=== PATIENT | male | born 1970 | race Caucasian/White ===

== ENCOUNTER → 2018-06-01 15:56 | Outpatient (CLI) | payer OTHER, SELFPAY ==
[2018-06-01 18:03] LABS: AST(SGOT) 42 U/L (15-37); Alanine Aminotransfer ALT/SGPT 68 U/L (16-61); Anion Gap 11 (5-15); BUN 20 mg/dL (7-18); BUN/Creat Ratio 22.6 RATIO (10-20); Calcium,Total 9.1 mg/dL (8.5-10.1); Chloride 107 mmol/L (98-107); Cholesterol 167 mg/dL (200); Creatinine, Serum 0.88 mg/dL (0.70-1.30); EST Glomerular Filtration Rate 99 mL/min (>60); Est Glom Filt Rate - Afr Amer 119 mL/min (>60); Glucose 85 mg/dL (74-106); High Density Lipoprotein 54 mg/dL; Potassium 3.9 mmol/L (3.5-5.1); Sodium Level 141 mmol/L (136-145); Triglycerides 173 mg/dL; Very Low Density Lipoprotein 35 mg/dL (5-40)
== END ==
PROVIDERS: Family Provider Family Medicine; PCP Family Medicine; Visit Provider Family Medicine
DX: I10 Essential (primary) hypertension (principal); E78.5 Hyperlipidemia, unspecified
CPT/HCPCS: 36415; 80048; 80061; 84450; 84460

== ENCOUNTER → 2019-06-15 | Outpatient (CLI) | payer OTHER, SELFPAY ==
[2017-08-02 13:56] VITALS: BMI 28.7
[2019-06-15 18:09] LABS: Anion Gap 8 (5-15); BUN 22 mg/dL (7-18); BUN/Creat Ratio 22.3 RATIO (10-20); Calcium,Total 9.2 mg/dL (8.5-10.1); Chloride 108 mmol/L (98-107); Cholesterol 282 mg/dL (200); Creatinine, Serum 0.99 mg/dL (0.70-1.30); EST Glomerular Filtration Rate 86 mL/min (>60); Est Glom Filt Rate - Afr Amer 105 mL/min (>60); Glucose 95 mg/dL (74-106); High Density Lipoprotein 55 mg/dL; Potassium 4.4 mmol/L (3.5-5.1); Sodium Level 138 mmol/L (136-145); Triglycerides 398 mg/dL; Very Low Density Lipoprotein 80 mg/dL (5-40)
== END | disposition home or self-care (01) ==
LOC: MFPLAB 16:31
PROVIDERS: Family Provider Family Medicine; PCP Family Medicine; Referring Provider Family Medicine; Visit Provider Family Medicine
DX: I10 Essential (primary) hypertension (principal)
CPT/HCPCS: 36415; 80048; 80061

== ENCOUNTER → 2020-06-07 16:56 | Outpatient (CLI) | payer OTHER, SELFPAY ==
[2017-08-02 13:56] VITALS: BMI 28.7
[2020-06-07 18:19] LABS: AST(SGOT) 86 U/L (15-37); Alanine Aminotransfer ALT/SGPT 115 U/L (16-61); Anion Gap 6 (5-15); BUN 19 mg/dL (7-18); BUN/Creat Ratio 21.6 RATIO (10-20); Calcium,Total 9.1 mg/dL (8.5-10.1); Chloride 108 mmol/L (98-107); Cholesterol 189 mg/dL (200); Creatinine, Serum 0.88 mg/dL (0.70-1.30); EST Glomerular Filtration Rate 98 mL/min (>60); Est Glom Filt Rate - Afr Amer 119 mL/min (>60); Glucose 84 mg/dL (74-106); High Density Lipoprotein 61 mg/dL; Potassium 3.9 mmol/L (3.5-5.1); Sodium Level 138 mmol/L (136-145); Triglycerides 295 mg/dL; Very Low Density Lipoprotein 59 mg/dL (5-40)
== END ==
PROVIDERS: PCP Family Medicine; Referring Provider Family Medicine; Visit Provider Family Medicine
DX: I10 Essential (primary) hypertension (principal); E78.00 Pure hypercholesterolemia, unspecified
CPT/HCPCS: 36415; 80048; 80061; 84450; 84460

== ENCOUNTER → 2021-06-20 13:35 | Outpatient (CLI) | payer OTHER, SELFPAY ==
[2021-06-20 16:15] LABS: AST(SGOT) 111 U/L (15-37); Alanine Aminotransfer ALT/SGPT 125 U/L (16-61); Anion Gap 9 (5-15); BUN 13 mg/dL (7-18); BUN/Creat Ratio 14.4 RATIO (10-20); Calcium,Total 8.9 mg/dL (8.5-10.1); Chloride 104 mmol/L (98-107); Cholesterol 176 mg/dL (200); EST Glomerular Filtration Rate 95 mL/min (>60); Est Glom Filt Rate - Afr Amer 115 mL/min (>60); Glucose 225 mg/dL (74-106); High Density Lipoprotein 49 mg/dL; Potassium 3.5 mmol/L (3.5-5.1); Sodium Level 136 mmol/L (136-145); Triglycerides 349 mg/dL; Very Low Density Lipoprotein 70 mg/dL (5-40)
== END ==
PROVIDERS: PCP Family Medicine; Referring Provider Family Medicine; Visit Provider Family Medicine
DX: I10 Essential (primary) hypertension (principal); E78.00 Pure hypercholesterolemia, unspecified
CPT/HCPCS: 36415; 80048; 80061; 84450; 84460

== ENCOUNTER 2021-12-10 | Emergency (ER) | payer OTHER, SELFPAY ==
[2021-12-10 00:04] VITALS: BP 164/108; PULSE 76; RESP 16; TEMP 36.4; O2SAT 98; BMI 29.5
--- NOTE | 2021-12-10 00:35 | EX.ED.VIS.EY ---
HPI History of Present Illness Chief Complaint: Eye Problem Narrative Narrative: 51-year-old male presenting with right eye tearing and blurring of vision. Patient states he was out hunting today and a piece of grass poked him in the eye. His eye watering since then. He is a noncontact wearer. He does have history of foreign body in his eye previously and states he had to get a metal foreign body and a rust ring removed. This was distantly. PFSH PFSH Home Medications carvedilol 25 mg PO BID 08/02/17 [History Last Taken Unknown] lisinopril [Zestril] 40 mg PO DAILY 08/02/17 [History Last Taken Unknown] erythromycin 0.5 inch EACH EYE Q6H 5 Days #3.5 g 12/10/21 [Rx Last Taken Unknown] ketorolac 1 drp EACH EYE Q8H PRN #5 ml 12/10/21 [Rx Last Taken Unknown] simvastatin 40 mg PO DAILY 12/10/21 [History Last Taken Unknown] Allergy/AdvReac Type Severity Reaction Status Date / Time No Known Allergies Allergy Verified 12/10/21 00:01 Social History Smoking Status: Former smoker ROS ROS ED Constitutional Constitutional ED: Denies chills or fever(s) Eyes Eyes: Reports blurry vision right ENT ENT ED: Denies ear pain or rhinorrhea Cardiovascular Cardiovascular: Denies chest pain or palpitations Respiratory/Chest Respiratory/Chest: Denies cough or dyspnea Gastrointestinal Gastrointestinal: Denies abdominal pain or nausea Genitourinary Genitourinary ED: Denies dysuria or hematuria Musculoskeletal Musculoskeletal: Denies arthralgias or myalgias Integumentary Denies Abrasions or rash Neurologic Neurologic: Denies headache(s) or paresthesias EXAM Physical Exam Const Vital Signs: 12/10/21 00:04 Temperature 97.5 F L Temperature Source Temporal Pulse Rate 76 Respiratory Rate 16 Blood Pressure 164/108 H Blood Pressure Mean 126 Pulse Ox 98 Oxygen Delivery Method Room Air Positive well nourished General Appearance ED: NAD HEENT atraumatic Eyes General Eye ED: Yes normal light reflex Eyelid: eyelids normal Conjunctiva: conjunctiva abnormal bilateral injection diffuse Sclera: sclera abnormal Positive for bilateral Details: scleral injection Cornea: cornea abnormal Positive for right Cornea - Right Eye: Positive for abrasion Positive for at clock position (5) and fluorescein used Pupil: PERRL and accommodation reflex normal Cardio regular rate and regular rhythm Neuro oriented x3 Sensorium / Orientation: alert Skin Rashes: no rashes MDM MDM MDM Narrative Medical decision making narrative: Patient has corneal abrasion at the 5 o'clock position of the right eye. This is affecting his vision however after tetracaine was instilled he states his vision had improved. Some of this is due to watering. Patient is a noncontact wearer who was started on erythromycin ophthalmic. He is also given ketorolac eyedrops. He will follow-up with ophthalmology to ensure resolution. No foreign bodies were noted in the patient's eye. Impression: 1. corneal abrasion Discharge Plan Triage Chief Complaint: Eye Problem ED Provider: Grant Rodgers Dx/Rx/DC Orders Instructions: ED Corneal Abrasion Prescriptions: New erythromycin 5 mg/gram (0.5 %) ointment 0.5 inch EACH EYE Q6H 5 Days Qty: 3.5 RF: 1 ketorolac 0.5 % drops 1 drp EACH EYE Q8H PRN (Reason: pain) Qty: 5 RF: 0 No Action carvedilol 25 MG tablet 25 mg PO BID RF: 0 lisinopril [Zestril] 40 MG tablet 40 mg PO DAILY RF: 0 simvastatin 40 mg tablet 40 mg PO DAILY RF: 0 Primary Care Provider: Nicki Luis Referrals: Nicki Luis MD [Primary Care Provider] - Daljit Romero MD [STAFF PHYSICIAN] - 3-5 Days if not improving Disposition Disposition: Home, Self Care
[2021-12-10] MEDS: Erythromycin Base 1 OPTH.TUBE 1 APPLIC RIGHT EYE (01:01)
[2021-12-10] MEDS: Tetracaine 0.5% Ophthalmic Bottle 1 DRP RIGHT EYE (01:08)
[2021-12-10] MEDS: Fluorescein 1 MG STRIP 1 STRIP RIGHT EYE (01:10)
== END 2021-12-10 01:11 | disposition home or self-care (01) ==
LOC: ED 00:36
PROVIDERS: Emergency Provider Student in an Organized Health Care Education/Training Program; PCP Family Medicine; Visit Provider Student in an Organized Health Care Education/Training Program
DX: S05.00XA Injury of conjunctiva and corneal abrasion without foreign body, unspecified eye, initial encounter (principal); W25.XXXA Contact with sharp glass, initial encounter; Y93.9 Activity, unspecified; Y92.9 Unspecified place or not applicable; Z87.891 Personal history of nicotine dependence
CPT/HCPCS: 99282

== ENCOUNTER → 2022-07-03 | Outpatient (CLI) | payer OTHER, SELFPAY ==
[2022-07-03 18:28] LABS: Anion Gap 11 (5-15); BUN 19 mg/dL (7-18); BUN/Creat Ratio 21.6 RATIO (10-20); Calcium,Total 9.4 mg/dL (8.5-10.1); Chloride 107 mmol/L (98-107); Cholesterol 164 mg/dL (200); Creatinine, Serum 0.88 mg/dL (0.70-1.30); EST Glomerular Filtration Rate 98 mL/min (>60); Est Glom Filt Rate - Afr Amer 118 mL/min (>60); Glucose 86 mg/dL (74-106); High Density Lipoprotein 52 mg/dL; Potassium 4.6 mmol/L (3.5-5.1); Sodium Level 139 mmol/L (136-145); Triglycerides 181 mg/dL; Very Low Density Lipoprotein 36 mg/dL (5-40)
== END | disposition home or self-care (01) ==
LOC: MFPLAB 17:01
PROVIDERS: PCP Family Medicine; Referring Provider Family Medicine; Visit Provider Family Medicine
DX: Z00.00 Encounter for general adult medical examination without abnormal findings (principal); I10 Essential (primary) hypertension; R73.03 Prediabetes
CPT/HCPCS: 36415; 80048; 80061; 84153; G0103

== ENCOUNTER 2022-12-15 11:02 | Emergency (ER) | payer OTHER, SELFPAY ==
[2022-12-15 11:03] VITALS: BP 131/102; PULSE 85; RESP 14; TEMP 36.1; O2SAT 98; BMI 29.0
--- NOTE | 2022-12-15 11:21 | EDS_ITS ---
HPI History of Present Illness Chief Complaint: Back Onset/Context/Timing Onset: Days (5) Context: Gradual Onset Timing: Continuous Quality: Sharp, Aching and Burning Location: Lumbar and Right Leg Maximum Severity: Severe Worsened by: improves with - (Certain movements and positions) Relieved by: - (Stretching exercises) Associated Symptoms Associated Symptoms: Numbness, Tingling and Radiation to Right Leg; Negative for Radiation to Left Leg, Fever, Abdominal Pain, Dysuria, Unable to Ambulate, Unable to Transfer, Urinary Retention, Urinary Incontinence, Constipation or Fecal Incontinence Narrative Narrative: Patient presents with back pain that has been getting worse over the last 5 days. Patient states it is in the right side of his low back. Patient states it radiates into his right inguinal area and down the anterior medial aspect of his right thigh. Patient states it has been constant. Patient describes it as sharp, aching, and burning. Patient states that it feels better after doing some stretching exercises. Patient states it is worse with certain movements. Patient does admit to some numbness and tingling in the anterior medial aspect of his right thigh. Patient denies any fevers or chills. Patient denies any abdominal pain. Patient denies any dysuria or hematuria. Patient denies any incontinence of urine or stool. Patient denies any saddle anesthesia. Patient denies any pain on the left side. [facility] Medical History (Updated 12/15/22 @ 14:[address] Ollie Ko, ) Hyperlipidemia Hypertension Psoriasis Home Medications carvedilol 25 mg tablet 25 mg PO BID BLOOD PRESSURE 08/02/17 [History Last Taken Unknown] lisinopril 40 mg tablet (Zestril) 40 mg PO DAILY BLOOD PRESSURE 08/02/17 [History Last Taken Unknown] erythromycin 5 mg/gram (0.5 %) eye ointment 0.5 inch EACH EYE Q6H 5 days #3.5 grams 12/10/21 [Rx Last Taken Unknown] ketorolac 0.5 % eye drops 1 drp EACH EYE Q8H PRN pain #5 mL 12/10/21 [Rx Last Taken Unknown] simvastatin 40 mg tablet 40 mg PO DAILY 12/10/21 [History Last Taken Unknown] hydrocodone-acetaminophen 5-325mg 5mg-325mg 1 tab PO Q6H PRN PRN Pain 3 days #10 TABLETS 12/15/22 [Rx Last Taken Unknown] prednisone 20 mg tablet 60 mg PO DAILY #15 TABLETS 12/15/22 [Rx Last Taken Unknown] Allergy/AdvReac Type Severity Reaction Status Date / Time No Known Allergies Allergy Verified 12/15/22 11:03 Surgical History no surgical history no surgical history Social History Smoking Status: Former smoker ROS ROS ED Constitutional Constitutional ED: Denies chills or fever(s) Eyes Eyes: Denies blurry vision or change in vision ENT ENT ED: Denies rhinorrhea or sore throat Cardiovascular Cardiovascular: Denies chest pain or palpitations Respiratory/Chest Respiratory/Chest: Denies cough or dyspnea Gastrointestinal Gastrointestinal: Denies nausea or vomiting Genitourinary Genitourinary ED: Denies dysuria or hematuria Musculoskeletal Musculoskeletal: Reports back pain; Denies neck pain Integumentary Denies abscess or rash Neurologic Neurologic: Denies headache(s) or weakness Allergic/Immunologic Allergic/Immunologic ED: Denies mouth swelling or urticaria EXAM Physical Exam Const Vital Signs: 12/15/22 11:03 12/15/22 14:39 Temperature 97 F L Temperature Source Temporal Pulse Rate 85 71 Respiratory Rate 14 18 Blood Pressure 131/102 H 137/91 H Blood Pressure Mean 111 106 Pulse Ox 98 97 Oxygen Delivery Method Room Air Room Air Positive well nourished and well developed General Appearance ED: well developed and NAD HEENT Reports moist mucous membranes Neck supple and no JVD Resp normal respiratory effort and clear to auscultation bilaterally Cardio regular rate and regular rhythm GI normal to inspection, nondistended, normoactive bowel sounds, soft to palpation, non-tender, non-distended and no masses GI Narrative: There is no inguinal hernia noted. Back/Spine Back/Spine Narrative: There is mild tenderness over the right lumbar paraspinal muscles. There is no edema or ecchymosis. There is no bony crepitance or step-off. Range of motion was limited in all motions of the lumbar spine secondary to pain. Straight leg raises were negative bilaterally. Strength is 5/5 bilaterally in the lower extremities. There are no sensory deficits noted. Deep tendon reflexes are 2/4 bilaterally in the lower extremities. Patient was able ambulate without difficulty. Lumbar Spine / Lower Back: ROM limited and straight leg raise negative bilaterally Extremity normal to inspection General Extremety ED: Negative for edema or tenderness General Extremity: Negative for edema Neuro oriented x3 and no sensory deficits noted Sensorium / Orientation: alert Motor Exam: strength 5/5 throughout Deep Tendon Reflexes: Rt Patellar (L4): 2+, Lt Patellar (L4): 2+, Rt Ankle (S1): 2+ and Lt Ankle (S1): 2+ Deep Tendon Reflexes Back: Rt Patellar (L4): 2+, Lt Patellar (L4): 2+, Rt Ankle (S1): 2+ and Lt Ankle (S1): 2+ Psych mental status grossly normal MDM MDM MDM Narrative Medical decision making narrative: Patient was given injection of morphine here. Differential diagnosis includes muscle strain, lumbar radiculopathy, inguinal hernia, renal calculus, femoral hernia, and pyelonephritis, urinary tract infection. CBC will be obtained to assess for leukocytosis and anemia. Basic metabolic profile will be obtained to assess for renal function and electrolyte abnormality. Urinalysis will be obtained to assess for urinary tract infection and hematuria. CT scan of the abdomen pelvis will be obtained to assess for renal/ureteral calculus, and inguinal/femoral hernia, along with musculoskeletal abnormality. Lab Data Lab results narrative: CBC was reviewed and was within normal limits. Basic metabolic profile was reviewed and was within normal limits. Urinalysis was reviewed and was normal. Labs: Laboratory Results - last 24 hr 12/15/22 12/15/22 12/15/22 11:52 11:52 14:07 WBC 7.7 RBC 4.70 Hgb 15.7 Hct 46.8 MCV 99.6 H MCH 33.4 H MCHC 33.5 RDW Std Deviation 45.7 H RDW Coeff of Mitzy 12.6 Plt Count 212 MPV 10.9 Immature Gran % (Auto) 0.400 Neut % (Auto) 69.0 Lymph % (Auto) 17.9 L Mcculloch % (Auto) 9.3 Eos % (Auto) 3.1 Baso % (Auto) 0.3 Absolute Neuts (auto) 5.3 Absolute Lymphs (auto) 1.38 Nucleated RBC % 0 Sodium 142 Potassium 3.9 Chloride 109 H Carbon Dioxide 23.0 Anion Gap 10 BUN 12 Creatinine 0.91 Estim Creat Clear Calc 106.59 Est GFR (MDRD) Af Amer 113 Est GFR (MDRD) Non-Af 93 BUN/Creatinine Ratio 13.1 Glucose 132 H Calcium 9.4 Urine Color Yellow Urine Clarity Clear Urine pH 6.0 Ur Specific Homer 1.020 Urine Protein 100 H Urine Glucose (UA) Normal Urine Ketones 5 H Urine Occult Blood Negative Urine Nitrite Negative Urine Bilirubin Negative Urine Urobilinogen Normal Ur Leukocyte Esterase Negative Urine RBC 0 SEEN Urine WBC 0 SEEN Ur Squamous Epith Cells 0 SEEN Urine Bacteria 0 SEEN Urine Mucus 1+ Radiography Diagnostic Testing: Clinical Impression(s) from Imaging Studies Abdomen/Pelvis CT 12/15/22 11:29 IMPRESSION: 1. No acute abnormality or mass in the abdomen and pelvis. 2. Pronounced central canal stenosis at L3-L4 disc space level with an AP canal diameter of 4.6 mm secondary to posterior bulging annulus and developmentally short pedicles. 3. Moderate central canal stenosis at L4-L5 disc space level with an AP canal diameter 7.5 mm secondary to posterior bulging annulus and developmentally short pedicles. 4. Moderately pronounced stenosis of the bilateral L5-S1 intervertebral neural foramina and pronounced L5-S1 degenerative disc space height narrowing. Electronically Signed: Kemar Queasda MD at 12:38 EST , CT scan of the abdomen pelvis was obtained. On my independent review, there is no acute intra-abdominal abnormality. There is no ureteral calculus. Radiologist also interpreted the CT scan and noted some central canal stenosis at L3-L4, and L4-L5. There is also stenosis of the L5-S1 neuroforamina. Treatment and Re-Evaluation Narrative: Patient was still having some pain on reevaluation. Patient was advised of his findings. Patient was given a repeat dose of morphine. Patient was given a prescription for [place]. Patient was given a prescription for prednisone. Patient was instructed to use ice to his low back. Patient was given restrictions for work. Patient was instructed to follow-up with his primary care physician in 5 to 7 days. Patient understood and was agreeable with the plan. All questions were answered. Discharge Plan Triage Chief Complaint: Back ED Provider: Ollie Ko Dx/Rx/DC Orders Clinical Impression: Acute low back pain, Lumbar disc disease Instructions: ED Back Pain (Acute or Chronic), ED Degenerative Disk Disease Prescriptions: New hydrocodone-acetaminophen [hydrocodone-acetaminophen] 5-325 mg tablet 1 tab PO Q6H PRN PRN (Reason: Pain) 3 Days Qty: 10 0RF prednisone 20 mg tablet 60 mg PO DAILY Qty: 15 0RF No Action carvedilol 25 MG tablet 25 mg PO BID Label Comments: heart lisinopril [Zestril] 40 MG tablet 40 mg PO DAILY Label Comments: blood pressure/heart simvastatin 40 mg tablet 40 mg PO DAILY erythromycin 5 mg/gram (0.5 %) ointment 0.5 inch EACH EYE Q6H 5 Days Qty: 3.5 1RF ketorolac 0.5 % drops 1 drp EACH EYE Q8H PRN (Reason: pain) Qty: 5 0RF Rx Instructions: begin 24 hours prior to surgery Stand Alone Forms: Work Status Form Primary Care Provider: Nicki Luis Referrals: Nicki Luis MD [Primary Care Provider] - 3-5 Days Disposition Disposition: Home, Self Care
--- NOTE | 2022-12-15 11:29 | CT_ITS ---
EXAM: CT ABDOMEN AND PELVIS WITHOUT INTRAVENOUS CONTRAST CLINICAL INDICATION: Back and inguinal pain TECHNIQUE: Helically acquired images were obtained of the abdomen and pelvis without intravenous contrast. This CT exam was performed using one or more of the following dose reduction techniques: automated exposure control, adjustment of the mA and/or kV according to patient size, and/or use of iterative reconstruction technique. This report was created using [employer] report generation technology. RADIATION DOSE: CTDIvol = 16.71 mGy, DLP = 1010.45 mGy-cm COMPARISON: None. FINDINGS: LOWER THORAX: Unremarkable. Lung bases are clear. No cardiomegaly. No significant pericardial effusion. ABDOMEN: LIVER: Unremarkable. Homogeneous. GALLBLADDER AND BILE DUCTS: Unremarkable. No calcified gallstones. No gallbladder distention or wall edema. No intra- or extrahepatic biliary ductal dilation. PANCREAS: Unremarkable. No focal cystic mass. SPLEEN: Unremarkable. Normal size without focal cystic or solid mass. ADRENALS: Unremarkable. No nodules. KIDNEYS AND URETERS: Unremarkable. Normal renal size and position. No hydronephrosis. STOMACH AND BOWEL: Unremarkable. No stomach or bowel distention. No focal inflammatory change. PELVIS: APPENDIX: Normal. BLADDER: Unremarkable. REPRODUCTIVE: Unremarkable as visualized. No mass. ABDOMEN and PELVIS: INTRAPERITONEAL SPACE: Unremarkable. No ascites or other fluid collection. No free air. BONES/JOINTS: Pronounced central canal stenosis at L3-L4 disc space level with an AP canal diameter of 4.6 mm secondary to posterior bulging annulus and developmentally short pedicles. Moderate central canal stenosis at L4-L5 disc space level with an AP canal diameter of 7.5 mm secondary to posterior bulging annulus and developmentally short pedicles. Pronounced L5-S1 disc space height narrowing. Moderately pronounced stenosis of the bilateral L5-S1 intervertebral neural foramina. No suspicious lytic or blastic abnormality. SOFT TISSUES: Unremarkable. No discrete abdominal or pelvic wall hernia. VASCULATURE: Unremarkable. Abdominal aorta is non-dilated. LYMPH NODES: Unremarkable. No enlarged lymph nodes. CT/Abdomen/Pelvis without Cont IMPRESSION: 1. No acute abnormality or mass in the abdomen and pelvis. 2. Pronounced central canal stenosis at L3-L4 disc space level with an AP canal diameter of 4.6 mm secondary to posterior bulging annulus and developmentally short pedicles. 3. Moderate central canal stenosis at L4-L5 disc space level with an AP canal diameter 7.5 mm secondary to posterior bulging annulus and developmentally short pedicles. 4. Moderately pronounced stenosis of the bilateral L5-S1 intervertebral neural foramina and pronounced L5-S1 degenerative disc space height narrowing. Electronically Signed: Kemar Quesada MD at 12:38 EST ,
[2022-12-15] MEDS: Morphine 4 MG/ML Syringe IV ×2 (11:50→14:46)
[2022-12-15] MEDS: 0.9% Normal Saline 1,000 ML 1000 ML IV (11:50)
[2022-12-15 12:14] LABS: Absolute Lymphocyte Count 1.38 X10^3/uL (0.83-4.51); Absolute Neutrophil Count 5.3 X10^3/uL (2.0-7.7); Basophil# 0.02 X10^3/uL; Basophil% 0.3 % (0-1); Eosinophil# 0.24 X10^3/uL; Eosinophils% 3.1 % (0-5); Hematocrit 46.8 % (40-54); Hemoglobin 15.7 g/dL (13.0-16.5); Lymphocyte # 1.38 X10^3/ul (0.83-4.51); Lymphocyte % 17.9 % (19-41); Mean Corp Hgb Conc 33.5 g/dL (32-36); Mean Corpuscular Hgb 33.4 pg (27.0-32.0); Mean Corpuscular Volume 99.6 fL (80-94); Mean Platelet Vol. 10.9 fl (6.2-12.0); Monocyte# 0.72 X10^3/uL; Monocyte% 9.3 % (0-10); NRBC Flagged by Analyzer 0 % (0-5); Neutrophil # 5.33 X10^3/uL (2.7-7.7); Platelet Count 212 K/mm3 (150-450); RBC Distribution Width CV 12.6 % (11.6-14.6); RBC Distribution Width SD 45.7 fl (35.1-43.9); White Blood Count 7.7 K/mm3 (4.4-11.0)
[2022-12-15 12:39] LABS: Anion Gap 10 (5-15); BUN 12 mg/dL (7-18); BUN/Creat Ratio 13.1 RATIO (10-20); Calcium,Total 9.4 mg/dL (8.5-10.1); Chloride 109 mmol/L (98-107); Creatinine, Serum 0.91 mg/dL (0.70-1.30); EST Glomerular Filtration Rate 93 mL/min (>60); Est Glom Filt Rate - Afr Amer 113 mL/min (>60); Estimated Creatinine Clearance 106.59 ml/min; Glucose 132 mg/dL (74-106); Potassium 3.9 mmol/L (3.5-5.1); Sodium Level 142 mmol/L (136-145)
[2022-12-15 14:14] LABS: Bacteria 0 SEEN /hpf (None Seen); Red Blood Cells-Urine 0 SEEN /hpf (0-5); Squamous Epithelial Cells - UA 0 SEEN /hpf (0-5); White Blood Cells 0 SEEN /hpf (0-5)
[2022-12-15 14:17] LABS: Color, Urine Yellow (Yellow); Glucose, Dipstick Normal (Normal); Ketone-Dipstick 5 mg/dl (Negative); Leukocyte Esterase-Dipstick Negative /ul (Negative); Nitrite-Dipstick Negative (Negative); Occult Blood-Urine Negative /ul (Negative); Protein-Dipstick 100 mg/dl (Negative); Urine Bilirubin Dipstick Negative (Negative); Urine Clarity Clear (Clear); Urine Urobilinogen Normal (Normal)
[2022-12-15 14:29] LABS: Mucous, Urine 1+ /hpf (<or=2+)
[2022-12-15 14:39] VITALS: BP 137/91; PULSE 71; RESP 18; O2SAT 97
== END 2022-12-15 15:29 | disposition home or self-care (01) ==
PROVIDERS: Emergency Provider Emergency Medicine; PCP Family Medicine; Visit Provider Emergency Medicine
DX: M51.16 Intervertebral disc disorders with radiculopathy, lumbar region (principal); E78.5 Hyperlipidemia, unspecified; I10 Essential (primary) hypertension; M51.26 Other intervertebral disc displacement, lumbar region; M48.061 Spinal stenosis, lumbar region without neurogenic claudication; Z79.899 Other long term (current) drug therapy; Z87.891 Personal history of nicotine dependence
CPT/HCPCS: 74176; 80048; 81001; 85025; 96361; 96374; 96376; 99283; J7030; A4216

== ENCOUNTER → 2022-12-19 | Outpatient (CLI) | payer OTHER, SELFPAY ==
--- NOTE | 2022-12-19 13:57 | MRI_ITS ---
HISTORY: Low back and right leg pain. TECHNIQUE: Multiplanar and multisequence MR images of the lumbar spine were obtained without intravenous contrast. 128 images. COMPARISON: XR same day, CT 12/15/2022. FINDINGS: VERTEBRAE: Vertebral body heights maintained. Degenerative bone marrow endplate changes of L1-2, L4-5, and L5-S1. Anterior osteophytes of L1-2 and L5-S1. ALIGNMENT: No anterior or posterior subluxation. CONUS: Normal morphology and position of the conus medullaris at L1-2. INTERVERTEBRAL DISCS: T12-L1: Minimal disc bulge without significant central canal stenosis or foraminal narrowing based on the sagittal images. L1-2: Minimal disc bulge with facet arthropathy superimposed on a developmentally narrow spinal canal resulting in minimal narrowing of the thecal sac and mild bilateral foraminal narrowing. L2-3: Minimal disc bulge with facet arthropathy superimposed on a developmentally narrow spinal canal resulting in mild central canal stenosis and bilateral foraminal narrowing. L3-4: Mild disc bulge with facet arthropathy superimposed on a developmentally narrow spinal canal resulting in severe central canal stenosis and moderate bilateral foraminal narrowing. Superimposed right paracentral disc extrusion with inferior migration extending into the right lateral recess with right L4 nerve root impingement. L4-5: Mild disc bulge with facet arthropathy superimposed on a developmentally narrow spinal canal resulting in moderate central canal stenosis with bilateral foraminal narrowing. L5-S1: Posterior disc bulge osteophyte complex with facet arthropathy superimposed on a developmentally narrow spinal canal resulting in mild spinal canal stenosis and moderate bilateral foraminal narrowing. SOFT TISSUES: Mild posterior subcutaneous cutaneous edema. MRI/Spine Lumbar (Routine) IMPRESSION: Right paracentral disc extrusion of L3-4 with inferior migration extending into the right lateral recess with L4 nerve root impingement. Severe spinal canal stenosis and moderate bilateral foraminal narrowing at this level. Multilevel degenerative disc disease superimposed on a developmentally narrow spinal canal as above. Electronically Signed: Jolene Chaves MD at 15:15 EST ,
--- NOTE | 2022-12-19 14:15 | RAD_ITS ---
STUDY: X-RAY - ORBITS REASON FOR EXAM: Male, 52 years old. HX METAL TO EYE,,PRE MRI TECHNIQUE: 2 view(s) of the orbits were obtained. COMPARISON: None. FINDINGS: Normal bilateral orbits without a metallic orbital foreign body. Normal visualized facial bones. Normal paranasal sinuses. The soft tissue structures are unremarkable. RAD/Orbits for Foreign Body IMPRESSION: No demonstrated metallic orbital foreign body. The patient is cleared for an MRI examination. Electronically Signed: Tima Jessica MD at 14:28 EST ,
== END | disposition home or self-care (01) ==
LOC: MRI 13:57
PROVIDERS: PCP Family Medicine; Referring Provider Orthopaedic Surgery; Visit Provider Orthopaedic Surgery
DX: M54.50 Low back pain, unspecified (principal); M51.9 Unspecified thoracic, thoracolumbar and lumbosacral intervertebral disc disorder
CPT/HCPCS: 70030; 72148

== ENCOUNTER → 2023-01-09 | Outpatient (CLI) | payer OTHER, SELFPAY ==
--- NOTE | 2023-01-09 07:30 | ECHOCS_ITS ---
Reason For Study: Abnormal EKG Procedure This was a 2D Doppler, Color Flow transthoracic echocardiogram. The study was technically difficult. Contrast injection was performed. Exam performed in department. Left Ventricle Normal left ventricle. The left ventricular ejection fraction is 60 %. Right Ventricle Normal right ventricle. Atria The left atrium is mildly enlarged. Normal right atrium. Mitral Valve The mitral valve is structurally normal. No prolapse or stenosis seen. Tricuspid Valve Normal tricuspid valve. Aortic Valve Normal aortic valve. Pulmonic Valve The pulmonic valve is not well visualized. Trivial eccentric pulmonic valve insufficiency. Great Vessels Normal sized aortic root. Pericardium/Pleural No pericardial effusion. Medication 20 gauge I.V. with prn adaptor inserted into left arm. Diluted definity 2ml given slow IV push to enhance endocardial definition. MMode/2D Measurements & Calculations LVIDd: 4.2 cm IVSd: 1.3 cm LA dimension: 4.2 cm RVDd: 3.6 cm LVPWd: 1.3 cm LAV(MOD-bp): 43.0 ml LA A4 area: 13.7 cm2 RA A4 area: 12.7 cm2 LAV(MOD-sp2): 54.5 ml LAV(MOD-sp4): 30.0 ml Time Measurements MV dec time: 0.25 sec Doppler Measurements & Calculations MV E max javon: 74.4 cm/sec Lat Peak E' Javon: 10.3 cm/sec Med Peak E' Javon: 7.0 cm/sec MV A max javon: 90.1 cm/sec E/E' lat: 7.2 E/E' med: 10.6 MV E/A: 0.83 MV V2 max: 90.3 cm/sec MV P1/2t max javon: 75.0 cm/sec Ao V2 max: 133.3 cm/sec MV max P.3 mmHg MV P1/2t: 94.9 msec Ao max P.1 mmHg MV V2 mean: 50.8 cm/sec Ao V2 mean: 86.8 cm/sec MV mean P.2 mmHg MV dec slope: 231.4 cm/sec2 Ao mean P.6 mmHg MV V2 VTI: 22.8 cm MVA(P1/2t): 2.3 cm2 Ao V2 VTI: 24.3 cm AV (velocity ratio): 0.76 LV V1 max: 104.1 cm/sec PA V2 max: 206.4 cm/sec LV V1 max P.3 mmHg LV V1 mean P.5 mmHg LV V1 mean: 73.4 cm/sec LV V1 VTI: 18.5 cm ECHO/Echo Complete W/ Contrast Interpretation Summary The left ventricular ejection fraction is 60 %. The left atrium is mildly enlarged. Ordering Physician: Unique Aldridge Performed By: Bobby Cotton RCS
--- NOTE | 2023-01-09 10:42 | STRESSREP ---
Stress Test Report Date: 01/09/2023 Procedure: Pharmacologic stress nuclear imaging study Indications: Abnormal EKG Consent: Per the patient Procedure: The patient underwent pharmacologic (Regadenoson 0.4mg ) evaluation with a peak heart rate of 100 beats per minute (58%predicted maximal heart rate) and a peak blood pressure of 122/78 mmHg. The baseline ECG demonstrated normal sinus rhythm with left bundle branch block. The peak pharmacologic ECG demonstrated no diagnostic changes secondary to underlying baseline abnormalities. There were no cardiac dysrhythmias pretest, during pharmacologic infusion, or recovery. There was no complaint of chest discomfort during pharmacologic infusion or recovery. The patient was injected with 15.0 millicuries of technetium 99m Cardiolite and subsequently rest SPECT Cardiolite nuclear imaging was obtained in the horizontal long, vertical long, and short axis views. The patient underwent pharmacologic (Regadenoson) evaluation. The patient was injected with 45.0 millicuries of technetium 99m Cardiolite and subsequently stress SPECT Cardiolite nuclear imaging was obtained in the horizontal long, vertical long, and short axis views. A gated Cardiolite study at peak stress was obtained. The examination was stopped secondary to completion of protocol. Rest and stress SPECT Cardiolite nuclear imaging status post realignment, normalization, and attenuation correction demonstrate uniform tracer uptake. There is end systolic thickening and brightening. The gated Cardiolite study demonstrates myocardial thickening and inward wall motion. The reported LVEF is 70%. Impression: 1. Pharmacologic (Regadenoson) evaluation 2. Peak pharmacologic ECG with no diagnostic changes secondary to baseline abnormalities. 3. There were no cardiac dysrhythmias pretest, during pharmacologic infusion, or recovery. 5. No fixed or reversible perfusion defects noted. 6. The gated Cardiolite study reports an LVEF of 70%. This note was generated with [employer] software. It may contain incorrect words, spelling, and punctuation that were not noted in checking the note before signing.
== END | disposition home or self-care (01) ==
PROVIDERS: Visit Provider Internal Medicine Cardiovascular Disease
DX: Z01.810 Encounter for preprocedural cardiovascular examination (principal); R94.31 Abnormal electrocardiogram [ECG] [EKG]
CPT/HCPCS: 78452; 93017; 93306; A9500; Q9957; A4216; C8929; J2785

== ENCOUNTER 2023-01-13 10:51 | Observation (INO) | payer OTHER, SELFPAY ==
--- NOTE | 2023-01-06 09:19 | EKG12_ITS ---
Test Reason : PRE OP Blood Pressure : / mmHG Vent. Rate : 068 BPM Atrial Rate : 068 BPM P-R Int : 202 ms QRS Dur : 150 ms QT Int : 410 ms P-R-T Axes : 034 -20 048 degrees QTc Int : 435 ms Normal sinus rhythm Left bundle branch block Abnormal ECG Confirmed by ALIZA HANNAH, SELENE ([id number]), editor managing newspaper TIBMO KELLER ([id number]) on 01/07/2023 11:02:34 AM Referred By: Alvaro Callahan Confirmed By:SELENE ABRAMS MD
[2023-01-06 10:36] LABS: Prothrombin Time (Protime)PT. 12.4 SECONDS (11.7-14.9)
[2023-01-06 10:37] LABS: Partial Thromboplast Time 27.2 Seconds (24.1-36.2)
[2023-01-06 11:05] LABS: AST(SGOT) 21 U/L (15-37); Alanine Aminotransfer ALT/SGPT 30 U/L (16-61); Albumin, Serum 4.3 g/dL (3.2-5.0); Alkaline Phosphatase 63 U/L (45-117); Bilirubin, Direct 0.07 mg/dL (0.00-0.30); Globulin 3.4 g/dL (2.2-4.2); Protein, Total 7.7 g/dL (6.4-8.2)
[2023-01-06 11:26] LABS: HIV - WCH Non-Reactive (Nonreactive); Hepatitis B Surface Antibody Non-Reactive; Hepatitis C Antibody Non-Reactive (Nonreactive)
[2023-01-07 20:54] LABS: Hepatitis A AB, Total Positive (Negative)
--- NOTE | 2023-01-10 11:56 | HP.PCM_ITS ---
History and Physical Addendum [facility] [address] [place] [address] OFFICE VISIT Date of Service:? 12/19/22 MR#: [id number] Acct: [id number] Name:NATE GARCIA Rep #: [id number] : 1970 ? ? Provider: Dr. Alvaro Callahan, DO Age/Sex:? 52/M ? ? Location[place] [facility] [email or web address] Status: Signed Intake Vital Signs ? 12/15/2310:03 12/19/2307:41 Height 6 ft 6 ft Weight: 214 lb 221 lb BMI 29.0 29.9 BP 131/102 H ? Respiration 14 ? Pulse 85 ? Temp 97 F L ? Temp Source Temporal ? Pulse Oximetry (%) 98 ? Intake Visit Reasons:?Lumbar Chief Complaint: low back pain, leg pain Accompanied by: Is patient in pain?: Yes Pain scale (1-10): 10 Allergies No Known Allergies Allergy (Verified 12/15/22 11:03) Medications carvedilol 25 mg tablet 25 mg PO BID BLOOD PRESSURE 08/02/17 [History Confirmed 12/19/22] lisinopril 40 mg tablet (Zestril) 40 mg PO DAILY BLOOD PRESSURE 08/02/17 [History Confirmed 12/19/22] simvastatin 40 mg tablet 40 mg PO DAILY 12/10/21 [History Confirmed 12/19/22] hydrocodone-acetaminophen 5-325mg 5mg-325mg 1 tab PO Q6H PRN PRN Pain 3 days #10 TABLETS 12/15/22 [Rx Confirmed 12/19/22] gabapentin 100 mg capsule 100 mg PO TID 12/19/22 [History Confirmed 12/19/22] PFSH Medical History? Hyperlipidemia Hypertension Psoriasis Social History? Smoking Status:? Former smoker HPI Lumbar Details: Parts of this documentation were recorded by a scribe, this documentation accurately reflects the service provided and the decisions made by me, Dr. Alvaro Callahan, DO 12/19/22826. NATE NIEVES is a 52 year old M here today for? low back pain that he has been having since 12/10/22. Denies any injury. He states that that he was driving to [place] and then on the way back he started feeling an achiness of the right anterior thigh and when he got home he had increased pain. He then states that on 12/11 he had difficulty standing straight and had a shooting pain down the right leg into the foot. He tried taking Ibuprofen and Tylenol for the pain which was somewhat helpful. He then worked 12/12 and he hasn't been able to return to work since. He then went to the ED Friday and he had a CT scan and was given morphine which didn't even help with the pain. He saw his PCP Friday and was given a Medrol dose pack and has been taking hydrocodone. He has also been started on Gabapentin. He is only able to sit for about 5 minutes at a time. He states that he is now having numbness of the right leg. He states that he gets relief with lumbar extension while he is on his stomach and in Corona pose. Denies any previous surgery or injections on the back. Denies any issues with bowel or bladder. This pain is interfering with his sleep and work. Nate is a most pleasant gentleman 52 years old that presents in the company of his .? The story is well explained in the paragraph above done by my scribe.? He is unable to work at this time.? 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 He has to crawl under above so forth and so on he simply is not able to do it because of this pain in the right side of his back his buttocks and down the anterior thigh on the right side.? He denies any bowel or bladder dysfunction. On examination he has very positive tension signs on the right side he has less pain with extension.? He has complete absence of the right patellar reflex and a 2+ on the left.? He does not have any wasting of the right quad yet but it is coming.? He has good motor strength in all the other major muscle groups of both lower extremities.? He has 2+ Achilles reflexes bilaterally.? He has no long tract signs.? Clonus is absent Babinski's are downgoing. He had a abdominal pelvic CT scan done in the emergency department not long ago but it was not a lumbar study.? Nonetheless they are claiming spinal stenosis down to 4-1/2 mm at L3-4.? Obviously he needs an MRI scan of the lumbar spine.? We were able to get 1 done today at 2:00.? Hopefully I will be able to see him tomorrow here in the clinic and make further recommendations.? I took him off work for now as he simply is not able to work.
[2023-01-13] VITALS (18 sets, daily range): BP systolic 101–136; BP diastolic 58–84; PULSE 59–97; RESP 12–18; TEMP 36–36.9; O2SAT 96–100
--- NOTE | 2023-01-13 | DISC_PTH ---
PATIENT: LILLIAN NIEVES LOC: MS3 U#:[id number] AGE/SX: 52/M ROOM: TX316 RE01/13/[address]: Dr. Alvaro Callahan DO : 1970 BED: 1 DIS: 01/14/2023 SPEC #: [id number] RECD: 01/13/23 16:53 STATUS: BERENICE REQ #: [id number] GINGER: 01/13/23 00:[address]: Alvaro Callahan DEPT: SURGICAL PATHOLOGY RECD BY: Chet Carpenter ENTERED: 01/14/23 10:03 SP TYPE: DISC OTHR DR: MD Dr. Cristel Zuniga MD Tissues: Intervertebral disc, NOS Procedures: Surgery Specimen Level III HEADER OPERATION: ERAS, lumbar laminectomy L3-4 PRE-OP DIAGNOSIS: [facility], L3-4 right TISSUE SUBMITTED: Disc material L3-4 right MICROSCOPIC DIAGNOSIS Disc L3-4 right, laminectomy: Fragments of fibrocartilaginous tissue and fibroconnective tissue with reactive and degenerative changes. MARIA C:chan 01/15/2023 MICROSCOPIC DESCRIPTION Slides are reviewed. GROSS DESCRIPTION Received in fixative is one container labeled with the patient's name and designated disc material L3-4 right. The specimen consists of multiple irregular fragments of portillo, indurated tissue that in aggregate measure 2.0 x 0.5 x 0.1 cm. The specimen is totally submitted in one cassette. / Héctor 01/14/2023 TC:5 CPT: 79301
[2023-01-13] MEDS: Acetaminophen 500 MG Tablet 1000 MG PO ×3 (06:20→20:24)
[2023-01-13] MEDS: Lactated Ringers 1,000 ML 15 ML IV (06:21)
[2023-01-13 07:16] LABS: Bedside Glucose 185 mg/dL (74-106)
[2023-01-13] MEDS: Insulin Lispro 100 UNIT/ML INSULN.PEN SC ×2 (07:30→16:33)
[2023-01-13] MEDS: Cefazolin 2 GM in 0.9% Normal Saline 100 ML IV (08:07)
[2023-01-13] MEDS: THROMBIN (RECOMBINANT) 20,000 UNIT VIAL 20000 UNIT TOPICAL (08:35)
--- NOTE | 2023-01-13 08:40 | RAD_ITS ---
STUDY: X-RAY - LUMBAR SPINE REASON FOR EXAM: Male, 52 years old. ERAS, LUMBAR LAMINECTOMY L3-4 TECHNIQUE: 1 view(s) of the lumbar spine were obtained. COMPARISON: None FINDINGS: The localization instrument is seen overlying the posterior aspect of the L4-L5 level. RAD/Spine 1 View Any Level IMPRESSION: The localization estimate this seen overlying the posterior aspect of the L4-L5 level. Electronically Signed: Tima Jessica MD at 8:55 EST ,
--- NOTE | 2023-01-13 10:55 | OP.PCM_ITS ---
Report of Operation Description of Surgical Findings:: Preoperative diagnosis: Herniated disc L3-4 with severe right L4 radiculopathy Postoperative diagnosis: The same Procedure: Lumbar laminectomy discectomy L3-4 on the right CPT code 32426 Surgeon: Dr. Callahan [employer] Operator: Yoselyn BRUNO Anesthesia: General endotracheal by [facility] Estimated blood loss: 30 cc Drains: None Complications: None Procedure: Patient was taken to the OR where he was placed under general endotracheal anesthesia a Wolfe catheter was inserted. Neuro monitoring placed her leads on the patient. He was then placed in prone position on the Smith frame. After appropriate positioning with care to protect his bony prominences his genitalia the brachial plexus bilaterally and the ulnar nerves ulnar nerves at both elbows the back was prepped and draped standard fashion. Then made a longitudinal incision over the area thought to be L3-4. Subcutaneous tissues were incised length of the skin incision. I then elevated the paravertebral muscles on the right side off of the lamina but a marker in place and took an intraoperative x-ray. We found that we were at L4-5 we extended the incision cephalad and moved up 1 level and marked it and continued elevated paravertebral muscles off the lamina of L3. Also exposed the top of the L4 lamina. We then elevated the ligamentum flavum off the underside of the lamina of L3. Using 45 degree Kerrison rongeurs the the laminectomy was started. Note that had to do a medial facetectomy of the inferior facet of L3 as it was quite medial. Then released the ligamentum flavum laterally and also off the medial facet of L4. The 45 degree Kerrison rongeurs were used then to perform the medial facetectomy of the inferior L4 facet. Then remove the ligamentum flavum starting in the midline and going lateralward all the way to the lateral recess. This gave us good access note we did have some brisk bleeding but not voluminous. Controlled with bipolar polar cautery and thrombin-soaked Gelfoam repeatedly. Was able to find the tear in the posterior annulus it was enlarged and some a nuclear dura was removed from the disc space itself. I knew that the free fragment had moved below the disc level and turns out it was right at the introitus to the foramen where the L for nerve exited. Thus why it was so painful. I was able to release it off the sides and removed it in several pieces. This completely freed up the L4 nerve root I also checked the foramen was found to be quite open. Note that thorough irrigation was carried out over 10 to 50 minutes in the course of the case. Once done we packed it repeatedly with thrombin-soaked Gelfoam until excellent hemostasis was obtained. We then put an amniotic membrane directly over the dura to prevent adhesions to form in the future. Gelfoam was placed over the top of that. Note that we were quite dry at this point and we felt that we did not need a drain. We closed the lumbar fascia using [id number] suture with #1 Vicryl. This was followed by closure of the subcutaneous tissues in layers with 0 Vicryl and 2-0 Vicryl. The skin was approximated using skin clips. Sterile dressing was then applied. The patient was then recovered in the OR moved to his hospital bed and taken to recovery in satisfactory condition. The end of operative summary on Nate Bowden. This is Dr. Callahan dictating.
[2023-01-13] MEDS: Lactated Ringers 1,000 ML 100 ML IV (11:18)
[2023-01-13 11:31] LABS: Bedside Glucose 153 mg/dL (74-106)
--- NOTE | 2023-01-13 15:59 | PN.HOSP_ITS ---
Reason for Visit Reason for Visit: Diagnoses Encounter for other preprocedural examination (01/13/23) Subjective Subjective Consult requested by Dr. Callahan for medical management Patient underwent a laminectomy and discectomy today for radicular pain in the right lower extremity. Currently the patient feels well. Prior to his surgery, patient was found to have left bundle branch block and underwent echocardiogram and stress test that were negative. Objective Data Objective Data Vital Signs: Vital Signs Temp Pulse Resp BP Pulse Ox O2 Del Method O2 Flow Rate 36.3 C L 90 18 123/75 H 96 Nasal Cannula 1 01/13/23 14:39 01/13/23 14:39 01/13/23 14:39 01/13/23 14:39 01/13/23 15:42 01/13/23 15:42 01/13/23 15:42 Oxygen Flow Rate (L/min) 1 Oxygen Delivery Method Nasal Cannula Weight: 100.55 kg Body Mass Index (BMI) 30.0 Intake & Output: Intake and Output for Last 24 Hours 01/11/23 01/12/23 01/13/23 23:59 23:59 23:59 Intake Total 1212 / 1212 Output Total 1500 / 1500 Balance -288 / -288 Lab / Micro Data Labs: Laboratory Results - last 24 hr 01/13/23 06:01: POC Glucose 185 H 01/13/23 11:11: POC Glucose 153 H Micro: Microbiology 01/06/23 09:39 Swab (Method) Nasal Screen MRSA/MSSA - Final Radiography Diagnostic Testing: Radiology Impression Spine X-Ray 01/13/23 08:40 IMPRESSION: The localization estimate this seen overlying the posterior aspect of the L4-L5 level. Electronically Signed: Tima Jessica MD at 8:55 EST , Physical Exam Const alert and no apparent distress HEENT head/scalp atraumatic and moist oral mucous membranes Resp normal respiratory effort, no retractions, no use of accessory muscles and clear to auscultation bilaterally Cardio regular rate, regular rhythm, S1 normal heart sound and S2 normal heart sound GI normal to inspection, nondistended, normoactive bowel sounds, soft to palpation, non-tender and non-distended Extremity normal to inspection Assessment & Plan Assessment/Plan (1) Diabetes: PLAN: Type II Diet controlled Patient informs me that his last A1c was 5.7. Expect his blood sugar to be more elevated in light of his recent surgery. Do not dissipate he will require any additional needs upon discharge, however. We will add sliding scale insulin. (2) Abnormal electrocardiogram: PLAN: Patient had a left bundle branch block. Underwent an echo and stress test were both unremarkable. No additional work-up at this time. PLAN: Plan Status post laminectomy and discectomy: Per spine surgery Chronic conditions * Hypertension: Continue with lisinopril and carvedilol * Hyperlipidemia: Continue with simvastatin VTE prophylaxis: Per primary service Thank you for the consult. The hospital service will continue to follow along during this patient's hospitalization Charges/Coding Visit Charges Office Visits / Consults: 99207 OP Consult L3
[2023-01-13] MEDS: Gabapentin 600 MG Tablet PO ×2 (16:03→20:24)
[2023-01-13] MEDS: oxyCODONE 5 MG Tablet PO (16:03)
[2023-01-13] MEDS: Cefazolin 1 GM/50 ML BAG IV ×2 (16:04→20:24)
[2023-01-13 16:56] LABS: Bedside Glucose 226 mg/dL (74-106)
[2023-01-13] MEDS: Atorvastatin Calcium 20 MG Tablet PO (20:24)
[2023-01-14] MEDS: Gabapentin 600 MG Tablet PO ×2 (06:02→14:17)
[2023-01-14] MEDS: Acetaminophen 500 MG Tablet 1000 MG PO ×2 (06:02→14:17)
[2023-01-14 08:15] LABS: Bedside Glucose 113 mg/dL (74-106)
--- NOTE | 2023-01-14 09:27 | CASEMGMT ---
MICHEL FANG Assessment: Face to Face with pt for initial transition planning/care coordination assessment. RN LEONCIO introduced self and role at [facility], pt voices understanding and consents to assessment. Pt is A/O x4 and answers all questions appropriately at this time. Pt lying in bed in no distress with at bedside. Care providers, pharmacy, and demographics verified/updated. Admitting Dx: lumbar laminectomy L3-4 rt PCP:Toby Specialists:[place], [place] Pharmacy: [facility] Retail Insurance: [facility] Prescription Benefit: yes LNOK: Rizwan Bowden, Living Arrangements: Pt lives with and 17 year old son in a two story home with 3 steps to enter. Pt has main living on first floor. Pt reports he is I in ADL's and denies concerns at home. Transportation: Pt drives self and denies concerns with transportation, to transport until pt able. DME/HHC/SNF: Pt has a shower chair, FWW, raised toilet seat and built in seat in shower. Pt denies hx of HHC or SNF stays. Pt states no concerns with going home at time of dc. will be working from home during pt recovery. Pt states no further concerns/needs. CM to follow. Advised pt to ask CM if any further question/concerns/needs arise, voices understanding. Pt Goal: Home Plan: Home
[2023-01-14 09:54] VITALS: BP 102/53; PULSE 86; RESP 18; TEMP 36.2; O2SAT 98
[2023-01-14] MEDS: diazePAM 5 MG Tablet PO (09:57)
[2023-01-14] MEDS: oxyCODONE 5 MG Tablet PO (11:00)
--- NOTE | 2023-01-14 12:28 | PN.HOSP_ITS ---
Reason for Visit Reason for Visit: Diagnoses Type 2 diabetes mellitus without complications (01/13/23) Abnormal electrocardiogram [ECG] [EKG] (01/13/23) Encounter for other preprocedural examination (01/13/23) Subjective Subjective Slight back tightness but overall feeling well Objective Data Objective Data Vital Signs: Vital Signs Temp Pulse Resp BP Pulse Ox O2 Del Method O2 Flow Rate 97.2 F L 86 18 102/53 L 98 Room Air 1 01/14/23 09:54 01/14/23 09:54 01/14/23 09:54 01/14/23 09:54 01/14/23 09:54 01/14/23 09:54 01/13/23 16:01 Oxygen Flow Rate (L/min) 1 Oxygen Delivery Method Room Air Weight: 100.55 kg Body Mass Index (BMI) 30.0 Intake & Output: Intake and Output for Last 24 Hours 01/12/23 01/13/23 01/14/23 23:59 23:59 23:59 Intake Total 1738.67 / 1738.67 1573.33 / 1573.33 Output Total 4250 / 4650 1400 / 1400 Balance -2511.33 / -2911.33 173.33 / 173.33 Lab / Micro Data Labs: Laboratory Results - last 24 hr 01/13/23 16:32: POC Glucose 226 H 01/14/23 07:45: POC Glucose 113 H Micro: Microbiology 01/06/23 09:39 Swab (Method) Nasal Screen MRSA/MSSA - Final Physical Exam Narrative General: Alert, oriented, no apparent distress HEENT: Atraumatic, normocephalic Eyes: Anicteric, normal conjunctiva, extraocular movements grossly intact Neck: Supple Respiratory: Clear to auscultation bilaterally, normal respiratory effort Cardiovascular: Regular rate and rhythm GI: Soft, nontender, nondistended Extremities: No edema Musculoskeletal: Moving all extremities Neuro: No overt focal neurological deficits Skin: No rashes appreciated Psych: Cooperative Assessment & Plan Assessment/Plan (1) Diabetes: PLAN: Type II Diet controlled Patient informs me that his last A1c was 5.7. Expect his blood sugar to be more elevated in light of his recent surgery. Do not dissipate he will require any additional needs upon discharge, however. We will add sliding scale insulin. 01/14: No changes recommended (2) Abnormal electrocardiogram: PLAN: Patient had a left bundle branch block. Underwent an echo and stress test were both unremarkable. No additional work-up at this time. PLAN: Plan Status post laminectomy and discectomy: Per spine surgery Chronic conditions * Hypertension: Continue with lisinopril and carvedilol * Hyperlipidemia: Continue with simvastatin VTE prophylaxis: Per primary service Charges/Coding Visit Charges Inpatient E&M: 34308 Subs Hosp L1
[2023-01-14 14:17] VITALS: BP 114/67; PULSE 94; RESP 18; TEMP 37; O2SAT 98
--- NOTE | 2023-01-14 14:42 | DCINST_ITS ---
Discharge Instructions Activity Return to work on:: 04/17/23 May shower in (days): 5 May resume sexual activity in: 4-6 weeks Weight Bearing Status: Full weight bearing Lifting Restrictions: 15# Dressing / Incision Remove Dressing in: 4 days Follow Up Care Test Results: Test results from this visit will be discussed in further detail at your follow- up appointment, if applicable. Discharge Plan Admission Admit Date/Time: 01/13/23 10:51 Primary Reason for Your Visit: back surgery Attending Provider: Alvaro Callahan Primary Care Provider: Nicki Luis Consulting Providers: Cristel Garrido Discharge Orders/Prescriptions Prescriptions: No Action acetaminophen [Tylenol 8 Hour] 650 mg tablet extended release 650 mg PO Q8H PRN (Reason: pain) carvedilol 25 MG tablet 25 mg PO BID Label Comments: heart lisinopril [Zestril] 40 MG tablet 40 mg PO DAILY Label Comments: blood pressure/heart simvastatin 40 mg tablet 40 mg PO DAILY oxycodone-acetaminophen 5-325 mg tablet 1 tab PO Q6H PRN (Reason: pain) 15 Days Qty: 60 0RF gabapentin 600 mg tablet 600 mg PO TID 20 Days Qty: 60 0RF Referrals / Follow Up: Nicki Luis MD [Primary Care Provider] - Disposition Disposition (needs filled in before D/C Order can be placed): Home, Self Care
--- NOTE | 2023-01-14 14:44 | PCM.DC.SUM ---
Providers Date of Admission: 01/13/23 Primary Care Physician: Dr. Nicki Luis MD Attending Physician: This is discharge summary on Nate Bowden. This patient was admitted yesterday 13 January. He underwent lumbar laminectomy at the L3-4 level on the right side. Today he reports that his thigh pain is completely resolved. He has been walking the halls in the hospital doing extremely well. His dressing is dry. Neurologically is intact in both lower extremities. Him and his are given directions regarding his activities over the next several weeks. He can return to work in 3 months. He was told to remove the dressing in 4 days. He may shower in 5. He may start driving his car for only local trips in 3 weeks. He already has an appointment to see me in the office 2 weeks from today. This is the end of discharge summary on Nate Bowden. This is Dr. Callahan dictating. Consultations 01/13/23 11:09 Consult: Hospitalist Routine Consulting Provider: Ollie Dodd Reason for Consult: Medical Management EMERGENT Consult: No MD Notified: Yes Date Notified: 01/13/23 Time Notified: 10:52 Method of Notification: Text Reason For Visit: LUMBAR LAMINECTOMY L3-4 RT Diagnosis Discharge Diagnosis (1) Diabetes: Status: Acute Code(s): E11.9 - Type 2 diabetes mellitus without complications (2) Abnormal electrocardiogram: Status: Chronic Code(s): R94.31 - Abnormal electrocardiogram [ECG] [EKG] Medications at Discharge Home Medications carvedilol 25 mg tablet 25 mg PO BID BLOOD PRESSURE 08/02/17 lisinopril 40 mg tablet (Zestril) 40 mg PO DAILY BLOOD PRESSURE 08/02/17 simvastatin 40 mg tablet 40 mg PO DAILY 12/10/21 gabapentin 600 mg tablet 600 mg PO TID 20 days #60 tabs 12/30/22 oxycodone-acetaminophen 5 mg-325 mg tablet 1 tab PO Q6H PRN pain 15 days #60 tabs 12/30/22 acetaminophen 650 mg tablet,extended release (Tylenol 8 Hour) 650 mg PO Q8H PRN pain 01/08/23 Weight / BMI Weight Weight: 221 lb 10.797 oz Body Mass Index (BMI) 30.0 ABG / Lab / Microbiology Data Laboratory: Laboratory Results - last 24 hr 01/13/23 16:32: POC Glucose 226 H 01/14/23 07:45: POC Glucose 113 H Microbiology: Microbiology 01/06/23 09:39 Swab (Method) Nasal Screen MRSA/MSSA - Final D/C Instructions Return to work on: 04/17/23 May shower in (days): 5 May resume sexual activity in: 4-6 weeks Weight Bearing Status: Full weight bearing Meaningful Use Info Meaningful Use Diagnoses (Choose all that apply): None applicable Discharge Plan Admission Admit Date/Time: 01/13/23 10:51 Primary Reason for Your Visit: back surgery Attending Provider: Alvaro Callahan Primary Care Provider: Nicki Luis Consulting Providers: Cristle Garrido Discharge Orders/Prescriptions Prescriptions: No Action acetaminophen [Tylenol 8 Hour] 650 mg tablet extended release 650 mg PO Q8H PRN (Reason: pain) carvedilol 25 MG tablet 25 mg PO BID Label Comments: heart lisinopril [Zestril] 40 MG tablet 40 mg PO DAILY Label Comments: blood pressure/heart simvastatin 40 mg tablet 40 mg PO DAILY oxycodone-acetaminophen 5-325 mg tablet 1 tab PO Q6H PRN (Reason: pain) 15 Days Qty: 60 0RF gabapentin 600 mg tablet 600 mg PO TID 20 Days Qty: 60 0RF Referrals / Follow Up: Nicki Lusi MD [Primary Care Provider] - Disposition Disposition (needs filled in before D/C Order can be placed): Home, Self Care
== END 2023-01-14 18:24 | disposition home or self-care (01) ==
LOC: MS3 01-14 07:27 → SDC 01-14 11:30
PROVIDERS: Anesthesiology; Admitting Provider Orthopaedic Surgery; PCP Family Medicine; Referring Provider Orthopaedic Surgery; Visit Provider Orthopaedic Surgery
PROC: (CPT 63030; principal; 2023-01-13 07:00)
DX: M51.16 Intervertebral disc disorders with radiculopathy, lumbar region (principal); L40.50 Arthropathic psoriasis, unspecified; E11.9 Type 2 diabetes mellitus without complications; Z87.891 Personal history of nicotine dependence; R94.31 Abnormal electrocardiogram [ECG] [EKG]; I10 Essential (primary) hypertension; E78.00 Pure hypercholesterolemia, unspecified; Z79.899 Other long term (current) drug therapy; I44.7 Left bundle-branch block, unspecified; M54.16 Radiculopathy, lumbar region
CPT/HCPCS: 63030; 00630; 36415; 72020; 80076; 82962; 83735; 85610; 85730; 86703; 86706; 86708; 86803; 87077; 87081; 88304; 93005; 94668; 96361; 96365; 96366; 97116; 97162; 97530; 99221; 99252; 99406; J7120; G0378; G0463; J0330; J2405; J3475

== ENCOUNTER → 2023-10-17 | Outpatient (CLI) | payer BC, SELFPAY ==
[2023-10-17 11:00] LABS: AST(SGOT) 44 U/L (15-37); Alanine Aminotransfer ALT/SGPT 65 U/L (16-61); Anion Gap 7 (5-15); BUN 14 mg/dL (7-18); Calcium,Total 8.6 mg/dL (8.5-10.1); Chloride 108 mmol/L (98-107); Cholesterol 173 mg/dL (200); Creatinine, Serum 0.78 mg/dL (0.70-1.30); EST Glomerular Filtration Rate 112 mL/min (>60); Est Glom Filt Rate - Afr Amer 135 mL/min (>60); Glucose 153 mg/dL (74-106); High Density Lipoprotein 49 mg/dL; PSA,Total - Annual Screen 0.68 ng/mL (0.00-4.00); Sodium Level 137 mmol/L (136-145); Triglycerides 128 mg/dL; Very Low Density Lipoprotein 26 mg/dL (5-40)
[2023-10-17 11:08] LABS: Microalbumin,Random Urine 89.8 mg/L (NO RANGE EST.); Microalbumin:Creatinine Ratio 42.2 mg/g CRE (<30 mg/g CRE)
== END | disposition home or self-care (01) ==
LOC: MTLAB 07:01
PROVIDERS: PCP Family Medicine; Referring Provider Family Medicine; Visit Provider Family Medicine
DX: I10 Essential (primary) hypertension (principal); E78.00 Pure hypercholesterolemia, unspecified; Z12.5 Encounter for screening for malignant neoplasm of prostate
CPT/HCPCS: 36415; 80048; 80061; 82043; 82570; 84153; 84450; 84460; G0103

== ENCOUNTER → 2024-10-11 | Outpatient (CLI) | payer OTHER, SELFPAY ==
[2024-10-11 13:51] LABS: AST(SGOT) 30 U/L (15-37); Alanine Aminotransfer ALT/SGPT 42 U/L (16-61); Anion Gap 10 (5-15); BUN 25 mg/dL (7-18); Calcium,Total 9.2 mg/dL (8.5-10.1); Chloride 107 mmol/L (98-107); Cholesterol 168 mg/dL (200); Creatinine, Serum 0.96 mg/dL (0.70-1.30); EST Glomerular Filtration Rate 87 mL/min (>60); Est Glom Filt Rate - Afr Amer 106 mL/min (>60); Glucose 240 mg/dL (74-106); High Density Lipoprotein 47 mg/dL; PSA,Total - Annual Screen 0.89 ng/mL (0.00-4.00); Potassium 4.6 mmol/L (3.5-5.1); Sodium Level 135 mmol/L (136-145); Triglycerides 251 mg/dL; Very Low Density Lipoprotein 50 mg/dL (5-40)
== END | disposition home or self-care (01) ==
PROVIDERS: PCP Family Medicine; Visit Provider Family Medicine
DX: I10 Essential (primary) hypertension (principal); E78.00 Pure hypercholesterolemia, unspecified; Z12.5 Encounter for screening for malignant neoplasm of prostate
CPT/HCPCS: 36415; 80048; 80061; 84153; 84450; 84460; G0103

== ENCOUNTER → 2025-03-21 | Outpatient (CLI) | payer OTHER, SELFPAY | END | disposition home or self-care (01) | LOC: LABSPEC 13:45 | PROVIDERS: PCP Family Medicine; Referring Provider Family Medicine; Visit Provider Family Medicine | DX: R19.7 Diarrhea, unspecified (principal) | CPT/HCPCS: 87177; 87209; 87493; 87506 ==

== ENCOUNTER → 2025-04-06 | Outpatient (CLI) | payer OTHER, SELFPAY ==
[2025-04-07 22:07] LABS: Pancreatic Elastase, Fecal 4 (>200)
[2025-04-08 18:08] LABS: Fats, Neutral Normal (.); Fats, Total Normal (.)
== END | disposition home or self-care (01) ==
LOC: MTLAB 07:24
PROVIDERS: PCP Family Medicine; Referring Provider Internal Medicine Gastroenterology; Visit Provider Internal Medicine Gastroenterology
DX: R19.7 Diarrhea, unspecified (principal)
CPT/HCPCS: 82653; 82705

== ENCOUNTER → 2025-04-25 | Outpatient (CLI) | payer OTHER, SELFPAY ==
--- OUTSIDE RECORDS SUMMARY | 2025-04-25 07:11 | XMS RPT_ITS | CCD ---
Author Organization [facility] Care Team Providers Care Tip Finisher Name Role Phone York, Karina L Unavailable Unavailable York, Karina L Unavailable Unavailable York, Karina L Unavailable Unavailable York, Karina L Unavailable Unavailable York, Karina L Unavailable Unavailable York, Karina L Unavailable Unavailable Dr. Nicki Luis Primary Care Provider Dr. Nicki Luis Referring Provider [phone] Alvaro Callahan Attending Provider Dr. Maynor Limon Attending Provider Dr. Alvaro Callahan Referring Provider Dr. Unique Aldridge Attending Provider [phone] [facility] Care Physician, No Primary Primary Care Provider Unavailable Dr. Alvaro Callahan Other Provider Dr. Alvaro Callahan Admit Provider Dr. Ollie Dodd Attending Provider Dr. Ollie Dodd Other Provider Dr. Cristel Garrido Attending Provider Dr. Cristel Garrido Other Provider Dr. Shashank Sheehan MD Primary Care Provider [phone] Dr. Shashank Sheehan MD Attending Provider [phone] Shashank Sheehan MD Referring Provider Dr. Raman Stout MD Attending Provider Dr. Raman Stout MD Referring Provider Nicki Luis Primary Care Unavailable Nicki Luis Attending Unavailable Raman Stout Attending Unavailable Raman Stout Referring Unavailable Shashank Sheehan Primary Care Unavailable Raman Stout Attending Unavailable Raman Stout Referring Unavailable Shashank Sheehan Primary Care Unavailable Nicki Luis Primary Care Unavailable Nicki Luis Referring Unavailable Kofi Zhao Attending Unavailable Shashank Sheehan Referring Unavailable Shashank Sheehan Primary Care Unavailable Shashank Sheehan Attending Unavailable Medications Current Medications Medication Drug Class(es) Dates Sig (Normalized) Sig (Original) 8 hr acetaminophen 650 mg extended release oral tablet (5 sources) Start: 01-08-2023 take 1 tablet by mouth every eight hours as needed for pain Acetaminophen (Tylenol 8 Hour) 650 mg tablet extended release Active 650 mg PO Q8H as needed for pain January 08, 2023 1:00am carvedilol 25 mg oral tablet (13 sources) alpha-Adrenergic Bill, beta-Adrenergic Bill Start: 08-02-2017 take 1 tablet by mouth twice daily Carvedilol 25 MG tablet Active 25 mg PO TWICE A DAY August 02, 2017 12:00am lisinopril 40 mg oral tablet (13 sources) Angiotensin Converting Enzyme Inhibitor Start: 08-02-2017 take 1 tablet by mouth once daily Lisinopril (Zestril) 40 MG tablet Active 40 mg PO DAILY August 02, 2017 12:00am 24 hr metFORMIN hydrochloride 500 mg extended release oral tablet (2 sources) Biguanide Start: 10-29-2024 take 1 tablet by mouth once daily Metformin 500 mg tablet extended release 24 hr Active 500 mg PO daily October 29, 2024 1:00am simvastatin 40 mg oral tablet (8 sources) HMG-CoA Reductase Inhibitor Start: 12-10-2021 take 1 tablet by mouth once daily Simvastatin 40 mg tablet Active 40 mg PO DAILY December 10, 2021 1:00am Completed/Discontinued Medications Medication Drug Class(es) Dates Sig (Normalized) Sig (Original) acetaminophen 325 mg / HYDROcodone bitartrate 5 mg oral tablet (20 sources) Opioid Agonist Start: 01-28-2023 End: 02-07-2023 Hydrocodone-Acetami nophen 5-325 mg tablet Discontinued 1 {tbl} PO THREE TIMES A DAY as needed for pain 30 January 28, 2023 February 06, 2023 12:00am February 07, 2023 12:05am Start: 01-28-2023 End: 02-07-2023 take 1 tablet by mouth three times daily Hydrocodone-Acetaminophen Discontinued 1 TABLET PO THREE TIMES A DAY 30 January 28, 2023 February 06, 2023 11:05pm Start: 01-14-2023 End: 01-24-2023 Hydrocodone-Acetaminophen 7. 5-325 mg tablet Discontinued 1 {tbl} PO EVERY 6 HOURS as needed for pain 40 January 14, 2023 January 23, 2023 1:00am January 24, 2023 1:05am Start: 01-14-2023 End: 01-24-2023 take 1 tablet by mouth every six hours Hydrocodone-Acetaminophen Discontinued 1 TABLET PO EVERY 6 HOURS 40 January 14, 2023 January 24, 2023 12:05am Start: 12-15-2022 End: 12-23-2022 Hydrocodone-Acetaminophen 5- 325 mg tablet Discontinued 1 {tbl} PO EVERY 6 HOURS NEEDED as needed for Pain 40 December 23, 2022 January 01, 2023 1:00am December 23, 2022 5:28pm Start: 12-15-2022 End: 12-23-2022 take 1 tablet by mouth every six hours as needed Hydrocodone-Acetaminophen Discontinued 1 TABLET PO EVERY 6 HOURS NEEDED 40 December 23, 2022 December 23, 2022 4:28pm acetaminophen 325 mg / oxyCODONE hydrochloride 5 mg oral tablet (10 sources) Opioid Agonist Start: 12-30-2022 End: 01-24-2023 Oxycodone-Acetaminophen 5-32 5 mg tablet Discontinued 1 {tbl} PO EVERY 6 HOURS as needed for pain 40 January 14, 2023 January 23, 2023 1:00am January 24, 2023 1:05am Start: 12-30-2022 End: 01-24-2023 take 1 tablet by mouth every six hours Oxycodone-Acetaminophen Discontinued 1 TABLET PO EVERY 6 HOURS 40 January 14, 2023 January 24, 2023 12:05am amoxicillin 875 mg / clavulanate 125 mg oral tablet (8 sources) Penicillin-class Antibacterial Start: 08-02-2017 End: 08-06-2017 Amoxicillin/Potassium Clav (Amox-Clav 875-125 Mg Tablet) 1 EACH tablet Discontinued 1 NMA PO TWICE A DAY August 02, 2017 12:00am August 06, 2017 10:23am atorvastatin 20 mg oral tablet (5 sources) HMG-CoA Reductase Inhibitor Start: 08-02-2017 ATORVASTATIN CALCIUM 20 MG TABS One tab every night ATORVASTATIN CALCIUM [id number] Karina Weinstein erythromycin 0.005 mg/mg ophthalmic ointment (8 sources) Macrolide, Macrolide Antimicrobial Start: 12-10-2021 End: 12-19-2022 Erythromycin 5 mg/gram (0.5 %) ointment Discontinued 0.5 [in_us] EACH EYE EVERY 6 HOURS 3.5 December 10, 2021 1:00am December 19, 2022 9:41am Start: 12-10-2021 End: 12-19-2022 Erythromycin Discontinued 0. 5 INCH EACH EYE EVERY 6 HOURS 3.5 December 10, 2021 12:00am December 19, 2022 8:41am gabapentin 600 mg oral tablet (12 sources) Anti-epileptic Agent Start: 12-30-2022 End: 01-19-2023 take 1 tablet by mouth three times daily Gabapentin 600 mg tablet Discontinued 600 mg PO THREE TIMES A DAY 60 December 30, 2022 1:00am January 18, 2023 1:00am January 19, 2023 1:04am Start: 12-19-2022 End: 12-23-2022 take 1 capsule by mouth three times daily Gabapentin 100 mg capsule Discontinued 100 mg PO THREE TIMES A DAY December 19, 2022 1:00am December 23, 2022 3:00pm ketorolac tromethamine 5 mg/ml ophthalmic solution (8 sources) Nonsteroidal Anti-inflammatory Drug, Cyclooxygenase Inhibitor Start: 12-10-2021 End: 12-19-2022 Ketorolac 0.5 % drops Discontinued 1 NMA EACH EYE Q8H as needed for pain December 10, 2021 1:34am December 19, 2022 9:41am begin 24 hours prior to surgery levoFLOXacin 750 mg oral tablet (9 sources) Quinolone Antimicrobial Start: 08-06-2017 End: 08-25-2017 LEVAQUIN 750 MG TABS One tab daily at 0600 LEVOFLOXACIN [id number] Karina Weinstein Drug Treatment Unknown - unknown (1 source) No information available. predniSONE 20 mg oral tablet (16 sources) Corticosteroid Start: 12-15-2022 End: 12-19-2022 take 3 tablets by mouth once daily Prednisone 20 mg tablet Discontinued 60 mg PO DAILY December 15, 2022 1:00am December 19, 2022 9:41am Start: 12-15-2022 End: 12-19-2022 take 60 mg by mouth once daily Prednisone Discontinued 60 MG PO DAILY December 15, 2022 12:00am December 19, 2022 8:41am Start: 08-06-2017 End: 08-25-2017 PREDNISONE 20 MG TABS Two ta bs daily PREDNISONE [id number] Karina Weinstein sulfamethoxazole 800 mg / trimethoprim 160 mg oral tablet (2 sources) Dihydrofolate Reductase Inhibitor Antibacterial, Sulfonamide Antimicrobial Start: 10-29-2024 End: 11-05-2024 Sulfamethoxazole-Trimethopri m (Bactrim Ds) 800-160 mg tablet Discontinued 1 {tbl} PO Q12H 14 7 October 29, 2024 1:00am November 04, 2024 1:00am November 05, 2024 1:12am Problems Active Problems Problem Classification Problem Date Documented Da te Episodic/Chronic Bacterial infection; unspecified site (2 sources) Staphylococcal infectious disease; Translations: [Unspecified staphylococcus as the cause of diseases classified elsewhere] 10-29-2024 Episodic Diabetes mellitus without complication (5 sources) Diabetes mellitus; Translations: [Type 2 diabetes mellitus without complications] 01-13-2023 Chronic Comment on above: PRE DIABETIC/DIET PARKS S CONTROLLED/NO MEDS Diabetes mellitus without complication (8 sources) Hyperglycemia; Translations: [Hyperglycemia, unspecified] 08-02-2017 Episodic Disorders of lipid metabolism (10 sources) Hyperlipidemia; Translations: [Hyperlipidemia, unspecified] 12-15-2022 Chronic Essential hypertension (11 sources) Hypertensive disorder; Translations: [Essential (primary) hypertension] Onset: 11-09-2024 12-15-2022 Chronic Fluid and electrolyte disorders (16 sources) Dehydration; Translations: [Dehydration] 08-02-2017 Episodic Other gastrointestinal disorders (1 source) Diarrhea, unspecified; Translations: [Diarrhea, unspecified] Onset: 04-11-2025 Episodic Other inflammatory condition of skin (8 sources) Psoriasis; Translations: [Psoriasis, unspecified] 12-15-2022 Chronic Other inflammatory condition of skin (2 sources) Psoriasis, unspecified; Translations: [Other psoriasis] 01-08-2023 Chronic Other lower respiratory disease (8 sources) Hypoxemia; Translations: [Hypoxemia] 08-02-2017 Episodic Other screening for suspected conditions (not mental disorders or infectious disease) (20 sources) Liver function tests abnormal; Translations: [Other specified abnormal findings of blood chemistry] 08-02-2017 Episodic Pancreatic disorders (not diabetes) (1 source) Other specified diseases of pancreas; Translations: [Other specified diseases of pancreas] Onset: 04-21-2025 Episodic Pneumonia (except that caused by tuberculosis or sexually transmitted disease) (20 sources) Legionella pneumonia; Translations: [Legionnaires' disease] Onset: 08-25-2017 08-25-2017 Episodic Residual codes; unclassified (4 sources) H/O Spinal surgery; Translations: [Other specified postprocedural states] 01-14-2023 Episodic Respiratory failure; insufficiency; arrest (adult) (12 sources) Acute respiratory failure; Translations: [Acute respiratory failure with hypoxia] Onset: 08-25-2017 08-25-2017 Episodic Septicemia (except in labor) (8 sources) Sepsis; Translations: [Sepsis, unspecified organism] 08-02-2017 Episodic Spondylosis; intervertebral disc disorders; other back problems (18 sources) Disorder of lumbar disc; Translations: [Unspecified thoracic, thoracolumbar and lumbosacral intervertebral disc disorder] 12-15-2022 Chronic Spondylosis; intervertebral disc disorders; other back problems (16 sources) Acute low back pain; Translations: [Acute low back pain] 12-15-2022 Episodic Substance-related disorders (12 sources) Tobacco dependence syndrome; Translations: [Nicotine dependence, unspecified, uncomplicated] Onset: 08-25-2017 08-25-2017 Chronic Unclassified (2 sources) No current problems or disability 08-07-2017 Past or Other Problems Problem Classification Problem Date Documented Da te Episodic/Chronic Other lower respiratory disease (4 sources) Dyspnea on exertion; Translations: [Other forms of dyspnea] Onset: 08-25-2017 08-25-2017 Episodic Results Test Name Value Interpretation Reference Range Facility Fecal Fat, Qualitativeon FATS, NEUTRAL Normal Normal . [facility] Comment on above: Order Comment: Test( s) [id number]-[id number], Neutral; [id number], Total was developed and its performance characteristics determined by [facility]. It has not been cleared or approved by the Food and Drug Administration. Result Comment: Norm al (<60 Droplets/HPF) Performed By: #### L 7000.0300, L7000.0750 #### [facility] [address] [place], [place], [id number] FATS, TOTAL Normal Normal . [facility] Comment on above: Order Comment: Test( s) [id number], Neutral; [id number], Total was developed and its performance characteristics determined by [facility]. It has not been cleared or approved by the Food and Drug Administration. Result Comment: Norm al (<100 Droplets/HPF) Performed at: [address] [id number] [employer] Teammate: Raman Zamora PhD, Phone: [phone] Performed By: #### L 7000.0300, L7000.0750 #### [facility] [address] [place], [place], [id number] L7000.0750on 04-07-2025 P ELASTASE,FECA 4 Low >200 [facility] Comment on above: Result Comment: Resu lt Units: ug Elast./g Severe Pancreatic Insufficiency: <100 Moderate Pancreatic Insufficiency: 100 - 200 Normal: >200 Performed at: [address] [id number] [employer] Teammate: Derek Gunn MD, Phone: [phone] Performed By: #### L 7000.0300, L7000.0750 #### [facility] [address] [place], [place], [id number] Fecal fat detectionOrdered B y: Raman Stout on 04-06-2025 Fat Ql (Stl) Normal . [facility] Comment on above: Normal (<100 Droplet s/HPF)Performed at: [address] [id number] Director: Raman Zamora PhD, Phone: [phone] No Panel InformationOrdered By: Raman Stout on 04-06-2025 Stool Neutral Fats Normal . [facility] Comment on above: Normal (<60 Droplets /HPF) Stool pancreatic elastase me asurement (mass/mass)Ordered By: Raman Stout on 04-06-2025 Elastase.pancreatic (Stl) [Mass/Mass] 4 Low >200 [facility] Comment on above: Result Units: ug Jillian st./g Severe Pancreatic Insufficiency: <100 Moderate Pancreatic Insufficiency: 100 - 200 Normal: >200Performed at: [address] [id number] Director: Derek Gunn MD, Phone: [phone] Ova and Parasites 8623on OP OVA AND PARASITES EXAM, ROUTINE These results were obtained using wet preparation(s) and trichrome stained smear. This test does not include testing for Crytosporidium parvum, Cyclospora, or Microsporidia. One negative specimen does not rule out the possibility of a parasitic infection. TESTING PERFORMED AT [facility]. ORIGINAL REPORT ON FILE IN LAB CONTAINS ADDITIONAL TEST SITE INFORMATION. Ova/Parasite Exam NO OVA, CYSTS, OR PARASITES FOUND. Normal [facility] Comment on above: Performed By: #### L 7000.0300, L7000.0750 #### [facility] [address] [place], [place], [id number] CDIFF (PCR)on 03-21-2025 CDIFF Pending [phone] [id number] Presumptive Negative *for epidemiolologic???us e C. Diff PCR Negative- No toxigenic C. Diff Detected Normal [facility] Comment on above: Performed By: #### M 100.637, M100.4596, M600.5000 #### [facility] [address] [place], [address] Clostridium difficile detect ion by polymerase chain reactionOrdered By: Shashank Sheehan on 03-21-2025 C. difficile DNA JAZMYN+probe Ql (Unsp spec) [facility] ENTERIC PATHOGEN PANEL STOOL on 03-21-2025 EP PANEL Normal Reference Range = Not Detected Nucleic acid amplification test method Not detected for Campylobacter group, Salmonella species, Shigella species, Vibrio Group, Yersinia enterocolitica, EHEC (Shiga Toxin 1, Shiga Toxin 2), Norovirus Gl/Gll, and Rotavirus A. Other common stool pathogens are not detected on this panel include: Aeromonas/Plesiomona s or parasites. Order testing for these organisms separately if suspected. This is an amplified DNA test which makes it both specific and sensitive. CAMPYLOBACTER Not Detected Norovirus Not Detected Rotavirus Not Detected Salmonella Not Detected Shiga Toxin Not Detected Shigella sp. Not Detected VIBRIO Not Detected Yersinia Not Detected Normal [facility] Comment on above: Performed By: #### M 100.637, M100.6796, M600.5000 #### [facility] [address] [place], [place], [address] Urgent Care Visit Reporton 1 12-30-2023 Urgent Care Visit Report [facility] [address], [address] [place] [address] OFFICE VISIT Date of Service: 10/29/24 MR#: [id number] Acct: [id number] Name: LILLIAN BOWDEN Rep #: [id number] : 1970 Provider: DAMION Campo Age/Sex: 54/M Location: [facility] Status: Signed Intake Vital Signs 01/13/23 14:24 10/29/24 09:34 Height 6 ft 5 ft 11 in Weight: 220 lb BMI 30.7 BP 152/94 H Blood Pressure Location Lt brachial Position Sitting Respiration 14 Pulse 72 Pulse Source Monitor Temp 98.6 F Temp Source Oral Pulse Oximetry (%) 97 Oxygen Delivery Method room air Intake Visit Reasons: concern for infection Chief Complaint: nose pustule Otr [employer] Required: No Accompanied by: Self Is patient in pain?: No Allergies No Known Allergies Allergy (Verified 10/29/24 09:25) Medications ???Medication ???Instructions ???Recorded ???Confirmed ???Type carvedilol 25 mg tablet 25 mg PO BID BLOOD PRESSURE 08/02/17 10/29/24 History lisinopril 40 mg tablet (Zestril) 40 mg PO DAILY BLOOD PRESSURE 08/02/17 10/29/24 History simvastatin 40 mg tablet 40 mg PO DAILY 12/10/21 10/29/24 History acetaminophen 650 mg 650 mg PO Q8H PRN pain 01/08/23 10/29/24 History tablet,extended release (Tylenol 8 Hour) metformin 500 mg tablet,extended 500 mg PO QDAY 10/29/24 10/29/24 History release 24 hr sulfamethoxazole 800 1 tab PO Q12H 7 days #14 tabs 10/29/24 10/29/24 Rx mg-trimethoprim 160 mg tablet (Bactrim DS) PFSH Medical History (Updated 10/29/24 @ 14:03 by Kofi BRUNO, PA) H/O Legionnaire's disease Alcohol use History of steroid therapy Diabetes Psoriasis Psoriatic arthritis High cholesterol Back pain Chewing tobacco nicotine dependence Former smoker Leg cramps History of pain when walking Hypertension HNP (herniated nucleus pulposus), lumbar Spinal stenosis of lumbar region with radiculopathy Abnormal electrocardiogram Legionella pneumonia Acute respiratory failure with hypoxia Hyperglycemia Hyperlipidemia Hypertension Abnormal LFTs Severe sepsis Dehydration Hypokalemia Tobacco dependence Hypoxemia Elevated serum creatinine Psoriasis Community acquired pneumonia Surgical History (Updated 10/29/24 @ 09:28 by Karina Alejandre) History of back surgery Hx of LASIK Hx of tonsillectomy Hx of wisdom tooth extraction Social History (Updated 10/29/24 @ 09:27 by Karina Alejandre) Smoking Status: Former smoker Smokeless tobacco user: snuff how long ago did patient quit smokin alcohol intake: current alcohol intake frequency: a few times a week substance use type: does not use caffeine: Yes (coffee 2/wk) Type: carbonated beverages Number of servings: 1 HPI HPI Chief Complaint: nose pustule Details: LILLIAN BOWDEN, is a 54 M who presents to the office today for complaint of a spot on the tip of his nose that he got a hernandez on and now has more swelling and redness around. Patient states he did pop with a hernandez several days ago and then the redness worsened. Patient denies fever, chills, sweats. No nausea, vomiting or diarrhea. No other associated symptoms or alleviating/aggravat ing factors. ROS Const Constitutional: No other (6 system ROS completed with pertinent findings in the HPI otherwise normal.) Exam Const General: cooperative and healthy appearing [facility] Head: normocephalic and atraumatic Ears: hearing grossly normal bilaterally Nose: nares normal and other (Erythema and swelling tip of the nose.) Face and sinus: normal facial exam and face symmetric Mouth: oral mucosae normal Throat: posterior oropharynx normal Skin General: no rashes or lesions noted Neuro General: patient alert Psych Appearance: grossly normal Mental Status: mental status grossly normal Coding Level of Care Code Off vis,new,level 3 Diagnoses Staph infection B95.8 Assessment and Plan Assessment and Plan (1) Staph infection: Status: Acute Plan: Bactrim as prescribed today. Encouraged to get plenty of rest, drink lots of clear liquids, and use Tylenol or Ibuprofen (unless contraindicated) for fever and comfort. Patient also educated on other symptomatic management techniques. To be seen in 7-10 days if no improvement; sooner if worsening of symptoms. Patient advised of potential red flags and when appropriate to report to the ED. Patient verbalized understanding and agreement with all the above. Medications: New sulfamethoxazole-tri methoprim 800-160 mg (Bactrim DS) 1 TAB PO Q12H 14 tabs 0RF 7 days 10/29/24 1403 Date Kofi Wang Signature: Date (if applicable) CC: Normal [facility] AST(SGOT)on 10-11-2024 AST [Catalytic activity/Vol] 30 U/L Normal 15- [facility] Comment on above: Performed By: #### L 501.9910, L500.2500, L501.4405, L501.4100, L500.4100 #### [facility] [address] [place], [address] Alanine Aminotransferas (SGP T)on 10-11-2024 ALT [Catalytic activity/Vol] 42 U/L Normal 16-61 [facility] Comment on above: Performed By: #### L 501.9910, L500.2500, L501.4405, L501.4100, L500.4100 #### [facility] [address] [place], [address] Basic Metabolic Profile (BMP )on 10-11-2024 BUN/CRE 26.0 RATIO High 10-20 [facility] Comment on above: Performed By: #### L 501.9910, L500.2500, L501.4405, L501.4100, L500.4100 #### [facility] [address] [place], [address] CA,Total 9.2 mg/dL Normal 8.5-10.1 [facility] Comment on above: Performed By: #### L 501.9910, L500.2500, L501.4405, L501.4100, L500.4100 #### [facility] [address] [place], [address] Chloride [Moles/Vol] 107 mmol/L Normal 98-107 [facility] Comment on above: Performed By: #### L 501.9910, L500.2500, L501.4405, L501.4100, L500.4100 #### [facility] [address] [place], [address] CO2 [Moles/Vol] 18.0 mmol/L Low 21.0-32.0 [facility] Comment on above: Performed By: #### L 501.9910, L500.2500, L501.4405, L501.4100, L500.4100 #### [facility] [address] [place], [address] Creatinine [Mass/Vol] 0.96 mg/dL Normal 0.70-1.30 [facility] Comment on above: Result Comment: The validity of the calculated GFR GFRAA in patients over 70 years has not been determined. Clinical correlation is essential. Performed By: #### L 501.9910, L500.2500, L501.4405, L501.4100, L500.4100 #### [facility] [address] [place], [address] EST GFR - AA 106 mL/min Normal >60 [facility] Comment on above: Result Comment: Afri can Swazi GFR Calc Performed By: #### L 501.9910, L500.2500, L501.4405, L501.4100, L500.4100 #### [facility] [address] [place], [address] GAP 10 Normal 5-15 [facility] Comment on above: Performed By: #### L 501.9910, L500.2500, L501.4405, L501.4100, L500.4100 #### [facility] [address] [place], [address] GFR/1.73 sq M.predicted among non-blacks MDRD (S/P/Bld) [Vol rate/Area] 87 mL/min/{1.73_m2} Normal >60 [facility] Comment on above: Result Comment: Non- GFR Calc Performed By: #### L 501.9910, L500.2500, L501.4405, L501.4100, L500.4100 #### [facility] [address] [place], [address] Glucose [Mass/Vol] 240 mg/dL High 74-106 [facility] Comment on above: Result Comment: Gluc ose result greater than or equal to 200 mg/dL suggests DIABETES MELLITUS per A.D.A. criteria. Performed By: #### L 501.9910, L500.2500, L501.4405, L501.4100, L500.4100 #### [facility] [address] [place], [address] Potassium [Moles/Vol] 4.6 mmol/L Normal 3.5-5.1 [facility] Comment on above: Performed By: #### L 501.9910, L500.2500, L501.4405, L501.4100, L500.4100 #### [facility] [address] [place], [address] Sodium [Moles/Vol] 135 mmol/L Low 136-145 [facility] Comment on above: Performed By: #### L 501.9910, L500.2500, L501.4405, L501.4100, L500.4100 #### [facility] [address] [place], [address] Urea nitrogen [Mass/Vol] 25 mg/dL High 7-18 [facility] Comment on above: Performed By: #### L 501.9910, L500.2500, L501.4405, L501.4100, L500.4100 #### [facility] [address] [place], [address] Lipid Profileon 10-11-2024 Cholesterol [Mass/Vol] 168 mg/dL Normal 200 [facility] Comment on above: Result Comment: <200 mg/dL Desirable 200-240 mg/dL Borderline >240 mg/dL High Risk Performed By: #### L 501.9910, L500.2500, L501.4405, L501.4100, L500.4100 #### [facility] [address] [place], [address] Cholesterol in HDL [Mass/Vol] 47 mg/dL Normal [facility] Comment on above: Result Comment: The drugs N-Acetylcysteine and Metamizole may falsely depress this assay. Reference Range HDL <40 mg/dL Low HDL Cholesterol HDL >or= 60 mg/dL High HDL Cholesterol Performed By: #### L 501.9910, L500.2500, L501.4405, L501.4100, L500.4100 #### [facility] [address] [place], [address] Cholesterol in LDL [Mass/Vol] 71 mg/dL Normal 0-130 [facility] Comment on above: Performed By: #### L 501.9910, L500.2500, L501.4405, L501.4100, L500.4100 #### [facility] [address] [place], [address] Cholesterol in VLDL [Mass/Vol] 50 mg/dL High 5-40 [facility] Comment on above: Performed By: #### L 501.9910, L500.2500, L501.4405, L501.4100, L500.4100 #### [facility] [address] [place], [address] Triglyceride [Mass/Vol] 251 mg/dL High [facility] Comment on above: Result Comment: The drugs N-Acetylcysteine and Metamizole may falsely depress this assay. Serum Triglycerides Reference Interval Normal <150 mg/dL Borderline high 150 - 199 mg/dL High 200 - 499 mg/dL Very High > or = 500 mg/dL Performed By: #### L 501.9910, L500.2500, L501.4405, L501.4100, L500.4100 #### [facility] [address] [place], [address] PSA,Total - Annual Screenon 10-11-2024 PSA,TOT SCREEN 0.89 ng/mL Normal 0.00-4.00 [facility] Comment on above: Result Comment: This test was performed using the TPSA assay method for the [employer] system. Values obtained with different assay methods cannot be used interchangably. When changing PSA assays in the course of monitoring a patient, additional sequential testing should be carried out to confirm baseline values. Performed By: #### L 501.9910, L500.2500, L501.4405, L501.4100, L500.4100 #### [facility] [address] [place], [address] Basophil percentageOrdered B y: Nicki Luis on 10-17-2023 Chloride [Moles/Vol] 108 mmol/L 98-107 [facility] Cholesterol [Mass/Vol] 173 mg/dL <200 [facility] Comment on above: <200 mg/dL Desirable 200-240 mg/dL Borderline >240 mg/dL High Risk Glucose [Mass/Vol] 153 mg/dL 74-106 [facility] Comment on above: Fasting Glucose resu lt greater than or equal to 126 mg/dL suggests DIABETES MELLITUS per A.D.A. criteria. Potassium [Moles/Vol] 4.0 mmol/L 3.5-5.1 [facility] Sodium [Moles/Vol] 137 mmol/L 136-145 [facility] Triglyceride [Mass/Vol] 128 mg/dL <[address] [facility] Comment on above: The drugs N-Acetylcy steine and Metamizole may falsely depress this assay.Serum Triglycerides Reference Interval Normal <150 mg/dL Borderline high 150 - 199 mg/dL High 200 - 499 mg/dL Very High > or = 500 mg/dL Laboratory - Chemistry and C hemistry - challengeOrdered By: Nicki Luis on 10-17-2023 ALT [Catalytic activity/Vol] 65 U/L 16-61 [facility] CO2 [Moles/Vol] 22.0 mmol/L 21.0-32.0 [facility] Urea nitrogen/Creatinine [Mass ratio] 18.0 mg/mg 10-20 [facility] No Panel InformationOrdered By: Nicki Luis on 10-17-2023 Estimated GFR (MDRD) Amer 135 mL/min >60 [facility] Comment on above: GFR Calc Estimated GFR (MDRD) Non-Af Amer 112 mL/min >60 [facility] Comment on above: Non- GFR Calc Prostate Specific Antigen Screen 0.68 ng/mL 0.00-4.00 [facility] Comment on above: This test was perfor med using the TPSA assay method for the[employer] chemistry system. Values obtained with differentassay methods cannot be used interchangably.When changing PSA assays in the course of monitoring apatient, additional sequential testing should be carriedout to confirm baseline values. Urine Microalbumin/Creatinine Ratio 42.2 mg/g CRE <30 [facility] Serum or plasma calcium edwardo urement (mass/volume)Ordered By: Nicki Luis on 10-17-2023 Calcium [Mass/Vol] 8.6 mg/dL 8.5-10.1 [facility] Serum or plasma cholesterol in HDL measurement (mass/volume)Ordered By: Nicki Luis on 10-17-2023 Cholesterol in HDL [Mass/Vol] 49 mg/dL >40 [facility] Comment on above: The drugs N-Acetylcy steine and Metamizole may falsely depress this assay. Reference Range HDL <40 mg/dL Low HDL Cholesterol HDL >or= 60 mg/dL High HDL Cholesterol Serum or plasma cholesterol in VLDL measurement (mass/volume)Ordered By: Nicki Luis on 10-17-2023 Cholesterol in VLDL [Mass/Vol] 26 mg/dL 5-40 [facility] Serum or plasma creatinine m easurement (mass/volume)Ordered By: Nicki Luis on 10-17-2023 Creatinine [Mass/Vol] 0.78 mg/dL 0.70-1.30 [facility] Comment on above: The validity of the calculated GFR & GFRAA in patients over 70 years has not been determined. Clinical correlation is essential. Serum or plasma low density lipoprotein (LDL) cholesterol measurement (mass/volume)Ordered By: Nicki Luis on 10-17-2023 Cholesterol in LDL [Mass/Vol] 98 mg/dL 0-130 [facility] Serum or plasma urea nitroge n measurement (mass/volume)Ordered By: Nikci Luis on 10-17-2023 Urea nitrogen [Mass/Vol] 14 mg/dL 7-18 [facility] Thin prep Papanicolaou smear with manual screeningOrdered By: Nicki Luis on 10-17-2023 Thin prep Papanicolaou smear with manual screening 44 U/L 15-37 [facility] Thin prep Papanicolaou smear with manual screening 7 5-15 [facility] Thin prep Papanicolaou smear with manual screening 89.8 mg/L NO RANGE EST. [facility] Urine creatinine measurement (mass/volume)Ordered By: Nicki Luis on 10-17-2023 Creatinine (U) [Mass/Vol] 213.00 mg/dL NO RANGE EST. [facility] Glucose Glucometer (BldC) [M ass/Vol]Ordered By: Dr. Callahan on 01-14-2023 Glucose [Mass/Vol] 113 mg/dL 74-106 [facility] Comment on above: MANAGEMENT OF PATIEN T CARE PER NURSING PROTOCOL Glucose Glucometer (BldC) [M ass/Vol]Ordered By: Dr. Callahan on 01-13-2023 Glucose [Mass/Vol] 153 mg/dL 74-106 [facility] Comment on above: MANAGEMENT OF PATIEN T CARE PER NURSING PROTOCOL No Panel InformationOrdered By: Dr. Callahan on 01-07-2023 Nasal Screen MRSA/MSSA [facility] Basophil percentageOrdered B y: Dr. Renae on 01-06-2023 Bilirubin [Mass/Vol] 0.30 mg/dL 0.20-1.00 [facility] Comment on above: For patients on eltr ombopag therapy, use of Dimension [place] TBIL is not recommended. Protein [Mass/Vol] 7.7 g/dL 6.4-8.2 [facility] Direct bilirubinOrdered By: Dr. Renae on 01-06-2023 Bilirubin.direct [Mass/Vol] 0.07 mg/dL 0.00-0.30 [facility] HIV 1 and HIV-2 antibody ass ay with HIV-1 p24 antigen detectionOrdered By: Dr. Callahan on 01-06-2023 HIV 1+2 Ab+HIV1 p24 Ag IA Ql Non-Reactive Nonreactive [facility] INR in Blood by Coagulation assayOrdered By: Dr. Renae on 01-06-2023 INR Coag (Bld) [Relative time] 1.0 {INR} [facility] - Chemistry and C hemistry - challengeOrdered By: Dr. Renae on 01-06-2023 ALP [Catalytic activity/Vol] 63 U/L 45-117 [facility] ALT [Catalytic activity/Vol] 30 U/L 16-61 [facility] Globulin (S) [Mass/Vol] 3.4 g/dL 2.2-4.[address] [facility] Magnesium [Mass/Vol] 2.0 mg/dL 1.6-2.6 [facility] Laboratory - CoagulationOrde red By: Dr. Renae on 01-06-2023 aPTT Coag (Bld) [Time] 27.2 s 24.1-36.2 [facility] PT Coag (PPP) [Time] 12.4 s 11.7-14.9 [facility] No Panel InformationOrdered By: Dr. Callahan on 01-06-2023 Hepatitis A Antibody Total Positive Negative [facility] Comment on above: Performed at: [employer] [facility] [address] [id number] Director: Raman Zamora PhD, Phone: [phone] Hepatitis C Antibody Non-Reactive Nonreactive [facility] Comment on above: Non Reactive: < 0.8 Equivocal: >/= 0.8 to < 1.0 Reactive: >/= 1.0The CDC recommends that a reactive/equivocal HCV antibody result be followed up by the HCV Nucleic Acid Amplificationtest (239312) Serum hepatitis B virus surf jorge luis antibody IgG detectionOrdered By: Dr. Callahan on 01-06-2023 HBV surface IgG Ql (S) Non-Reactive [facility] Comment on above: Non Reactive: Incons istent with immunity less than <10 mIU/mL Reactive: Consistent with immunity greater than or equal to 10 mIU/mL Serum or plasma albumin edwardo urement (mass/volume)Ordered By: Dr. Renae on 01-06-2023 Albumin [Mass/Vol] 4.3 g/dL 3.2-5.0 [facility] Thin prep Papanicolaou smear with manual screeningOrdered By: Dr. eRnae on 01-06-2023 Thin prep Papanicolaou smear with manual screening 21 U/L 15-37 [facility] Absolute lymphocyte countOrd ered By: Dr. Ko on 12-15-2022 Lymphocytes Auto (Unsp spec) [#/Vol] 1.38 10*3/uL 0.83-4.51 [facility] Basophil percentageOrdered B y: Dr. Ko on 12-15-2022 Basophil percentage 0 SEEN /hpf 0-5 [facility] Basophils/100 WBC (Bld) 0.3 % 0-[address] [facility] Chloride [Moles/Vol] 109 mmol/L 98-107 [facility] Eosinophils/100 WBC (Bld) 3.1 % 0-5 [facility] Glucose [Mass/Vol] 132 mg/dL 74-106 [facility] Comment on above: Fasting Glucose resu lt greater than or equal to 126 mg/dL suggests DIABETES MELLITUS per A.D.A. criteria. Neutrophils (Bld) [#/Vol] 5.3 10*3/uL 2.0-7.7 [facility] Neutrophils/100 WBC (Bld) 69.0 % 47-70 [facility] Potassium [Moles/Vol] 3.9 mmol/L 3.5-5.1 [facility] Sodium [Moles/Vol] 142 mmol/L 136-145 [facility] WBC (Bld) [#/Vol] 7.7 10*3/uL 4.4-11.0 [facility] Bilirubin Test strip Ql (U)O rdered By: Dr. Ko on 12-15-2022 Bilirubin Ql (U) Negative Negative [facility] Blood erythrocytes count (nu mber/volume)Ordered By: Dr. Ko on 12-15-2022 RBC (Bld) [#/Vol] 4.70 10*6/uL 4.6-6.2 [facility] Blood hemoglobin measurement (mass/volume)Ordered By: Dr. Ko on 12-15-2022 Hemoglobin (Bld) [Mass/Vol] 15.7 g/dL 13.0-16.5 [facility] Blood lymphocytes/100 leukoc ytesOrdered By: Dr. Ko on 12-15-2022 Lymphocytes/100 WBC (Bld) 17.9 % 19-41 [facility] Blood monocytes/100 leukocyt esOrdered By: Dr. Ko on 12-15-2022 Monocytes/100 WBC (Bld) 9.3 % 0-[address] [facility] Blood platelet mean volumeOr dered By: Dr. Ko on 12-15-2022 Platelet mean volume (Bld) [Entitic vol] 10.9 fL 6.2-12.0 [facility] Determination of erythrocyte mean corpuscular volume (MCV)Ordered By: Dr. Ko on 12-15-2022 MCV (RBC) [Entitic vol] 99.6 fL 80-[address] [facility] Hematocrit Auto (Bld) [Volum e fraction]Ordered By: Dr. Ko on 12-15-2022 Hematocrit (Bld) [Volume fraction] 46.8 % 40-54 [facility] Ketones Test strip Ql (U)Ord ered By: Dr. Ko on 12-15-2022 Ketones Ql (U) 5 mg/dl Negative [facility] - Chemistry and C hemistry - challengeOrdered By: Dr. Ko on 12-15-2022 CO2 [Moles/Vol] 23.0 mmol/L 21.0-32.0 [facility] Urea nitrogen/Creatinine [Mass ratio] 13.1 mg/mg 10-20 [facility] - Hematology and Cell countsOrdered By: Dr. Ko on 12-15-2022 Erythrocyte distribution width (RBC) [Entitic vol] 45.7 fL 35.1-43.9 [facility] Erythrocyte distribution width (RBC) [Ratio] 12.6 % 11.6-14.6 [facility] Immature granulocytes/100 WBC (Bld) 0.400 % 0.0-0.9 [facility] Comment on above: IG% - Immature Granu locytes (promyelocytes, myelocytes and metamyelocytes) > 1% indicates that a LEFT SHIFT is Present. MCH (RBC) [Entitic mass] 33.4 pg 27.0-32.0 [facility] Nucleated RBC/100 WBC (Bld) [Ratio] 0 % 0-5 [facility] MCHC Auto (RBC) [Mass/Vol]Or dered By: Dr. Ko on 12-15-2022 MCHC (RBC) [Mass/Vol] 33.5 g/dL 32-36 [facility] Mucus LM Ql (Urine sed)Order ed By: Dr. Ko on 12-15-2022 Mucus Ql (Urine sed) 1+ /hpf [facility] Nitrite Test strip Ql (U)Ord ered By: Dr. Ko on 12-15-2022 Nitrite Ql (U) Negative Negative [facility] No Panel InformationOrdered By: Dr. Ko on 12-15-2022 Estimated Creatinine Clearance Calc 106.59 ml/min [facility] Estimated GFR (MDRD) Amer 113 mL/min >60 [facility] Comment on above: GFR Calc Estimated GFR (MDRD) Non-Af Amer 93 mL/min >60 [facility] Comment on above: Non- GFR Calc Platelets bldOrdered By: Dr. Ko on 12-15-2022 Platelets (Bld) [#/Vol] 212 10*3/uL 150-450 [facility] Protein Test strip Ql (U)Ord ered By: Dr. Ko on 12-15-2022 Protein Ql (U) 100 mg/dl Negative [facility] Serum or plasma calcium edwardo urement (mass/volume)Ordered By: Dr. Ko on 12-15-2022 Calcium [Mass/Vol] 9.4 mg/dL 8.5-10.1 [facility] Serum or plasma creatinine m easurement (mass/volume)Ordered By: Dr. Ko on 12-15-2022 Creatinine [Mass/Vol] 0.91 mg/dL 0.70-1.30 [facility] Comment on above: The validity of the calculated GFR & GFRAA in patients over 70 years has not been determined. Clinical correlation is essential. Serum or plasma urea nitroge n measurement (mass/volume)Ordered By: Dr. Ko on 12-15-2022 Urea nitrogen [Mass/Vol] 12 mg/dL 7-18 [facility] Squamous epithelial cells de tection in urine sediment by light microscopyOrdered By: Dr. Ko on 12-15-2022 Epithelial cells.squamous LM Ql (Urine sed) 0 SEEN /hpf 0-5 [facility] Thin prep Papanicolaou smear with manual screeningOrdered By: Dr. Ko on 12-15-2022 Thin prep Papanicolaou smear with manual screening 10 5-15 [facility] Urine blood detectionOrdered By: Dr. Ko on 12-15-2022 RBC Ql (U) Negative Negative [facility] RBC Ql (U) 0 SEEN /hpf 0-5 [facility] Urine clarityOrdered By: Dr. Ko on 12-15-2022 Clarity (U) Clear Clear [facility] Urine color determinationOrd ered By: Dr. Ko on 12-15-2022 Color (U) Yellow Yellow [facility] Urine glucose detectionOrder ed By: Dr. Ko on 12-15-2022 Glucose Ql (U) Normal mg/dl Normal [facility] Urine leukocyte esterase det ection by dipstickOrdered By: Dr. Ko on 12-15-2022 Leukocyte esterase Test strip Ql (U) Negative Negative [facility] Urine pHOrdered By: Dr. Jeffry chadwick on 12-15-2022 pH (U) 6.0 [pH] 5.0 - 8.0 [facility] Urine sediment bacteria coun t by microscopy (number/high power field)Ordered By: Dr. Ko on 12-15-2022 Bacteria LM.HPF (Urine sed) [#/Area] 0 /[HPF] None Seen [facility] Urine specific gravity measu rementOrdered By: Dr. Ko on 12-15-2022 Specific gravity (U) [Rel density] 1.020 1.002-1.030 [facility] Urobilinogen Auto test strip Ql (U)Ordered By: Dr. Ko on 12-15-2022 Urobilinogen Ql (U) Normal mg/dl Normal [facility] Basophil percentageon 2021 Chloride [Moles/Vol] 107 mmol/L 98-107 [facility] Work Phone: Cholesterol [Mass/Vol] 164 mg/dL <200 [facility] Work Phone: Comment on above: <200 mg/dL Desirable 200-240 mg/dL Borderline >240 mg/dL High Risk Glucose [Mass/Vol] 86 mg/dL 74-106 [facility] Work Phone: Potassium [Moles/Vol] 4.6 mmol/L 3.5-5.1 [facility] Work Phone: Sodium [Moles/Vol] 139 mmol/L 136-145 [facility] Work Phone: Triglyceride [Mass/Vol] 181 mg/dL <[address] [facility] Work Phone: Comment on above: The drugs N-Acetylcy steine and Metamizole may falsely depress this assay.Serum Triglycerides Reference Interval Normal <150 mg/dL Borderline high 150 - 199 mg/dL High 200 - 499 mg/dL Very High > or = 500 mg/dL Laboratory - Chemistry and C hemistry - challengeon 07-03-2022 CO2 [Moles/Vol] 21.0 mmol/L 21.0-32.0 [facility] Work Phone: Urea nitrogen/Creatinine [Mass ratio] 21.6 mg/mg 10-20 [facility] Work Phone: No Panel Informationon 07-03 Estimated GFR (MDRD) Amer 118 mL/min >60 [facility] Work Phone: Comment on above: GFR Calc Estimated GFR (MDRD) Non-Af Amer 98 mL/min >60 [facility] Work Phone: Comment on above: Non- GFR Calc Prostate Specific Antigen Screen 0.70 ng/mL 0.00-4.00 [facility] Work Phone: Comment on above: This test was perfor med using the TPSA assay method for the[employer] chemistry system. Values obtained with differentassay methods cannot be used interchangably.When changing PSA assays in the course of monitoring apatient, additional sequential testing should be carriedout to confirm baseline values. Serum or plasma calcium edwardo urement (mass/volume)on 07-03-2022 Calcium [Mass/Vol] 9.4 mg/dL 8.5-10.1 [facility] Work Phone: Serum or plasma cholesterol in HDL measurement (mass/volume)on 07-03-2022 Cholesterol in HDL [Mass/Vol] 52 mg/dL >40 [facility] Work Phone: Comment on above: The drugs N-Acetylcy steine and Metamizole may falsely depress this assay. Reference Range HDL <40 mg/dL Low HDL Cholesterol HDL >or= 60 mg/dL High HDL Cholesterol Serum or plasma cholesterol in VLDL measurement (mass/volume)on 07-03-2022 Cholesterol in VLDL [Mass/Vol] 36 mg/dL 5-40 [facility] Work Phone: Serum or plasma creatinine m easurement (mass/volume)on 07-03-2022 Creatinine [Mass/Vol] 0.88 mg/dL 0.70-1.30 [facility] Work Phone: Comment on above: The validity of the calculated GFR & GFRAA in patients over 70 years has not been determined. Clinical correlation is essential. Serum or plasma low density lipoprotein (LDL) cholesterol measurement (mass/volume)on 07-03-2022 Cholesterol in LDL [Mass/Vol] 76 mg/dL 0-130 [facility] Work Phone: Serum or plasma urea nitroge n measurement (mass/volume)on 07-03-2022 Urea nitrogen [Mass/Vol] 19 mg/dL 7-18 [facility] Work Phone: Thin prep Papanicolaou smear with manual screeningon 07-03-2022 Thin prep Papanicolaou smear with manual screening 11 5-15 [facility] Work Phone: Office Visit: RYAN, acute res p failure & legionella pneon 09-24-2017 Documentation of current medications (procedure) Done Invalid Interpretation Code [facility] Phone: Tobacco smoking status NHIS Former Invalid Interpretation Code [facility] Work Phone: Tobacco use [facility] Former smoker Invalid Interpretation Code [facility] Work Phone: Office Visit: [facility] for CAP & respiratory failureon 08-25-2017 Documentation of current medications (procedure) Done Invalid Interpretation Code [facility] Work Phone: Protein mass conc Done Invalid Interpretation Code [facility] Work Phone: Tobacco smoking status NHIS Former Invalid Interpretation Code [facility] Work Phone: Tobacco smoking status FLIS Former smoker Invalid Interpretation Code [facility] Work Phone: Tobacco use [facility] Former smoker Invalid Interpretation Code [facility] Work Phone: Vital Signs Date Time Vital Sign Value Performing Clinician Tomasz perla 01-14-2023 14:17-0500 Body temperature 98.6 [degF] Dr. Nicki Luis Work Phone: [facility] 01-14-2023 14:17-0500 Diastolic blood pressure 67 mm[Hg] Dr. Nicki Luis Work Phone: [facility] 01-14-2023 14:17-0500 Heart rate 94 /min Dr. Nicki Luis Work Phone: [facility] 01-14-2023 14:17-0500 Respiratory rate 18 /min Dr. Nicki Luis Work Phone: [facility] 01-14-2023 14:17-0500 SaO2% (BldA) [Mass fraction] 98 % Dr. Nicki Luis Work Phone: [facility] 01-14-2023 14:17-0500 Systolic blood pressure 114 mm[Hg] Dr. Nicki Luis Work Phone: [facility] 01-13-2023 16:01-0500 Inhaled oxygen flow rate 1 L/min Dr. Nicki Luis Work Phone: [facility] 01-13-2023 14:24-0500 Body height 182.[address] Nicki Luis Work Phone: [facility] 01-13-2023 14:24-0500 Body mass index (BMI) [Ratio] 30 kg/m2 Dr. Nicki Luis Work Phone: [facility] 01-13-2023 14:24-0500 Body weight 100.[address] Nicki Luis Work Phone: [facility] 01-13-2023 12:00-0500 Diastolic blood pressure 73 mm[Hg] Dr. Nicki Luis Work Phone: [facility] 01-13-2023 12:00-0500 Heart rate 73 /min Dr. Nicki Luis Work Phone: 8(051)853-129650 [place] [address] 01-13-2023 12:00-0500 Inhaled oxygen flow rate 4 L/min Dr. Nicki Luis Work Phone: 8(393)803-304650 [place] [address] 01-13-2023 12:00-0500 Respiratory rate 14 /min Dr. Nicki Luis Work Phone: 2(675)349-902950 [place] [address] 01-13-2023 12:00-0500 SaO2% (BldA) [Mass fraction] 100 % Dr. Nicki Luis Work Phone: 2(782)535-294650 [place] [address] 01-13-2023 12:00-0500 Systolic blood pressure 110 mm[Hg] Dr. Nicki Luis Work Phone: 0(386)666-626950 [place] [address] 01-13-2023 10:41-0500 Body temperature 96.8 [degF] Dr. Nicki Luis Work Phone: 4(510)768-261473 [place] [address] 01-13-2023 06:46-0500 Body height 182.[address] Nicki Luis Work Phone: 6(947)402-864350 [place] [address] 01-13-2023 06:46-0500 Body mass index (BMI) [Ratio] 30 kg/m2 Dr. Nicki Luis Work Phone: 1(901)445-488473 [place] [address] 01-13-2023 06:46-0500 Body weight 100.[address] Nicki Luis Work Phone: 2(692)634-507073 [place] [address] 01-08-2023 13:59-0500 Body mass index (BMI) [Ratio] 29.8 kg/m2 Dr. Nicki Luis Work Phone: 9(563)462-721450 [place] [address] 01-08-2023 13:59-0500 Body weight 99.[address] Nicki Luis Work Phone: 6(209)736-496673 [place] [address] 01-08-2023 13:59-0500 Diastolic blood pressure 74 mm[Hg] Dr. Nicki Luis Work Phone: 9(012)656-099973 [place] [address] 01-08-2023 13:59-0500 Heart rate 88 /min Dr. Nicki Luis Work Phone: [facility] 01-08-2023 13:59-0500 Respiratory rate 18 /min Dr. Nicki Luis Work Phone: [facility] 01-08-2023 13:59-0500 Systolic blood pressure 113 mm[Hg] Dr. Nicki Luis Work Phone: [facility] 12-19-2022 08:41-0500 Body height 182.[address] Nicki Luis Work Phone: [facility] 12-19-2022 08:41-0500 Body mass index (BMI) [Ratio] 29.9 kg/m2 Dr. Nicki Luis Work Phone: [facility] 12-19-2022 08:41-0500 Body weight 100.[address] Nicki Luis Work Phone: [facility] 12-15-2022 14:39-0500 Diastolic blood pressure 91 mm[Hg] [facility] 12-15-2022 14:39-0500 Heart rate 71 /min [facility] 12-15-2022 14:39-0500 Respiratory rate 18 /min [facility] 12-15-2022 14:39-0500 SaO2% (BldA) [Mass fraction] 97 % [facility] 12-15-2022 14:39-0500 Systolic blood pressure 137 mm[Hg] [facility] 12-15-2022 11:03-0500 Body height 182.88 cm [facility] 12-15-2022 11:03-0500 Body mass index (BMI) [Ratio] 29 kg/m2 [facility] 12-15-2022 11:03-0500 Body temperature 97 [degF] [facility] 12-15-2022 11:03-0500 Body weight 97.06 kg [facility] 09-24-2017 15:51-0500 BMI (Body Mass Index) 28.21 kg/m2 [facility] Work Phone: 09-24-2017 15:51-0500 Body Temperature 99 [degF] Karina York [facility] Work Phone: 09-24-2017 15:51-0500 BP Diastolic 88 mm[Hg] Karina York [facility] Work Phone: 09-24-2017 15:51-0500 BP Systolic 172 mm[Hg] Karina York [facility] Work Phone: 09-24-2017 15:51-0500 Height 182.88 cm Karina York [facility] Work Phone: 09-24-2017 15:51-0500 Pulse (Heart Rate) 90 /min [facility] Work Phone: 09-24-2017 15:51-0500 Respiratory Rate 18 /min [facility] Work Phone: 09-24-2017 15:51-0500 Weight 94.35 kg [facility] Work Phone: 08-25-2017 07:08-0400 BMI (Body Mass Index) 28.34 kg/m2 [facility] Work Phone: 08-25-2017 07:08-0400 Body Temperature 98.5 [degF] [facility] Work Phone: 08-25-2017 07:08-0400 BP Diastolic 74 mm[Hg] [facility] Work Phone: 08-25-2017 07:08-0400 BP Systolic 120 mm[Hg] [facility] Work Phone: 08-25-2017 07:08-0400 Height 182.88 cm [facility] Work Phone: 08-25-2017 07:08-0400 Pulse (Heart Rate) 80 /min [facility] [place] [facility] Work Phone: 08-25-2017 07:08-0400 Respiratory Rate 18 /min [facility] Work Phone: 08-25-2017 07:08-0400 Weight 94.8 kg Karina [facility] [place] Work Phone: Encounters Encounter Date Encounter Type Care Provider Facility Start: 05-12-2025 ambulatory [facility] Facility :[facility] Start: 04-06-2025 End: 04-06-[address] Shashank Sheehan MD Work Phone: [facility] Work Phone: Start: 04-06-2025 End: 04-06-[address] Raman Stout MD -[facility] [place] Work Phone: Start: 04-06-2025 End: 04-06-2025 ambulatory [facility] Facility:[facility] Start: 03-21-2025 End: 03-21-[address] Shashank Sheehan MD Work Phone: [facility] Work Phone: Start: 03-21-2025 End: 03-21-[address] Shashank Sheehan MD -Laboratory, [facility] Work Phone: Start: 03-21-2025 End: 03-21-2025 ambulatory Shashank Sheehan Facility:[facility] Start: 10-29-2024 End: 10-29-2024 ambulatory Nicki S Toby Facility:[facility] Start: 10-11-2024 End: 10-11-2024 ambulatory Nicki S Jolliff Facility:[facility] Start: 10-17-2023 End: 10-17-2023 ambulatory [facility] Work Phone: Start: 10-17-2023 End: 10-17-2023 Patient encounter procedure [facility] [place] Work Phone: Start: 01-14-2023 Non-patient / Non-visit Dr. Liboroi Luis Work Phone: [facility] Start: 01-14-2023 Non-patient / Non-visit Dr. Liborio Luis Work Phone: [facility] Start: 01-13-2023 Non-patient / Non-visit Dr. Liborio Luis Work Phone: [facility] Start: 01-13-2023 Non-patient / Non-visit Dr. Liborio Luis Work Phone: [facility] Start: 01-13-2023 End: 01-14-2023 Evaluation and management of inpatient Dr. Nicki Luis Work Phone: [facility]-Medical Surgical 3 Start: 01-13-2023 End: 01-14-[address] Nicki Luis Work Phone: [facility] Work Phone: Start: 01-10-2023 Non-patient / Non-visit Dr. Liborio Luis Work Phone: [facility] Start: 01-09-2023 Non-patient / Non-visit Dr. Liborio Luis Work Phone: [facility] Start: 01-09-2023 End: 01-09-[address] Nicki Luis Work Phone: [facility] Work Phone: Start: 01-09-2023 End: 01-09-[address] Nicki Luis Work Phone: [facility]-Cardiovascular Services Start: 01-08-[address] Nayan Luis Work Phone: [facility] Start: 01-08-2023 End: 01-08-2023 Admission to same day surgery center Dr. Nicki Luis Work Phone: [facility] Start: 01-08-2023 End: 01-08-[address] Nicki Luis Work Phone: [facility] Start: 01-06-2023 End: 01-06-2023 Non-patient / Non-visit Dr. Nicki Luis Work Phone: [facility] Start: 01-06-2023 End: 01-06-[address] Nicki Luis Work Phone: [facility] Start: 12-20-2022 End: 12-20-[address] Nicki Luis Work Phone: [facility] Start: 12-19-2022 End: 12-19-[address] Nicki Luis Work Phone: [facility] Work Phone: Start: 12-19-2022 End: 12-19-[address] Nicki Luis Work Phone: [facility] Start: 12-19-2022 End: 12-19-[address] Nicki Luis Work Phone: [facility] Start: 12-15-2022 End: 12-15-2022 Emergency department patient visit [facility]-Emergency Department Start: 07-03-2022 End: 07-03-2022 ambulatory [facility] Work Phone: Start: 07-03-2022 End: 07-03-2022 Patient encounter procedure [facility], [place] [facility] Procedures Date Procedure Procedure Detail Performing Clinician Start: 03-21-2025 Iadna-dna/rna gi pth gn multiplex probe tq 6-11 Dr. Shashank Sheehan MD Work Phone: Start: 03-21-2025 [address] diff[address] e detection Dr. Shashank Sheehan MD Work Phone: Start: 03-21-[address] Shashank Sheehan MD Work Phone: Start: 03-21-2025 [place] parasites identification Dr. Shashank Sheehan MD Work Phone: Start: 01-13-[address] Ebenezer Luis Work Phone: Start: 01-13-2023 Laminectomy,Lumbar M icro Decompression (Right) Dr. Nicki Luis Work Phone: Start: 01-09-2023 Cardiovascular stres s test using pharmacologic stress agent Dr. Nicki Luis Work Phone: Start: 12-19-2022 X-ray of eye for for eign body Dr. Nicki Luis Work Phone: Start: 12-19-2022 MRI of lumbar spine Dr. Nicki Luis Work Phone: Start: 12-19-2022 X-ray of lumbar spin e, two or three views Dr. Nicki Luis Work Phone: Start: 12-15-2022 CT of abdomen and pe lvis without contrast Start: 08-25-2017 End: 08-29-2017 BWA Clotilde Hutton HYDROMETER TESTER Work Phone: Start: 08-25-2017 End: 08-29-2017 Follow Up Appt 1 month Clotilde paulino ARTIFICIAL INSEMINATION TECHNICIAN Work Phone: Start: 08-25-2017 End: 08-29-2017 Pulmonary Function Test - complete Clotilde Mullins ARTIFICIAL INSEMINATION TECHNICIAN Work Phone: Start: 08-25-2017 End: 08-29-2017 Pulmonary stress test/simple Clotilde Mullins ARTIFICIAL INSEMINATION TECHNICIAN Work Phone: Nasal Screen MRSA/MSSA Dr. Nayan Luis Work Phone: Plan of Treatment Date Care Activity Detail Author Start: 03-21-2025 Ova and Parasites Ova and Parasites [facility] Start: 01-14-2023 Patient discharge [facility] Start: 01-13-2023 Removal of urinary catheter [facility] Start: 01-13-2023 Care regimes management [facility] Start: 01-13-2023 Notification of physician [facility] Start: 01-13-2023 [facility] Start: 01-13-2023 Following clinical pathway protocol [facility] Start: 01-13-2023 Application of intermittent pneumatic compression device [facility] Start: 01-13-2023 Catheterization of vein [facility] Start: 01-13-2023 Consultation [facility] Start: 01-13-2023 Following clinical pathway protocol [facility] Start: 01-13-2023 Incentive spirometry [facility] Start: 01-13-2023 Measuring intake and output [facility] Start: 01-13-2023 Neurovascular assessment [facility] Start: 01-13-2023 Oxygen therapy [facility] Start: 01-13-2023 Patient education [facility] Start: 01-13-2023 Procedure discontinued [facility] Start: 01-13-2023 Provision of activity privileges [facility] Start: 01-13-2023 Recommendation to continue with treatment [facility] Start: 01-13-2023 Referral to service [facility] Start: 01-13-2023 Taking patient vital signs [facility] Start: 01-13-2023 [facility] Start: 01-13-2023 Admission procedure [facility] Start: 09-24-2017 End: 09-24-2017 Appointment Appointment [facility] Phone: Start: 08-25-2017 End: 08-29-2017 BWNayan MIRELES [facility] Phone: Start: 08-25-2017 End: 08-29-2017 Follow Up Appt 1 month Follow Up Appt 1 month [facility] Phone: Start: 08-25-2017 End: 08-29-2017 Pulmonary Function Test - complete Pulmonary Function Test - complete [facility] Phone: Start: 08-25-2017 End: 08-29-2017 Pulmonary stress test/simple Pulmonary stress testing; simple (eg, 6-minute walk) [facility] Work Phone: Start: 08-25-2017 End: 08-25-2017 Appointment Appointment [facility] Phone: Ova OR parasites identification [facility] Patient Education [facility] Work Phone: Patient referral [facility] Work Phone: Payers Date Payer Category Payer Private Health Insurance [id number] 2024 Self-pay [id number] 2012 Unknown [id number] Private Health Insurance [id number] Private Health Insurance [facility] [id number] Unknown ANTHEM [id number] Unknown [id number] Unknown [id number] Unknown [id number] Unknown [id number] Unknown [id number] Social History Date Type Detail Facility Start: 12-09-2021 End: 02-26-2023 Tobacco smoking status NHIS Unknown if ever smoked [facility] Start: 08-03-2017 Occasional [facility] Start: 08-03-2017 None [facility] Start: 08-03-2017 Spouse/ Signif icant Other [facility] Start: 08-03-2017 Cigarettes [facility] Start: 1970 Sex Assigned At Male [facility] Start: 10-29-2024 Tobacco smoking status NHIS Ex-smoker (finding) [facility] Medical Equipment Procedure Code Equipment Code Equipment Origin al Text Equipment Identifier Dates PATCH,AMNION 2X3CM FDA Start: 01-13-2023 PATCH,AMNION 2X3CM FDA Start: 01-13-2023 PATCH,AMNION 2X3CM FDA Start: 01-13-2023 PATCH,AMNION 2X3CM FDA Start: 01-13-2023 Goals Date Patient Goal Desired Activity /State Functional Status Date Assessment Result Facility 01-14-2023 Functional status Patient Activity Bedres t [facility] Work Phone: 01-14-2023 Functional status Independent [facility] Work Phone: Mental Status Date Assessment Result Facility 01-14-2023 Cognitive function Level Of Cons ciousness Awake;Alert;Appropriate;Follow s Commands [facility] Work Phone: 01-13-2023 Cognitive function Touch/Shaking [facility] Work Phone: Discharge summary 01-14-2023 Note Date & Type Note Facility 01-14-2023 Discharge summary Note Date/Time January 14, 2023 2:48pm [facility] Medical Records Department [address] [place] [address] Discharge Summary 01/14/23 1444 MR#: [id number] Acct: [id number] Name: LILLIAN BOWDEN Rep #:[id number] : 1970 52 From: Alvaro Romero PCP: Dr. Nicki Luis MD Status:ADM MASSIMO [id number] Providers Date of Admission: 01/13/23 Primary Care Physician: Dr. Nicki Luis MD Attending Physician: This is discharge summary on Lillian Bowden. This patient was admitted yesterday 13 January. He underwent lumbar laminectomy at the L3-4 level on theright side. Today he reports that his thigh pain is completely resolved. He has been walking the halls in the hospital doing extremely well. His dressing is dry. Neurologically is intact in both lower extremities. Him and his are given directions regarding his activities over the next several weeks. He can return to work in 3 months. He was told to remove the dressing in 4 days. He may shower in 5. He may start driving his car for only local trips in 3 weeks. He already has an appointment to see me in the office 2 weeks from today. This is the end of discharge summary on Lillian Bowden. This is Dr. Callahan dictating. Consultations 01/13/23 11:09 Consult: Hospitalist Routine Consulting Provider: Ollie Dodd Reason for Consult: Medical Management EMERGENT Consult: No MD Notified: Yes Date Notified: 01/13/23 Time Notified: 10:52 Method of Notification: Text Reason For Visit: LUMBAR LAMINECTOMY L3-4 RT Diagnosis Discharge Diagnosis (1) Diabetes: Status: Acute Code(s): E11.9 - Type 2 diabetes mellitus without complications (2) Abnormal electrocardiogram: Status: Chronic Code(s): R94.31 - Abnormal electrocardiogram [ECG] [EKG] Medications at Discharge Home Medications carvedilol 25 mg tablet 25 mg PO BID BLOOD PRESSURE 08/02/17 lisinopril 40 mg tablet (Zestril) 40 mg PO DAILY BLOOD PRESSURE 08/02/17 simvastatin 40 mg tablet 40 mg PO DAILY 12/10/21 gabapentin 600 mg tablet 600 mg PO TID 20 days #60 tabs 12/30/22 oxycodone-acetaminophen 5 mg-325 mg tablet 1 tab PO Q6H PRN pain 15 days #60 tabs 12/30/22 acetaminophen 650 mg tablet,extended release (Tylenol 8 Hour) 650 mg PO Q8H PRN pain 01/08/23 Weight / BMI Weight Weight: 221 lb 10.797 oz Body Mass Index (BMI) 30.0 ABG / Lab / Microbiology Data Laboratory: Laboratory Results - last 24 hr 01/13/23 16:32: POC Glucose 226 H 01/14/23 07:45: POC Glucose 113 H Microbiology: Microbiology 01/06/23 09:39 Swab (Method) Nasal Screen MRSA/MSSA - Final D/C Instructions Return to work on: 04/17/23 May shower in (days): 5 May resume sexual activity in: 4-6 weeks Weight Bearing Status: Full weight bearing Meaningful Use Info Meaningful Use Diagnoses (Choose all that apply): None applicable Discharge Plan Admission Admit Date/Time: 01/13/23 10:51 Primary Reason for Your Visit: back surgery Attending Provider: Alvaro Callahan Primary Care Provider: Nicki Luis Consulting Providers: Cristel Garrido Discharge Orders/Prescriptions Prescriptions: No Action acetaminophen [Tylenol 8 Hour] 650 mg tablet extended release 650 mg PO Q8H PRN (Reason: pain) carvedilol 25 MG tablet 25 mg PO BID Label Comments: heart lisinopril [Zestril] 40 MG tablet 40 mg PO DAILY Label Comments: blood pressure/heart simvastatin 40 mg tablet 40 mg PO DAILY oxycodone-acetaminophen 5-325 mg tablet 1 tab PO Q6H PRN (Reason: pain) 15 Days Qty: 60 0RF gabapentin 600 mg tablet 600 mg PO TID 20 Days Qty: 60 0RF Referrals / Follow Up: Nicki Luis MD [Primary Care Provider] - Disposition Disposition (needs filled in before D/C Order can be placed): Home, Self Care 01/14/23 1448 <Electronically signed by Alvaro Callahan DO> Cosigner Signature (if applicable): CC: Dr. Nicki Luis MD; Dr. Alvaro Callahan DO~ Signed [facility] Work Phone: Progress note 01-14-2023 Note Date & Type Note Facility 01-14-2023 Progress note Note Date/Time January 14, 2023 12:28pm [facility] Medical Records Department [address] [place] [address] Progress Note - Hospitalist 01/14/23 1228 MR#: [id number] Acct: [id number] Name: LILLIAN BOWDEN Rep #:[id number] : 1970 52 From: Cristel Garrido MD PCP: Dr. Nicki Luis MD Status:ADM MASISMO Location: [place] [address] Reason for Visit Reason for Visit: Diagnoses Type 2 diabetes mellitus without complications (01/13/23) Abnormal electrocardiogram [ECG] [EKG] (01/13/23) Encounter for other preprocedural examination (01/13/23) Subjective Subjective Slight back tightness but overall feeling well Objective Data Objective Data Vital Signs: Vital Signs Temp Pulse Resp BP Pulse Ox O2 Del Method O2 Flow Rate 97.2 F L 86 18 102/53 L 98 Room Air 1 01/14/23 09:54 01/14/23 09:54 01/14/23 09:54 01/14/23 09:54 01/14/23 09:54 01/14/23 09:54 01/13/23 16:01 Oxygen Flow Rate (L/min) 1 Oxygen Delivery Method Room Air Weight: 100.55 kg Body Mass Index (BMI) 30.0 Intake & Output: Intake and Output for Last 24 Hours 01/12/23 01/13/23 01/14/23 23:59 23:59 23:59 Intake Total 1738.67 / 1738.67 1573.33 / 1573.33 Output Total 4250 / 4650 1400 / 1400 Balance -2511.33 / -2911.33 173.33 / 173.33 Lab / Micro Data Labs: Laboratory Results - last 24 hr 01/13/23 16:32: POC Glucose 226 H 01/14/23 07:45: POC Glucose 113 H Micro: Microbiology 01/06/23 09:39 Swab (Method) Nasal Screen MRSA/MSSA - Final Physical Exam Narrative General: Alert, oriented, no apparent distress HEENT: Atraumatic, normocephalic Eyes: Anicteric, normal conjunctiva, extraocular movements grossly intact Neck: Supple Respiratory: Clear to auscultation bilaterally, normal respiratory effort Cardiovascular: Regular rate and rhythm GI: Soft, nontender, nondistended Extremities: No edema Musculoskeletal: Moving all extremities Neuro: No overt focal neurological deficits Skin: No rashes appreciated Psych: Cooperative Assessment & Plan Assessment/Plan (1) Diabetes: PLAN: Type II Diet controlled Patient informs me that his last A1c was 5.7. Expect his blood sugar to be more elevated in light of his recent surgery. Do not dissipate he will require any additional needs upon discharge, however. We will add sliding scale insulin. 01/14: No changes recommended (2) Abnormal electrocardiogram: PLAN: Patient had a left bundle branch block. Underwent an echo and stress test were both unremarkable. No additional work-up at this time. PLAN: Plan Status post laminectomy and discectomy: Per spine surgery Chronic conditions * Hypertension: Continue with lisinopril and carvedilol * Hyperlipidemia: Continue with simvastatin VTE prophylaxis: Per primary service Charges/Coding Visit Charges Inpatient E&M: 09072 Subs Hosp L1 01/14/23 1724 <Electronically signed by Cristel Garrido MD> Cosigner Signature (if applicable): CC: ~ Signed [facility] Work Phone: Progress note 01-13-2023 Note Date & Type Note Facility 01-13-2023 Progress note Note Date/Time January 13, 2023 4:03pm [facility] Medical Records Department [address] [place] [address] Progress Note - Hospitalist 01/13/23 1559 MR#: [id number] Acct: [id number] Name: LILLIAN BOWDEN Rep #:[id number] : 1970 52 From: Ollie Dodd DO PCP: Dr. Nicki Luis MD Status:ADM MASSIMO Location: [place] [address] Reason for Visit Reason for Visit: Diagnoses Encounter for other preprocedural examination (01/13/23) Subjective Subjective Consult requested by Dr. Callahan for medical management Patient underwent a laminectomy and discectomy today for radicular pain in the right lower extremity. Currently the patient feels well. Prior to his surgery,patient was found to have left bundle branch block and underwent echocardiogram and stress test that were negative. Objective Data Objective Data Vital Signs: Vital Signs Temp Pulse Resp BP Pulse Ox O2 Del Method O2 Flow Rate 36.3 C L 90 18 123/75 H 96 Nasal Cannula 1 01/13/23 14:39 01/13/23 14:39 01/13/23 14:39 01/13/23 14:39 01/13/23 15:42 01/13/23 15:42 01/13/23 15:42 Oxygen Flow Rate (L/min) 1 Oxygen Delivery Method Nasal Cannula Weight: 100.55 kg Body Mass Index (BMI) 30.0 Intake & Output: Intake and Output for Last 24 Hours 01/11/23 01/12/23 01/13/23 23:59 23:59 23:59 Intake Total 1212 / 1212 Output Total 1500 / 1500 Balance -288 / -288 Lab / Micro Data Labs: Laboratory Results - last 24 hr 01/13/23 06:01: POC Glucose 185 H 01/13/23 11:11: POC Glucose 153 H Micro: Microbiology 01/06/23 09:39 Swab (Method) Nasal Screen MRSA/MSSA - Final Radiography Diagnostic Testing: Radiology Impression Spine X-Ray 01/13/23 08:40 IMPRESSION: The localization estimate this seen overlying the posterior aspect of the L4-L5 level. Electronically Signed: Tima Jessica MD at 8:55 EST , Physical Exam Const alert and no apparent distress HEENT head/scalp atraumatic and moist oral mucous membranes Resp normal respiratory effort, no retractions, no use of accessory muscles and clearto auscultation bilaterally Cardio regular rate, regular rhythm, S1 normal heart sound and S2 normal heart sound GI normal to inspection, nondistended, normoactive bowel sounds, soft to palpation,non-tender and non-distended Extremity normal to inspection Assessment & Plan Assessment/Plan (1) Diabetes: PLAN: Type II Diet controlled Patient informs me that his last A1c was 5.7. Expect his blood sugar to be more elevated in light of his recent surgery. Do not dissipate he will require any additional needs upon discharge, however. We will add sliding scale insulin. (2) Abnormal electrocardiogram: PLAN: Patient had a left bundle branch block. Underwent an echo and stress testwere both unremarkable. No additional work-up at this time. PLAN: Plan Status post laminectomy and discectomy: Per spine surgery Chronic conditions * Hypertension: Continue with lisinopril and carvedilol * Hyperlipidemia: Continue with simvastatin VTE prophylaxis: Per primary service Thank you for the consult. The hospital service will continue to follow along during this patient's hospitalization Charges/Coding Visit Charges Office Visits / Consults: 28736 OP Consult L3 01/13/23 1603 <Electronically signed by Ollie Dodd DO> Cosigner Signature (if applicable): CC: ~ Signed [facility] Work Phone: Procedure note 01-13-2023 Note Date & Type Note Facility 01-13-2023 Procedure note [facility] History and physical note 01-10-2023 Note Date & Type Note Facility 01-10-2023 History and physical note Note Date/Time January 10, 2023 11:57am [facility] Medical Records Department [address] [place] [address] History & Physical Exam 01/10/23 1156 MR#: [id number] Acct: [id number] Name: LILLIAN BOWDEN Rep #:[id number] : 1970 52 From: Alvaro Romero PCP: Dr. Nicki Luis MD Status:PRE [facility] Location: [facility] History and Physical Addendum [facility] [address] [place] [address] [address] [place] [address] OFFICE VISIT Date of Service:? 12/19/22 MR#: [id number] Acct: [id number] Name:? LILLIAN BOWDEN Rep #: [id number] : 1970 ? ? Provider: Dr. Alvaro Callahan DO Age/Sex:? 52/M ? ? Location: [facility] Status: Signed Intake Vital Signs ? 12/15/2310:03 12/19/2307:41 Height 6 ft 6 ft Weight: 214 lb 221 lb BMI 29.0 29.9 BP 131/102 H ? Respiration 14 ? Pulse 85 ? Temp 97 F L ? Temp Source Temporal ? Pulse Oximetry (%) 98 ? Intake Visit Reasons:?Lumbar Chief Complaint: low back pain, leg pain Accompanied by: Is patient in pain?: Yes Pain scale (1-10): 10 Allergies No Known Allergies Allergy (Verified 12/15/22 11:03) Medications carvedilol 25 mg tablet 25 mg PO BID BLOOD PRESSURE 08/02/17 [History Confirmed 12/19/22] lisinopril 40 mg tablet (Zestril) 40 mg PO DAILY BLOOD PRESSURE 08/02/17 [History Confirmed 12/19/22] simvastatin 40 mg tablet 40 mg PO DAILY 12/10/21 [History Confirmed 12/19/22] hydrocodone-acetaminophen 5-325mg 5mg-325mg 1 tab PO Q6H PRN PRN Pain 3 days #10TABLETS 12/15/22 [Rx Confirmed 12/19/22] gabapentin 100 mg capsule 100 mg PO TID 12/19/22 [History Confirmed 12/19/22] PFSH Medical History? Hyperlipidemia Hypertension Psoriasis Social History? Smoking Status:? Former smoker HPI Lumbar Details: Parts of this documentation were recorded by a scribe, this documentation accurately reflects the service provided and the decisions made by me, Dr. Alvaro Callahan, DO 12/19/22826. LILLIAN BOWDEN is a 52 year old M here today for? low back pain that he has been having since 12/10/22. Denies any injury. He states that that he was driving to [place] and then on the way back he started feeling an achiness of the right anterior thigh and when he got home he had increased pain.He then states that on 12/11 he had difficulty standing straight and had a shooting pain down the right leg into the foot. He tried taking Ibuprofen and Tylenol for the pain which was somewhat helpful. He then worked 12/12 and he hasn't been able to return to work since. He then went to the ED Friday and he had a CT scan and was given morphine which didn't even help with the pain. He saw his PCP Friday and was given a Medrol dose pack and has been taking hydrocodone. He has also been started on Gabapentin. He is only able to sit for about 5 minutes at a time. He states that he is now having numbness of the rightleg. He states that he gets relief with lumbar extension while he is on his stomach and in [place] pose. Denies any previous surgery or injections on the back. Denies any issues with bowel or bladder. This pain is interfering with hissleep and work. Lillian is a most pleasant gentleman 52 years old that presents in the company of his .? The story is well explained in the paragraph above done by my scribe.? He is unable to work at this time.? 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 He has to crawl underabove so forth and so on he simply is not able to do it because of this pain in the right side of his back his buttocks and down the anterior thigh on the rightside.? He denies any bowel or bladder dysfunction. On examination he has very positive tension signs on the right side he has less pain with extension.? He has complete absence of the right patellar reflex and a2+ on the left.? He does not have any wasting of the right quad yet but it is coming.? He has good motor strength in all the other major muscle groups of bothlower extremities.? He has 2+ Achilles reflexes bilaterally.? He has no long tract signs.? Clonus is absent Babinski's are downgoing. He had a abdominal pelvic CT scan done in the emergency department not long ago but it was not a lumbar study.? Nonetheless they are claiming spinal stenosis down to 4-1/2 mm at L3-4.? Obviously he needs an MRI scan of the lumbar spine.? We were able to get 1 done today at 2:00.? Hopefully I will be able to see him tomorrow here in the clinic and make further recommendations.? I took him off work for now as he simply is not able to work. 01/10/23 115 <Electronically signed by Alvaro Callahan DO> Cosigner Signature (if applicable): CC: Dr. Nicki Luis MD; Dr. Alvaro Callahan DO~ Signed [facility] Work Phone: Evaluation note Note Date & Type Note Facility Evaluation note No assessment information availa [facility] Work Phone: Evaluation note Note Date & Type Note Facility Evaluation note Diagnosis Onset Date Spinal stenosis of lumbar re gion with radiculopathy acute HNP (herniated nucleus pulposus), lumbar acute [facility] Work Phone: Evaluation note Note Date & Type Note Facility Evaluation note Diagnosis Onset Date Spinal stenosis of lumbar re gion with radiculopathy acute Pre-operative cardiovascular examination acute Abnormal electrocardiogram c hronic Hyperlipidemia chronic Hypertension chronic Psoriasis chronic [facility] Work Phone: Evaluation note Note Date & Type Note Facility Evaluation note Diagnosis Onset Date Spinal stenosis of lumbar re gion with radiculopathy acute Pre-operative cardiovascular examination acute Abnormal electrocardiogram c hronic Hyperlipidemia chronic Hypertension chronic Psoriasis chronic Diabetes acute Abnormal electrocardiogram c [facility] Work Phone: Reason for referral (narrative) Note Date & Type Note Facility Reason for referral (narrative) No reason for referral information available [facility] Work Phone: Family History No Family History Records Found Relationship Condition Age at Onset Recorded Date/T yoshi Unknown Family History?Cancer Unknown 2016 10:16pm Family History?Cancer Unknown 2016 10:16pm Relationship Condition Age at Onset Recorded Date/T yoshi Unknown Family History?Cancer Unknown 2016 9:16pm Family History?Cancer Unknown 2016 9:16pm Advance Directives No Advanced Directives Records Found Advance Directive Response Recorded Date/ Time Living Will No December 10 1:07am Power of Bilingual Sales Assistant No December 10, 2021 1:07am Advance Directive Response Recorded Date/ Time Living Will No December 15 12:01pm Power of Bilingual Sales Assistant No December 15, 2022 12:01pm Advance Directive Response Recorded Date/ Time Living Will Yes December 31, 023 9:17am Power of Bilingual Sales Assistant Yes December 31, 2022 9:17am Advance Directive Response Recorded Date/ Time Name of Medical Power of Bilingual Sales Assistant December 31, 2022 9:17am Living Will Yes December 31 023 9:17am Power of Bilingual Sales Assistant Yes December 31, 2022 9:17am Advance Directive Response Recorded Date/ Time Name of Medical Power of Bilingual Sales Assistant . January 13, 2023 2:24pm Living Will Yes January 13, 023 2:24pm Power of Bilingual Sales Assistant Yes January 13, 2023 2:24pm Advance Directive Response Recorded Date/ Time Living Will Yes January 13, 023 2:24pm Power of Bilingual Sales Assistant Yes January 13, 2023 2:24pm Chief Complaint and Reason for Visit Chief Complaint BACK Chief Complaint BACK Lumbar Room 4 Pain LUMBAR SPINE Reason for Visit Spinal stenosis of l umbar region with radiculopathy HNP (herniated nucleus pulposus), lumbar Chief Complaint BACK Lumbar Room 4 Pain LUMBAR SPINE lumbar spine PREOP ABN EKG, CLEAR. LUMBAR LAMENECTOMY PREOP, ABN EKG LUMBAR LAMINECTOMY L3-4 RT LUMBAR LAMINECTOMY L3-4 RT LUMBAR LAMINECTOMY L3-4 RT Reason for Visit Spinal stenosis of l umbar region with radiculopathy Pre-operative cardiovascular examination Abnormal electrocardiogram Hyperlipidemia Hypertension Psoriasis Chief Complaint BACK Lumbar Room 4 Pain LUMBAR SPINE lumbar spine PREOP ABN EKG, CLEAR. LUMBAR LAMENECTOMY PREOP, ABN EKG LUMBAR LAMINECTOMY L3-4 RT LUMBAR LAMINECTOMY L3-4 RT LUMBAR LAMINECTOMY L3-4 RT LUMBAR LAMINECTOMY L3-4 RT LUMBAR LAMINECTOMY L3-4 RT LUMBAR LAMINECTOMY L3-4 RT Reason for Visit Spinal stenosis of l umbar region with radiculopathy Pre-operative cardiovascular examination Abnormal electrocardiogram Hyperlipidemia Hypertension Psoriasis Diabetes Abnormal electrocardiogram Chief Complaint Admit Date SEE ORDER April 06, 2025 7:23a m Summary Purpose Additional Source Comments Goals (unrecognized section and content) Goals may be documented in a n alternate sectionGoals may be documented in an alternate sectionGoals may be documented in an alternate sectionGoals may be documented in an alternate sectionGoals may be documented in an alternate sectionGoals may be documented in an alternate section Care Teams (unrecognized sec tion and content) Team Status: Active Member Role Status Dates Dr. Nicki Luis MD Family Provider Active Dr. Nicki Luis MD Primary Care Provider Active Team Status: Inactive Member Role Status Dates Dr. Nicki Luis MD Primary Care Provider Active Dr. Ollie Ko DO Emergency Provider Active Team Status: Inactive Member Role Status Dates Dr. Nicki Luis MD Primary Care Provider, Referrin g Provider Active Dr. Alvaro Callahan DO Attending Provider Active Team Status: Inactive Member Role Status Dates Dr. Nicki Luis MD Primary Care Provider Active Dr. Maynor Limon MD Attending Provider Active Team Status: Inactive Member Role Status Dates Dr. Nicki Luis MD Primary Care Provider Active Dr. Ollie Ko DO Attending Provider, Emergency P rovider Active Team Status: Inactive Member Role Status Dates Dr. Nicki Luis MD Primary Care Provider Active Dr. Alvaro Callahan DO Attending Provider, Referring P rovider Active Team Status: Inactive Member Role Status Dates Dr. Nicki Luis MD Primary Care Provider, Referrin g Provider Active Dr. Unique Aldridge MD Attending Provider Active Team Status: Active Member Role Status Dates No Primary Care Physician Primary Care Provider Active Dr. Unique Aldridge MD Attending Provider Active Team Status: Active Member Role Status Dates Dr. Nicki Luis MD Primary Care Provider Active Dr. Maynor Limon MD Attending Provider Active Dr. Alvaro Callahan DO Referring Provider Active Team Status: Active Member Role Status Dates Dr. Nicki Luis MD Primary Care Provider Active Dr. Alvaro Callahan DO Attending Provide r, Referring Provider, Other Provider Active Team Status: Active Member Role Status Dates Dr. Nicki Luis MD Primary Care Provider Active Dr. Alvaro Callahan DO Admit Provider, A ttending Provider, Referring Provider Active Team Status: Inactive Member Role Status Dates Dr. Unique Aldridge MD Attending Provider Active No Primary Care Physician Primary Care Provider Active Team Status: Active Member Role Status Dates Dr. iNcki Luis MD Primary Care Provider Active Dr. Alvaro Callahan DO Admit Provider, R eferring Provider, Other Provider Active Dr. Ollie Dodd DO Attending Provider, Other Provid er Active Team Status: Active Member Role Status Dates Dr. Nicki Luis MD Primary Care Provider Active Dr. Alvaro Callahan DO Admit Provider, A ttending Provider, Referring Provider, Other Provider Active Dr. Cristel Garrido MD Other Provider Active Team Status: Active Member Role Status Dates Dr. Nicki Luis MD Primary Care Provider Active Dr. Alvaro Callahan DO Admit Provider, R eferring Provider, Other Provider Active Dr. Cristel Garrido MD Attending Provider, Other Provid er Active Team Status: Inactive Member Role Status Dates Dr. Nicki Luis MD Primary Care Provider Active Dr. Alvaro Callahan DO Admit Provider, A ttending Provider, Referring Provider Active Dr. Cristel Garrido MD Other Provider Active Team Status: Inactive Member Role Status Dates Dr. Nicki Luis MD Primary Care Prov ider, Attending Provider, Referring Provider Active Team Status: Active Member Role Status Dates Dr. Shashank Sheehan MD Primary Care Provider Active Team Status: Inactive Member Role Status Dates Dr. Shashank Sheehan MD Primary Care Provider Active Start: March 21, 2025 End: March 21, 2025 Dr. Shashank Sheehan MD Attending Provider Active Start: March 21, 2025 End: March 21, 2025 Dr. Shashank Sheehan MD Referring Provider Active Start: March 21, 2025 End: March 21, 2025 Team Status: Inactive Member Role Status Dates Dr. Shashank Sheehan MD Primary Care Provider Active Start: April 06, 2025 End: April 06, 2025 Dr. Raman Stout MD Attending Provider Active Start: April 06, 2025 End: April 06, 2025 Dr. Raman Stout MD Referring Provider Active Start: April 06, 2025 End: April 06, 2025 (unrecognized sect ion and content) No Status Records Found INFORMATION SOURCE (unrecogn ized section and content) DATE CREATED AUTHOR 04/22/2025 [facility] FOR RECORDS PERTAINING TO PATIENTS WHO ARE OR HAVE BEEN ENROLLED IN A CHEMICAL DEPENDENCY/SUBSTANCEABUSE PROGRAM, SOME INFORMATION MAY BE OMITTED. This clinical summary was aggregated from multiple sources. Caution should be exercised in using it in the provision of clinical care. This summary normalizes information from multiple sources, and as a consequence, information in this document may materially change the coding, format and clinical context of patient data. In addition, data may be omitted in some cases. CLINICAL DECISIONS SHOULD BE BASED ON THE PRIMARY CLINICAL RECORDS. [employer] provides no warranty or guarantee of the accuracy or completeness of information in this document.
[2025-04-25 10:36] LABS: Microalbumin:Creatinine Ratio 353.1 mg/g CRE
[2025-04-25 11:38] LABS: Hemoglobin A1c 8.6 % (<=5.6)
[2025-04-25 12:17] LABS: ALB/GLOB Ratio 1.6 RATIO (0.9-2.4); AST(SGOT) 761 U/L (<=37); Alanine Aminotransfer ALT/SGPT 682 U/L (<=46); Albumin, Serum 4.7 g/dL (3.5-5.0); Alkaline Phosphatase 1759 U/L (40-129); Anion Gap 15 (5-15); BUN 17 mg/dL (4-19); BUN/Creat Ratio 21.2 RATIO (10-20); Calcium,Total 9.7 mg/dL (7.6-11.0); Carbon Dioxide 17.4 mmol/L (21.0-32.0); Chloride 104 mmol/L (98-108); Creatinine, Serum 0.79 mg/dL (0.70-1.20); EST Glomerular Filtration Rate 107 (>60); Glucose 171 mg/dL (70-99); Protein, Total 7.6 g/dL (5.9-8.4); Sodium Level 137 mmol/L (133-145); Total Bilirubin 1.27 mg/dL (0.00-1.30)
[2025-04-25 13:23] LABS: Cholesterol 174 mg/dL (<=200); High Density Lipoprotein 78 mg/dL; Low Density Lipoprotein Calc. 65 mg/dL; Triglycerides 152 mg/dL; Very Low Density Lipoprotein 30 mg/dL (5-40); cholesterol:hdl ratio screen 2.23
[2025-04-27 05:07] LABS: HEPATITIS B SURFACE AG Negative (Negative); Hep C Antibodies Non Reactive (Non Reactive); Hepatitis A IgM Antibody Negative (Negative); Hepatitis B Core AB IgM Negative (Negative)
== END | disposition home or self-care (01) ==
LOC: MTLAB 07:06
PROVIDERS: PCP Family Medicine; Referring Provider Family Medicine; Visit Provider Family Medicine
DX: E11.8 Type 2 diabetes mellitus with unspecified complications (principal); I10 Essential (primary) hypertension
CPT/HCPCS: 36415; 80053; 80061; 80074; 82043; 82570; 83036

== ENCOUNTER → 2025-04-28 | Outpatient (CLI) | payer OTHER, SELFPAY ==
--- NOTE | 2025-04-28 12:48 | CT_ITS ---
PROCEDURE: ABDOMEN WITH IV CONTRAST 04/28/2025 REASON FOR EXAM: STAT FOR ELEVATED LIVER ENZYMES TECHNIQUE: Abdomen CT with intravenous contrast. Multiplanar and multisequence images were obtained. One or more dose reduction techniques were used (e.g., Automated exposure control, adjustment of the mA and/or kV according to patient size, use of iterative reconstruction technique. PATIENT PREPARATION: Per protocol ORAL CONTRAST TYPE: None. CONTRAST: Isovue-300 VOLUME: 100 mL RADIATION DOSE SUMMARY: CTDlvol: 14 mGy DLP: 494 mGycm COMPARISON: Prior study dated December 15, 2022. FINDINGS: Lung bases: Lungs are clear. Liver: Diffuse fatty infiltration. Minimal degree of central intrahepatic biliary ductal dilatation. Gallbladder: Mild distention of the gallbladder. The common bile duct measures 9.6 mm. This is dilated. Spleen: Normal size. Pancreas: Dilatation of the pancreatic duct. Questionable 2 cm hypodense nodule in the head of the pancreas. Correlation with MRCP or ERCP recommended. Adrenals: Unremarkable Kidneys: Normal renal sizes. No hydronephrosis. Bowel: Unremarkable Lymph nodes: Unremarkable. Vasculature: Mild atherosclerotic plaque formation of the abdominal aorta. CT/Abdomen WITH IV Contrast IMPRESSION: Fatty infiltration of the liver. Mild dilatation of the intrahepatic biliary ducts as well as the common bile du ct. Mild distention of the gallbladder. Dilated pancreatic duct with suggestion of possible 2 cm hypodense nodule in th e head of the pancreas. Correlation with the MRCP or conventional ERCP recommended. OVERALL FINAL ASSESSMENT: . LI-RADS is not meant to be used in patients <18 years or patients with cirrhosi s due to congenital hepatic fibrosis or due to vascular disorders, because these patients have a lower chance of developing HC C. Reading Location: [place] [id number]
== END | disposition home or self-care (01) ==
PROVIDERS: PCP Family Medicine; Referring Provider Family Medicine; Visit Provider Family Medicine
DX: R74.8 Abnormal levels of other serum enzymes (principal); K86.89 Other specified diseases of pancreas
CPT/HCPCS: 74160; Q9967

== ENCOUNTER → 2025-04-29 | Outpatient (CLI) | payer OTHER, SELFPAY ==
--- NOTE | 2025-04-29 07:06 | US_ITS ---
PROCEDURE: GALLBLADDER 04/29/2025 REASON FOR EXAM: ELEVATED LI ENZ COMPARISON: CT examination of 04/28/2025 FINDINGS: Liver: Mildly enlarged at 18.2 cm in length. Diffusely echogenic hepatic parenchyma is noted, without focal abnormality seen. No intrahepatic biliary ductal dilation is seen. Hepatopetal flow of the portal vein is noted. Gallbladder: Distended gallbladder again seen, currently measured at 11.4 cm in length. No gallstones, wall thickening, or pericholecystic fluid collection is noted. Sludge is seen within the gallbladder lumen. No sonographic Portillo's sign was elicited. Common bile duct: Distended, measured at 10 mm in diameter. Pancreas: Mostly obscured by overlying bowel gas. A 4.3 x 2.8 x 2.6 cm hypoechoic area in the anterior head of the pancreas is noted; cannot exclude the presence of a neoplastic process. The pancreatic duct is not as well visualized is as on the CT of 04/28/2025. Other: The right kidney is unremarkable in appearance, measured at 11.9 x 4.8 x 4.7 cm. Cortical thickness is normal at 15 mm. No evidence of hydronephrosis. No calculus is sonographically evident. US/Gallbladder IMPRESSION: 1. Hypoechoic structure in the anterior head of the pancreas is seen, and canno t exclude the presence of a neoplastic process. 2. Dilated common duct again noted. 3. Gallbladder sludge and gallbladder enlargement again noted, but no acute fin dings are otherwise noted. 4. No free fluid is seen. 5. Diffuse fatty infiltration of the liver again noted. Reading Location: [address]
--- OUTSIDE RECORDS SUMMARY | 2025-04-29 07:22 | XMS RPT_ITS | CCD ---
Author Organization [facility] Care Team Providers Care Bsa/Aml Compliance Officer Name Role Phone York, Karina L Unavailable [...] Provider Dr. Unique Aldridge Attending Provider [phone] [facility] Care Physician, No Primary Primary Care Provider Unavailable Dr. Alvaro Callahan Other Provider Dr. Alvaro Callahan Admit Provider Dr. Ollie Dodd Attending Provider [phone] Ollie Dodd Other Provider Dr. Cristel Garrido Attending Provider Dr. Cristel Garrido Other Provider Dr. Shashank Sheehan MD Primary Care Provider [phone] Dr. Shashank Sheehan MD Attending Provider [phone] Shashank Sheehan MD Referring Provider Dr. Raman Stout MD Attending Provider Dr. Raman Stout MD Referring Provider Nicki Luis Primary Care Unavailable Nicki Luis Referring Unavailable Kofi Zhao Attending Unavailable Nicki Luis Primary Care Unavailable Nicki Luis Attending Unavailable Shashank Sheehan Primary Care Unavailable Shashank Sheehan Attending Unavailable Shashank Sheehan Referring Unavailable Raman Stout Attending Unavailable Raman Stout Referring Unavailable Shashank Sheehan Primary Care Unavailable Argelia, Raman Attending Unavailable Raman Stout Referring Unavailable Shashank Sheehan Primary Care Unavailable Shashank Sheehan Primary Care Unavailable Shashank Sheehan Attending Unavailable Shashank Sheehan Referring Unavailable Medications Current Medications Medication Drug Class(es) [...] TABS One tab every night ATORVASTATIN CALCIUM [id number] Karina Weinstein erythromycin 0.005 mg/mg ophthalmic ointment [...] TABS One tab daily at 0600 LEVOFLOXACIN [id number] Karina Weinstein Drug Treatment Unknown - unknown [...] MG TABS Two ta bs daily PREDNISONE [id number] Karinadavid Weinstein sulfamethoxazole 800 mg / trimethoprim 160 [...] diseases classified elsewhere] 10-29-2024 Episodic Diabetes mellitus with complications (1 source) Type 2 diabetes mellitus with unspecified complications; Translations: [Type 2 diabetes mellitus with unspecified complications] Onset: 04-26-2025 Chronic Diabetes mellitus without complication (5 sources) Diabetes mellitus; Translations: [Type 2 diabetes mellitus without complications] 01-13-2023 Chronic Comment on above: PRE DIABETIC/DIET PARKS S CONTROLLED/NO MEDS Diabetes mellitus without complication (8 sources) Hyperglycemia; Translations: [Hyperglycemia, unspecified] 08-02-2017 Episodic Disorders of lipid metabolism (10 sources) Hyperlipidemia; Translations: [Hyperlipidemia, unspecified] 12-15-2022 Chronic Essential hypertension (12 sources) Hypertensive disorder; Translations: [Essential (primary) hypertension] [...] Translations: [Other specified diseases of pancreas] Onset: 04-26-2025 Episodic Pneumonia (except that caused by tuberculosis [...] Test Name Value Interpretation Reference Range Facility Hepatitis Panel Acuteon - COMMENT Comment Normal . [facility] Comment on above: Result Comment: Not infected with HCV unless early or acute infection is suspected (which may be delayed in an immunocompromised individual), or other evidence exists to indicate HCV infection. Performed at: [facility] [id number] Hand Collator: Raman Zamora PhD, Phone: [phone] Performed By: #### L 500.4100, L500.4050, L502.0250, L501.9985 #### [facility] [address] [place], [address] HEP B CORE,IgM Negative Normal Negative [facility] Comment on above: Performed By: #### L 500.4100, L500.4050, L502.0250, L501.9985 #### [facility] [address] [place], [address] HEP B SURF AG Negative Normal Negative [facility] Comment on above: Performed By: #### L 500.4100, L500.4050, L502.0250, L501.9985 #### [facility] [address] [place], [address] HEP C VIRUS AB Non-Reactive Normal Non Reactive [facility] Comment on above: Performed By: #### L 500.4100, L500.4050, L502.0250, L501.9985 #### [facility] [address] [place], [address] HEPATITIS A-IgM Negative Normal Negative [facility] Comment on above: Result Comment: A ne gative anti-HAV IgM result suggests no recent or current HAV infection. Performed By: #### L 500.4100, L500.4050, L502.0250, L501.9985 #### [facility] [address] [place], [address] Comprehensive Metabolic Prof [facility] 04-25-2025 Albumin [Mass/Vol] 4.7 g/dL Normal 3.5-5.0 [facility] Comment on above: Performed By: #### L 500.4100, L500.4050, L502.0250, L501.9985 #### [facility] [address] [place], [address] Albumin/Globulin [Mass ratio] 1.6 {ratio} Normal 0.9-2.4 [facility] Comment on above: Performed By: #### L 500.4100, L500.4050, L502.0250, L501.9985 #### [facility] [address] [place], [address] ALK PHOS 1759 U/L High 40-129 [facility] Comment on above: Performed By: #### L 500.4100, L500.4050, L502.0250, L501.9985 #### [facility] [address] [place], [address] ALT [Catalytic activity/Vol] 682 U/L High <=46 [facility] Comment on above: Performed By: #### L 500.4100, L500.4050, L502.0250, L501.9985 #### [facility] [address] [place], [address] AST [Catalytic activity/Vol] 761 U/L High <=37 [facility] Comment on above: Performed By: #### L 500.4100, L500.4050, L502.0250, L501.9985 #### [facility] [address] [place], [address] Bilirubin [Mass/Vol] 1.27 mg/dL Normal 0.00-1.[address] [facility] Comment on above: Performed By: #### L 500.4100, L500.4050, L502.0250, L501.9985 #### [facility] [address] [place], [address] BUN/CRE 21.2 RATIO High 10-20 [facility] Comment on above: Performed By: #### L 500.4100, L500.4050, L502.0250, L501.9985 #### [facility] [address] [place], [address] Calcium [Mass/Vol] 9.7 mg/dL Normal 7.6-11.0 [facility] Comment on above: Performed By: #### L 500.4100, L500.4050, L502.0250, L501.9985 #### [facility] [address] [place], [address] Chloride [Moles/Vol] 104 mmol/L Normal 98-[address] [facility] Comment on above: Performed By: #### L 500.4100, L500.4050, L502.0250, L501.9985 #### [facility] [address] [place], [address] CO2 [Moles/Vol] 17.4 mmol/L Low 21.0-32.0 [facility] Comment on above: Performed By: #### L 500.4100, L500.4050, L502.0250, L501.9985 #### [facility] [address] [place], [address] Creatinine [Mass/Vol] 0.79 mg/dL Normal 0.70-1.20 [facility] Comment on above: Performed By: #### L 500.4100, L500.4050, L502.0250, L501.9985 #### [facility] [address] [place], [address] GAP 15 Normal 5-15 [facility] Comment on above: Performed By: #### L 500.4100, L500.4050, L502.0250, L501.9985 #### [facility] [address] [place], [address] GFR/1.73 sq M.predicted among non-blacks MDRD (S/P/Bld) [Vol rate/Area] 107 mL/min/{1.73_m2} Normal >60 [facility] Comment on above: Result Comment: mL/m in/1.73m2 CKD-EPI Creatinine Equation (2020) Performed By: #### L 500.4100, L500.4050, L502.0250, L501.9985 #### [facility] [address] [place], [address] Globulin (S) [Mass/Vol] 3.0 g/dL Normal 2.2-4.2 [facility] Comment on above: Performed By: #### L 500.4100, L500.4050, L502.0250, L501.9985 #### [facility] [address] [place], [address] Glucose [Mass/Vol] 171 mg/dL High 70-99 [facility] Comment on above: Performed By: #### L 500.4100, L500.4050, L502.0250, L501.9985 #### [facility] [address] [place], [address] Potassium [Moles/Vol] 4.0 mmol/L Normal 3.3-5.1 [facility] Comment on above: Performed By: #### L 500.4100, L500.4050, L502.0250, L501.9985 #### [facility] [address] [place], [address] Sodium [Moles/Vol] 137 mmol/L Normal 133-145 [facility] Comment on above: Performed By: #### L 500.4100, L500.4050, L502.0250, L501.9985 #### [facility] [address] [place], [address] T PROT 7.6 g/dL Normal 5.9-8.4 [facility] Comment on above: Performed By: #### L 500.4100, L500.4050, L502.0250, L501.9985 #### [facility] [address] [place], [address] Urea nitrogen [Mass/Vol] 17 mg/dL Normal 4-19 [facility] Comment on above: Performed By: #### L 500.4100, L500.4050, L502.0250, L501.9985 #### [facility] [address] [place], [address] Hemoglobin A1con 04-25-2025 HbA1c (Bld) [Mass fraction] 8.6 % High <=5.6 [facility] Comment on above: Result Comment: Norm al < 5.7 % Prediabetic 5.7 - 6.4 % Diabetic >or= 6.5 % Please note range changes. Performed By: #### L 500.4100, L500.4050, L502.0250, L501.9985 #### [facility] [address] [place], [address] Lipid Profileon 04-25-2025 CHOL:HDL 2.23 Normal [facility] Comment on above: Performed By: #### L 500.4100, L500.4050, L502.0250, L501.9985 #### [facility] [address] [place], [address] Cholesterol [Mass/Vol] 174 mg/dL Normal <=200 [facility] Comment on above: Result Comment: Chol esterol level, Desirable <200 mg/dL Borderline high cholesterol 200-239 mg/dL High cholesterol >=240 mg/dL Recommendations of the NCEP Adult Treatment Panel for the following risk-cutoff thresholds for the [place] population. Performed By: #### L 500.4100, L500.4050, L502.0250, L501.9985 #### [facility] [address] [place], [address] Cholesterol in HDL [Mass/Vol] 78 mg/dL Normal [facility] Comment on above: Result Comment: Ranjana onal Cholesterol Education Program (NCEP) guidelines: <40 mg/dL: Low HDL-cholesterol (major risk factor for CHD) >= 60 mg/dL: High HDL-cholesterol (negative risk factor for CHD) HDL-cholesterol is affected by a number of factors, e.g. smoking, exercise, hormones, sex and age. Performed By: #### L 500.4100, L500.4050, L502.0250, L501.9985 #### [facility] [address] [place], [address] Cholesterol in LDL [Mass/Vol] 65 mg/dL Normal [facility] Comment on above: Result Comment: Bord pijwoi=033-106 mg/dL Higher Lcnn=835 mg/dL or greater Performed By: #### L 500.4100, L500.4050, L502.0250, L501.9985 #### [facility] [address] [place], [address] Cholesterol in VLDL [Mass/Vol] 30 mg/dL Normal 5-40 [facility] Comment on above: Performed By: #### L 500.4100, L500.4050, L502.0250, L501.9985 #### [facility] [address] [place], [address] Triglyceride [Mass/Vol] 152 mg/dL Normal [facility] Comment on above: Result Comment: The drugs N-Acetylcysteine and Metamizole may falsely depress this assay. Normal range: <150 mg/dL Borderline High: 150-199 mg/dL High: 200-499 mg/dL Very High: >500 mg/dL Performed By: #### L 500.4100, L500.4050, L502.0250, L501.9985 #### [facility] [address] [place], [address] Microalb:Creat Ratio,Random URon 04-25-2025 Creatinine [Mass/Vol] 87.80 mg/dL Normal 39.00-259.00 [facility] Comment on above: Performed By: #### L 500.4100, L500.4050, L502.0250, L501.9985 #### [facility] [address] [place], [address] MALB:CREAT 353.1 mg/g CRE Normal [facility] Comment on above: Performed By: #### L 500.4100, L500.4050, L502.0250, L501.9985 #### [facility] [address] [place], [address] MICROALBUMIN,UR 31.0 mg/L Normal NO RANGE EST. [facility] Comment on above: Performed By: #### L 500.4100, L500.4050, L502.0250, L501.9985 #### [facility] [address] [place], [address] Fecal Fat, Qualitativeon FATS, NEUTRAL Normal Normal . [facility] Comment on above: Order Comment: Test( s) 126260-Yakt, Neutral; 516504-Iuzy, Totalwas developed and its performance characteristicsdetermined by [facility]. It has not been cleared or approvedby the Food and Drug Administration. Result Comment: Norm al (<60 Droplets/HPF) Performed By: #### L 500.4100, L500.4050, L502.0250, L501.9985 #### [facility] [address] [place], [address] FATS, TOTAL Normal Normal . [facility] Comment on above: Order Comment: Test( s) 947175-Fycd, Neutral; 538876-Rzcs, Totalwas developed and its performance characteristicsdetermined by [facility]. It has not been cleared or approvedby the Food and Drug Administration. Result Comment: Norm al (<100 Droplets/HPF) Performed at: [facility] [address] [place], [place] [id number] Hand Collator: Raman Zamora PhD, Phone: [phone] Performed By: #### L 500.4100, L500.4050, L502.0250, L501.9985 #### [facility] [address] [place], [place], [address] L7000.0750on 04-07-2025 P ELASTASE,FECA 4 Low >200 [facility] Comment on above: Result Comment: Resu lt Units: ug Elast./g Severe Pancreatic Insufficiency: <100 Moderate Pancreatic Insufficiency: 100 - 200 Normal: >200 Performed at: [address] [id number] Hand Collator: Derek Gunn MD, Phone: [phone] Performed By: #### L 500.4100, L500.4050, L502.0250, L501.9985 #### [facility] [address] [place], [address] Fecal fat detectionOrdered B y: Raman Stout on 04-06-2025 Fat Ql (Stl) Normal . [facility] Comment on above: Normal (<100 Droplet s/HPF)Performed at: [facility] [place], [place] [id number] Director: Raman Zamora PhD, Phone: [phone] No Panel InformationOrdered By: Raman Stout on 04-06-2025 Stool Neutral Fats Normal . [facility] Comment on above: Normal (<60 Droplets /HPF) Stool pancreatic elastase me asurement (mass/mass)Ordered By: Raman Stout on 04-06-2025 Elastase.pancreatic (Stl) [Mass/Mass] 4 Low >200 [facility] Comment on above: Result Units: ug Jillian st./g Severe Pancreatic Insufficiency: <100 Moderate Pancreatic Insufficiency: 100 - 200 Normal: >200Performed at: [facility] [place], [place] [id number] Director: Derek Gunn MD, Phone: [phone] Ova and Parasites 8623on OP OVA AND PARASITES EX AM, ROUTINE These results were obtained using wet preparation(s) and trichrome stained smear. This test does not include testing for Crytosporidium parvum, Cyclospora, or Microsporidia. One negative specimen does not rule out the possibility of a parasitic infection. TESTING PERFORMED AT [facility]. ORIGINAL REPORT ON FILE IN LAB CONTAINS ADDITIONAL TEST SITE INFORMATION. Ova/Parasite Exam NO OVA, CYSTS, OR PARASITES FOUND. Normal [facility] Comment on above: Performed By: #### L 500.4100, L500.4050, L502.0250, L501.9985 #### [facility] [address] [facility] [place], [place], [id number] CDIFF (PCR)on 03-21-2025 CDIFF Pending 027 027 NAP1-B1 Presumptive Negative *for epidemiolologic???use C. Diff PCR Negative- No toxigenic C. Diff Detected Normal [facility] Comment on above: Performed By: #### L 500.4100, L500.4050, L502.0250, L501.9985 #### [facility] [address] [facility] [place], [place], [address] Clostridium difficile detect ion by polymerase chain reactionOrdered By: Shashank Sheehan on 03-21-2025 C. difficile DNA JAZMYN+probe Ql (Unsp spec) [facility] ENTERIC PATHOGEN PANEL STOOL on 03-21-2025 EP PANEL Normal Reference Ran ge = Not Detected Nucleic acid amplification test method Not detected for Campylobacter group, Salmonella species, Shigella species, Vibrio Group, Yersinia enterocolitica, EHEC (Shiga Toxin 1, Shiga Toxin 2), Norovirus Gl/Gll, and Rotavirus A. Other common stool pathogens are not detected on this panel include: Aeromonas/Plesiomonas or parasites. Order testing for these organisms separately if suspected. This is an amplified DNA test which makes it both specific and sensitive. CAMPYLOBACTER Not Detected Norovirus Not Detected Rotavirus Not Detected Salmonella Not Detected Shiga Toxin Not Detected Shigella sp. Not Detected VIBRIO Not Detected Yersinia Not Detected Normal [facility] Comment on above: Performed By: #### L 500.4100, L500.4050, L502.0250, L501.9985 #### [facility] [address] [place], [place], [address] Urgent Care Visit Reporton 1 12-30-2023 Urgent Care Visit Report [facility] [address] [facility], [address] [place], [place] [address] OFFICE VISIT Date of Service: 10/29/24 MR#: [id number] Acct: [id number] Name: LILLIAN BOWDEN Rep #: [id number] : 1970 Provider: DAMION Campo Age/Sex: 54/M Location: [facility] Status: Signed Intake Vital Signs 01/13/23 14:24 10/29/24 09:34 Height 6 ft 5 ft 11 in Weight: 220 lb BMI 30.7 BP 152/94 H Blood Pressure Location Lt brachial Position Sitting Respiration 14 Pulse 72 Pulse Source Monitor Temp 98.6 F Temp Source Oral Pulse Oximetry (%) 97 Oxygen Delivery Method room air Intake Visit Reasons: concern for infection Chief Complaint: nose pustule [employer] Required: No Accompanied by: Self Is patient [...] Rx mg-trimethoprim 160 mg tablet (Bactrim DS) [facility] Medical History (Updated 10/29/24 @ 14:03 by [...] Type: carbonated beverages Number of servings: 1 [facility] HPI Chief Complaint: nose pustule Details: LILLIAN [...] or diarrhea. No other associated symptoms or alleviating/aggravating factors. ROS Const Constitutional: No other (6 system ROS completed with pertinent findings in the HPI otherwise normal.) Exam Const General: cooperative and healthy appearing HENMT Head: normocephalic and atraumatic Ears: hearing grossly [...] agreement with all the above. Medications: New sulfamethoxazole-trimethop rim 800-160 mg (Bactrim DS) 1 TAB PO Q12H 14 tabs 0RF 7 days 10/29/24 1403 Date Kofi Wang Signature: Date (if applicable) CC: Normal [facility] AST(SGOT)on 10-11-2024 AST [Catalytic activity/Vol] 30 U/L Normal 15-37 [facility] Comment on above: Performed By: #### L 500.0386, L501.4409, L501.4100, L500.4100, L501.9910 #### [facility] [address] [place], [address] Alanine Aminotransferas (SGP T)on 10-11-2024 ALT [Catalytic activity/Vol] 42 U/L Normal 16-61 [facility] Comment on above: Performed By: #### L 500.2500, L501.4405, L501.4100, L500.4100, L501.9910 #### [facility] [address] [place], [address] Basic Metabolic Profile (BMP )on 10-11-2024 BUN/CRE 26.0 RATIO High 10- [facility] Comment on above: Performed By: #### L 500.2500, L501.4405, L501.4100, L500.4100, L501.9910 #### [facility] [address] [place], [address] CA,Total 9.2 mg/dL Normal 8.5-10.1 [facility] Comment on above: Performed By: #### L 500.2500, L501.4405, L501.4100, L500.4100, L501.9910 #### [facility] [address] [place], [address] Chloride [Moles/Vol] 107 mmol/L Normal 98-[address] [facility] Comment on above: Performed By: #### L 500.2500, L501.4405, L501.4100, L500.4100, L501.9910 #### [facility] [address] [place], [address] CO2 [Moles/Vol] 18.0 mmol/L Low 21.0-32.0 [facility] Comment on above: Performed By: #### L 500.2500, L501.4405, L501.4100, L500.4100, L501.9910 #### [facility] [address] [place], [address] Creatinine [Mass/Vol] 0.96 mg/dL Normal 0.70-1.30 [facility] Comment on above: Result Comment: The validity of the calculated GFR GFRAA in patients over 70 years has not been determined. Clinical correlation is essential. Performed By: #### L 500.2500, L501.4405, L501.4100, L500.4100, L501.9910 #### [facility] [address] [place], [address] EST GFR - AA 106 mL/min Normal >60 [facility] Comment on above: Result Comment: Afri can Egyptian GFR Calc Performed By: #### L 500.2500, L501.4405, L501.4100, L500.4100, L501.9910 #### [facility] [address] [place], [address] GAP 10 Normal 5-15 [facility] Comment on above: Performed By: #### L 500.2500, L501.4405, L501.4100, L500.4100, L501.9910 #### [facility] [address] [place], [address] GFR/1.73 sq M.predicted among non-blacks MDRD (S/P/Bld) [Vol rate/Area] 87 mL/min/{1.73_m2} Normal >60 [facility] Comment on above: Result Comment: Non- GFR Calc Performed By: #### L 500.2500, L501.4405, L501.4100, L500.4100, L501.9910 #### [facility] [address] [place], [address] Glucose [Mass/Vol] 240 mg/dL High 74-106 [facility] Comment on above: Result Comment: Gluc ose result greater than or equal to 200 mg/dL suggests DIABETES MELLITUS per A.D.A. criteria. Performed By: #### L 500.2500, L501.4405, L501.4100, L500.4100, L501.9910 #### [facility] [address] [place], [address] Potassium [Moles/Vol] 4.6 mmol/L Normal 3.5-5.1 [facility] Comment on above: Performed By: #### L 500.2500, L501.4405, L501.4100, L500.4100, L501.9910 #### [facility] [address] [place], [address] Sodium [Moles/Vol] 135 mmol/L Low 136-145 [facility] Comment on above: Performed By: #### L 500.2500, L501.4405, L501.4100, L500.4100, L501.9910 #### [facility] [address] [place], [address] Urea nitrogen [Mass/Vol] 25 mg/dL High 7-18 [facility] Comment on above: Performed By: #### L 500.2500, L501.4405, L501.4100, L500.4100, L501.9910 #### [facility] [address] [place], [address] Lipid Profileon 10-11-2024 Cholesterol [Mass/Vol] 168 mg/dL Normal 200 [facility] Comment on above: Result Comment: <200 mg/dL Desirable 200-240 mg/dL Borderline >240 mg/dL High Risk Performed By: #### L 500.2500, L501.4405, L501.4100, L500.4100, L501.9910 #### [facility] [address] [place], [address] Cholesterol in HDL [Mass/Vol] 47 mg/dL Normal [facility] Comment on above: Result Comment: The drugs N-Acetylcysteine and Metamizole may falsely depress this assay. Reference Range HDL <40 mg/dL Low HDL Cholesterol HDL >or= 60 mg/dL High HDL Cholesterol Performed By: #### L 500.2500, L501.4405, L501.4100, L500.4100, L501.9910 #### [facility] [address] [place], [address] Cholesterol in LDL [Mass/Vol] 71 mg/dL Normal 0-130 [facility] Comment on above: Performed By: #### L 500.2500, L501.4405, L501.4100, L500.4100, L501.9910 #### [facility] [address] [place], [address] Cholesterol in VLDL [Mass/Vol] 50 mg/dL High 5-40 [facility] Comment on above: Performed By: #### L 500.2500, L501.4405, L501.4100, L500.4100, L501.9910 #### [facility] [address] [place], [address] Triglyceride [Mass/Vol] 251 mg/dL High [facility] Comment on above: Result Comment: The drugs N-Acetylcysteine and Metamizole may falsely depress this assay. Serum Triglycerides Reference Interval Normal <150 mg/dL Borderline high 150 - 199 mg/dL High 200 - 499 mg/dL Very High > or = 500 mg/dL Performed By: #### L 500.2500, L501.4405, L501.4100, L500.4100, L501.9910 #### [facility] [address] [place], [address] PSA,Total - Annual Screenon 10-11-2024 PSA,TOT SCREEN 0.89 ng/mL Normal 0.00-4.00 [facility] Comment on above: Result Comment: This test was performed using the TPSA assay method for the [employer] chemistry system. Values obtained with different assay methods cannot be used interchangably. When changing PSA assays in the course of monitoring a patient, additional sequential testing should be carried out to confirm baseline values. Performed By: #### L 500.2500, L501.4405, L501.4100, L500.4100, L501.9910 #### [facility] [address] [place], [address] Basophil percentageOrdered B y: Nicki Luis on 10-17-2023 Chloride [Moles/Vol] 108 mmol/L 98-[address] [facility] Cholesterol [Mass/Vol] 173 mg/dL <200 [facility] Comment on above: <200 mg/dL Desirable 200-240 mg/dL Borderline >240 mg/dL High Risk Glucose [Mass/Vol] 153 mg/dL 74-106 [facility] Comment on above: Fasting Glucose resu lt greater than or equal to 126 mg/dL suggests DIABETES MELLITUS per A.D.A. criteria. Potassium [Moles/Vol] 4.0 mmol/L 3.5-5.1 [facility] Sodium [Moles/Vol] 137 mmol/L 136-145 [facility] Triglyceride [Mass/Vol] 128 mg/dL <199 [facility] Comment on above: The drugs N-Acetylcy steine and Metamizole may falsely depress this assay.Serum Triglycerides Reference Interval Normal <150 mg/dL Borderline high 150 - 199 mg/dL High 200 - 499 mg/dL Very High > or = 500 mg/dL Laboratory - Chemistry and C hemistry - challengeOrdered By: Nicki Luis on 10-17-2023 ALT [Catalytic activity/Vol] 65 U/L 16-61 [facility] CO2 [Moles/Vol] 22.0 mmol/L 21.0-32.0 [facility] Urea nitrogen/Creatinine [Mass ratio] 18.0 mg/mg 10-20 [facility] No Panel InformationOrdered By: Nicki Luis on 10-17-2023 Estimated GFR (MDRD) Amer 135 mL/min >60 [facility] Comment on above: GFR Calc Estimated GFR (MDRD) Non-Af Amer 112 mL/min >60 [facility] Comment on above: Non- GFR Calc Prostate Specific Antigen Screen 0.68 ng/mL 0.00-4.00 [facility] Comment on above: This test was perfor med using the TPSA assay method [facility]. Values obtained with differentassay methods cannot be used interchangably.When changing PSA assays in the course of monitoring apatient, additional sequential testing should be carriedout to confirm baseline values. Urine Microalbumin/Creatinin e Ratio 42.2 mg/g CRE <30 [facility] Serum or plasma calcium edwardo urement (mass/volume)Ordered By: Nicki Luis on 10-17-2023 Calcium [Mass/Vol] 8.6 mg/dL 8.5-10.1 [facility] Serum or plasma cholesterol in HDL measurement (mass/volume)Ordered By: Nicki Luis on 10-17-2023 Cholesterol in HDL [Mass/Vol] 49 mg/dL >40 [facility] Comment on above: The drugs N-Acetylcy steine and Metamizole may falsely depress this assay. Reference Range HDL <40 mg/dL Low HDL Cholesterol HDL >or= 60 mg/dL High HDL Cholesterol Serum or plasma cholesterol in VLDL measurement (mass/volume)Ordered By: Nicki Luis on 10-17-2023 Cholesterol in VLDL [Mass/Vol] 26 mg/dL 5-40 [facility] Serum or plasma creatinine m easurement (mass/volume)Ordered By: Nicki Luis on 10-17-2023 Creatinine [Mass/Vol] 0.78 mg/dL 0.70-1.30 [facility] Comment on above: The validity of the calculated GFR & GFRAA in patients over 70 years has not been determined. Clinical correlation is essential. Serum or plasma low density lipoprotein (LDL) cholesterol measurement (mass/volume)Ordered By: Nicki Luis on 10-17-2023 Cholesterol in LDL [Mass/Vol] 98 mg/dL 0-130 [facility] Serum or plasma urea nitroge n measurement (mass/volume)Ordered By: Nicki Luis on 10-17-2023 Urea nitrogen [Mass/Vol] 14 mg/dL 7-18 [facility] Thin prep Papanicolaou smear with manual screeningOrdered By: Nicki Luis on 10-17-2023 Thin prep Papanicolaou smear with manual screening 44 U/L 15-37 [facility] Thin prep Papanicolaou smear with manual screening 7 5-15 [facility] Thin prep Papanicolaou smear with manual screening 89.8 mg/L NO RANGE EST. [facility] Urine creatinine measurement (mass/volume)Ordered By: Nicki Luis on 10-17-2023 Creatinine (U) [Mass/Vol] 213.00 mg/dL NO RANGE EST. [facility] Glucose Glucometer (BldC) [M ass/Vol]Ordered By: Dr. Callahan on 01-14-2023 Glucose [Mass/Vol] 113 mg/dL 74-106 [facility] Comment on above: MANAGEMENT OF PATIEN T CARE PER NURSING PROTOCOL Glucose Glucometer (BldC) [M ass/Vol]Ordered By: Dr. Callahan on 01-13-2023 Glucose [Mass/Vol] 153 mg/dL 74-106 [facility] Comment on above: MANAGEMENT OF PATIEN T CARE PER NURSING PROTOCOL No Panel InformationOrdered By: Dr. Callahan on 01-07-2023 Nasal Screen MRSA/MSSA [facility] Basophil percentageOrdered B y: Dr. Renae on 01-06-2023 Bilirubin [Mass/Vol] 0.30 mg/dL 0.20-1.[address] [facility] Comment on above: For patients on eltr ombopag therapy, use of Dimension [place] TBIL is not recommended. Protein [Mass/Vol] 7.7 g/dL 6.4-8.2 [facility] Direct bilirubinOrdered By: Dr. Renae on 01-06-2023 Bilirubin.direct [Mass/Vol] 0.07 mg/dL 0.00-0.30 [facility] HIV 1 and HIV-2 antibody ass ay with HIV-1 p24 antigen detectionOrdered By: Dr. Callahan on 01-06-2023 HIV 1+2 Ab+HIV1 p24 Ag IA Ql Non-Reactive Nonreactive [facility] INR in Blood by Coagulation assayOrdered By: Dr. Renae on 01-06-2023 INR Coag (Bld) [Relative time] 1.0 {INR} [facility] - Chemistry and C hemistry - challengeOrdered By: Dr. Renae on 01-06-2023 ALP [Catalytic activity/Vol] 63 U/L 45-117 [facility] ALT [Catalytic activity/Vol] 30 U/L 16-61 [facility] Globulin (S) [Mass/Vol] 3.4 g/dL 2.2-4.2 [facility] Magnesium [Mass/Vol] 2.0 mg/dL 1.6-2.[address] [facility] Laboratory - CoagulationOrde red By: Dr. Renae on 01-06-2023 aPTT Coag (Bld) [Time] 27.2 s 24.1-36.2 [facility] PT Coag (PPP) [Time] 12.4 s 11.7-14.[address] [facility] No Panel InformationOrdered By: Dr. Callahan on 01-06-2023 Hepatitis A Antibody Total Positive Negative [facility] Comment on above: Performed at: [facility] [address] [id number] Director: Raman Zamora PhD, Phone: [phone] Hepatitis C Antibody Non-Reactive Nonreactive [facility] Comment on above: Non Reactive: < 0.8 Equivocal: >/= 0.8 to < 1.0 Reactive: >/= 1.0The CDC recommends that a reactive/equivocal HCV antibody result be followed up by the HCV Nucleic Acid Amplificationtest ([id number]) Serum hepatitis B virus surf jorge luis antibody IgG detectionOrdered By: Dr. Callahan on 01-06-2023 HBV surface IgG Ql (S) Non-Reactive [facility] Comment on above: Non Reactive: Incons istent with immunity less than <10 mIU/mL Reactive: Consistent with immunity greater than or equal to 10 mIU/mL Serum or plasma albumin edwardo urement (mass/volume)Ordered By: Dr. Renae on 01-06-2023 Albumin [Mass/Vol] 4.3 g/dL 3.2-5.0 [facility] Thin prep Papanicolaou smear with manual screeningOrdered By: Dr. Renae on 01-06-2023 Thin prep Papanicolaou smear with manual screening 21 U/L 15-37 [facility] Absolute lymphocyte countOrd ered By: Dr. Ko on 12-15-2022 Lymphocytes Auto (Unsp spec) [#/Vol] 1.38 10*3/uL 0.83-4.51 [facility] Basophil percentageOrdered B y: Dr. Ko on 12-15-2022 Basophil percentage 0 SEEN /hpf 0-[address] [facility] Basophils/100 WBC (Bld) 0.3 % 0-1 [facility] Chloride [Moles/Vol] 109 mmol/L 98-[address] [facility] Eosinophils/100 WBC (Bld) 3.1 % 0-5 [facility] Glucose [Mass/Vol] 132 mg/dL 74-106 [facility] Comment on above: Fasting Glucose resu lt greater than or equal to 126 mg/dL suggests DIABETES MELLITUS per A.D.A. criteria. Neutrophils (Bld) [#/Vol] 5.3 10*3/uL 2.0-7.7 [facility] Neutrophils/100 WBC (Bld) 69.0 % 47-70 [facility] Potassium [Moles/Vol] 3.9 mmol/L 3.5-5.1 [facility] Sodium [Moles/Vol] 142 mmol/L 136-145 [facility] WBC (Bld) [#/Vol] 7.7 10*3/uL 4.4-11.0 [facility] Bilirubin Test strip Ql (U)O rdered By: Dr. Ko on 12-15-2022 Bilirubin Ql (U) Negative Negative [facility] Blood erythrocytes count (nu mber/volume)Ordered By: Dr. Ko on 12-15-2022 RBC (Bld) [#/Vol] 4.70 10*6/uL 4.6-6.2 [facility] Blood hemoglobin measurement (mass/volume)Ordered By: Dr. Ko on 12-15-2022 Hemoglobin (Bld) [Mass/Vol] 15.7 g/dL 13.0-16.5 [facility] Blood lymphocytes/100 leukoc ytesOrdered By: Dr. Ko on 12-15-2022 Lymphocytes/100 WBC (Bld) 17.9 % 19-41 [facility] Blood monocytes/100 leukocyt esOrdered By: Dr. Ko on 12-15-2022 Monocytes/100 WBC (Bld) 9.3 % 0-10 [facility] Blood platelet mean volumeOr dered By: Dr. Ko on 12-15-2022 Platelet mean volume (Bld) [Entitic vol] 10.9 fL 6.2-12.0 [facility] Determination of erythrocyte mean corpuscular volume (MCV)Ordered By: Dr. Ko on 12-15-2022 MCV (RBC) [Entitic vol] 99.6 fL 80-94 [facility] Hematocrit Auto (Bld) [Volum e fraction]Ordered By: Dr. Ko on 12-15-2022 Hematocrit (Bld) [Volume fraction] 46.8 % 40-54 [facility] Ketones Test strip Ql (U)Ord ered By: Dr. Ko on 12-15-2022 Ketones Ql (U) 5 mg/dl Negative [facility] Laboratory - Chemistry and C hemistry - challengeOrdered By: Dr. Ko on 12-15-2022 CO2 [Moles/Vol] 23.0 mmol/L 21.0-32.0 [facility] Urea nitrogen/Creatinine [Mass ratio] 13.1 mg/mg 10-20 [facility] - Hematology and Cell countsOrdered By: Dr. Ko on 12-15-2022 Erythrocyte distribution width (RBC) [Entitic vol] 45.7 fL 35.1-43.9 [facility] Erythrocyte distribution width (RBC) [Ratio] 12.6 % 11.6-14.6 [facility] Immature granulocytes/100 WBC (Bld) 0.400 % 0.0-0.9 [facility] Comment on above: IG% - Immature Granu locytes (promyelocytes, myelocytes and metamyelocytes) > 1% indicates that a LEFT SHIFT is Present. MCH (RBC) [Entitic mass] 33.4 pg 27.0-32.0 [facility] Nucleated RBC/100 WBC (Bld) [Ratio] 0 % 0-5 [facility] MCHC Auto (RBC) [Mass/Vol]Or dered By: Dr. Ko on 12-15-2022 MCHC (RBC) [Mass/Vol] 33.5 g/dL 32-36 [facility] Mucus LM Ql (Urine sed)Order ed By: Dr. Ko on 12-15-2022 Mucus Ql (Urine sed) 1+ /hpf [facility] Nitrite Test strip Ql (U)Ord ered By: Dr. Ko on 12-15-2022 Nitrite Ql (U) Negative Negative [facility] No Panel InformationOrdered By: Dr. Ko on 12-15-2022 Estimated Creatinine Clearance Calc 106.59 ml/min [facility] Estimated GFR (MDRD) Amer 113 mL/min >60 [facility] Comment on above: GFR Calc Estimated GFR (MDRD) Non-Af Amer 93 mL/min >60 [facility] Comment on above: Non- GFR Calc Platelets bldOrdered By: Dr. Ko on 12-15-2022 Platelets (Bld) [#/Vol] 212 10*3/uL 150-450 [facility] Protein Test strip Ql (U)Ord ered By: Dr. Ko on 12-15-2022 Protein Ql (U) 100 mg/dl Negative [facility] Serum or plasma calcium edwardo urement (mass/volume)Ordered By: Dr. Ko on 12-15-2022 Calcium [Mass/Vol] 9.4 mg/dL 8.5-10.1 [facility] Serum or plasma creatinine m easurement (mass/volume)Ordered By: Dr. Ko on 12-15-2022 Creatinine [Mass/Vol] 0.91 mg/dL 0.70-1.30 [facility] Comment on above: The validity of the calculated GFR & GFRAA in patients over 70 years has not been determined. Clinical correlation is essential. Serum or plasma urea nitroge n measurement (mass/volume)Ordered By: Dr. Ko on 12-15-2022 Urea nitrogen [Mass/Vol] 12 mg/dL 7-18 [facility] Squamous epithelial cells de tection in urine sediment by light microscopyOrdered By: Dr. Ko on 12-15-2022 Epithelial cells.squamous LM Ql (Urine sed) 0 SEEN /hpf 0-5 [facility] Thin prep Papanicolaou smear with manual screeningOrdered By: Dr. Ko on 12-15-2022 Thin prep Papanicolaou smear with manual screening 10 5-15 [facility] Urine blood detectionOrdered By: Dr. Ko on 12-15-2022 RBC Ql (U) Negative Negative [facility] RBC Ql (U) 0 SEEN /hpf 0-5 [facility] Urine clarityOrdered By: Dr. Ko on 12-15-2022 Clarity (U) Clear Clear [facility] Urine color determinationOrd ered By: Dr. Ko on 12-15-2022 Color (U) Yellow Yellow [facility] Urine glucose detectionOrder ed By: Dr. Ko on 12-15-2022 Glucose Ql (U) Normal mg/dl Normal [facility] Urine leukocyte esterase det ection by dipstickOrdered By: Dr. Ko on 12-15-2022 Leukocyte esterase Test strip Ql (U) Negative Negative [facility] Urine pHOrdered By: Dr. Jeffry chadwick on 12-15-2022 pH (U) 6.0 [pH] 5.0 - 8.0 [facility] Urine sediment bacteria coun t by microscopy (number/high power field)Ordered By: Dr. oK on 12-15-2022 Bacteria LM.HPF (Urine sed) [#/Area] 0 /[HPF] None Seen [facility] Urine specific gravity measu rementOrdered By: Dr. Ko on 12-15-2022 Specific gravity (U) [Rel density] 1.020 1.002-1.030 [facility] Urobilinogen Auto test strip Ql (U)Ordered By: Dr. Ko on 12-15-2022 Urobilinogen Ql (U) Normal mg/dl Normal [facility] Basophil percentageon 2021 Chloride [Moles/Vol] 107 mmol/L 98-[address] [facility] Work Phone: Cholesterol [Mass/Vol] 164 mg/dL <200 [facility] Work Phone: Comment on above: <200 mg/dL Desirable 200-240 mg/dL Borderline >240 mg/dL High Risk Glucose [Mass/Vol] 86 mg/dL 74-106 [facility] Work Phone: Potassium [Moles/Vol] 4.6 mmol/L 3.5-5.1 [facility] Work Phone: Sodium [Moles/Vol] 139 mmol/L 136-145 [facility] Work Phone: Triglyceride [Mass/Vol] 181 mg/dL <199 [facility] Work Phone: Comment on above: The drugs N-Acetylcy steine and Metamizole may falsely depress this assay.Serum Triglycerides Reference Interval Normal <150 mg/dL Borderline high 150 - 199 mg/dL High 200 - 499 mg/dL Very High > or = 500 mg/dL Laboratory - Chemistry and C hemistry - challengeon 07-03-2022 CO2 [Moles/Vol] 21.0 mmol/L 21.0-32.0 [facility] Work Phone: Urea nitrogen/Creatinine [Mass ratio] 21.6 mg/mg 10-20 [facility] Work Phone: No Panel Informationon 07-03 Estimated GFR (MDRD) Amer 118 mL/min >60 [facility] Work Phone: Comment on above: GFR Calc Estimated GFR (MDRD) Non-Af Amer 98 mL/min >60 [facility] Work Phone: Comment on above: Non- GFR Calc Prostate Specific Antigen Screen 0.70 ng/mL 0.00-4.00 [facility] Work Phone: Comment on above: This test was perfor med using the TPSA assay method for [employer] chemistry system. Values obtained with differentassay methods cannot be used interchangably.When changing PSA assays in the course of monitoring apatient, additional sequential testing should be carriedout to confirm baseline values. Serum or plasma calcium edwardo urement (mass/volume)on 07-03-2022 Calcium [Mass/Vol] 9.4 mg/dL 8.5-10.1 [facility] Work Phone: Serum or plasma cholesterol in HDL measurement (mass/volume)on 07-03-2022 Cholesterol in HDL [Mass/Vol] 52 mg/dL >40 [facility] Work Phone: Comment on above: The drugs N-Acetylcy steine and Metamizole may falsely depress this assay. Reference Range HDL <40 mg/dL Low HDL Cholesterol HDL >or= 60 mg/dL High HDL Cholesterol Serum or plasma cholesterol in VLDL measurement (mass/volume)on 07-03-2022 Cholesterol in VLDL [Mass/Vol] 36 mg/dL 5-40 [facility] Work Phone: Serum or plasma creatinine m easurement (mass/volume)on 07-03-2022 Creatinine [Mass/Vol] 0.88 mg/dL 0.70-1.30 [facility] Work Phone: Comment on above: The validity of the calculated GFR & GFRAA in patients over 70 years has not been determined. Clinical correlation is essential. Serum or plasma low density lipoprotein (LDL) cholesterol measurement (mass/volume)on 07-03-2022 Cholesterol in LDL [Mass/Vol] 76 mg/dL 0-130 [facility] Work Phone: Serum or plasma urea nitroge n measurement (mass/volume)on 07-03-2022 Urea nitrogen [Mass/Vol] 19 mg/dL 7-18 [facility] Work Phone: Thin prep Papanicolaou smear with manual screeningon 07-03-2022 Thin prep Papanicolaou smear with manual screening 11 -15 [facility] Work Phone: Office Visit: DAVIS, acute res p failure & legionella pneon 09-24-2017 Documentation of current medications (procedure) Done Invalid Interpretation Code [facility] Work Phone: Tobacco smoking status [facility] Former Invalid Interpretation Code [facility] Work Phone: Tobacco use [facility] Former smoker Invalid Interpretation Code [facility] Work Phone: Office [facility] 08-25-2017 Documentation of current medications (procedure) Done Invalid Interpretation Code [facility] Work Phone: Protein mass conc Done Invalid Interpretation Code [facility] Work Phone: Tobacco smoking status [facility] Former Invalid Interpretation Code [facility] Work Phone: Tobacco smoking status [facility] Former smoker Invalid Interpretation Code [facility] Work Phone: Tobacco use [facility] Former smoker Invalid Interpretation Code [facility] Work Phone: Vital Signs Date Time Vital Sign Value Performing Clinician Faci pan 01-14-2023 14:17-0500 Body temperature 98.6 [degF] Dr. Nicki Luis Work Phone: [facility] 01-14-2023 14:17-0500 Diastolic blood pressure 67 mm[Hg] Dr. Nicki Luis Work Phone: [facility] 01-14-2023 14:17-0500 Heart rate 94 /min Dr. Nicki Luis Work Phone: [facility] 01-14-2023 14:17-0500 Respiratory rate 18 /min Dr. Nicki Luis Work Phone: [facility] 01-14-2023 14:17-0500 SaO2% (BldA) [Mass fraction] 98 % Dr. Nicki Luis Work Phone: [facility] 01-14-2023 14:17-0500 Systolic blood pressure 114 mm[Hg] Dr. Nicki Luis Work Phone: [facility] 01-13-2023 16:01-0500 Inhaled oxygen flow rate 1 L/min Dr. Nicki Luis Work Phone: [facility] 01-13-2023 14:24-0500 Body height 182.[address] Nicki Luis Work Phone: [facility] 01-13-2023 14:24-0500 Body mass index (BMI) [Ratio] 30 kg/m2 Dr. Nicki Luis Work Phone: [facility] 01-13-2023 14:24-0500 Body weight 100.[address] Nicki Luis Work Phone: [facility] 01-13-2023 12:00-0500 Diastolic blood pressure 73 mm[Hg] Dr. Nicki Luis Work Phone: [facility] 01-13-2023 12:00-0500 Heart rate 73 /min Dr. Nicki Luis Work Phone: [facility] 01-13-2023 12:00-0500 Inhaled oxygen flow rate 4 L/min Dr. Nicki Luis Work Phone: [facility] 01-13-2023 12:00-0500 Respiratory rate 14 /min Dr. Nicki Luis Work Phone: [facility] 01-13-2023 12:00-0500 SaO2% (BldA) [Mass fraction] 100 % Dr. Nicki Luis Work Phone: [facility] 01-13-2023 12:00-0500 Systolic blood pressure 110 mm[Hg] Dr. Nicki Luis Work Phone: [facility] 01-13-2023 10:41-0500 Body temperature 96.8 [degF] Dr. Nicki Luis Work Phone: [facility] 01-13-2023 06:46-0500 Body height 182.[address] Nicki Luis Work Phone: [facility] 01-13-2023 06:46-0500 Body mass index (BMI) [Ratio] 30 kg/m2 Dr. Nicki Luis Work Phone: [facility] 01-13-2023 06:46-0500 Body weight 100.[address] Nicki Luis Work Phone: [facility] 01-08-2023 13:59-0500 Body mass index (BMI) [Ratio] 29.8 kg/m2 Dr. Nicki Luis Work Phone: [facility] 01-08-2023 13:59-0500 Body weight 99.[address] Nicki Luis Work Phone: [facility] 01-08-2023 13:59-0500 Diastolic blood pressure 74 mm[Hg] Dr. Nicki Luis Work Phone: [facility] 01-08-2023 13:59-0500 Heart rate 88 /min Dr. Nicki Luis Work Phone: [facility] 01-08-2023 13:59-0500 Respiratory rate 18 /min Dr. Nicki Luis Work Phone: [facility] 01-08-2023 13:59-0500 Systolic blood pressure 113 mm[Hg] Dr. Nicki Luis Work Phone: [facility] 12-19-2022 08:41-0500 Body height 182.[address] Nicki Luis Work Phone: [facility] 12-19-2022 08:41-0500 Body mass index (BMI) [Ratio] 29.9 kg/m2 Dr. Nicki Luis Work Phone: [facility] 12-19-2022 08:41-0500 Body weight 100.[address] Nicki Luis Work Phone: [facility] 12-15-2022 14:39-0500 Diastolic blood pressure 91 mm[Hg] [facility] 12-15-2022 14:39-0500 Heart rate 71 /min [facility] 12-15-2022 14:39-0500 Respiratory rate 18 /min [facility] 12-15-2022 14:39-0500 SaO2% (BldA) [Mass fraction] 97 % [facility] 12-15-2022 14:39-0500 Systolic blood pressure 137 mm[Hg] [facility] 12-15-2022 11:03-0500 Body height 182.88 cm [facility] 12-15-2022 11:03-0500 Body mass index (BMI) [Ratio] 29 kg/m2 [facility] 12-15-2022 11:03-0500 Body temperature 97 [degF] [facility] 12-15-2022 11:03-0500 Body weight 97.06 kg [facility] 09-24-2017 15:51-0500 BMI (Body Mass Index) 28.21 kg/m2 Karina Weinstein [facility] Work Phone: 09-24-2017 15:51-0500 Body Temperature 99 [degF] Karina Weinstein [facility] Work Phone: 09-24-2017 15:51-0500 BP Diastolic 88 mm[Hg] Karina Weinstein [facility] Work Phone: 09-24-2017 15:51-0500 BP Systolic 172 mm[Hg] [facility] [place] Work Phone: 09-24-2017 15:51-0500 Height 182.88 cm [facility] [place] Work Phone: 09-24-2017 15:51-0500 Pulse (Heart Rate) 90 /min [facility] [place] Work Phone: 09-24-2017 15:51-0500 Respiratory Rate 18 /min [facility] [place] Work Phone: 09-24-2017 15:51-0500 Weight 94.35 kg [facility] [place] Work Phone: 08-25-2017 07:08-0400 BMI (Body Mass Index) 28.34 kg/m2 [facility] [place] Work Phone: 08-25-2017 07:08-0400 Body Temperature 98.5 [degF] [facility] [place] Work Phone: 08-25-2017 07:08-0400 BP Diastolic 74 mm[Hg] [facility] [place] Work Phone: 08-25-2017 07:08-0400 BP Systolic 120 mm[Hg] Karian [facility] [place] Work Phone: 08-25-2017 07:08-0400 Height 182.88 cm [facility] [place] Work Phone: 08-25-2017 07:08-0400 Pulse (Heart Rate) 80 /min [facility] [place] Work Phone: 08-25-2017 07:08-0400 Respiratory Rate 18 /min [facility] [place] Work Phone: 08-25-2017 07:08-0400 Weight 94.8 kg [facility] Work Phone: Encounters Encounter Date Encounter Type Care Provider Facility Start: 05-12-2025 ambulatory [facility] Facility :[facility] Start: 04-25-2025 ambulatory [facility] Facility:[facility] Start: 04-06-2025 End: 04-06-[address] Shashank Sheehan MD Work Phone: [facility] Work Phone: Start: 04-06-2025 End: 04-06-[address] Raman Stout MD -Laboratory [place] Work Phone: Start: 04-06-2025 End: 04-06-2025 ambulatory [facility] Facility:[facility] Start: 03-21-2025 End: 03-21-[address] Shashank Sheehan MD Work Phone: [facility] Work Phone: Start: 03-21-2025 End: 03-21-[address] Shashank Sheehan MD -Laboratory, [facility] Work Phone: Start: 03-21-2025 End: 03-21-2025 ambulatory Shashank Sheehan Facility:[facility] Start: 10-29-2024 End: 10-29-2024 ambulatory Nicki Luis [facility] Start: 10-11-2024 End: 10-11-2024 ambulatory Nicki S Toby Facility:[facility] Start: 10-17-2023 End: 10-17-2023 ambulatory [facility] Work Phone: Start: 10-17-2023 End: 10-17-2023 Patient encounter procedure [facility], [place] Work Phone: Start: 01-14-2023 Non-patient / Non-visit Dr. Liborio Luis Work Phone: [facility] Start: 01-14-2023 Non-patient / Non-visit Dr. Liborio Luis Work Phone: [facility] Start: 01-13-2023 Non-patient / Non-visit Dr. Liborio Luis Work Phone: [facility] Start: 01-13-2023 Non-patient / Non-visit Dr. Liborio Luis Work Phone: [facility] Start: 01-13-2023 End: 01-14-2023 Evaluation and management of inpatient [facility] Start: 01-13-2023 End: 01-14-[address] Nicki Luis Work Phone: [facility] Work Phone: Start: 01-10-2023 Non-patient / Non-visit Dr. Liborio Luis Work Phone: [facility] Start: 01-09-2023 Non-patient / Non-visit Dr. Liborio Luis Work Phone: [facility] Start: 01-09-2023 End: 01-09-[address] Nicki Luis Work Phone: [facility] Work Phone: Start: 01-09-2023 End: 01-09-[address] Nicki Luis Work Phone: [facility]-Cardi[facility] Services Start: 01-08-[address] Nayan Luis Work Phone: [facility] Start: 01-08-2023 End: 01-08-2023 Admission to same day surgery center Dr. Nicki Luis Work Phone: [facility] Start: 01-08-2023 End: 01-08-[address] Nicki Luis Work Phone: [facility] Start: 01-06-2023 End: 01-06-2023 Non-patient / Non-visit Dr. Nicki Luis Work Phone: [facility] Start: 01-06-2023 End: 01-06-[address] Nicki Luis Work Phone: [facility] Start: 12-20-2022 End: 12-20-[address] Nicki Luis Work Phone: [facility] Start: 12-19-2022 End: 12-19-[address] Nicki Luis Work Phone: [facility] Work Phone: Start: 12-19-2022 End: 12-19-[address] Nicki Luis Work Phone: [facility] Start: 12-19-2022 End: 12-19-[address] Nicki Luis Work Phone: [facility] Start: 12-15-2022 End: 12-15-2022 Emergency department patient visit [facility]-Emergency Department Start: 07-03-2022 End: 07-03-2022 ambulatory [facility] Work Phone: Start: 07-03-2022 End: 07-03-2022 Patient encounter procedure [facility]-Laboratory, [facility] Procedures Date Procedure Procedure Detail Performing Clinician [...] without contrast Start: 08-25-2017 End: 08-29-2017 BWA Cloitlde Hutton DECONTAMINATOR Work Phone: Start: 08-25-2017 End: 08-29-2017 Follow Up Appt 1 month Clotilde paulino STUDENT MINISTRIES DIRECTOR Work Phone: Start: 08-25-2017 End: 08-29-2017 Pulmonary Function Test - complete Clotilde Mullins CNP Work Phone: Start: 08-25-2017 End: 08-29-2017 Pulmonary stress test/simple Clotilde Mullins CNP Work Phone: Nasal Screen MRSA/MSSA Dr. Nayan Luis Work Phone: Plan of Treatment Date Care Activity Detail Author Start: 03-21-2025 Ova and Parasites Ova and Parasites [facility] Start: 01-14-2023 Patient discharge [facility] Start: 01-13-2023 Removal of urinary catheter [facility] Start: 01-13-2023 Care regimes management [facility] Start: 01-13-2023 Notification of physician [facility] Start: 01-13-2023 [facility] Start: 01-13-2023 Following clinical pathway protocol [facility] Start: 01-13-2023 Application of intermittent pneumatic compression device [facility] Start: 01-13-2023 Catheterization of vein [facility] Start: 01-13-2023 Consultation [facility] Start: 01-13-2023 Following clinical pathway protocol [facility] Start: 01-13-2023 Incentive spirometry [facility] Start: 01-13-2023 Measuring intake and output [facility] Start: 01-13-2023 Neurovascular assessment [facility] Start: 01-13-2023 Oxygen therapy [facility] Start: 01-13-2023 Patient education [facility] Start: 01-13-2023 Procedure discontinued [facility] Start: 01-13-2023 Provision of activity privileges [facility] Start: 01-13-2023 Recommendation to continue with treatment [facility] Start: 01-13-2023 Referral to service [facility] Start: 01-13-2023 Taking patient vital [facility] Start: 01-13-2023 [facility] Start: 01-13-2023 Admission procedure [facility] Start: 09-24-2017 End: 09-24-2017 Appointment Appointment [facility] Phone: Start: 08-25-2017 End: 08-29-2017 BWNayan MIRELES [facility] Phone: Start: 08-25-2017 End: 08-29-2017 Follow Up Appt 1 month Follow Up Appt 1 month [facility] [place] Phone: Start: 08-25-2017 End: 08-29-2017 Pulmonary Function Test - complete Pulmonary Function Test - complete [facility] [place] Phone: Start: 08-25-2017 End: 08-29-2017 Pulmonary stress test/simple Pulmonary stress testing; simple (eg, 6-minute walk) [facility] [place] Phone: Start: 08-25-2017 End: 08-25-2017 Appointment Appointment [facility] Phone: Ova OR parasites identification [facility] Patient Education [facility] Work Phone: Patient referral [facility] Work Phone: Payers Date Payer Category Payer Private Health Insurance [id number] 2024 Self-pay [id number] 2012 Unknown [id number] Private Health Insurance [id number] Private Health Insurance [facility] COMP [id number] Unknown GREGORY [id number] Unknown [id number] Unknown [id number] Unknown [id number] Unknown [id number] Unknown [id number] 62 Unknown [id number] Social History Date Type Detail Facility Start: 12-09-2021 End: 02-26-2023 Tobacco smoking status NHIS Unknown if ever smoked [facility] Start: 08-03-2017 Occasional [facility] Start: 08-03-2017 None [facility] Start: 08-03-2017 Spouse/ Signif icant Other [facility] Start: 08-03-2017 Cigarettes [facility] Start: 1970 Sex Assigned At Male [facility] Start: 10-29-2024 Tobacco smoking status NHIS Ex-smoker (finding) [facility] Medical Equipment Procedure Code Equipment Code Equipment Origin al Text Equipment Identifier Dates PATCH,AMNION 2X3CM FDA Start: 01-13-2023 PATCH,AMNION 2X3CM FDA Start: 01-13-2023 PATCH,AMNION 2X3CM FDA Start: 01-13-2023 PATCH,AMNION 2X3CM FDA Start: 01-13-2023 Goals Date Patient Goal Desired Activity /State Functional Status Date Assessment Result Facility 01-14-2023 Functional status Patient Activity Bedres t [facility] Work Phone: 01-14-2023 Functional status Independent [facility] Work Phone: Mental Status Date Assessment Result Facility 01-14-2023 Cognitive function Level Of Cons ciousness Awake;Alert;Appropriate;Follow s Commands [facility] Work Phone: 01-13-2023 Cognitive function Touch/Shaking [facility] Work Phone: Discharge summary 01-14-2023 Note Date & Type Note Facility 01-14-2023 Discharge summary Note Date/Time January 14, 2023 2:48pm [facility] Medical Records Department [address] [place] [id number] Discharge Summary 01/14/23 1444 MR#: [id number] Acct: [id number] Name: LILLIAN BOWDEN Rep #:[id number] : 1970 52 From: Alvaro Romero PCP: Dr. Nicki Luis MD Status:ADM MASSIMO Location: [facility] [id number] Providers Date of Admission: 01/13/23 Primary Care [...] Luis MD; Dr. Alvaro Callahan DO~ Signed [facility] Work Phone: Progress note 01-14-2023 Note Date & Type Note Facility 01-14-2023 Progress note Note Date/Time January 14, 2023 12:28pm [facility] Medical Records Department [address] [place] [address] Progress Note - Hospitalist 01/14/23 1228 MR#: [id number] Acct: [id number] Name: LILLIAN BOWDEN Rep #:[id number] : 1970 52 From: Cristel Garrido MD PCP: Dr. Nicki Luis MD Status:ADM MASSIMO Location: [place] [address] Reason for Visit Reason for Visit: Diagnoses [...] primary service Charges/Coding Visit Charges Inpatient E&M: 72675 Subs Hosp L1 01/14/23 5114 <Electronically signed by Cristel Garrido MD> Cosigner Signature (if applicable): CC: ~ Signed [facility] Work Phone: Progress note 01-13-2023 Note Date & Type Note Facility 01-13-2023 Progress note Note Date/Time January 13, 2023 4:03pm [facility] Medical Records Department [address] [place] [address] Progress Note - Hospitalist 01/13/23 1559 MR#: [id number] Acct: [id number] Name: LILLIAN BOWDEN Rep #:[id number] : 1970 52 From: Ollie Dodd DO PCP: Dr. Nicki Luis MD Status:ADM MASSIMO Location: [place] [address] Reason for Visit Reason for Visit: Diagnoses [...] Charges/Coding Visit Charges Office Visits / Consults: 49727 OP Consult L3 01/13/23 1603 <Electronically signed by Ollie Dodd DO> Cosigner Signature (if applicable): CC: ~ Signed [facility] Work Phone: Procedure note 01-13-2023 Note Date & Type Note Facility 01-13-2023 Procedure note [facility] History and physical note 01-10-2023 Note Date & Type Note Facility 01-10-2023 History and physical note Note Date/Time January 10, 2023 11:57am [facility] Medical Records Department [address] [place] [address] History & Physical Exam 01/10/23 1156 MR#: [id number] Acct: [id number] Name: LILLIAN BOWDEN Rep #:[id number] : 1970 52 From: Alvaro Romero PCP: Dr. Nicki Luis MD Status:PRE [facility] Location[place] [facility] History and Physical Addendum [facility] [address] [place] [address] [address] [place] [address] OFFICE VISIT Date of Service:? 12/19/22 MR#: [id number] Acct: [id number] Name:? LILLIAN BOWDEN Rep #: [id number] : 1970 ? ? Provider: Dr. Alvaro Callahan, DO Age/Sex:? 52/M ? ? Location: [facility] Status: Signed Intake Vital Signs ? 12/15/2310:03 [...] made by me, Dr. Alvaro Callahan, DO 12/19/22 0851. LILLIAN BOWDEN is a 52 year old M here today for? low back pain that he has been having since 12/10/22. Denies any injury. 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 01/10/23 6018 <Electronically signed by Alvaro Callahan DO> Cosigner Signature (if applicable): CC: Dr. Nicki Luis MD; Dr. Alvaro Callahan DO~ Signed [facility] Work Phone: Evaluation note Note Date & Type Note Facility Evaluation note No assessment information availa ble [facility] Work Phone: Evaluation note Note Date & Type Note Facility Evaluation note Diagnosis Onset Date Spinal stenosis of lumbar re gion with radiculopathy acute HNP (herniated nucleus pulposus), lumbar acute [facility] Work Phone: Evaluation note Note Date & Type Note Facility Evaluation note Diagnosis Onset Date Spinal stenosis of lumbar re gion with radiculopathy acute Pre-operative cardiovascular examination acute Abnormal electrocardiogram c hronic Hyperlipidemia chronic Hypertension chronic Psoriasis chronic [facility] Work Phone: Evaluation note Note Date & Type Note Facility Evaluation note Diagnosis Onset Date Spinal stenosis of lumbar re gion with radiculopathy acute Pre-operative cardiovascular examination acute Abnormal electrocardiogram c hronic Hyperlipidemia chronic Hypertension chronic Psoriasis chronic Diabetes acute Abnormal electrocardiogram c [facility] Work Phone: Reason for referral (narrative) Note Date & Type Note Facility Reason for referral (narrative) No reason for referral information available [facility] Work Phone: Family History No Family History [...] Will No December 10 1:07am Power of Crab Backer No December 10, 2021 1:07am Advance Directive Response Recorded Date/ Time Living Will No December 15 12:01pm Power of Crab Backer No December 15, 2022 12:01pm Advance Directive Response Recorded Date/ Time Living Will Yes December 31, 023 9:17am Power of Crab Backer Yes December 31, 2022 9:17am Advance Directive Response Recorded Date/ Time Name of Medical Power of Crab Backer December 31, 2022 9:17am Living Will Yes December 31, 023 9:17am Power of Crab Backer Yes December 31, 2022 9:17am Advance Directive Response Recorded Date/ Time Name of Medical Power of Crab Backer . January 13, 2023 2:24pm Living Will Yes January 13, 023 2:24pm Power of Crab Backer Yes January 13, 2023 2:24pm Advance Directive Response Recorded Date/ Time Living Will Yes January 13, 023 2:24pm Power of Crab Backer Yes January 13, 2023 2:24pm Chief Complaint [...] ized section and content) DATE CREATED AUTHOR 04/28/2025 [facility] FOR RECORDS PERTAINING TO PATIENTS WHO ARE [...] BE BASED ON THE PRIMARY CLINICAL RECORDS. [employer] provides no warranty or guarantee of the accuracy or completeness of information in this document.
== END | disposition home or self-care (01) ==
LOC: US 07:03
PROVIDERS: PCP Family Medicine; Referring Provider Family Medicine; Visit Provider Family Medicine
DX: R74.8 Abnormal levels of other serum enzymes (principal)
CPT/HCPCS: 76705

== ENCOUNTER 2025-08-06 16:03 | Emergency (ER) | payer OTHER, SELFPAY ==
[2025-08-06 16:05] VITALS: BP 134/105; PULSE 99; RESP 16; TEMP 36.8; O2SAT 100; BMI 23.3
--- OUTSIDE RECORDS SUMMARY | 2025-08-06 17:07 | XMS RPT_ITS | CCD ---
Author Organization [facility] Care Team Providers Care Special Tax Auditor Name Role Phone York, Karina L Unavailable Unavailable York, Karina L Unavailable Unavailable York, Karina L Unavailable Unavailable York, Karina L Unavailable Unavailable York, Karina L Unavailable Unavailable York, Karina L Unavailable Unavailable Dr. Nicki Luis S Primary Care Provider Dr. Nicki Luis Referring Provider Dr. Alvaro Callahan Attending Provider Dr. Maynor Limon Attending Provider Dr. Alvaro Callahan Referring Provider Dr. Unique Aldridge Attending Provider [phone] [facility] Care Physician, No Primary Primary Care Provider Unavailable Dr. Alvaro Callahan Other Provider Dr. Alvaro Callahan Admit Provider Dr. Ollie Dodd Attending Provider Dr. Ollie Dodd Other Provider Dr. Cristel Garrido Attending Provider Dr. Cristel Garrido Other Provider Dr. Shashank Sheehan MD Primary Care Provider [phone] Dr. Shashank Sheehan MD Attending Provider Dr. Shashank Sheehan MD Referring Provider Dr. Raman Stout MD Attending Provider Dr. Raman Stout MD Referring Provider Dr. Raman Stout MD Other Provider Raman Stout MD Unavailable Shashank Sheehan MD Primary Care Provider Shashank Sheehan Attending Unavailable Sheehan, Shashank Referring Unavailable Sheehan, Shashank Primary Care Unavailable Sheehan, Shashank Attending Unavailable Sheehan, Shashank Referring Unavailable Sheehan, Shashank Primary Care Unavailable Jolliff, Nicki S Primary Care Unavailable Jolliff, Nicki S Attending Unavailable Sheehan, Shashank Attending Unavailable Sheehan, Shashank Referring Unavailable Sheehan, Shashank Primary Care Unavailable Kofi Zhao Attending Unavailable Jolliff, Nicki S Primary Care Unavailable Jolliff, Nicki S Referring Unavailable Jabour, Raman Attending Unavailable Jabour, Raman Referring Unavailable Sheehan, Shashank Primary Care Unavailable Jawander, Raman Consulting Unavailable Sissy, Shashank Attending Unavailable Sheehan, Shashank Referring Unavailable Sheehan, Shashank Primary Care Unavailable Ammy HANNAH, Kalin Dee Unavailable Danita RN, Macarena Unavailable Unavailable Ammy HANNAH, Kalin Dee Unavailable Juan Sagastume MD Unavailable Loida Carver Unavailable Unavailabl e SISSY, SHASHANK R Primary Care Unavailable VALERY HARRELL Referring Unavailable VALERY HARRELL Attending Unavailable VALERY HARRELL Admitting Unavailable KALIN DUNHAM Referring Unavailabl e SISSY, SHASHANK Perea Primary Care Unavailable Chapin Dawn MD Unavailable Diane Douglas RN Unavailable CHAPIN DAWN Referring Unavailable SISSY, SHASHANK Perea Primary Care Unavailable CHAPIN DAWN Referring Unavailable SISSY, SHASHANK R Primary Care Unavailable SISSY, SHASHANK R Primary Care Unavailable SISSY, SHASHANK R Primary Care Unavailable CHAPIN DAWN Referring Unavailable JUAN SAGASTUME Attending Unavailable LEATHA Referring Unavailable SHEEHAN, SHASHANK R Primary Care Unavailable SHEEHAN, SHASHANK R Primary Care Unavailable SHEEHAN, SHASHANK R Primary Care Unavailable CHAPIN DAWN Attending Unavailable SISSY, SHASHANK R Primary Care Unavailable CHAPIN DAWN Referring Unavailable SHEEHAN, SHASHANK R Primary Care Unavailable SHEEHAN, SHASHANK R Primary Care Unavailable MANPREET ALMEIDA Attending Unavailable SISSY, SHASHANK R Primary Care Unavailable CHAPIN DAWN Attending Unavailable KALIN DUNHAM Referring Unavailabl e LÓPEZ, CHAPIN Attending Unavailable SHEEHAN, SAHSHANK R Primary Care Unavailable SHEEHAN, SHASHANK R Primary Care Unavailable SHEEHAN, SHASHANK R Primary Care Unavailable ABRAMDICK, CHAPIN Referring Unavailable SHEEHAN, SHASHANK R Primary Care Unavailable MANPREET ALMEIDA Referring Unavailable STEPHANIE TANG Attending Unavailable SHEEHAN, SHASHANK R Primary Care Unavailable ABRAMOVICH, CHAPIN Referring Unavailable PASTOR JADE Attending Unavailable SHEEHAN, SHASHANK R Primary Care Unavailable KALIN DUNHAM Referring Unavailabl e ABRAMDICK, CHAPIN Referring Unavailable SHEEHAN, SHASHANK R Primary Care Unavailable SHEEHAN, SHASHANK R Primary Care Unavailable ABRAMOVICH, CHAPIN Referring Unavailable MANPREET ALMEIDA Referring Unavailable SHEEHAN, SHASHANK R Primary Care Unavailable ABRAMDICK, CHAPIN Attending Unavailable SHEEHAN, SHASHANK R Primary Care Unavailable ABRAMDICK, CHAPIN Referring Unavailable SHEEHAN, SHASHANK R Primary Care Unavailable SHEEHAN, SHASHANK R Primary Care Unavailable ABRAMOVICBryan, CHAPIN Referring Unavailable SHEEHAN, SHASHANK R Primary Care Unavailable KALIN DUNHAM Attending Unavailabl e SELF Referring Unavailable SHEEHAN, SHASHANK Perea Primary Care Unavailable KALIN DUNHAM Referring Unavailabl e Medications Current Medications Medication Drug Class(es) Dates Sig (Normalized) Sig (Original) 8 hr acetaminophen 650 mg extended release oral tablet (8 sources) Start: 01-08-2023 take 1 tablet by mouth every eight hours as needed for pain Acetaminophen (Tylenol 8 Hour) 650 mg tablet extended release Active 650 mg PO Q8H as needed for pain January 08, 2023 1:00am amylase [id number] unt / lipase 42315 unt / protease [id number] unt delayed release oral capsule (20 sources) Start: 04-21-2025 CREON 36,000-114,000- 180,000 unit delayed release capsule Take 2 capsules by mouth three times a day with meals. 2 capsules with meals 1 capsule with snack 04/21/2025 Active carvedilol 25 mg oral tablet (16 sources) alpha-Adrenergic Alan, beta-Adrenergic Alan Start: 08-02-2017 take 1 tablet by mouth twice daily Carvedilol 25 MG tablet Active 25 mg PO TWICE A DAY August 02, 2017 12:00am Docusate (10 sources) docusate sodium (COLACE PO) Take 1-2 tablets by mouth as needed. Active empagliflozin 25 mg oral tablet (20 sources) Sodium-Glucose Cotransporter 2 Inhibitor Start: 02-15-2025 take 1 tablet by mouth once daily at breakfast JARDIANCE 25 mg tablet Take 25 mg by mouth daily with breakfast. 02/15/2025 Active glimepiride 1 mg oral tablet (20 sources) Sulfonylurea Start: 03-17-2025 take 1 tablet by mouth once daily at breakfast glimepiride (AMARYL) 1 mg tablet Take 1 mg by mouth daily with breakfast. 03/17/2025 Active iv contrast (will be provided with radiology test) (4 sources) Start: 06-28-2025 End: 06-29-2025 iv contrast (will be provided with radiology test) Indications: Malignant neoplasm of head of pancreas (HCC) CT PANCREAS W Inject, intravenously, once for 1 dose.No IV access, insert saline lock prior to the beginning of sedation, infusion, injection of imaging exam. Discontinue saline lock post exam. If Pt. has a central line or IVAD, may access for administration according to line specific nursing protocol. Once exam is complete flush line and de-access according to line specific nursing protocol in the CT contrast administration guidelines link. 1 each 06/28/2025 06/29/2025 Active Start: 05-19-2025 End: 05-20-2025 iv contrast (will be provide d with radiology test) Indications: Malignant neoplasm of head of pancreas (HCC) CT Chest W -Inject, intravenously, once for 1 dose.No IV access, insert saline lock prior to the beginning of sedation, infusion, injection of imaging exam. Discontinue saline lock post exam. If Pt. has a central line or IVAD, may access for administration according to line specific nursing protocol. Once exam is complete flush line and de-access according to line specific nursing protocol in theCT contrast administration guidelines link. 1 each 05/19/2025 05/20/2025 Active Start: 05-19-2025 End: 05-20-2025 iv contrast (will be provide d with radiology test) CT PANCREAS/PEL Inject, intravenously, once for 1 dose.No IV access, insert saline lock prior to the beginning of sedation, infusion, injection of imaging exam. Discontinue saline lock post exam. If Pt. has a central line or IVAD, may access for administration according to line specific nursing protocol. Once exam is complete flush line and de-access according to line specific nursing protocol in the CT contrast administration guidelines link. 1 each 05/19/2025 05/20/2025 Active lidocaine 25 mg/ml / prilocaine 25 mg/ml topical cream (20 sources) Antiarrhythmic, Amide Local Anesthetic Start: 06-06-2025 lidocaine-prilocaine (EMLA) 2.5-2.5 % cream Apply to affected area as needed. 30 g 2 06/06/2025 Active lisinopril 40 mg oral tablet (16 sources) Angiotensin Converting Enzyme Inhibitor Start: 08-02-2017 take 1 tablet by mouth once daily Lisinopril (Zestril) 40 MG tablet Active 40 mg PO DAILY August 02, 2017 12:00am 24 hr metFORMIN hydrochloride 500 mg extended release oral tablet (20 sources) Biguanide Start: 10-29-2024 take 1 tablet by mouth once daily Metformin 500 mg tablet extended release 24 hr Active 500 mg PO daily October 29, 2024 1:00am Start: 11-17-2023 take 1 tablet by rm th once daily at breakfast metFORMIN (GLUCOPHAGE) 500 mg tablet Take 500 mg by mouth daily with breakfast. 11/17/2023 Active simvastatin 40 mg oral tablet (11 sources) HMG-CoA Reductase Inhibitor Start: 12-10-2021 take [...] TIMES A DAY as needed for pain 15 09January 28, 2023 February 06, 2023 12:00am February 07, 2023 12:05am Start: 01-28-2023 End: 02-07-2023 take 1 tablet by mouth three times daily Hydrocodone-Acetaminophen Discontinued 1 TABLET PO THREE TIMES A DAY 15 09January 28, 2023 February 06, 2023 11:05pm Start: [...] / oxyCODONE hydrochloride 5 mg oral tablet (16 sources) Opioid Agonist Start: 12-30-2022 End: 01-24-2023 [...] mg / clavulanate 125 mg oral tablet (11 sources) Penicillin-class Antibacterial Start: 08-02-2017 End: 08-06-2017 Amoxicillin/Potassium Clav (Amox-Clav 875-125 Mg Tablet) 1 EACH tablet Discontinued 1 NMA PO TWICE A DAY August 02, 2017 12:00am August 06, 2017 10:23am atorvastatin 20 mg oral tablet (5 sources) HMG-CoA Reductase Inhibitor Start: 08-02-2017 ATORVASTATIN CALCIUM 20 MG TABS One tab every night ATORVASTATIN CALCIUM [id number] Karina Weinstein 1 ml dexamethasone phosphate 10 mg/ml injection (4 sources) Corticosteroid Start: 07-27-2025 End: 07-27-2025 10 mg, INTRAVENOUS, ONCE, 1 dose, On Fri07/27/25 at 0830, Administer IV doses up to 10 mg over 5 minutes. Administer doses > 10 mg over 15 to 30 minutes. Start: 07-13-2025 End: 07-13-2025 10 mg, INTRAVENOUS, ONCE, 1 dose, On Fri07/13/25 at 0830, Administer IV doses up to 10 mg over 5 minutes. Administer doses > 10 mg over 15 to 30 minutes. Start: 06-29-2025 End: 06-29-2025 10 mg, INTRAVENOUS, ONCE, 1 dose, On Fri06/29/25 at 0800, Administer IV doses up to 10 mg over 5 minutes. Administer doses > 10 mg over 15 to 30 minutes. Start: 06-15-2025 End: 06-15-2025 10 mg, INTRAVENOUS, ONCE, 1 dose, On Fri06/15/25 at 0900, Administer IV doses up to 10 mg over 5 minutes. Administer doses > 10 mg over 15 to 30 minutes. erythromycin 0.005 mg/mg ophthalmic ointment (11 sources) Macrolide, Macrolide Antimicrobial Start: 12-10-2021 End: 12-19-2022 Erythromycin 5 mg/gram (0.5 %) ointment Discontinued 0.5 [in_us] EACH EYE EVERY 6 HOURS 3.5 December 10, 2021 1:00am December 19, 2022 9:41am Start: 12-10-2021 End: 12-19-2022 Erythromycin Discontinued 0. 5 INCH EACH EYE EVERY 6 HOURS 3.5 December 10, 2021 12:00am December 19, 2022 8:41am fluorouracil 50 mg/ml injectable solution (4 sources) Nucleoside Metabolic Inhibitor Start: 07-27-2025 End: 07-27-2025 772 mg (400 mg/m2 1.93 m2 Treatment Plan BSA from Recorded weight), INTRAVENOUS, ONCE, 1 dose, On Fri07/27/25 at 1230, Push over 2-4 minutes. exp 1400 08/05/25 (refrigerated) Hazardous Chemotherapy Drug: Use appropriate PPE. Start: 07-13-2025 End: 07-13-2025 772 mg (400 mg/m2 1.93 m2 Tr eatment Plan BSA from Recorded weight), INTRAVENOUS, ONCE, 1 dose, On Fri07/13/25 at 1230, Push over 2-4 minutes. Expires: 07/17/25 @ 0830 Hazardous Chemotherapy Drug: Use appropriate PPE. Start: 06-29-2025 End: 06-29-2025 772 mg (400 mg/m2 1.93 m2 Tr eatment Plan BSA from Recorded weight), INTRAVENOUS, ONCE, 1 dose, On Fri06/29/25 at 1200, Push over 2-4 minutes. exp 1430 07/08/25 (refrigerated) Hazardous Chemotherapy Drug: Use appropriate PPE. Start: 06-15-2025 End: 06-15-2025 772 mg (400 mg/m2 1.93 m2 Tr eatment Plan BSA from Recorded weight), INTRAVENOUS, ONCE, 1 dose, On Fri06/15/25 at 1300, Push over 2-4 minutes. exp 0900 06/17/25 (room temp) Hazardous Chemotherapy Drug: Use appropriate PPE. fluorouracil (ADRUCIL) 4,500 mg in NaCl 0.9% 102 mL in empty bag (4 sources) Start: 07-27-2025 End: 07-27-2025 4,500 mg (rounded from 4,632 mg = 2,400 mg/m2 1.93 m2 Treatment Plan BSA from Recorded weight), INTRAVENOUS, at 2.2 mL/hr, Administer over 46 Hours, ONCE, 1 dose, On Fri07/27/25 at 1230, exp 1400 08/05/25 (refrigerated) Hazardous Chemotherapy Drug: Use appropriate PPE. Protect from Light. Start: 07-13-2025 End: 07-15-2025 4,500 mg (rounded from 4,632 mg = 2,400 mg/m2 1.93 m2 Treatment Plan BSA from Recorded weight), INTRAVENOUS, at 2.2 mL/hr, Administer over 46 Hours, ONCE, 1 dose, On Fri07/13/25 at 1230, Expires: 07/17/25 @ 0845 Hazardous Chemotherapy Drug: Use appropriate PPE. Protect from Light. Start: 06-29-2025 End: 06-29-2025 4,500 mg (rounded from 4,632 mg = 2,400 mg/m2 1.93 m2 Treatment Plan BSA from Recorded weight), INTRAVENOUS, at 2.2 mL/hr, Administer over 46 Hours, ONCE, 1 dose, On Fri06/29/25 at 1200, exp 1430 8/22/25 (refrigerated) Hazardous Chemotherapy Drug: Use appropriate PPE. Protect from Light. Start: 06-15-2025 End: 06-15-2025 4,500 mg (rounded from 4,632 mg = 2,400 mg/m2 1.93 m2 Treatment Plan BSA from Recorded weight), INTRAVENOUS, at 2.2 mL/hr, Administer over 46 Hours, ONCE, 1 dose, On Fri06/15/25 at 1300, exp 0930 06/25/25 (refrigerated). Hazardous Chemotherapy Drug: Use appropriate PPE. Protect from Light. fosaprepitant 150 mg in NaCl 0.9% 250 mL (EMEND) (4 sources) Start: 07-27-2025 End: 07-27-2025 150 mg, INTRAVENOUS, Adminis ter over 30 Minutes, ONCE, 1 dose, On Fri07/27/25 at 0830, Refrigerate Start: 07-13-2025 End: 07-13-2025 150 mg, INTRAVENOUS, Adminis ter over 30 Minutes, ONCE, 1 dose, On Fri07/13/25 at 0830, Refrigerate Start: 06-29-2025 End: 06-29-2025 150 mg, INTRAVENOUS, Adminis ter over 30 Minutes, ONCE, 1 dose, On Fri06/29/25 at 0800, Refrigerate Start: 06-15-2025 End: 06-15-2025 150 mg, INTRAVENOUS, Adminis ter over 30 Minutes, ONCE, 1 dose, On Fri06/15/25 at 0900, Approximate Total Volume = 280 mL Refrigerate gabapentin 600 mg oral tablet (18 sources) Anti-epileptic Agent Start: 12-30-2022 End: 01-19-2023 take 1 tablet by mouth three times daily Gabapentin 600 mg tablet Discontinued 600 mg PO THREE TIMES A DAY December 30, 2022 1:00am January 18, 2023 1:00am January 19, 2023 1:04am Start: 12-19-2022 End: 12-23-2022 take 1 capsule by mouth three times daily Gabapentin 100 mg capsule Discontinued 100 mg PO THREE TIMES A DAY December 19, 2022 1:00am December 23, 2022 3:00pm hyoscyamine sulfate 0.125 mg sublingual tablet (4 sources) Start: 07-27-2025 End: 07-27-2025 take 0.25 mg under the tongue once 0.25 mg, SUBLINGUAL, ONCE, 1 dose, On Fri07/27/25 at 0830 Start: 07-13-2025 End: 07-13-2025 take 0.25 mg under the tongue once 0.25 mg, SUBLINGUAL, ONCE, 1 dose, On Fri07/13/25 at 0830 Start: 06-29-2025 End: 06-29-2025 take 0.25 mg under the tongue once 0.25 mg, SUBLINGUAL, ONCE, 1 dose, On Fri06/29/25 at 0800 Start: 06-15-2025 End: 06-15-2025 take 0.25 mg under the tongue once 0.25 mg, SUBLINGUAL, ONCE, 1 dose, On Fri06/15/25 at 0900 indomethacin 50 mg rectal suppository (1 source) Nonsteroidal Anti-inflammatory Drug Start: 06-02-2025 End: 06-02-2025 RECTAL, X (OR/PROCEDURE) PRN, Starting on Fri06/02/25 at 0945, Until Fri06/02/25 at 0945, Intraprocedure irinotecan (4 sources) Topoisomerase Inhibitor Start: 07-27-2025 End: 07-27-2025 340 mg (rounded from 347.4 mg = 180 mg/m2 1.93 m2 Treatment Plan BSA from Recorded weight), INTRAVENOUS, Administer over 90 Minutes, ONCE, 1 dose, On Fri07/27/25 at 0900, exp 1400 07/28/25 (refrigerated) Hazardous Chemotherapy Drug: Use appropriate PPE. Antineoplastic Irritant. Start: 07-13-2025 End: 07-13-2025 340 mg (rounded from 347.4 m g = 180 mg/m2 1.93 m2 Treatment Plan BSA from Recorded weight), INTRAVENOUS, Administer over 90 Minutes, ONCE, 1 dose, On Fri07/13/25 at 0900, Approx Total Volume - Expires: 07/14/25 @ 0845 Hazardous Chemotherapy Drug: Use appropriate PPE. Antineoplastic Irritant. Start: 06-29-2025 End: 06-29-2025 340 mg (rounded from 347.4 m g = 180 mg/m2 1.93 m2 Treatment Plan BSA from Recorded weight), INTRAVENOUS, Administer over 90 Minutes, ONCE, 1 dose, On Fri06/29/25 at 0830, exp 1430 06/30/25 (refrigerated) Hazardous Chemotherapy Drug: Use appropriate PPE. Antineoplastic Irritant. Start: 06-15-2025 End: 06-15-2025 340 mg (rounded from 347.4 m g = 180 mg/m2 1.93 m2 Treatment Plan BSA from Recorded weight), INTRAVENOUS, Administer over 90 Minutes, ONCE, 1 dose, On Fri06/15/25 at 0930, exp 0900 06/17/25 (refrigerated) Hazardous Chemotherapy Drug: Use appropriate PPE. Antineoplastic Irritant. ketorolac tromethamine 5 mg/ml ophthalmic solution (11 sources) Nonsteroidal Anti-inflammatory Drug, Cyclooxygenase Inhibitor Start: 12-10-2021 End: 12-19-2022 Ketorolac 0.5 % drops Discontinued 1 NMA EACH EYE Q8H as needed for pain December 10, 2021 1:34am December 19, 2022 9:41am begin 24 hours prior to surgery Leucovorin (4 sources) Folate Analog Start: 07-27-2025 End: 07-27-2025 772 mg (400 mg/m2 1.93 m2 Treatment Plan BSA from Recorded weight), INTRAVENOUS, Administer over 2 Hours, ONCE, 1 dose, On Fri07/27/25 at 1030, PROTECT FROM LIGHT exp 1400 (refrigerated) ADMINISTER CONCURRENTLY WITH OXALIPLATIN. REFRIGERATE Start: 07-13-2025 End: 07-13-2025 772 mg (400 mg/m2 1.93 m2 Tr eatment Plan BSA from Recorded weight), INTRAVENOUS, Administer over 2 Hours, ONCE, 1 dose, On Fri07/13/25 at 1030, Approx Total Volume - Expires: 07/14/25 @ 1430 PROTECT FROM LIGHT ADMINISTER CONCURRENTLY WITH OXALIPLATIN. REFRIGERATE Start: 06-29-2025 End: 06-29-2025 772 mg (400 mg/m2 1.93 m2 Tr eatment Plan BSA from Recorded weight), INTRAVENOUS, Administer over 2 Hours, ONCE, 1 dose, On Fri06/29/25 at 1000, PROTECT FROM LIGHT exp 1430 07/02/25 (refrigerated) ADMINISTER CONCURRENTLY WITH OXALIPLATIN. REFRIGERATE Start: 06-15-2025 End: 06-15-2025 772 mg (400 mg/m2 1.93 m2 Tr eatment Plan BSA from Recorded weight), INTRAVENOUS, Administer over 2 Hours, ONCE, 1 dose, On Fri06/15/25 at 1100, PROTECT FROM LIGHT ADMINISTER CONCURRENTLY WITH OXALIPLATIN. REFRIGERATE levoFLOXacin 750 mg oral tablet (9 sources) Quinolone Antimicrobial Start: 08-06-2017 End: 08-25-2017 LEVAQUIN 750 MG TABS One tab daily at 0600 LEVOFLOXACIN [id number] Karina Weinstein Drug Treatment Unknown - unknown (1 source) No information available. 2 ml ondansetron 2 mg/ml injection (20 sources) Serotonin-3 Receptor Antagonist Start: 07-27-2025 End: 07-27-2025 8 mg, INTRAVENOUS, ONCE, 1 dose, On Fri07/27/25 at 0830, Medication Substitution: [facility] preferred product has been replaced with the insurance mandated product Start: 07-13-2025 End: 07-13-2025 8 mg, INTRAVENOUS, ONCE, 1 d ose, On Fri07/13/25 at 0830, Medication Substitution: [facility] preferred product has been replaced with the insurance mandated product Start: 06-29-2025 End: 06-29-2025 8 mg, INTRAVENOUS, ONCE, 1 d ose, On Fri06/29/25 at 0800, Medication Substitution: [facility] preferred product has been replaced with the insurance mandated product Start: 06-15-2025 End: 06-15-2025 8 mg, INTRAVENOUS, ONCE, 1 d ose, On Fri06/15/25 at 0900, Medication Substitution: [facility] preferred product has been replaced with the insurance mandated product Start: 06-06-2025 take 1 tablet by rm th every eight hours as needed ondansetron (ZOFRAN) 8 mg tablet Take 1 tablet by mouth every 8 hours as needed. 30 tablet 2 06/06/2025 Active oxaliplatin (4 sources) [place] Start: 07-27-2025 End: 07-27-2025 164.05 mg (85 mg/m2 1.93 m2 Treatment Plan BSA from Recorded weight), INTRAVENOUS, Administer over 2 Hours, ONCE, 1 dose, On Fri07/27/25 at 1030, Administer concurrently with leucovorin. exp 1400 08/05/25 (refrigerated) Hazardous Chemotherapy Drug: Use appropriate PPE. Antineoplastic Irritant with Vesicant Potential. Flush line with D5W before and after administration. Start: 07-13-2025 End: 07-13-2025 164.05 mg (85 mg/m2 1.93 m2 Treatment Plan BSA from Recorded weight), INTRAVENOUS, Administer over 2 Hours, ONCE, 1 dose, On Fri07/13/25 at 1030, Approx Total Volume - Expires: 07/14/25 @ 1430 Administer concurrently with leucovorin. Hazardous Chemotherapy Drug: Use appropriate PPE. Antineoplastic Irritant with Vesicant Potential. Flush line with D5W before and after administration. Start: 06-29-2025 End: 06-29-2025 164.05 mg (85 mg/m2 1.93 m2 Treatment Plan BSA from Recorded weight), INTRAVENOUS, Administer over 2 Hours, ONCE, 1 dose, On Fri06/29/25 at 1000, Administer concurrently [place]. [place] 14307/08/25 (refrigerated) Hazardous Chemotherapy Drug: Use appropriate PPE. Antineoplastic Irritant with Vesicant Potential. Flush line with D5W before and after administration. Start: 06-15-2025 End: 06-15-2025 164.05 mg (85 mg/m2 1.93 m2 Treatment Plan BSA from Recorded weight), INTRAVENOUS, Administer over 2 Hours, ONCE, 1 dose, On Fri06/15/25 at 1100, Administer concurrently [place] leucovorin [place] 92906/25/25 (refrigerated) Hazardous Chemotherapy Drug: Use appropriate PPE. Antineoplastic Irritant with Vesicant Potential. Flush line with D5W before and after administration. 0.6 ml pegfilgrastim-cbqv 10 mg/ml prefilled syringe (4 sources) Leukocyte Growth Factor Start: 07-29-2025 End: 07-29-2025 6 mg, SUBCUTANEOUS, ONCE, 1 dose, On Fri07/29/25 at 1200, Refrigerate - Protect From Light - Do Not Shake - Allow prefilled syringe to reach room temperature for at least 30 minutes prior to injection., Medication Substitution: [facility] preferred product has been replaced with the insurance mandated product Start: 07-15-2025 End: 07-15-2025 6 mg, SUBCUTANEOUS, ONCE, 1 dose, On Fri07/15/25 at 1200, Refrigerate - Protect From Light - Do Not Shake - Allow prefilled syringe to reach room temperature for at least 30 minutes prior to injection., Medication Substitution: [facility] preferred product has been replaced with the insurance mandated product Start: 2025 End: 2025 6 mg, SUBCUTANEOUS, ONCE, 1 dose, On Fri07/01/25 at 1200, Refrigerate - Protect From Light - Do Not Shake - Allow prefilled syringe to reach room temperature for at least 30 minutes prior to injection., Medication Substitution: [facility] preferred product has been replaced with the insurance mandated product Start: 06-17-2025 End: 06-17-2025 6 mg, SUBCUTANEOUS, ONCE, 1 dose, On Fri06/17/25 at 1230, Refrigerate - Protect From Light - Do Not Shake - Allow prefilled syringe to reach room temperature for at least 30 minutes prior to injection., Medication Substitution: [facility] preferred product has been replaced with the insurance mandated product predniSONE 20 mg oral tablet (19 sources) Corticosteroid Start: 12-15-2022 End: 12-19-2022 take [...] MG TABS Two ta bs daily PREDNISONE [id number] Karina Weinstein sulfamethoxazole 800 mg / trimethoprim 160 mg oral tablet (5 sources) Dihydrofolate Reductase Inhibitor Antibacterial, Sulfonamide Antimicrobial Start: 10-29-2024 End: 11-05-2024 Sulfamethoxazole-Trimethopri m (Bactrim Ds) 800-160 mg tablet Discontinued 1 {tbl} PO Q12H 14 7 October 29, 2024 1:00am November 04, 2024 1:00am November 05, 2024 1:12am Problems Active Problems Problem Classification Problem Date Documented Da te Episodic/Chronic Administrative/social admission (1 source) Patient encounter status; Translations: [Counseling, unspecified] 06-07-2025 Episodic Bacterial infection; unspecified site (5 sources) Staphylococcal infectious disease; Translations: [Unspecified staphylococcus as the cause of diseases classified elsewhere] 10-29-2024 Episodic Biliary tract disease (5 sources) Cholangiectasis; Translations: [Other specified diseases of biliary tract] Onset: 05-06-2025 05-06-2025 Chronic Cancer of pancreas (20 sources) Malignant tumor of head of pancreas; Translations: [Malignant neoplasm of head of pancreas] Onset: 05-19-2025 05-19-2025 Chronic Diabetes mellitus with complications (1 source) Type 2 diabetes mellitus with unspecified complications; Translations: [Type 2 diabetes mellitus with unspecified complications] Onset: 04-29-2025 Chronic Diabetes mellitus without complication (8 sources) Diabetes mellitus; Translations: [Type 2 diabetes mellitus without complications] 01-13-2023 Chronic Comment on above: PRE DIABETIC/DIET PARKS S CONTROLLED/NO MEDS Diabetes mellitus without complication (11 sources) Hyperglycemia; Translations: [Hyperglycemia, unspecified] 08-02-2017 Episodic Disorders of lipid metabolism (13 sources) Hyperlipidemia; Translations: [Hyperlipidemia, unspecified] 12-15-2022 Chronic Essential hypertension (14 sources) Hypertensive disorder; Translations: [Essential (primary) hypertension] Onset: 11-09-2024 12-15-2022 Chronic Fluid and electrolyte disorders (20 sources) Dehydration; Translations: [Dehydration] 08-02-2017 Episodic Other gastrointestinal disorders (1 source) Diarrhea, unspecified; Translations: [Diarrhea, unspecified] Onset: 04-11-2025 Episodic Other inflammatory condition of skin (11 sources) Psoriasis; Translations: [Psoriasis, unspecified] 12-15-2022 Chronic Other inflammatory condition of skin (2 sources) Psoriasis, unspecified; Translations: [Other psoriasis] 01-08-2023 Chronic Other liver diseases (1 source) Abnormal levels of other serum enzymes; Translations: [Abnormal levels of other serum enzymes] Onset: 05-05-2025 Episodic Other lower respiratory disease (11 sources) Hypoxemia; Translations: [Hypoxemia] 08-02-2017 Episodic Other nutritional; endocrine; and metabolic disorders (4 sources) Weight decreased; Translations: [Abnormal weight loss] 05-06-2025 Episodic Other nutritional; endocrine; and metabolic disorders (1 source) Abnormal weight loss; Translations: [Weight loss] Onset: 05-06-2025 Episodic Other screening for suspected conditions (not mental disorders or infectious disease) (20 sources) Liver function tests abnormal; Translations: [Other specified abnormal findings of blood chemistry] 08-02-2017 Episodic Pancreatic disorders (not diabetes) (2 sources) Pancreatic steatorrhea; Translations: [Pancreatic steatorrhea] Onset: 05-06-2025 05-06-2025 Chronic Pancreatic disorders (not diabetes) (14 sources) Disorder of pancreas; Translations: [Pancreatic duct disorder] Onset: 05-06-2025 05-06-2025 Episodic Pneumonia (except that caused by tuberculosis or sexually transmitted disease) (20 sources) Legionella pneumonia; Translations: [Legionnaires' disease] Onset: 08-25-2017 08-25-2017 Episodic Residual codes; unclassified (7 sources) H/O Spinal surgery; Translations: [Other specified postprocedural states] 01-14-2023 Episodic Respiratory failure; insufficiency; arrest (adult) (15 sources) Acute respiratory failure; Translations: [Acute respiratory failure with hypoxia] Onset: 08-25-2017 08-25-2017 Episodic Septicemia (except in labor) (11 sources) Sepsis; Translations: [Sepsis, unspecified organism] 08-02-2017 Episodic Spondylosis; intervertebral disc disorders; other back problems (20 sources) Disorder of lumbar disc; Translations: [Unspecified thoracic, thoracolumbar and lumbosacral intervertebral disc disorder] 12-15-2022 Chronic Spondylosis; intervertebral disc disorders; other back problems (20 sources) Acute low back pain; Translations: [Acute low back pain] 12-15-2022 Episodic Substance-related disorders (15 sources) Tobacco dependence syndrome; Translations: [Nicotine dependence, unspecified, uncomplicated] Onset: 08-25-2017 08-25-2017 Chronic Unclassified (2 sources) No current problems or disability 08-07-2017 Past or Other Problems Problem Classification Problem Date Documented Da te Episodic/Chronic Other lower respiratory disease (4 sources) Dyspnea on exertion; Translations: [Other forms of dyspnea] Onset: 08-25-2017 08-25-2017 Episodic Results Test Name Value Interpretation Reference Range Facility [facility] 08-04-2025 [facility] Telephone ([facility]) -- LILLIAN BOWDEN ([id number]) 1970 M Date Time Provider Department 08/04/25 LOIDA HENLEY During your visit today, we recorded the following information about you: Loida Henley LISW 08/04/2025 10:14 AM Signed SOCIAL WORK FOLLOW UP NOTE: [facility] Date of service: August 04, 2025 Lillian Bowden is being seen for a follow up social work visit. Today's visit includes: patient TOPICS ADDRESSED: SW called and discussed Advanced Directives this date with pt. Advance Care Planning Goals of Care Date of Discussion: 08/04/2025 In this encounter: Pt reports he has Advanced Directives completed and will bring a copy to be entered into the chart at an upcoming appointment. He reports the forms list his , Rizwan Bowden PH: [phone], as primary agent. PLAN: Continue follow up as needed F/U APPOINTMENT: PRN Assigned SW listed in Care Team tab: Yes DAVID De Leon-S Allergies As of Date: 08/04/2025 (No Known Allergies) Date Reviewed: 08/03/2025 Reviewed by: Elle Troy, RT(R) - Fully Assessed Reason for Visit: Social Work Services [507] Prescriptions as of 08/04/2025 - docusate sodium (COLACE PO) Take 1-2 tablets by mouth as needed. - ondansetron (ZOFRAN) 8 mg tablet Take 1 tablet by mouth every 8 hours as needed. - lidocaine-prilocaine (EMLA) 2.5-2.5 % cream Apply to affected area as needed. - glimepiride (AMARYL) 1 mg tablet Take 1 mg by mouth daily with breakfast. - JARDIANCE 25 mg tablet Take 25 mg by mouth daily with breakfast. - CREON 36,000-114,000- 180,000 unit delayed release capsule Take 2 capsules by mouth three times a day with meals. 2 capsules with meals 1 capsule with snack - metFORMIN (GLUCOPHAGE) 500 mg tablet Take 500 mg by mouth daily with breakfast. Problem List As Of Date 08/04/2025 Noted Resolved Malignant neoplasm of head of pancreas (HCC) [C*05/19/2025 Encounter Status:Closed by LOIDA HENLEY on 08/04/25 Normal [place] CBC W Auto Differential pane l (Bld)on 07-26-2025 Basophils (Bld) [#/Vol] 0.00 10*3/uL Normal <0.11 [place] Comment on above: Order Comment: Speci men Type: BLOOD SPECIMENOrdering Facility: [facility] Address: [address] [place] [address] Performed By: #### 5 7021-8 ####[facility] LABORATORYCLIA [id number] [place] [id number] [place] [address] [place] Basophils/100 WBC (Bld) 0.0 % Normal [place] Comment on above: Order Comment: Speci men Type: BLOOD SPECIMENOrdering Facility: [facility] Address: [address] [place] [address] Performed By: #### 5 7021-8 ####[facility] LABORATORYCLIA [id number] [place] [id number] [place] [address] [place] Differential cell count method Nom (Bld) Manual Normal [place] Comment on above: Order Comment: Speci men Type: BLOOD SPECIMENOrdering Facility: [facility] Address: [address] [place] [address] Performed By: #### 5 7021-8 ####[facility] LABORATORYCLIA [id number] [address] [id number] [place] [address] [place] Eosinophils (Bld) [#/Vol] 0.00 10*3/uL Normal <0.46 [place] Comment on above: Order Comment: Speci men Type: BLOOD SPECIMENOrdering Facility: [facility] Address: [address] [place] [address] Performed By: #### 5 7021-8 ####[facility] LABORATORYCLIA [id number] [address] [id number] [place] [address] [place] Eosinophils/100 WBC (Bld) 0.0 % Normal [place] Comment on above: Order Comment: Speci men Type: BLOOD SPECIMENOrdering Facility: [facility] Address: [address] [place] [address] Performed By: #### 5 7021-8 ####[facility] LABORATORYCLIA [id number] [address] [id number] [place] [address] [place] Erythrocyte distribution width (RBC) [Ratio] 14.7 % Normal 11.5-15.0 [place] Comment on above: Order Comment: Speci men Type: BLOOD SPECIMENOrdering Facility: [facility] Address: [address] [place] [address] Performed By: #### 5 7021-8 ####[facility] LABORATORYCLIA [id number] [address] [id number] [place] [address] [place] Hematocrit (Bld) [Volume fraction] 38.0 % Low 39.0-51.0 [place] Comment on above: Order Comment: Speci men Type: BLOOD SPECIMENOrdering Facility: [facility] Address: [address] [place] [address] Performed By: #### 5 7021-8 ####[facility] LABORATORYCLIA [id number] [address] [id number] [place] [address] [place] Hemoglobin (Bld) [Mass/Vol] 13.1 g/dL Normal 13.0-17.0 [place] Comment on above: Order Comment: Speci men Type: BLOOD SPECIMENOrdering Facility: [facility] Address: [address] [place] [address] Performed By: #### 5 7021-8 ####[facility] LABORATORYCLIA [id number] [address] [id number] [place] [address] [place] Lymphocytes (Bld) [#/Vol] 3.57 10*3/uL Normal 1.00-4.00 [place] Comment on above: Order Comment: Speci men Type: BLOOD SPECIMENOrdering Facility: [facility] Address: [address] [place] [address] Performed By: #### 5 7021-8 ####[facility] LABORATORYCLIA [id number] [address] [id number] [place] [address] [place] Lymphocytes/100 WBC (Bld) 16.0 % Normal [place] Comment on above: Order Comment: Speci men Type: BLOOD SPECIMENOrdering Facility: [facility] Address: [address] [place] [address] Performed By: #### 5 7021-8 ####[facility] LABORATORYCLIA [id number] [address] [id number] [place] [address] [place] [facility] MCH (RBC) [Entitic mass] 33.7 pg Normal 26.0-34.0 [place] Comment on above: Order Comment: Speci men Type: BLOOD SPECIMENOrdering Facility: [facility] Address: [address] [place] [address] Performed By: #### 5 7021-8 ####[facility] LABORATORYCLIA [id number] [address] [id number] [place] [address] [place] MCHC (RBC) [Mass/Vol] 34.5 g/dL Normal 30.5-36.0 [facility] Comment on above: Order Comment: Speci men Type: BLOOD SPECIMENOrdering Facility: [facility] Address: [address] [place] [address] Performed By: #### 5 7021-8 ####[facility] LABORATORYCLIA [id number] [address] [id number] [place] [address] [place] MCV (RBC) [Entitic vol] 97.7 fL Normal 80.0-100.0 [place] Comment on above: Order Comment: Speci men Type: BLOOD SPECIMENOrdering Facility: [facility] Address: [address] [place] [address] Performed By: #### 5 7021-8 ####[facility] LABORATORYCLIA [id number] [address] [id number] [place] [address] Metamyelocytes/100 WBC (Bld) 5.0 % Normal [place] Comment on above: Order Comment: Speci men Type: BLOOD SPECIMENOrdering Facility: [facility] Address: [address] [place] [address] Performed By: #### 5 7021-8 ####[facility] LABORATORYCLIA [id number] [address] [id number] [place] [address] [place] Monocytes (Bld) [#/Vol] 1.34 10*3/uL High <0.87 [place] Comment on above: Order Comment: Speci men Type: BLOOD SPECIMENOrdering Facility: [facility] Address: [address] [place] [address] Performed By: #### 5 7021-8 ####[facility] LABORATORYCLIA [id number] [address] [id number] [place] [address] [place] Monocytes/100 WBC (Bld) 6.0 % Normal [place] Comment on above: Order Comment: Speci men Type: BLOOD SPECIMENOrdering Facility: [facility] Address: [address] [place] [address] Performed By: #### 5 7021-8 ####[facility] LABORATORYCLIA [id number] [address] [id number] [place] [address] [place] MYELO% 6.0 % Normal [place] Comment on above: Order Comment: Speci men Type: BLOOD SPECIMENOrdering Facility: [facility] Address: [address] [place] [address] Performed By: #### 5 7021-8 ####[facility] LABORATORYCLIA [id number] [address] [id number] [place] [address] [place] Neutrophils (Bld) [#/Vol] 14.97 10*3/uL High 1.45-7.50 [place] Comment on above: Order Comment: Speci men Type: BLOOD SPECIMENOrdering Facility: [facility] Address: [address] [place] [address] Performed By: #### 5 7021-8 ####[facility] LABORATORYCLIA [id number] [address] [id number] [place] [address] [place] Neutrophils/100 WBC (Bld) 67.0 % Normal [place] Comment on above: Order Comment: Speci men Type: BLOOD SPECIMENOrdering Facility: [facility] Address: [address] [place] [address] Performed By: #### 5 7021-8 ####[facility] LABORATORYCLIA [id number] [address] [id number] [place] [address] [place] Nucleated RBC (Bld) [#/Vol] 10*3/uL Normal <0.01 [place] Comment on above: Order Comment: Speci men Type: BLOOD SPECIMENOrdering Facility: [facility] Address: [address] [place] [address] Performed By: #### 5 7021-8 ####[facility] LABORATORYCLIA [id number] [address] [id number] [place] [address] [place] Nucleated RBC/100 WBC (Bld) [Ratio] 0.0 /100 WBC Normal [place] Comment on above: Order Comment: Speci men Type: BLOOD SPECIMENOrdering Facility: [facility] Address: [address] [place] [address] Performed By: #### 5 7021-8 ####[facility] LABORATORYCLIA [id number] [id number] [place] [address] [place] Platelet mean volume (Bld) [Entitic vol] 11.1 fL Normal 9.0-12.7 [place] Comment on above: Order Comment: Speci men Type: BLOOD SPECIMENOrdering Facility: [facility] Address: [address] [place] [address] Performed By: #### 5 7021-8 ####[facility] LABORATORYCLIA [id number] [place] [id number] [place] [address] [place] Platelets (Bld) [#/Vol] 124 10*3/uL Low 150-400 [place] Comment on above: Order Comment: Speci men Type: BLOOD SPECIMENOrdering Facility: [facility] Address: [address] [place] [address] Result Comment: No c lot detected. Performed By: #### 5 7021-8 ####[facility] LABORATORYCLIA [id number] [address] [id number] [place] [address] [place] Platelets Estimate (Bld) [#/Vol] Decreased Normal [place] Comment on above: Order Comment: Speci men Type: BLOOD SPECIMENOrdering Facility: [facility] Address: [address] [place] [address] Performed By: #### 5 7021-8 ####[facility] LABORATORYCLIA [id number] [address]TOWNCLIA [id number] [place] [address] [place] Polychromasia LM Ql (Bld) Slight Normal [place] Comment on above: Order Comment: Speci men Type: BLOOD SPECIMENOrdering Facility: [facility] Address: [address] [place] [address] Performed By: #### 5 7021-8 ####[facility] LABORATORYCLIA [id number] [address] [id number] [place] [address] [place] RBC (Bld) [#/Vol] 3.89 10*6/uL Low 4.20-6.00 [facility] Comment on above: Order Comment: Speci men Type: BLOOD SPECIMENOrdering Facility: [facility] Address: [address] [place] [address] Performed By: #### 5 7021-8 ####[facility] LABORATORYCLIA [id number] [address] [id number] [place] [address] [place] RED CELL MORPH Reviewed: see result s of individual morphologies Normal [place] Comment on above: Order Comment: Speci men Type: BLOOD SPECIMENOrdering Facility: [facility] Address: [address] [place] [address] Performed By: #### 5 7021-8 ####[facility] LABORATORYCLIA [id number] [address] [id number] [place] [address] [place] WBC (Bld) [#/Vol] 22.34 10*3/uL High 3.70-11.00 [facility] Comment on above: Order Comment: Speci men Type: BLOOD SPECIMENOrdering Facility: [facility] Address: [address] [place] [address] Performed By: #### 5 7021-8 ####[facility] LABORATORYCLIA [id number] [address] [id number] [address] WBC Left Shift Ql (Bld) Present Normal [place] Comment on above: Order Comment: Speci men Type: BLOOD SPECIMENOrdering Facility: [facility] Address: [address] [place] [address] Performed By: #### 5 7021-8 ####[facility] LABORATORYCLIA [id number] [address] [id number] [place] [address] CNOVSPon 07-26-2025 CNOVSP Visit (SP) Office (H EMAWS) -- LILLIAN BOWDEN ([id number]) 1970 M Date Time Provider Department 07/26/25 8:50 AM CHAPIN DAWN During your visit today, we recorded the following information about you: Temperature Pulse Blood pressure Weight 97.9 degrees 94/minute 105/69 73 kg Chapin Dawn MD 07/26/2025 11:10 AM Signed (Elements copied from my note dated July 11, 2025, have been reviewed and updated where appropriate, and all reflect current assessment and medical decision making from today's encounter, July 26, 2025) HISTORY OF PRESENT ILLNESS: Lillian Bowden is a 55 year old male history of diarrhea, change in stool character, weight loss. Saw his PCP, did stool studies, saw GI colonoscopy done, one benign polyp. Dr Stout got CT scan at [facility]. This noted mass at head of pancreas. Biopsy 05-12-25 showed adenocarcinoma. Imaging shows tumor abuts SMV. Had bout of constipation, took a bottle of mag citrate Hyperglycemia, BS better at home. CLINICAL IMPRESSION: Pancreatic adenocarcinoma, borderline resectable RECOMMENDATION/PLAN: 1. Neoadjuvant chemotherapy with FolFIrinOx cycle 4 2. Imaging after cycle 4, we will follow up after that Written and verbal health teaching given to patient, patient verbalizes understanding and agrees with treatment plan. PAST MEDICAL HISTORY Diagnosis Date Arthritis Diabetes (HCC) Hypertension Legionnaire's disease (HCC) PAST SURGICAL HISTORY Procedure Laterality Date ERCP 06/02/2025 LAMINECTOMY,LUMBAR PAST SURGICAL HISTORY OF 05/19/2025 EUS PORTOCATH PLACEMENT 05/31/2025 FAMILY HISTORY Problem Relation Age of Onset Breast Cancer Mother Lung Cancer Father Breast Cancer Sister Heart Sister Breast Cancer Maternal Grandmother Heart Paternal Grandmother Social History Tobacco Use Smoking status: Former Types: Cigarettes Smokeless tobacco: Former Types: Chew Quit date: 01/2025 Vaping Use Vaping status: Never Used Substance Use Topics Alcohol use: Not Currently Drug use: Never ALLERGIES: ALLERGIES No Known Allergies CURRENT OUTPATIENT MEDICATIONS: docusate sodium (COLACE PO) Take 1-2 tablets by mouth as needed. ondansetron (ZOFRAN) 8 mg tablet Take 1 tablet by mouth every 8 hours as needed. lidocaine-prilocaine (EMLA) 2.5-2.5 % cream Apply to affected area as needed. glimepiride (AMARYL) 1 mg tablet Take 1 mg by mouth daily with breakfast. JARDIANCE 25 mg tablet Take 25 mg by mouth daily with breakfast. CREON 36,000-114,000- 180,000 unit delayed release capsule Take 2 capsules by mouth three times a day with meals. 2 capsules with meals 1 capsule with snack metFORMIN (GLUCOPHAGE) 500 mg tablet Take 500 mg by mouth daily with breakfast. REVIEW OF SYSTEMS: GENERAL: No fever, night sweats, weight loss or malaise. All other reviewed and negative other than HPI. PHYSICAL EXAMINATION: VITAL SIGNS: BP 105/69 Pulse 94 Temp (Src) 97.9 (Temporal) Wt 161 lb (73.0kg) SpO2 99% GENERAL APPEARANCE: Well appearing, in no acute distress, alert and oriented x3, well-hydrated, well nourished. I spent a total of 30 minutes on the date of the service which included preparing to see the patient, [id number] patient care, completing clinical documentation, obtaining and/or reviewing separately obtained history, counseling and educating the patient/family/caregiver, ordering medications, tests, or procedures, communicating with other HCPs (not separately reported), independently interpreting results (not separately reported), communicating results to the patient/family/caregiver, and care coordination (not separately reported). Electronically Signed: Chapin Dawn MD July 26, 2025 Allergies As of Date: 07/26/2025 (No Known Allergies) Date Reviewed: 07/26/2025 Reviewed by: Bharti Ohara MA - Fully Assessed Reason for Visit: Established Patient [175] Primary Visit Diagnosis:Malignant neoplasm of head of pancreas (HCC) [C25.0] Order(s):BEACON PROVIDER APPOINTMENT REQUEST [[id number]] Order #: [id number]: 1 FUTURE BEACON INFUSION APPOINTMENT REQUEST [[id number]] Order #: [id number]: 1 FUTURE [facility] INFUSION APPOINTMENT REQUEST [[id number]] Order #: [id number]: 1 FUTURE Prescriptions as of 07/26/2025 - docusate sodium (COLACE PO) Take 1-2 tablets by mouth as needed. - ondansetron (ZOFRAN) 8 mg tablet Take 1 tablet by mouth every 8 hours as needed. - lidocaine-prilocaine (EMLA) 2.5-2.5 % cream Apply to affected area as needed. - glimepiride (AMARYL) 1 mg tablet Take 1 mg by mouth daily with breakfast. - JARDIANCE 25 mg tablet Take 25 mg by mouth daily with breakfast. - CREON 36,000-114,000- 180,000 unit delayed release capsule Take 2 capsules by mouth three times a day with meals. 2 capsules with meals 1 capsule with snack - metFORMIN (GLUCOPHAGE) 500 mg table (more content not included)... Normal [facility] metabolic 2000 panelOrdered By: Maria Luz Aiken on 07-26-2025 Albumin [Mass/Vol] 4.3 g/dL 3.9 - 4.9 g/dL [facility] ALP [Catalytic activity/Vol] 211 U/L High 38 - 113 U/L [facility] ALT [Catalytic activity/Vol] 12 U/L 10 - 54 U/L [facility] Anion gap [Moles/Vol] 13 mmol/L 8 - 15 mmol/L [facility] AST [Catalytic activity/Vol] 24 U/L 14 - 40 U/L [facility] Bilirubin [Mass/Vol] 0.2 mg/dL 0.2 - 1 .3 mg/dL [facility] Calcium [Mass/Vol] 9.4 mg/dL 8.5 - 10. 2 mg/dL [facility] Chloride [Moles/Vol] 103 mmol/L 98 - 10 7 mmol/L [facility] CO2 [Moles/Vol] 22 mmol/L 22 - 30 mmol/L [facility] Creatinine [Mass/Vol] 0.61 mg/dL Low 0.73 - 1.22 mg/dL [facility] GFR/1.73 sq M.predicted among non-blacks MDRD (S/P/Bld) [Vol rate/Area] 115 mL/min/{1.73_m2} - PINF [facility] Comment on above: Estimated Glomerular Filtration Rate (eGFR) is calculated using the 2020 CKD-EPI creatinine equation. This equation utilizes serum creatinine, sex, and age as parameters. The creatinine assay has traceable calibration to isotope dilution-mass spectrometry. Refer to KDIGO guidelines for clinical interpretation. In patients with unstable renal function, e.g. those with acute kidney injury, the eGFR may not accurately reflect actual GFR. Glucose [Mass/Vol] 308 mg/dL High 74 - 99 mg/dL [facility] Comment on above: The [place] [employer] (ADA) provides guidance for cutoff values for fasting glucose and random glucose. The ADA defines fasting as no caloric intake for at least 8 hours. Fasting plasma glucose results between 100 to 125 mg/dL indicate increased risk for diabetes (prediabetes). Fasting plasma glucose results greater than or equal to 126 mg/dL meet the criteria for diagnosis of diabetes. In the absence of unequivocal hyperglycemia, results should be confirmed by repeat testing. In a patient with classic symptoms of hyperglycemia or hyperglycemic crisis, random plasma glucose results greater than or equal to 200 mg/dL meet the criteria for diagnosis of diabetes. Reference: Standards of Medical Care in Diabetes 2016, [place] [employer] Association. Diabetes Care. 2016.39(Suppl 1). Interpretation and review of laboratory results Abnormal [facility] Potassium [Moles/Vol] 3.2 mmol/L Low 3.7 - 5.1 mmol/L [facility] Protein [Mass/Vol] 6.3 g/dL 6.3 - 8.0 g/dL [facility] Sodium [Moles/Vol] 138 mmol/L 136 - 144 mmol/L [facility] Urea nitrogen [Mass/Vol] 8 mg/dL Low 9 - 24 mg/dL [facility] Comprehensive metabolic 2000 panelon 07-26-2025 Albumin [Mass/Vol] 4.3 g/dL Normal 3.9-4.9 [facility] Comment on above: Order Comment: Speci men Type: BLOOD SPECIMENOrdering Facility: [facility] Address: [address] [place] [address] Performed By: #### 2 4323-8 ####[facility] [id number] [place] [address] [place] ALP [Catalytic activity/Vol] 211 U/L High 38-113 [place] Comment on above: Order Comment: Speci men Type: BLOOD SPECIMENOrdering Facility: [facility] Address: [address] [place] [address] Performed By: #### 2 4323-8 ####[facility] [id number] [place] [address] [place] ALT [Catalytic activity/Vol] 12 U/L Normal 10-54 [place] Comment on above: Order Comment: Speci men Type: BLOOD SPECIMENOrdering Facility: [facility] Address: [address] [place] [address] Performed By: #### 2 4323-8 ####[facility] [id number] [place] [address] [place] Anion gap [Moles/Vol] 13 mmol/L Normal 8-15 [facility] Comment on above: Order Comment: Speci men Type: BLOOD SPECIMENOrdering Facility: [facility] Address: [address] [place] [address] Performed By: #### 2 4323-8 ####[facility] ARSHLYUDMILAA [id number] [place] [address] [place] AST [Catalytic activity/Vol] 24 U/L Normal 14-40 [place] Comment on above: Order Comment: Speci men Type: BLOOD SPECIMENOrdering Facility: [facility] Address: [address] [place] [address] Performed By: #### 2 4323-8 ####[facility] [id number] [place] [address] [place] Bilirubin [Mass/Vol] 0.2 mg/dL Normal 0.2-1.3 [facility] Comment on above: Order Comment: Speci men Type: BLOOD SPECIMENOrdering Facility: [facility] Address: [address] [place] [address] Performed By: #### 2 4323-8 ####[facility] [id number] [place] [address] [place] Calcium [Mass/Vol] 9.4 mg/dL Normal 8.5-10.2 [facility] Comment on above: Order Comment: Speci men Type: BLOOD SPECIMENOrdering Facility: [facility] Address: [address] [place] [address] Performed By: #### 2 4323-8 ####[facility] [id number] [place] [address] [place] Chloride [Moles/Vol] 103 mmol/L Normal 98-107 [facility] Comment on above: Order Comment: Speci men Type: BLOOD SPECIMENOrdering Facility: [facility] Address: [address] [place] [address] Performed By: #### 2 4323-8 ####[facility] WESTWNCLIA [id number] [place] [address] [place] CO2 [Moles/Vol] 22 mmol/L Normal 22-30 [place] Comment on above: Order Comment: Speci men Type: BLOOD SPECIMENOrdering Facility: [facility] Address: [address] [place] [address] Performed By: #### 2 4323-8 ####[facility] [id number] [place] [address] [place] Creatinine [Mass/Vol] 0.61 mg/dL Low 0.73-1.22 [facility] Comment on above: Order Comment: Speci men Type: BLOOD SPECIMENOrdering Facility: [facility] Address: [address] [place] [address] Performed By: #### 2 4323-8 ####[facility] [id number] [place] [address] [place] eGFRcr SerPlBld CKD-EPI 2020 115 mL/min/1.73m??? Normal >=60 [place] Comment on above: Order Comment: Speci men Type: BLOOD SPECIMENOrdering Facility: [facility] Address: [address] [place] [address] Result Comment: Basilia mated Glomerular Filtration Rate (eGFR) is calculated using the 2020 CKD-EPI creatinine equation. This equation utilizes serum creatinine, sex, and age as parameters. The creatinine assay has traceable calibration to isotope dilution-mass spectrometry. Refer to KDIGO guidelines for clinical interpretation. In patients with unstable renal function, e.g. those with acute kidney injury, the eGFR may not accurately reflect actual GFR. Performed By: #### 2 4323-8 ####[facility] WESTWNCLIA [id number] [place] [address] [place] Glucose [Mass/Vol] 308 mg/dL High 74-99 [facility] Comment on above: Order Comment: Speci men Type: BLOOD SPECIMENOrdering Facility: [facility] Address: [address] [place], [place] [address] Result Comment: The [place] Diabetes Association (ADA) provides guidance for cutoff values for fasting glucose and random glucose. The ADA defines fasting as no caloric intake for at least 8 hours. Fasting plasma glucose results between 100 to 125 mg/dL indicate increased risk for diabetes (prediabetes). Fasting plasma glucose results greater than or equal to 126 mg/dL meet the criteria for diagnosis of diabetes. In the absence of unequivocal hyperglycemia, results should be confirmed by repeat testing. In a patient with classic symptoms of hyperglycemia or hyperglycemic crisis, random plasma glucose results greater than or equal to 200 mg/dL meet the criteria for diagnosis of diabetes. Reference: Standards of Medical Care in Diabetes 2016, [place] [employer]. Diabetes Care. 2016.39(Suppl 1). Performed By: #### 2 4323-8 ####[facility] [id number] [place] [address] [place] Potassium [Moles/Vol] 3.2 mmol/L Low 3.7-5.1 [facility] Comment on above: Order Comment: Speci men Type: BLOOD SPECIMENOrdering Facility: [facility] Address: [address] [place], [place] [address] Performed By: #### 2 4323-8 ####[facility] [id number] [place] [address] [place] Protein [Mass/Vol] 6.3 g/dL Normal 6.3-8.0 [facility] Comment on above: Order Comment: Speci men Type: BLOOD SPECIMENOrdering Facility: [facility] Address: [address] [place], [place] [address] Performed By: #### 2 4323-8 ####[facility] [id number] [place] [address] [place] Sodium [Moles/Vol] 138 mmol/L Normal 136-144 [facility] Comment on above: Order Comment: Speci men Type: BLOOD SPECIMENOrdering Facility: [facility] Address: [address] [place], [place] [address] Performed By: #### 2 4323-8 ####[facility] TAY [id number] [address] [place] Urea nitrogen [Mass/Vol] 8 mg/dL Low 9-24 [place] Comment on above: Order Comment: Speci men Type: BLOOD SPECIMENOrdering Facility: [facility] Address: [address] [place], [place] [address] Performed By: #### 2 4323-8 ####[facility] CARRWNCLINayan [id number] [address] OF [facility] CNPNon 07-22-2025 CNPN Telephone (VERONICA) -- LILLIAN BOWDEN ([id number]) 1970 M Date Time Provider Department 07/22/25 DIANE DOUGLAS During your visit today, we recorded the following information about you: Diane Douglas RN 07/22/2025 11:16 AM Signed Care Coordination Triage Note Cancer Quinter Situation: Patient reports Bowel symptoms Background: Pancreatic, C3 07/13/25 Assessment: Constipation Symptoms: When was your last bowel movement? this am, small and hard Patient states he had his CADD pump removed last Friday, has been experiencing constipation issues for the past 5 days. Last normal BM 5 days ago. Has had small hard stool daily, used suppository yesterday and this am with some results but still very hard and small amount. What is your normal frequency of bowel movements (every day, every 2 days...) every day but having issues with constipation since cycle 2 of treatment Any blood in the stool or on the toilet tissue? yes If yes, when did you first notice that? yesterday, has internal and external hemorrhoids. He feels like blood from internal hemorrhoid, use a prep H suppository and no blood this am. Are you eating and drinking normally? yes, eating extra fruit and extra fluids, only 1 caffeine drink daily. If no, what have you eaten and how much have you had to drink in the last 24 hours? na Are you taking any new medications or supplements? no If yes, what? na Are you passing any gas? yes Any fever, nausea or vomiting? no What have you taken to try to alleviate your constipation symptoms? Colace 3 tabs daily the past few days, Miralax, 1 dose daily for the past few day. Suppository last pm and again this am. Does your stomach look swollen, feel hard to touch, or do you have pain in your stomach? Cramping in lower right abdomin last pm. Cramping after suppository. Recommendations: Per RNCC, patient directed to: Manage at home. Instructions provided. Will update Dr. Dawn and call back with further instructions. Diane Douglas RN July 22, 2025 10:59 AM Diane Douglas RN 07/22/2025 1:[address] Dawn recommends MOM daily. Leatha Douglas RN Call to patient, aware of above. Discussed MOM bottle recommendations with patient. Patient also asking about MagCitrate. Reviewed dosing for that and aware MagCitrate not something to use daily. Questions answered. Advised to continue with stool softener daily also. Advised for him to back off any of these if he starts with loose stool/diarrhea. Patient states understanding and will call back in if any further issues/concerns. Leatha Douglas RN Allergies As of Date: 07/22/2025 (No Known Allergies) Date Reviewed: 07/15/2025 Reviewed by: Bernice Echeverria RN - Fully Assessed Reason for Visit: Care Coordination [2388] Cmt: Constipation Prescriptions as of 07/22/2025 - docusate sodium (COLACE PO) Take 1-2 tablets by mouth as needed. - ondansetron (ZOFRAN) 8 mg tablet Take 1 tablet by mouth every 8 hours as needed. - lidocaine-prilocaine (EMLA) 2.5-2.5 % cream Apply to affected area as needed. - glimepiride (AMARYL) 1 mg tablet Take 1 mg by mouth daily with breakfast. - JARDIANCE 25 mg tablet Take 25 mg by mouth daily with breakfast. - CREON 36,000-114,000- 180,000 unit delayed release capsule Take 2 capsules by mouth three times a day with meals. 2 capsules with meals 1 capsule with snack - metFORMIN (GLUCOPHAGE) 500 mg tablet Take 500 mg by mouth daily with breakfast. Problem List As Of Date 07/22/2025 Noted Resolved Malignant neoplasm of head of pancreas (HCC) [C*05/19/2025 Encounter Status:Closed by DIANE DOUGLAS on 07/22/25 Normal [place] CBC W Auto Differential pane l (Bld)on 07-11-2025 Basophils (Bld) [#/Vol] 0.00 10*3/uL Normal <0.11 [place] Comment on above: Order Comment: Speci men Type: BLOOD SPECIMENOrdering Facility: [facility] Address: [address] [place] [address] Performed By: #### 5 7021-8 ####[facility] [id number] [address] LABIA [id number] [address] [place] Basophils/100 WBC (Bld) 0.0 % Normal [place] Comment on above: Order Comment: Speci men Type: BLOOD SPECIMENOrdering Facility: [facility] Address: [address] [place] [address] Performed By: #### 5 7021-8 ####[facility] [id number] [address] LABCLIA [id number] [place] [address] [place] Dacrocytes LM Ql (Bld) Few Normal Cl [facility] Comment on above: Order Comment: Speci men Type: BLOOD SPECIMENOrdering Facility: [facility] Address: [address] [place] [address] Performed By: #### 5 7021-8 ####[facility] MILLTOWNCLIA [id number] [address] LABCLIA [id number] [place] [address] [place] Differential cell count method Nom (Bld) Manual Normal [place] Comment on above: Order Comment: Speci men Type: BLOOD SPECIMENOrdering Facility: [facility] Address: [address] [place] [address] Performed By: #### 5 7021-8 ####[facility] [id number] [address] LABCLIA [id number] [place] [address] [place] Eosinophils (Bld) [#/Vol] 0.00 10*3/uL Normal <0.46 [place] Comment on above: Order Comment: Speci men Type: BLOOD SPECIMENOrdering Facility: [facility] Address: [address] [place] [address] Performed By: #### 5 7021-8 ####[facility] WESTWNCLIA [id number] [address] LABCLIA [id number] [place] [address] [place] Eosinophils/100 WBC (Bld) 0.0 % Normal [place] Comment on above: Order Comment: Speci men Type: BLOOD SPECIMENOrdering Facility: [facility] Address: [address] [place] [address] Performed By: #### 5 7021-8 ####[facility] WESTWNCLIA [id number] [address] LABCLIA [id number] [facility] [address] [address] [place] Erythrocyte distribution width (RBC) [Ratio] 14.0 % Normal 11.5-15.0 [place] Comment on above: Order Comment: Speci men Type: BLOOD SPECIMENOrdering Facility: [facility] Address: [address] [place] [address] Performed By: #### 5 7021-8 ####[facility] MILLTOWNCLIA [id number] [address] LABCLIA [id number] [facility] [place] [address] [place] Hematocrit (Bld) [Volume fraction] 39.3 % Normal 39.0-51.0 [place] Comment on above: Order Comment: Speci men Type: BLOOD SPECIMENOrdering Facility: [facility] Address: [address] [place] [address] Performed By: #### 5 7021-8 ####[facility] WESTWNCLIA [id number] [address] LABCLIA [id number] [address], [facility]95 [place] Hemoglobin (Bld) [Mass/Vol] 13.5 g/dL Normal 13.0-17.0 [place] Comment on above: Order Comment: Speci men Type: BLOOD SPECIMENOrdering Facility: [facility] Address: [address] [place], [place] [address] Performed By: #### 5 7021-8 ####[facility] MILLWNCLIA [id number] [address] LABCLIA [id number] [facility] [address] [place] [address] [place] Lymphocytes (Bld) [#/Vol] 2.59 10*3/uL Normal 1.00-4.00 [place] Comment on above: Order Comment: Speci men Type: BLOOD SPECIMENOrdering Facility: [facility] Address: [address] [place] [address] Performed By: #### 5 7021-8 ####[facility] WESTWNCLIA [id number] [address] LABCLIA [id number] [place] [address] [place] Lymphocytes/100 WBC (Bld) 12.0 % Normal [place] Comment on above: Order Comment: Speci men Type: BLOOD SPECIMENOrdering Facility: [facility] Address: [address] [place] [address] Performed By: #### 5 7021-8 ####[facility] [id number] [address] LABCLIA [id number] [place] [address] [place] MCH (RBC) [Entitic mass] 33.2 pg Normal 26.0-34.0 [place] Comment on above: Order Comment: Speci men Type: BLOOD SPECIMENOrdering Facility: [facility] Address: [address] [place] [address] Performed By: #### 5 7021-8 ####[facility] [id number] [address] LABCLIA [id number] [place] [address] [place] MCHC (RBC) [Mass/Vol] 34.4 g/dL Normal 30.5-36.0 [facility] Comment on above: Order Comment: Speci men Type: BLOOD SPECIMENOrdering Facility: [facility] Address: [address] [place] [address] Performed By: #### 5 7021-8 ####[facility] MILLTOWNCLIA [id number] [address] LABCLIA [id number] [address] [address] [place] MCV (RBC) [Entitic vol] 96.6 fL Normal 80.0-100.0 [place] Comment on above: Order Comment: Speci men Type: BLOOD SPECIMENOrdering Facility: [facility] Address: [address] [place] [address] Performed By: #### 5 7021-8 ####[facility] [id number] [address] LABCLIA [id number] [place] [address] [place] Metamyelocytes/100 WBC (Bld) 1.7 % Normal [place] Comment on above: Order Comment: Speci men Type: BLOOD SPECIMENOrdering Facility: [facility] Address: [address] [place] [address] Performed By: #### 5 7021-8 ####[facility] WESTWNCLIA [id number] [address] LABCLIA [id number] [place] [address] [place] Monocytes (Bld) [#/Vol] 0.73 10*3/uL Normal <0.87 [place] Comment on above: Order Comment: Speci men Type: BLOOD SPECIMENOrdering Facility: [facility] Address: [address] [place] [address] Performed By: #### 5 7021-8 ####[facility] MILLTOWNCLIA [id number] [address] LABCLIA [id number] [facility] [address] [place] [address] [place] Monocytes/100 WBC (Bld) 3.4 % Normal [place] Comment on above: Order Comment: Speci men Type: BLOOD SPECIMENOrdering Facility: [facility] Address: [address] [place] [address] Performed By: #### 5 7021-8 ####[facility] MILLTOWNCLIA [id number] [place] [address] [place] [facility] LABCLIA [id number] [address] [address] [place] MYELO% 1.7 % Normal [place] Comment on above: Order Comment: Speci men Type: BLOOD SPECIMENOrdering Facility: [facility] Address: [address] [place] [address] Performed By: #### 5 7021-8 ####[facility] [id number] [place] [address] [place] [facility] LABCLIA [id number] [address] [address] [place] Neutrophils (Bld) [#/Vol] 17.31 10*3/uL High 1.45-7.50 [place] Comment on above: Order Comment: Speci men Type: BLOOD SPECIMENOrdering Facility: [facility] Address: [address] [place] [address] Performed By: #### 5 7021-8 ####[facility] MILLWNCLIA [id number] [place] [address] [place] [facility] LABCLIA [id number] [place] [address] [place] Neutrophils/100 WBC (Bld) 80.3 % Normal [place] Comment on above: Order Comment: Speci men Type: BLOOD SPECIMENOrdering Facility: [facility] Address: [address] [place] [address] Performed By: #### 5 7021-8 ####[facility] ARSHWNCLIA [id number] [address] LABCLIA [id number] [place] [address] [place] Nucleated RBC (Bld) [#/Vol] 10*3/uL Normal <0.01 [place] Comment on above: Order Comment: Speci men Type: BLOOD SPECIMENOrdering Facility: [facility] Address: [address] [place] [address] Performed By: #### 5 7021-8 ####[facility] [id number] [address] LABCLIA [id number] [place] [address] [place] Nucleated RBC/100 WBC (Bld) [Ratio] 0.0 /100 WBC Normal [place] Comment on above: Order Comment: Speci men Type: BLOOD SPECIMENOrdering Facility: [facility] Address: [address] [place] [address] Performed By: #### 5 7021-8 ####[facility]AANASTASIALIA [id number] [address] LABCLIA [id number] [place] [address] [place] Platelet mean volume (Bld) [Entitic vol] 11.1 fL Normal 9.0-12.7 [place] Comment on above: Order Comment: Speci men Type: BLOOD SPECIMENOrdering Facility: [facility] Address: [address] [place] [address] Performed By: #### 5 7021-8 ####[facility]ENTER[facility] [id number] [place] [address] [place] [facility] LABCLIA [id number] [facility] [address] [place] [address] [place] Platelets (Bld) [#/Vol] 133 10*3/uL Low 150-400 [place] Comment on above: Order Comment: Speci men Type: BLOOD SPECIMENOrdering Facility: [facility] Address: [address] [place] [address] Result Comment: No c lot detected. Performed By: #### 5 7021-8 ####[facility] MILLTOWNCLIA [id number] [place] [address] [place] [facility] LABCLIA [id number] [facility] [address] [place] [address] [place] Platelets Estimate (Bld) [#/Vol] Decreased Normal [place] Comment on above: Order Comment: Speci men Type: BLOOD SPECIMENOrdering Facility: [facility] Address: [address] [place], [place] [address] Performed By: #### 5 7021-8 ####[facility] WESTWNCLIA [id number] [place] [address] [place] [facility] LABCLIA [id number] [facility] [address] [place] [address] [place] Polychromasia LM Ql (Bld) Slight Normal [place] Comment on above: Order Comment: Speci men Type: BLOOD SPECIMENOrdering Facility: [facility] Address: [address] [place] [address] Performed By: #### 5 7021-8 ####[facility] MILLTOWNCLIA [id number] [place] [address] [place] [facility] LABCLIA [id number] [facility] [address] [place] [address] [place] PROMYL% 0.9 % Normal [place] Comment on above: Order Comment: Speci men Type: BLOOD SPECIMENOrdering Facility: [facility] Address: [address] [place] [address] Performed By: #### 5 7021-8 ####[facility] ARSHWNCLIA [id number] [address] LABCLIA [id number] [address] [address] [place] RBC (Bld) [#/Vol] 4.07 10*6/uL Low 4.20-6.00 [facility] Comment on above: Order Comment: Speci men Type: BLOOD SPECIMENOrdering Facility: [facility] Address: [address] [place] [address] Performed By: #### 5 7021-8 ####[facility] [id number] [address] LABCLIA [id number] [address], [facility]95 [place] RED CELL MORPH Reviewed: see result s of individual morphologies Normal [place] Comment on above: Order Comment: Speci men Type: BLOOD SPECIMENOrdering Facility: [facility] Address: [address] [place] [address] Performed By: #### 5 7021-8 ####[facility] [id number] [address] LABCLIA [id number] [address] [place] [address] [place] WBC (Bld) [#/Vol] 21.56 10*3/uL High 3.70-11.00 [facility] Comment on above: Order Comment: Speci men Type: BLOOD SPECIMENOrdering Facility: [facility] Address: [address] [place] [address] Performed By: #### 5 7021-8 ####[facility] TAY [id number] [place] [address] [place] [facility] CLEO [id number] [place] [address] [place] CNOVSPon 07-11-2025 CNOVSP Visit (SP) Office (H EMAWS) -- LILLIAN BOWDEN ([id number]) 1970 M Date Time Provider Department 07/11/25 3:40 PM CHAPIN DAWN During your visit today, we recorded the following information about you: Temperature Pulse Blood pressure Weight 97.8 degrees 84/minute 107/71 73.3 kg Chapin Dawn MD 07/11/2025 3:54 PM Signed (Elements copied from my note dated June 28, 2025, have been reviewed and updated where appropriate, and all reflect current assessment and medical decision making from today's encounter, July 11, 2025) HISTORY OF PRESENT ILLNESS: Lillian Bowden is a 55 year old male history of diarrhea, change in stool character, weight loss. Saw his PCP, did stool studies, saw GI colonoscopy done, one benign polyp. Dr Stout got CT scan at [facility]. This noted mass at head of pancreas. Biopsy 05-12-25 showed adenocarcinoma. Imaging shows tumor abuts SMV. CLINICAL IMPRESSION: Pancreatic adenocarcinoma, borderline resectable RECOMMENDATION/PLAN: 1. Neoadjuvant chemotherapy with FolFIrinOx 2. Imaging after cycle 4 Written and verbal health teaching given to patient, patient verbalizes understanding and agrees with treatment plan. PAST MEDICAL HISTORY Diagnosis Date Arthritis Diabetes (HCC) Hypertension Legionnaire's disease (HCC) PAST SURGICAL HISTORY Procedure Laterality Date ERCP 06/02/2025 LAMINECTOMY,LUMBAR PAST SURGICAL HISTORY OF 05/19/2025 EUS PORTOCATH PLACEMENT 05/31/2025 FAMILY HISTORY Problem Relation Age of Onset Breast Cancer Mother Lung Cancer Father Breast Cancer Sister Heart Sister Breast Cancer Maternal Grandmother Heart Paternal Grandmother Social History Tobacco Use Smoking status: Former Types: Cigarettes Smokeless tobacco: Former Types: Chew Quit date: 01/2025 Vaping Use Vaping status: Never Used Substance Use Topics Alcohol use: Not Currently Drug use: Never ALLERGIES: ALLERGIES No Known Allergies CURRENT OUTPATIENT MEDICATIONS: docusate sodium (COLACE PO) Take 1-2 tablets by mouth as needed. ondansetron (ZOFRAN) 8 mg tablet Take 1 tablet by mouth every 8 hours as needed. lidocaine-prilocaine (EMLA) 2.5-2.5 % cream Apply to affected area as needed. glimepiride (AMARYL) 1 mg tablet Take 1 mg by mouth daily with breakfast. (Patient taking differently: Take 2 mg by mouth daily with breakfast.) JARDIANCE 25 mg tablet Take 25 mg by mouth daily with breakfast. CREON 36,000-114,000- 180,000 unit delayed release capsule Take 2 capsules by mouth three times a day with meals. 2 capsules with meals 1 capsule with snack metFORMIN (GLUCOPHAGE) 500 mg tablet Take 500 mg by mouth daily with breakfast. (Patient taking differently: Take 1,000 mg by mouth daily with breakfast.) REVIEW OF SYSTEMS: GENERAL: No fever, night sweats, weight loss or malaise. All other reviewed and negative other than HPI. PHYSICAL EXAMINATION: VITAL SIGNS: BP 107/71 Pulse 84 Temp (Src) 97.8 (Temporal) Wt 161 lb 8 oz (73.3kg) SpO2 98% GENERAL APPEARANCE: Well appearing, in no acute distress, alert and oriented x3, well-hydrated, well nourished. I spent a total of 30 minutes on the date of the service which included preparing to see the patient, [id number] patient care, completing clinical documentation, obtaining and/or reviewing separately obtained history, counseling and educating the patient/family/caregiver, ordering medications, tests, or procedures, communicating with other HCPs (not separately reported), independently interpreting results (not separately reported), communicating results to the patient/family/caregiver, and care coordination (not separately reported). Electronically Signed: Chapin Dawn MD July 11, 2025 Allergies As of Date: 07/11/2025 (No Known Allergies) Date Reviewed: 07/11/2025 Reviewed by: Emily Rouse Ma, MA - Fully Assessed Reason for Visit: Established Patient [175] Primary Visit Diagnosis:Malignant neoplasm of head of pancreas (HCC) [C25.0] Follow-up and Disposition History for Encounter Date Provider Department Center 07/11/2025 [id number] DAWN [place] Prescriptions as of 07/11/2025 - docusate sodium (COLACE PO) Take 1-2 tablets by mouth as needed. - ondansetron (ZOFRAN) 8 mg tablet Take 1 tablet by mouth every 8 hours as needed. - lidocaine-prilocaine (EMLA) 2.5-2.5 % cream Apply to affected area as needed. - glimepiride (AMARYL) 1 mg tablet Take 1 mg by mouth daily with breakfast. - JARDIANCE 25 mg tablet Take 25 mg by mouth daily with breakfast. - CREON 36,000-114,000- 180,000 unit delayed release capsule Take 2 capsules by mouth three times a day with meals. 2 capsules with meals 1 capsule with snack - metFORMIN (GLUCOPHAGE) 500 mg tablet Take 500 mg by mouth daily with breakfast. Problem List As Of Date 07/11/2025 Noted Resolved (more content not included)... Normal [place] CNPAmie 07-11-2025 CNPN Telephone (VERONICA) -- LILLIAN BOWDEN ([id number]) 1970 M Date Time Provider Department 07/11/25 CHAPIN DAWN During your visit today, we recorded the following information about you: Rosa Perez 07/11/2025 4:14 PM Signed AVS 07/11 CT pancreas week of Aug 03.-SCHEDULED See me with cycle 5. Rosa Perez 07/11/2025 4:14 PM Signed Patient is to be scheduled with Dr. Dawn for Cycle 5 on 08/10 Patient has ov scheduled already for 07/[address] López Govea isn't here) and with Xuan on 08/09 (Dr. Dawn is on vacation) Please advise Diane Mari RN 07/12/2025 9:24 AM Signed Keep schedule as it is. Leatha Douglas RN Allergies As of Date: 07/11/2025 (No Known Allergies) Date Reviewed: 07/11/2025 Reviewed by: Emily Rouse Ma, MA - Fully Assessed Prescriptions as of 07/19/2025 - docusate sodium (COLACE PO) Take 1-2 tablets by mouth as needed. - ondansetron (ZOFRAN) 8 mg tablet Take 1 tablet by mouth every 8 hours as needed. - lidocaine-prilocaine (EMLA) 2.5-2.5 % cream Apply to affected area as needed. - glimepiride (AMARYL) 1 mg tablet Take 1 mg by mouth daily with breakfast. - JARDIANCE 25 mg tablet Take 25 mg by mouth daily with breakfast. - CREON 36,000-114,000- 180,000 unit delayed release capsule Take 2 capsules by mouth three times a day with meals. 2 capsules with meals 1 capsule with snack - metFORMIN (GLUCOPHAGE) 500 mg tablet Take 500 mg by mouth daily with breakfast. Facility-Administered Medications as of 07/19/2025 - atropine 0.4 mg injection - NaCl 0.9% iv infusion - diphenhydrAMINE 50 mg injection (BENADRYL) - hydrocortisone sodium succinate (PF) 100 mg injection (Solu-CORTEF) - EPINEPHrine HCl (PF) 1 mg/mL (1 mL) 0.3 mg injection Problem List As Of Date 07/11/2025 Noted Resolved Malignant neoplasm of head of pancreas (HCC) [C*05/19/2025 Encounter Status:Closed by ROSA PEREZ on 07/19/25 Normal [place] Cancer Ag19-9 SerPl-aCncon 0 07-11-2025 Cancer Ag 19-9 Qn 900.0 [arb'U]/mL High <36.0 C [facility] Comment on above: Order Comment: Speci men Type: BLOOD SPECIMENOrdering Facility: [facility] Address: [address] [place] [address] Result Comment: [facility] er antigen 19-9 test is used as an aid in monitoring response to treatment or recurrence in patients with established pancreatic, hepatobiliary, or gastrointestinal malignancies. Clinical correlation is required. The CA 19-9 Antigen test was performed using the Kiana Raciel Unicel DXI paramagnetic particle chemiluminescent immunoassay method. Results obtained with different assay methods or kits cannot be used interchangeably. Performed By: #### 2 4108-3 ####[facility] LABCLIA [id number] [place] [address] [place] Comprehensive metabolic 2000 panelOrdered By: Maria Luz Aiken on 07-11-2025 Albumin [Mass/Vol] 4.1 g/dL 3.9 - 4.9 g/dL [facility] ALP [Catalytic activity/Vol] 203 U/L High 38 - 113 U/L [facility] ALT [Catalytic activity/Vol] 10 U/L 10 - 54 U/L [facility] Anion gap [Moles/Vol] 15 mmol/L 8 - 15 mmol/L [facility] AST [Catalytic activity/Vol] 15 U/L 14 - 40 U/L [facility] Bilirubin [Mass/Vol] 0.2 mg/dL 0.2 - 1 .3 mg/dL [facility] Calcium [Mass/Vol] 9.1 mg/dL 8.5 - 10. 2 mg/dL [facility] Chloride [Moles/Vol] 101 mmol/L 98 - 10 7 mmol/L [facility] CO2 [Moles/Vol] 20 mmol/L Low 22 - 30 mmol/L [facility] Creatinine [Mass/Vol] 0.58 mg/dL Low 0.73 - 1.22 mg/dL [facility] GFR/1.73 sq M.predicted among non-blacks MDRD (S/P/Bld) [Vol rate/Area] 117 mL/min/{1.73_m2} - PINF [facility] Comment on above: Estimated Glomerular Filtration Rate (eGFR) is calculated using the 2020 CKD-EPI creatinine equation. This equation utilizes serum creatinine, sex, and age as parameters. The creatinine assay has traceable calibration to isotope dilution-mass spectrometry. Refer to KDIGO guidelines for clinical interpretation. In patients with unstable renal function, e.g. those with acute kidney injury, the eGFR may not accurately reflect actual GFR. Glucose [Mass/Vol] 402 mg/dL High 74 - 99 mg/dL [facility] Comment on above: The [place] Diab[employer] [place] Association (ADA) provides guidance for cutoff values for fasting glucose and random glucose. The ADA defines fasting as no caloric intake for at least 8 hours. Fasting plasma glucose results between 100 to 125 mg/dL indicate increased risk for diabetes (prediabetes). Fasting plasma glucose results greater than or equal to 126 mg/dL meet the criteria for diagnosis of diabetes. In the absence of unequivocal hyperglycemia, results should be confirmed by repeat testing. In a patient with classic symptoms of hyperglycemia or hyperglycemic crisis, random plasma glucose results greater than or equal to 200 mg/dL meet the criteria for diagnosis of diabetes. Reference: Standards of Medical Care in Diabetes 2016, [place] [employer] Association. Diabetes Care. 2016.39(Suppl 1). Interpretation and review of laboratory results Abnormal [facility] Potassium [Moles/Vol] 3.5 mmol/L Low 3.7 - 5.1 mmol/L [facility] Protein [Mass/Vol] 6.3 g/dL 6.3 - 8.0 g/dL [facility] Sodium [Moles/Vol] 136 mmol/L 136 - 144 mmol/L [facility] Urea nitrogen [Mass/Vol] 11 mg/dL 9 - 24 mg/dL [facility] Comprehensive metabolic 2000 panelon 07-11-2025 Albumin [Mass/Vol] 4.1 g/dL Normal 3.9-4.9 [facility] Comment on above: Order Comment: Vielkai jeanette Type: BLOOD SPECIMENOrdering Facility: [facility] Address: [address] [place] [address] Performed By: #### 2 4323-8 ####[facility] [id number] [place] [address] [place] ALP [Catalytic activity/Vol] 203 U/L High 38-113 [place] Comment on above: Order Comment: Vielkai men Type: BLOOD SPECIMENOrdering Facility: [facility] Address: [address] [place] [address] Performed By: #### 2 4323-8 ####[facility]CL[facility] [id number] [place] [address] [place] ALT [Catalytic activity/Vol] 10 U/L Normal 10-54 [place] Comment on above: Order Comment: Speci men Type: BLOOD SPECIMENOrdering Facility: [facility] Address: [address] [place] [address] Performed By: #### 2 4323-8 ####[facility] MILLTOWNCLIA [id number] [place] [address] [place] Anion gap [Moles/Vol] 15 mmol/L Normal 8-15 [facility] Comment on above: Order Comment: Speci men Type: BLOOD SPECIMENOrdering Facility: [facility] Address: [address] [place] [address] Performed By: #### 2 4323-8 ####[facility] MILLWNCLIA [id number] [place] [address] [place] AST [Catalytic activity/Vol] 15 U/L Normal 14-40 [place] Comment on above: Order Comment: Speci men Type: BLOOD SPECIMENOrdering Facility: [facility] Address: [address] [place] [address] Performed By: #### 2 4323-8 ####[facility] MILLTOWNCLIA [id number] [place] [address] [place] Bilirubin [Mass/Vol] 0.2 mg/dL Normal 0.2-1.3 [facility] Comment on above: Order Comment: Speci men Type: BLOOD SPECIMENOrdering Facility: [facility] Address: [address] [place] [address] Performed By: #### 2 4323-8 ####[facility] MILLTOWNCLIA [id number] [place] [address] [place] Calcium [Mass/Vol] 9.1 mg/dL Normal 8.5-10.2 [facility] Comment on above: Order Comment: Speci men Type: BLOOD SPECIMENOrdering Facility: [facility] Address: [address] [place] [address] Performed By: #### 2 4323-8 ####[facility] MILLTOWNCLIA [id number] [place] [address] [place] Chloride [Moles/Vol] 101 mmol/L Normal 98-107 [facility] Comment on above: Order Comment: Speci men Type: BLOOD SPECIMENOrdering Facility: [facility] Address: [address] [place] [address] Performed By: #### 2 4323-8 ####[facility] MILLTOWNCLIA [id number] [place] [address] [place] CO2 [Moles/Vol] 20 mmol/L Low 22-30 [place] Comment on above: Order Comment: Speci men Type: BLOOD SPECIMENOrdering Facility: [facility] Address: [address] [place] [address] Performed By: #### 2 4323-8 ####[facility] MILLWNCLIA [id number] [place] [address] [place] Creatinine [Mass/Vol] 0.58 mg/dL Low 0.73-1.22 [facility] Comment on above: Order Comment: Speci men Type: BLOOD SPECIMENOrdering Facility: [facility] Address: [address] [place] [address] Performed By: #### 2 4323-8 ####[facility] WESTWNCLIA [id number] [place] [address] [place] eGFRcr SerPlBld CKD-EPI 2020 117 mL/min/1.73m??? Normal >=60 [place] Comment on above: Order Comment: Speci men Type: BLOOD SPECIMENOrdering Facility: [facility] Address: [address] [place], [place] [id number] Result Comment: Basilia mated Glomerular Filtration Rate (eGFR) is calculated using the 2020 CKD-EPI creatinine equation. This equation utilizes serum creatinine, sex, and age as parameters. The creatinine assay has traceable calibration to isotope dilution-mass spectrometry. Refer to KDIGO guidelines for clinical interpretation. In patients with unstable renal function, e.g. those with acute kidney injury, the eGFR may not accurately reflect actual GFR. Performed By: #### 2 4323-8 ####[facility] [id number] [place] [address] [place] Glucose [Mass/Vol] 402 mg/dL High 74-99 [facility] Comment on above: Order Comment: Olman reid Type: BLOOD SPECIMENOrdering Facility: [facility] Address: [address] [place] [address] Result Comment: The [place] Diabetes Association (ADA) provides guidance for cutoff values for fasting glucose and random glucose. The ADA defines fasting as no caloric intake for at least 8 hours. Fasting plasma glucose results between 100 to 125 mg/dL indicate increased risk for diabetes (prediabetes). Fasting plasma glucose results greater than or equal to 126 mg/dL meet the criteria for diagnosis of diabetes. In the absence of unequivocal hyperglycemia, results should be confirmed by repeat testing. In a patient with classic symptoms of hyperglycemia or hyperglycemic crisis, random plasma glucose results greater than or equal to 200 mg/dL meet the criteria for diagnosis of diabetes. Reference: Standards of Medical Care in Diabetes 2016, [place] Diabetes Association. Diabetes Care. 2016.39(Suppl 1). Performed By: #### 2 4323-8 ####[facility] [id number] [place] [address] [place] Potassium [Moles/Vol] 3.5 mmol/L Low 3.7-5.1 [facility] Comment on above: Order Comment: Olman reid Type: BLOOD SPECIMENOrdering Facility: [facility] Address: [address] [place] [address] Performed By: #### 2 4323-8 ####[facility] [id number] [place] [address] [place] Protein [Mass/Vol] 6.3 g/dL Normal 6.3-8.0 [facility] Comment on above: Order Comment: Speci men Type: BLOOD SPECIMENOrdering Facility: [facility] Address: [address] [place] [address] Performed By: #### 2 4323-8 ####[facility]ENTERANDI [id number] [place] [address] [place] Sodium [Moles/Vol] 136 mmol/L Normal 136-144 [facility] Comment on above: Order Comment: Speci men Type: BLOOD SPECIMENOrdering Facility: [facility] Address: [address] [place] [address] Performed By: #### 2 4323-8 ####[facility]CN[facility] [id number] [place] [address] [place] Urea nitrogen [Mass/Vol] 11 mg/dL Normal 9-24 [place] Comment on above: Order Comment: Speci men Type: BLOOD SPECIMENOrdering Facility: [facility] Address: [address] [place] [address] Performed By: #### 2 4323-8 ####[facility] [id number] [place] [address] [place] CBC W Auto Differential pane l (Bld)on 06-28-2025 Basophils (Bld) [#/Vol] 0.10 10*3/uL [facility] Basophils/100 WBC (Bld) 0.9 % [facility] Differential cell count method Nom (Bld) Auto [facility] Eosinophils (Bld) [#/Vol] 0.07 10*3/uL [facility] Eosinophils/100 WBC (Bld) 0.6 % [facility] Erythrocyte distribution width (RBC) [Ratio] 13.8 % 11.5 - 15.0 % [facility] Hematocrit (Bld) [Volume fraction] 40.0 % 39.0 - 51.0 % [facility] Hemoglobin (Bld) [Mass/Vol] 14.0 g/dL 13.0 - 17.0 g/dL [facility] Immature granulocytes (Bld) [#/Vol] 0.45 10*3/uL High NINF [facility] Immature granulocytes/100 WBC (Bld) 4.0 % [facility] Interpretation and review of laboratory results Abnormal [facility] Lymphocytes (Bld) [#/Vol] 1.87 10*3/uL [facility] Lymphocytes/100 WBC (Bld) 16.7 % [facility] MCH (RBC) [Entitic mass] 32.9 pg 26.0 - 34.0 pg [facility] MCHC (RBC) [Mass/Vol] 35.0 g/dL 30.5 - 36.0 g/dL [facility] MCV (RBC) [Entitic vol] 94.1 fL 80.0 - 100.0 fL [facility] Monocytes (Bld) [#/Vol] 0.97 10*3/uL High [facility] Monocytes/100 WBC (Bld) 8.6 % [facility] Neutrophils (Bld) [#/Vol] 7.77 10*3/uL High [facility] Neutrophils/100 WBC (Bld) 69.2 % [facility] Nucleated RBC (Bld) [#/Vol] NINF [facility] Nucleated RBC/100 WBC (Bld) [Ratio] 0.0 % /100 WBC [facility] Platelet mean volume (Bld) [Entitic vol] 10.8 fL 9.0 - 12.7 fL [facility] Platelets (Bld) [#/Vol] 130 10*3/uL Low [facility] RBC (Bld) [#/Vol] 4.25 10*6/uL 4.20 - 6.0 0 m/uL [facility] WBC (Bld) [#/Vol] 11.23 10*3/uL High [facility] Basophils (Bld) [#/Vol] 0.10 10*3/uL Normal <0.11 [place] Comment on above: Order Comment: Speci men Type: BLOOD SPECIMENOrdering Facility: [facility] Address: [address] [place] [address] Performed By: #### 5 7055-8 ####[facility] ARSHWNCLIA [id number] [place] [address] [place] Basophils/100 WBC (Bld) 0.9 % Normal [place] Comment on above: Order Comment: Speci men Type: BLOOD SPECIMENOrdering Facility: [facility] Address: [address] [place] [address] Performed By: #### 5 7021-8 ####[facility]AANASTASIALIA [id number] [place] [address] [place] Differential cell count method Nom (Bld) Auto Normal [place] Comment on above: Order Comment: Speci men Type: BLOOD SPECIMENOrdering Facility: [facility] Address: [address] [place] [address] Performed By: #### 5 7021-8 ####[facility] [id number] [place] [address] [place] Eosinophils (Bld) [#/Vol] 0.07 10*3/uL Normal <0.46 [place] Comment on above: Order Comment: Speci men Type: BLOOD SPECIMENOrdering Facility: [facility] Address: [address] [place] [address] Performed By: #### 5 7021-8 ####[facility] [id number] [place] [address] [place] Eosinophils/100 WBC (Bld) 0.6 % Normal [place] Comment on above: Order Comment: Speci men Type: BLOOD SPECIMENOrdering Facility: [facility] Address: [address] [place] [address] Performed By: #### 5 7021-8 ####[facility] [id number] [place] [address] [place] Erythrocyte distribution width (RBC) [Ratio] 13.8 % Normal 11.5-15.0 [place] Comment on above: Order Comment: Speci men Type: BLOOD SPECIMENOrdering Facility: [facility] Address: [address] [place] [address] Performed By: #### 5 7021-8 ####[facility] [id number] [place] [address] [place] Hematocrit (Bld) [Volume fraction] 40.0 % Normal 39.0-51.0 [place] Comment on above: Order Comment: Speci men Type: BLOOD SPECIMENOrdering Facility: [facility] Address: [address] [place] [address] Performed By: #### 5 7021-8 ####[facility] [id number] [place] [address] [place] Hemoglobin (Bld) [Mass/Vol] 14.0 g/dL Normal 13.0-17.0 [place] Comment on above: Order Comment: Speci men Type: BLOOD SPECIMENOrdering Facility: [facility] Address: [address] [place] [address] Performed By: #### 5 7021-8 ####[facility] [id number] [place] [address] [place] Immature granulocytes (Bld) [#/Vol] 0.45 10*3/uL High <0.10 [place] Comment on above: Order Comment: Speci men Type: BLOOD SPECIMENOrdering Facility: [facility] Address: [address] [place] [address] Performed By: #### 5 7021-8 ####[facility] [id number] [place] [address] [place] Immature granulocytes/100 WBC (Bld) 4.0 % Normal [place] Comment on above: Order Comment: Speci men Type: BLOOD SPECIMENOrdering Facility: [facility] Address: [address] [place] [address] Performed By: #### 5 7021-8 ####[facility] ARSHWNCLIA [id number] [place] [address] [place] Lymphocytes (Bld) [#/Vol] 1.87 10*3/uL Normal 1.00-4.00 [place] Comment on above: Order Comment: Speci men Type: BLOOD SPECIMENOrdering Facility: [facility] Address: [address] [place] [address] Performed By: #### 5 7021-8 ####[facility]IAL[facility] [id number] [place] [address] [place] Lymphocytes/100 WBC (Bld) 16.7 % Normal [place] Comment on above: Order Comment: Speci men Type: BLOOD SPECIMENOrdering Facility: [facility] Address: [address] [place] [address] Performed By: #### 5 7021-8 ####[facility]ENTERLIA [id number] [place] [address] [place] MCH (RBC) [Entitic mass] 32.9 pg Normal 26.0-34.0 [place] Comment on above: Order Comment: Speci men Type: BLOOD SPECIMENOrdering Facility: [facility] Address: [address] [place] [address] Performed By: #### 5 7021-8 ####[facility] WESTWNCLIA [id number] [place] [address] [place] MCHC (RBC) [Mass/Vol] 35.0 g/dL Normal 30.5-36.0 [facility] Comment on above: Order Comment: Speci men Type: BLOOD SPECIMENOrdering Facility: [facility] Address: [address] [place] [address] Performed By: #### 5 7021-8 ####[facility] [id number] [place] [address] [place] MCV (RBC) [Entitic vol] 94.1 fL Normal 80.0-100.0 [place] Comment on above: Order Comment: Speci men Type: BLOOD SPECIMENOrdering Facility: [facility] Address: [address] [place] [address] Performed By: #### 5 7021-8 ####[facility] [id number] [place] [address] [place] Monocytes (Bld) [#/Vol] 0.97 10*3/uL High <0.87 [place] Comment on above: Order Comment: Speci men Type: BLOOD SPECIMENOrdering Facility: [facility] Address: [address] [place] [address] Performed By: #### 5 7021-8 ####[facility] [id number] [place] [address] [place] Monocytes/100 WBC (Bld) 8.6 % Normal [place] Comment on above: Order Comment: Speci men Type: BLOOD SPECIMENOrdering Facility: [facility] Address: [address] [place] [address] Performed By: #### 5 7021-8 ####[facility] [id number] [place] [address] [place] Neutrophils (Bld) [#/Vol] 7.77 10*3/uL High 1.45-7.50 [place] Comment on above: Order Comment: Speci men Type: BLOOD SPECIMENOrdering Facility: [facility] Address: [address] [place] [address] Performed By: #### 5 7021-8 ####[facility] [id number] [place] [address] [place] Neutrophils/100 WBC (Bld) 69.2 % Normal [place] Comment on above: Order Comment: Speci men Type: BLOOD SPECIMENOrdering Facility: [facility] Address: [address] [place] [address] Performed By: #### 5 7021-8 ####[facility] [id number] [place] [address] [place] Nucleated RBC (Bld) [#/Vol] 10*3/uL Normal <0.01 [place] Comment on above: Order Comment: Speci men Type: BLOOD SPECIMENOrdering Facility: [facility] Address: [address] [place] [address] Performed By: #### 5 7021-8 ####[facility] [id number] [place] [address] [place] Nucleated RBC/100 WBC (Bld) [Ratio] 0.0 /100 WBC Normal [place] Comment on above: Order Comment: Speci men Type: BLOOD SPECIMENOrdering Facility: [facility] Address: [address] [place] [address] Performed By: #### 5 7021-8 ####[facility] [id number] [place] [address] [place] Platelet mean volume (Bld) [Entitic vol] 10.8 fL Normal 9.0-12.7 [place] Comment on above: Order Comment: Speci men Type: BLOOD SPECIMENOrdering Facility: [facility] Address: [address] [place] [address] Performed By: #### 5 7021-8 ####[facility] [id number] [place] [address] [place] Platelets (Bld) [#/Vol] 130 10*3/uL Low 150-400 [place] Comment on above: Order Comment: Speci men Type: BLOOD SPECIMENOrdering Facility: [facility] Address: [address] [place] [address] Performed By: #### 5 7021-8 ####[facility] MACDONALDNCLIA [id number] [place] [address] [place] RBC (Bld) [#/Vol] 4.25 10*6/uL Normal 4.20-6.00 [facility] Comment on above: Order Comment: Speci men Type: BLOOD SPECIMENOrdering Facility: [facility] Address: [address] [place] [address] Performed By: #### 5 7021-8 ####[facility] [id number] [place] [address] [place] WBC (Bld) [#/Vol] 11.23 10*3/uL High 3.70-11.00 [facility] Comment on above: Order Comment: Speci men Type: BLOOD SPECIMENOrdering Facility: [facility] Address: [address] [place] [address] Performed By: #### 5 7021-8 ####[facility] [id number] [place] [address] [place] CNOVSPon 06-28-2025 CNOVSP Visit (SP) Office (H EMAWS) -- LILLIAN BOWDEN ([id number]) 1970 M Date Time Provider Department 06/28/25 12:00 PM CHAPIN DAWN During your visit today, we recorded the following information about you: Temperature Pulse Blood pressure Weight 97.1 degrees 84/minute 122/81 73.7 kg Chapin Dawn MD 06/28/2025 1:15 PM Signed (Elements copied from my note dated June 06 2025, have been reviewed and updated where appropriate, and all reflect current assessment and medical decision making from today's encounter, June 28, 2025) HISTORY OF PRESENT ILLNESS: Lillian Bowden is a 54 year old male history of diarrhea, change in stool character, weight loss. Saw his PCP, did stool studies, saw GI colonoscopy done, one benign polyp. Dr Stout got CT scan at [facility]. This noted mass at head of pancreas. Biopsy 05-12-25 showed adenocarcinoma. Imaging shows tumor abuts [facility] CLINICAL IMPRESSION: Pancreatic adenocarcinoma, borderline resectable RECOMMENDATION/PLAN: 1. Neoadjuvant chemotherapy with FolFIrinOx 2. Imaging after cycle 4 Written and verbal health teaching given to patient, patient verbalizes understanding and agrees with treatment plan. PAST MEDICAL HISTORY Diagnosis Date Arthritis Diabetes (HCC) Hypertension Legionnaire's disease (HCC) PAST SURGICAL HISTORY Procedure Laterality Date ERCP 06/02/2025 LAMINECTOMY,LUMBAR PAST SURGICAL HISTORY OF 05/19/2025 EUS PORTOCATH PLACEMENT 05/31/2025 FAMILY HISTORY Problem Relation Age of Onset Breast Cancer Mother Lung Cancer Father Breast Cancer Sister Heart Sister Breast Cancer Maternal Grandmother Heart Paternal Grandmother Social History Tobacco Use Smoking status: Former Types: Cigarettes Smokeless tobacco: Former Types: Chew Quit date: 01/2025 Vaping Use Vaping status: Never Used Substance Use Topics Alcohol use: Not Currently Drug use: Never ALLERGIES: ALLERGIES No Known Allergies CURRENT OUTPATIENT MEDICATIONS: ondansetron (ZOFRAN) 8 mg tablet Take 1 tablet by mouth every 8 hours as needed. lidocaine-prilocaine (EMLA) 2.5-2.5 % cream Apply to affected area as needed. glimepiride (AMARYL) 1 mg tablet Take 1 mg by mouth daily with breakfast. (Patient taking differently: Take 2 mg by mouth once daily.) JARDIANCE 25 mg tablet Take 25 mg by mouth daily with breakfast. CREON 36,000-114,000- 180,000 unit delayed release capsule Take 2 capsules by mouth three times a day with meals. 2 capsules with meals 1 capsule with snack metFORMIN (GLUCOPHAGE) 500 mg tablet Take 500 mg by mouth daily with breakfast. (Patient taking differently: Take 1,000 mg by mouth daily with breakfast.) REVIEW OF SYSTEMS: GENERAL: No fever, night sweats, weight loss or malaise. All other reviewed and negative other than HPI. PHYSICAL EXAMINATION: VITAL SIGNS: BP 122/81 Pulse 84 Temp (Src) 97.1 (Temporal) Wt 162 lb 8 oz (73.7kg) SpO2 98% GENERAL APPEARANCE: Well appearing, in no acute distress, alert and oriented x3, well-hydrated, well nourished. I spent a total of 30 minutes on the date of the service which included preparing to see the patient, [id number] patient care, completing clinical documentation, obtaining and/or reviewing separately obtained history, counseling and educating the patient/family/caregiver, ordering medications, tests, or procedures, communicating with other HCPs (not separately reported), independently interpreting results (not separately reported), communicating results to the patient/family/caregiver, and care coordination (not separately reported). Electronically Signed: Chapin Dawn MD June 28, 2025 Allergies As of Date: 06/28/2025 (No Known Allergies) Date Reviewed: 06/28/2025 Reviewed by: Emily Rouse Ma, MA - Fully Assessed Reason for Visit: Established Patient [175] Primary Visit Diagnosis:Malignant neoplasm of head of pancreas (HCC) [C25.0] Order(s):CA 19-9 [CALJ268] Order #: [id number] FUTURE CT PANCREAS W IVCON [[id number]] Order #: [id number] FUTURE iv contrast (will be provided with radiology test)CT PANCREAS W Inject, intravenously, once for 1 dose.No IV access, insert saline lock prior to the beginning of sedation, infusion, injection of imaging exam. Discontinue saline lock post exam. If Pt. has a central line or IVAD, may access for administration according to line specific nursing protocol. Once exam is complete flush line and de-access according to line specific nursing protocol in the CT contrast administration guidelines link.Disp: 1 eachRfl: 0 Prescriptions as of 06/28/2025 - iv contrast (will be provided with radiology test) CT PANCREAS W Inject, intravenously, once for 1 dose.No IV access, insert saline lock prior to the beginning of sedation, infusion, injection of imaging exam. Discontinue saline lock post exam. If Pt. has a antonio (more content not included)... Normal [facility] metabolic 2000 panelOrdered By: Monserrat Fitzpatrick on 06-28-2025 Albumin [Mass/Vol] 4.4 g/dL 3.9 - 4.9 g/dL [facility] ALP [Catalytic activity/Vol] 184 U/L High 38 - 113 U/L [facility] ALT [Catalytic activity/Vol] 9 U/L Low 10 - 54 U/L [facility] Anion gap [Moles/Vol] 13 mmol/L 8 - 15 mmol/L [facility] AST [Catalytic activity/Vol] 15 U/L 14 - 40 U/L [facility] Bilirubin [Mass/Vol] 0.2 mg/dL 0.2 - 1 .3 mg/dL [facility] Calcium [Mass/Vol] 9.5 mg/dL 8.5 - 10. 2 mg/dL [facility] Chloride [Moles/Vol] 99 mmol/L 98 - 10 7 mmol/L [facility] CO2 [Moles/Vol] 22 mmol/L 22 - 30 mmol/L [facility] Creatinine [Mass/Vol] 0.56 mg/dL Low 0.73 - 1.22 mg/dL [facility] GFR/1.73 sq M.predicted among non-blacks MDRD (S/P/Bld) [Vol rate/Area] 119 mL/min/{1.73_m2} - PINF [facility] Comment on above: Estimated Glomerular Filtration Rate (eGFR) is calculated using the 2020 CKD-EPI creatinine equation. This equation utilizes serum creatinine, sex, and age as parameters. The creatinine assay has traceable calibration to isotope dilution-mass spectrometry. Refer to KDIGO guidelines for clinical interpretation. In patients with unstable renal function, e.g. those with acute kidney injury, the eGFR may not accurately reflect actual GFR. Glucose [Mass/Vol] 252 mg/dL High 74 - 99 mg/dL [facility] Comment on above: The [place] Diabete s Association (ADA) provides guidance for cutoff values for fasting glucose and random glucose. The ADA defines fasting as no caloric intake for at least 8 hours. Fasting plasma glucose results between 100 to 125 mg/dL indicate increased risk for diabetes (prediabetes). Fasting plasma glucose results greater than or equal to 126 mg/dL meet the criteria for diagnosis of diabetes. In the absence of unequivocal hyperglycemia, results should be confirmed by repeat testing. In a patient with classic symptoms of hyperglycemia or hyperglycemic crisis, random plasma glucose results greater than or equal to 200 mg/dL meet the criteria for diagnosis of diabetes. Reference: Standards of Medical Care in Diabetes 2016, [place] Diabetes Association. Diabetes Care. 2016.39(Suppl 1). Interpretation and review of laboratory results Abnormal [facility] Potassium [Moles/Vol] 3.8 mmol/L 3.7 - 5.1 mmol/L [facility] Protein [Mass/Vol] 6.9 g/dL 6.3 - 8.0 g/dL [facility] Sodium [Moles/Vol] 134 mmol/L Low 136 - 144 mmol/L [facility] Urea nitrogen [Mass/Vol] 14 mg/dL 9 - 24 mg/dL [facility] metabolic 2000 panelon 06-28-2025 Albumin [Mass/Vol] 4.4 g/dL Normal 3.9-4.9 [facility] Comment on above: Order Comment: Speci men Type: BLOOD SPECIMENOrdering Facility: [facility] Address: [address] [place] [address] Performed By: #### 2 4323-8 ####[facility] [id number] [place] [address] [place] ALP [Catalytic activity/Vol] 184 U/L High 38-113 [place] Comment on above: Order Comment: Vielkai men Type: BLOOD SPECIMENOrdering Facility: [facility] Address: [address] [place] [address] Performed By: #### 2 4323-8 ####[facility] [id number] [place] [address] [place] ALT [Catalytic activity/Vol] 9 U/L Low 10-54 [place] Comment on above: Order Comment: Speci men Type: BLOOD SPECIMENOrdering Facility: [facility] Address: [address] [place] [address] Performed By: #### 2 4323-8 ####[facility] [id number] [place] [address] [place] Anion gap [Moles/Vol] 13 mmol/L Normal 8-15 [facility] Comment on above: Order Comment: Speci men Type: BLOOD SPECIMENOrdering Facility: [facility] Address: [address] [place] [address] Performed By: #### 2 4323-8 ####[facility] [id number] [place] [address] [place] AST [Catalytic activity/Vol] 15 U/L Normal 14-40 [place] Comment on above: Order Comment: Speci men Type: BLOOD SPECIMENOrdering Facility: [facility] Address: [address] [place] [address] Performed By: #### 2 4323-8 ####[facility] [id number] [place] [address] [place] Bilirubin [Mass/Vol] 0.2 mg/dL Normal 0.2-1.3 [facility] Comment on above: Order Comment: Speci men Type: BLOOD SPECIMENOrdering Facility: [facility] Address: [address] [place] [address] Performed By: #### 2 4323-8 ####[facility] [id number] [place] [address] [place] Calcium [Mass/Vol] 9.5 mg/dL Normal 8.5-10.2 [facility] Comment on above: Order Comment: Speci men Type: BLOOD SPECIMENOrdering Facility: [facility] Address: [address] [place] [address] Performed By: #### 2 4323-8 ####[facility] [id number] [place] [address] [place] Chloride [Moles/Vol] 99 mmol/L Normal 98-107 [facility] Comment on above: Order Comment: Speci men Type: BLOOD SPECIMENOrdering Facility: [facility] Address: [address] [place] [address] Performed By: #### 2 4323-8 ####[facility] WESTWNCLIA [id number] [place] [address] [place] CO2 [Moles/Vol] 22 mmol/L Normal 22-30 [place] Comment on above: Order Comment: Speci men Type: BLOOD SPECIMENOrdering Facility: [facility] Address: [address] [place] [address] Performed By: #### 2 4323-8 ####[facility] [id number] [place] [address] [place] Creatinine [Mass/Vol] 0.56 mg/dL Low 0.73-1.22 [facility] Comment on above: Order Comment: Speci men Type: BLOOD SPECIMENOrdering Facility: [facility] Address: [address] [place] [address] Performed By: #### 2 4323-8 ####[facility] [id number] [place] [address] [place] eGFRcr SerPlBld CKD-EPI 2020 119 mL/min/1.73m??? Normal >=60 [place] Comment on above: Order Comment: Speci men Type: BLOOD SPECIMENOrdering Facility: [facility] Address: [address] [place] [address] Result Comment: Basilia mated Glomerular Filtration Rate (eGFR) is calculated using the 2020 CKD-EPI creatinine equation. This equation utilizes serum creatinine, sex, and age as parameters. The creatinine assay has traceable calibration to isotope dilution-mass spectrometry. Refer to KDIGO guidelines for clinical interpretation. In patients with unstable renal function, e.g. those with acute kidney injury, the eGFR may not accurately reflect actual GFR. Performed By: #### 2 4323-8 ####[facility] WESTWNCLIA [id number] [place] [address] [place] Glucose [Mass/Vol] 252 mg/dL High 74-99 [facility] Comment on above: Order Comment: Speci men Type: BLOOD SPECIMENOrdering Facility: [facility] Address: [address] [place], [place] [address] Result Comment: The [place] Diabetes Association (ADA) provides guidance for cutoff values for fasting glucose and random glucose. The ADA defines fasting as no caloric intake for at least 8 hours. Fasting plasma glucose results between 100 to 125 mg/dL indicate increased risk for diabetes (prediabetes). Fasting plasma glucose results greater than or equal to 126 mg/dL meet the criteria for diagnosis of diabetes. In the absence of unequivocal hyperglycemia, results should be confirmed by repeat testing. In a patient with classic symptoms of hyperglycemia or hyperglycemic crisis, random plasma glucose results greater than or equal to 200 mg/dL meet the criteria for diagnosis of diabetes. Reference: Standards of Medical Care in Diabetes 2016, [place] Diabetes Association. Diabetes Care. 2016.39(Suppl 1). Performed By: #### 2 4323-8 ####[facility] [id number] [place] [address] [place] Potassium [Moles/Vol] 3.8 mmol/L Normal 3.7-5.1 [facility] Comment on above: Order Comment: Speci men Type: BLOOD SPECIMENOrdering Facility: [facility] Address: [address] [place] [address] Performed By: #### 2 4323-8 ####[facility] [id number] [place] [address] [place] Protein [Mass/Vol] 6.9 g/dL Normal 6.3-8.0 [facility] Comment on above: Order Comment: Speci men Type: BLOOD SPECIMENOrdering Facility: [facility] Address: [address] [place], [place] [address] Performed By: #### 2 4323-8 ####[facility] [id number] [place] [address] [place] Sodium [Moles/Vol] 134 mmol/L Low 136-144 [facility] Comment on above: Order Comment: Speci men Type: BLOOD SPECIMENOrdering Facility: [facility] Address: [address] [facility] [place] [address] Performed By: #### 2 4323-8 ####[facility] AN[facility]LE CARRNCRED [id number] [address] [place] Urea nitrogen [Mass/Vol] 14 mg/dL Normal 9-24 [place] Comment on above: Order Comment: Speci men Type: BLOOD SPECIMENOrdering Facility: [facility] Address: [address] [place] [address] Performed By: #### 2 4323-8 ####[facility]ITALLI [id number] [address] OF [facility] CNPAmie 06-23-2025 [facility] Telephone (VERON[place]) -- LILLIAN BOWDEN ([id number]) 1970 M Date Time Provider Department 06/23/25 DIANE DOUGLAS During your visit today, we recorded the following information about you: Diane Douglas RN 06/23/2025 3:52 PM Signed TOXICITY CHECK SYMPTOM ASSESSMENT The patient is on Folforinox Patient states doing good Headache: No Visual Changes: No Dizziness: No Do you have any periods of confusion? No Mood changes: No Mouth or throat pain: No Appetite: no changes in appetite, appetite fair Taste changes: No Nausea: Yes mild and had off/on for a few days. Vomiting: No Heartburn: No. Weight gain/loss: No Episodes of palpitations/chest discomfort/pressure/pain No Shortness of breath: No Cough: No Diarrhea: no Constipation: no Bladder/Urinary Changes: None Pain: No=0 (pain 0 on a scale of 0-10). Fever: No Chills: No Cold sensitivity: Yes, getting better Numbness/weakness: No Edema: No Skin changes: No Itching: No Yellowing of skin or eyes: No Musculoskeletal/joint changes/issues No Bleeding issues: No Activity Level (0-100%): decreased, fatigue has been bothersome to him but also trying to stay active and take walks Does the patient need interventions or same day appointment:No Reinforced CURRENT treatment education based on current and anticipated symptoms. Discussed port/line care and patient verbalizes understanding: Not Applicable Patient instructed to contact office or after hours Hematology/Oncology fellow for: temperature >= 100.4; questions or concerns. Patient verbalized understanding of when to seek medical attention and after hours number protocol. Diane Douglas RN Allergies As of Date: 06/23/2025 (No Known Allergies) Date Reviewed: 06/15/2025 Reviewed by: Bharti Garza RN - Fully Assessed Reason for Visit: Care Coordination [8122] Cmt: Toxicity Check Prescriptions as of 06/23/2025 - ondansetron (ZOFRAN) 8 mg tablet Take 1 tablet by mouth every 8 hours as needed. - lidocaine-prilocaine (EMLA) 2.5-2.5 % cream Apply to affected area as needed. - glimepiride (AMARYL) 1 mg tablet Take 1 mg by mouth daily with breakfast. - JARDIANCE 25 mg tablet Take 25 mg by mouth daily with breakfast. - CREON 36,000-114,000- 180,000 unit delayed release capsule Take 2 capsules by mouth three times a day with meals. 2 capsules with meals 1 capsule with snack - metFORMIN (GLUCOPHAGE) 500 mg tablet Take 500 mg by mouth daily with breakfast. Problem List As Of Date 06/23/2025 Noted Resolved Malignant neoplasm of head of pancreas (HCC) [C*05/19/2025 Encounter Status:Closed by DIANE DOUGLAS on 06/23/25 [facility]OW[facility] ([id number]) 1970 M Date Time Provider Department 06/16/25 [employer] KONSTANTIN ZAPATA During your visit today, we recorded the following information about you: Cresencio Davidson 06/16/2025 10:38 AM Signed Patient is active with [facility] [employer]. $0 deductible has $0 remaining, and $8600 OOP has $0 remaining. Ran estimate and patient owes $0 for treatments the rest of 2024. Spoke to patient over the phone and discussed navigator services. Patient expressed no financial burdens at the moment. Patient was out and about so I sent my contact info and Cost Facit Questionnaire sent via [employer]. Estimate ID #: [id number] Allergies As of Date: 06/16/2025 (No Known Allergies) Date Reviewed: 06/15/2025 Reviewed by: Bharti Garza RN - Fully Assessed Reason for Visit: Benefits Investigation [7562] Prescriptions as of 06/16/2025 - ondansetron (ZOFRAN) 8 mg tablet Take 1 tablet by mouth every 8 hours as needed. - lidocaine-prilocaine (EMLA) 2.5-2.5 % cream Apply to affected area as needed. - glimepiride (AMARYL) 1 mg tablet Take 1 mg by mouth daily with breakfast. - JARDIANCE 25 mg tablet Take 25 mg by mouth daily with breakfast. - CREON 36,000-114,000- 180,000 unit delayed release capsule Take 2 capsules by mouth three times a day with meals. 2 capsules with meals 1 capsule with snack - metFORMIN (GLUCOPHAGE) 500 mg tablet Take 500 mg by mouth daily with breakfast. Problem List As Of Date 06/16/2025 Noted Resolved Malignant neoplasm of head of pancreas (HCC) [C*05/19/2025 Encounter Status:Closed by CRESENCIO DAVIDSON on [facility]/16/[facility] LILLIAN BOWDEN ([id number]) 1970 M Date Time Provider Department 06/16/25 DAINE DOUGLAS During your visit today, we recorded the following information about you: Diane Douglas RN 06/16/2025 10:22 AM Signed CYCLE 1/DAY 1 POST TREATMENT CALL Today's date: June 16, 2025 Treatment Regimen: Folfirinox C1D1 Date: 06/15/25 Call to patient, message left to call me back and phone/contact number provided. MICHEL Browne Cathleen, RN 06/16/2025 11:02 AM Addendum CYCLE 1/DAY 1 POST TREATMENT CALL Patient returned call and states he didn't answer the phone b/c he was still sleeping and he slept really well last night. He states he is experiencing some cold sensitivity but manageable. SYMPTOM ASSESSMENT Neuro: None CV/Resp: None GI/: None Integument: None Activity: Activity Level (0-100%): decreased Pain: No=0 (pain 0 on a scale of 0-10). Fever: No Chills: No Any new referrals needed? No Reinforced CURRENT treatment education based on current and anticipated symptoms. Discussed port/line care and patient verbalizes understanding: Yes Patient instructed to contact office or after hours Hematology/Oncology fellow for: temperature >= 100.4; questions or concerns. Patient verbalized understanding of when to seek medical attention and after hours number protocol. Diane Douglas RN Allergies As of Date: 06/16/2025 (No Known Allergies) Date Reviewed: 06/15/2025 Reviewed by: Bharti Garza RN - Fully Assessed Reason for Visit: Care Coordination [8741] Cmt: CYCLE 1/DAY 1 POST TREATMENT CALL Prescriptions as of 06/16/2025 - ondansetron (ZOFRAN) 8 mg tablet Take 1 tablet by mouth every 8 hours as needed. - lidocaine-prilocaine (EMLA) 2.5-2.5 % cream Apply to affected area as needed. - glimepiride (AMARYL) 1 mg tablet Take 1 mg by mouth daily with breakfast. - JARDIANCE 25 mg tablet Take 25 mg by mouth daily with breakfast. - CREON 36,000-114,000- 180,000 unit delayed release capsule Take 2 capsules by mouth three times a day with meals. 2 capsules with meals 1 capsule with snack - metFORMIN (GLUCOPHAGE) 500 mg tablet Take 500 mg by mouth daily with breakfast. Problem List As Of Date 06/16/2025 Noted Resolved Malignant neoplasm of head of pancreas (HCC) [C*05/19/2025 Encounter Status:Closed by DIANE DOUGLAS on 06/16/25 Normal [place] CBC W Auto Differential pane l (Bld)on 06-15-2025 Basophils (Bld) [#/Vol] [facility] Basophils/100 WBC (Bld) 0.4 % [facility] Differential cell count method Nom (Bld) Auto [facility] Eosinophils (Bld) [#/Vol] 0.1 10*3/uL [facility] Eosinophils/100 WBC (Bld) 2.1 % [facility] Erythrocyte distribution width (RBC) [Ratio] 13.7 % 11.5 - 15.0 % [facility] Hematocrit (Bld) [Volume fraction] 41.1 % 39.0 - 51.0 % [facility] Hemoglobin (Bld) [Mass/Vol] 14.4 g/dL 13.0 - 17.0 g/dL [facility] Immature granulocytes (Bld) [#/Vol] [facility] Immature granulocytes/100 WBC (Bld) 0.2 % [facility] Lymphocytes (Bld) [#/Vol] 1.44 10*3/uL [facility] Lymphocytes/100 WBC (Bld) 29.8 % [facility] MCH (RBC) [Entitic mass] 33 pg 26.0 - 34.0 pg [facility] MCHC (RBC) [Mass/Vol] 35 g/dL 30.5 - 36.0 g/dL [facility] MCV (RBC) [Entitic vol] 94.1 fL 80.0 - 100.0 fL [facility] Monocytes (Bld) [#/Vol] 0.48 10*3/uL [facility] Monocytes/100 WBC (Bld) 9.9 % [facility] Neutrophils (Bld) [#/Vol] 2.79 10*3/uL [facility] Neutrophils/100 WBC (Bld) 57.6 % [facility] Nucleated RBC (Bld) [#/Vol] NINF [facility] Nucleated RBC/100 WBC (Bld) [Ratio] 0 % /100 WBC [facility] Platelet mean volume (Bld) [Entitic vol] 11.6 fL 9.0 - 12.7 fL [facility] Platelets (Bld) [#/Vol] 171 10*3/uL [facility] RBC (Bld) [#/Vol] 4.37 10*6/uL 4.20 - 6.0 0 m/uL [facility] WBC (Bld) [#/Vol] 4.84 10*3/uL [facility] Basophils (Bld) [#/Vol] 10*3/uL Normal <0.11 [place] Comment on above: Order Comment: Speci men Type: BLOOD SPECIMENOrdering Facility: [facility] Address: [address] [place] [address] Performed By: #### 5 7021-8 ####[facility] [id number] [place] [address] [place] Basophils/100 WBC (Bld) 0.4 % Normal [place] Comment on above: Order Comment: Speci men Type: BLOOD SPECIMENOrdering Facility: [facility] Address: [address] [place] [address] Performed By: #### 5 7021-8 ####[facility] [id number] [place] [address] [place] Differential cell count method Nom (Bld) Auto Normal [place] Comment on above: Order Comment: Speci men Type: BLOOD SPECIMENOrdering Facility: [facility] Address: [address] [place] [address] Performed By: #### 5 7021-8 ####[facility] [id number] [place] [address] [place] Eosinophils (Bld) [#/Vol] 0.10 10*3/uL Normal <0.46 [place] Comment on above: Order Comment: Speci men Type: BLOOD SPECIMENOrdering Facility: [facility] Address: [address] [place] [address] Performed By: #### 5 7021-8 ####[facility] [id number] [place] [address] [place] Eosinophils/100 WBC (Bld) 2.1 % Normal [place] Comment on above: Order Comment: Speci men Type: BLOOD SPECIMENOrdering Facility: [facility] Address: [address] [place] [address] Performed By: #### 5 7021-8 ####[facility] [id number] [place] [address] [place] Erythrocyte distribution width (RBC) [Ratio] 13.7 % Normal 11.5-15.0 [place] Comment on above: Order Comment: Speci men Type: BLOOD SPECIMENOrdering Facility: [facility] Address: [address] [place] [address] Performed By: #### 5 7021-8 ####[facility] [id number] [place] [address] [place] Hematocrit (Bld) [Volume fraction] 41.1 % Normal 39.0-51.0 [place] Comment on above: Order Comment: Speci men Type: BLOOD SPECIMENOrdering Facility: [facility] Address: [address] [place] [address] Performed By: #### 5 7021-8 ####[facility] [id number] [place] [address] [place] Hemoglobin (Bld) [Mass/Vol] 14.4 g/dL Normal 13.0-17.0 [place] Comment on above: Order Comment: Speci men Type: BLOOD SPECIMENOrdering Facility: [facility] Address: [address] [place] [address] Performed By: #### 5 7021-8 ####[facility] MILLTOWNCLIA [id number] [place] [address] [place] Immature granulocytes (Bld) [#/Vol] 10*3/uL Normal <0.10 [place] Comment on above: Order Comment: Speci men Type: BLOOD SPECIMENOrdering Facility: [facility] Address: [address] [place] [address] Performed By: #### 5 7021-8 ####[facility] ARSHWNCLIA [id number] [place] [address] [place] Immature granulocytes/100 WBC (Bld) 0.2 % Normal [place] Comment on above: Order Comment: Speci men Type: BLOOD SPECIMENOrdering Facility: [facility] Address: [address] [place] [address] Performed By: #### 5 7021-8 ####[facility] LILLYWNCLIA [id number] [place] [address] [place] Lymphocytes (Bld) [#/Vol] 1.44 10*3/uL Normal 1.00-4.00 [place] Comment on above: Order Comment: Speci men Type: BLOOD SPECIMENOrdering Facility: [facility] Address: [address] [place] [address] Performed By: #### 5 7021-8 ####[facility] MILLTOWNCLIA [id number] [place] [address] [place] Lymphocytes/100 WBC (Bld) 29.8 % Normal [place] Comment on above: Order Comment: Speci men Type: BLOOD SPECIMENOrdering Facility: [facility] Address: [address] [place] [address] Performed By: #### 5 7021-8 ####[facility] MILLTOWNCLIA [id number] [place] [address] [place] MCH (RBC) [Entitic mass] 33.0 pg Normal 26.0-34.0 [place] Comment on above: Order Comment: Speci men Type: BLOOD SPECIMENOrdering Facility: [facility] Address: [address] [place] [address] Performed By: #### 5 7021-8 ####[facility] [id number] [place] [address] [place] MCHC (RBC) [Mass/Vol] 35.0 g/dL Normal 30.5-36.0 [facility] Comment on above: Order Comment: Speci men Type: BLOOD SPECIMENOrdering Facility: [facility] Address: [address] [place] [address] Performed By: #### 5 7021-8 ####[facility] [id number] [place] [address] [place] MCV (RBC) [Entitic vol] 94.1 fL Normal 80.0-100.0 [place] Comment on above: Order Comment: Speci men Type: BLOOD SPECIMENOrdering Facility: [facility] Address: [address] [place] [address] Performed By: #### 5 7021-8 ####[facility] [id number] [place] [address] [place] Monocytes (Bld) [#/Vol] 0.48 10*3/uL Normal <0.87 [place] Comment on above: Order Comment: Speci men Type: BLOOD SPECIMENOrdering Facility: [facility] Address: [address] [place] [address] Performed By: #### 5 7021-8 ####[facility] [id number] [place] [address] [place] Monocytes/100 WBC (Bld) 9.9 % Normal [place] Comment on above: Order Comment: Speci men Type: BLOOD SPECIMENOrdering Facility: [facility] Address: [address] [place] [address] Performed By: #### 5 7021-8 ####[facility] [id number] [place] [address] [place] Neutrophils (Bld) [#/Vol] 2.79 10*3/uL Normal 1.45-7.50 [place] Comment on above: Order Comment: Speci men Type: BLOOD SPECIMENOrdering Facility: [facility] Address: [address] [place] [address] Performed By: #### 5 7021-8 ####[facility] [id number] [place] [address] [place] Neutrophils/100 WBC (Bld) 57.6 % Normal [place] Comment on above: Order Comment: Speci men Type: BLOOD SPECIMENOrdering Facility: [facility] Address: [address] [place] [address] Performed By: #### 5 7021-8 ####[facility] [id number] [place] [address] [place] Nucleated RBC (Bld) [#/Vol] 10*3/uL Normal <0.01 [place] Comment on above: Order Comment: Speci men Type: BLOOD SPECIMENOrdering Facility: [facility] Address: [address] [place] [address] Performed By: #### 5 7021-8 ####[facility] [id number] [place] [address] [place] Nucleated RBC/100 WBC (Bld) [Ratio] 0.0 /100 WBC Normal [place] Comment on above: Order Comment: Speci men Type: BLOOD SPECIMENOrdering Facility: [facility] Address: [address] [place] [address] Performed By: #### 5 7021-8 ####[facility] TORRESNCANDIA [id number] [place] [address] [place] Platelet mean volume (Bld) [Entitic vol] 11.6 fL Normal 9.0-12.7 [place] Comment on above: Order Comment: Speci men Type: BLOOD SPECIMENOrdering Facility: [facility] Address: [address] [place] [address] Performed By: #### 5 7021-8 ####[facility] [id number] [place] [address] [place] Platelets (Bld) [#/Vol] 171 10*3/uL Normal 150-400 [place] Comment on above: Order Comment: Speci men Type: BLOOD SPECIMENOrdering Facility: [facility] Address: [address] [place] [address] Performed By: #### 5 7021-8 ####[facility] [id number] [place] [address] [place] RBC (Bld) [#/Vol] 4.37 10*6/uL Normal 4.20-6.00 [facility] Comment on above: Order Comment: Speci men Type: BLOOD SPECIMENOrdering Facility: [facility] Address: [address] [place] [address] Performed By: #### 5 7021-8 ####[facility] [id number] [place] [address] [place] WBC (Bld) [#/Vol] 4.84 10*3/uL Normal 3.70-11.00 [facility] Comment on above: Order Comment: Speci men Type: BLOOD SPECIMENOrdering Facility: [facility] Address: [address] [place] [address] Performed By: #### 5 7021-8 ####[facility] ANNA[facility]ELLE CARRWNCRED [id number] [address] [place] Tabitha 06-15-2025 DI[facility] Telephone ([facility]) -- LILLIAN BOWDEN ([id number]) 1970 M Date Time Provider Department 06/15/25 KARINA FELIX During your visit today, we recorded the following information about you: Stephanie Henao 06/15/2025 12:33 PM Signed Reached out to patient regarding appointment with genetics on 06/21/2025. Explained to patient that I was calling in reference to his genetics appointment. Patient explained that he was currently at his first chemo treatment. Informed patient that I could give him a call back later today, but patient was unsure of when he would be free. Informed patient that I would send him a [facility] with information, and that he could reach out to me if he had any questions. Patient expressed understanding. Stephanie Henao Genetic Counselor [employer] Stephanie Henao 06/17/2025 3:58 PM Signed Attempted to reach patient to follow up on [facility]. Left detailed VM on identified VM box. Explained that I was calling to follow up on our conversation on 06/15/2025. Restated that the patient is scheduled to meet with genetics on 06/21/2025, but has already completed genetic testing. Explained that, due to the results being negative, a second visit with genetics is not needed at this time. Explained that the 06/21/2025 appointment could be cancelled. Instructed patient to follow up via [facility] or calling the [facility] line. Stephanie Henao Genetic Counselor [employer] Allergies As of Date: 06/15/2025 (No Known Allergies) Date Reviewed: 06/15/2025 Reviewed by: Bharti Garza RN - Fully Assessed Reason for Visit: Echocardiologist - Other [4398] Cmt: Genetics - Appointment Prescriptions as of 06/17/2025 - ondansetron (ZOFRAN) 8 mg tablet Take 1 tablet by mouth every 8 hours as needed. - lidocaine-prilocaine (EMLA) 2.5-2.5 % cream Apply to affected area as needed. - glimepiride (AMARYL) 1 mg tablet Take 1 mg by mouth daily with breakfast. - JARDIANCE 25 mg tablet Take 25 mg by mouth daily with breakfast. - CREON 36,000-114,000- 180,000 unit delayed release capsule Take 2 capsules by mouth three times a day with meals. 2 capsules with meals 1 capsule with snack - metFORMIN (GLUCOPHAGE) 500 mg tablet Take 500 mg by mouth daily with breakfast. Problem List As Of Date 06/15/2025 Noted Resolved Malignant neoplasm of head of pancreas (HCC) [C*05/19/2025 Encounter Status:Closed by STEPHANIE HENAO on 06/15/25 Normal [place] Comprehensive metabolic 2000 panelOrdered By: Maria Luz Aiken on 06-15-2025 Albumin [Mass/Vol] 4.6 g/dL 3.9 - 4.9 g/dL [facility] ALP [Catalytic activity/Vol] 284 U/L High 38 - 113 U/L [facility] ALT [Catalytic activity/Vol] 16 U/L 10 - 54 U/L [facility] Anion gap [Moles/Vol] 15 mmol/L 8 - 15 mmol/L [facility] AST [Catalytic activity/Vol] 21 U/L 14 - 40 U/L [facility] Bilirubin [Mass/Vol] 0.4 mg/dL 0.2 - 1 .3 mg/dL [facility] Calcium [Mass/Vol] 9.7 mg/dL 8.5 - 10. 2 mg/dL [facility] Chloride [Moles/Vol] 101 mmol/L 98 - 10 7 mmol/L [facility] CO2 [Moles/Vol] 18 mmol/L Low 22 - 30 mmol/L [facility] Creatinine [Mass/Vol] 0.62 mg/dL Low 0.73 - 1.22 mg/dL [facility] GFR/1.73 sq M.predicted among non-blacks MDRD (S/P/Bld) [Vol rate/Area] 115 mL/min/{1.73_m2} - PINF [facility] Comment on above: Estimated Glomerular Filtration Rate (eGFR) is calculated using the 2020 CKD-EPI creatinine equation. This equation utilizes serum creatinine, sex, and age as parameters. The creatinine assay has traceable calibration to isotope dilution-mass spectrometry. Refer to KDIGO guidelines for clinical interpretation. In patients with unstable renal function, e.g. those with acute kidney injury, the eGFR may not accurately reflect actual GFR. Glucose [Mass/Vol] 342 mg/dL High 74 - 99 mg/dL [facility] Comment on above: The [place] Diab[employer] [place] Association (ADA) provides guidance for cutoff values for fasting glucose and random glucose. The ADA defines fasting as no caloric intake for at least 8 hours. Fasting plasma glucose results between 100 to 125 mg/dL indicate increased risk for diabetes (prediabetes). Fasting plasma glucose results greater than or equal to 126 mg/dL meet the criteria for diagnosis of diabetes. In the absence of unequivocal hyperglycemia, results should be confirmed by repeat testing. In a patient with classic symptoms of hyperglycemia or hyperglycemic crisis, random plasma glucose results greater than or equal to 200 mg/dL meet the criteria for diagnosis of diabetes. Reference: Standards of Medical Care in Diabetes 2016, [place] [employer] Association. Diabetes Care. 2016.39(Suppl 1). Interpretation and review of laboratory results Abnormal [facility] Potassium [Moles/Vol] 4.3 mmol/L 3.7 - 5.1 mmol/L [facility] Protein [Mass/Vol] 7.2 g/dL 6.3 - 8.0 g/dL [facility] Sodium [Moles/Vol] 134 mmol/L Low 136 - 144 mmol/L [facility] Urea nitrogen [Mass/Vol] 19 mg/dL 9 - 24 mg/dL [facility] Comprehensive metabolic 2000 panelon 06-15-2025 Albumin [Mass/Vol] 4.6 g/dL Normal 3.9-4.9 [facility] Comment on above: Order Comment: Speci men Type: BLOOD SPECIMENOrdering Facility: [facility] Address: [address] [place] [address] Performed By: #### 2 4323-8 ####[facility] SERVICESRED [id number] [place] [address] [place] ALP [Catalytic activity/Vol] 284 U/L High 38-113 [place] Comment on above: Order Comment: Speci men Type: BLOOD SPECIMENOrdering Facility: [facility] Address: [address] [place] [address] Performed By: #### 2 4323-8 ####[facility] [id number] [place] [address] [place] ALT [Catalytic activity/Vol] 16 U/L Normal 10-54 [place] Comment on above: Order Comment: Speci men Type: BLOOD SPECIMENOrdering Facility: [facility] Address: [address] [place] [address] Performed By: #### 2 4323-8 ####[facility] [id number] [place] [address] [place] Anion gap [Moles/Vol] 15 mmol/L Normal 8-15 [facility] Comment on above: Order Comment: Speci men Type: BLOOD SPECIMENOrdering Facility: [facility] Address: [address] [place] [address] Performed By: #### 2 4323-8 ####[facility] [id number] [place] [address] [place] AST [Catalytic activity/Vol] 21 U/L Normal 14-40 [place] Comment on above: Order Comment: Speci men Type: BLOOD SPECIMENOrdering Facility: [facility] Address: [address] [place] [address] Performed By: #### 2 4323-8 ####[facility] [id number] [place] [address] [place] Bilirubin [Mass/Vol] 0.4 mg/dL Normal 0.2-1.3 [facility] Comment on above: Order Comment: Speci men Type: BLOOD SPECIMENOrdering Facility: [facility] Address: [address] [place] [address] Performed By: #### 2 4323-8 ####[facility] MILLTOWNCLIA [id number] [place] [address] [place] Calcium [Mass/Vol] 9.7 mg/dL Normal 8.5-10.2 [facility] Comment on above: Order Comment: Speci men Type: BLOOD SPECIMENOrdering Facility: [facility] Address: [address] [place] [address] Performed By: #### 2 4323-8 ####[facility] MILLTOWNCLIA [id number] [place] [address] [place] Chloride [Moles/Vol] 101 mmol/L Normal 98-107 [facility] Comment on above: Order Comment: Speci men Type: BLOOD SPECIMENOrdering Facility: [facility] Address: [address] [place] [address] Performed By: #### 2 4323-8 ####[facility] WESTWNCLIA [id number] [place] [address] [place] CO2 [Moles/Vol] 18 mmol/L Low 22-30 [place] Comment on above: Order Comment: Speci men Type: BLOOD SPECIMENOrdering Facility: [facility] Address: [address] [place] [address] Performed By: #### 2 4323-8 ####[facility] MILLTOWNCLIA [id number] [place] [address] [place] Creatinine [Mass/Vol] 0.62 mg/dL Low 0.73-1.22 [facility] Comment on above: Order Comment: Speci men Type: BLOOD SPECIMENOrdering Facility: [facility] Address: [address] [place] [address] Performed By: #### 2 4323-8 ####[facility] MILLTOWNCLIA [id number] [place] [address] [place] eGFRcr SerPlBld CKD-EPI 2020 115 mL/min/1.73m??? Normal >=60 [place] Comment on above: Order Comment: Olman reid Type: BLOOD SPECIMENOrdering Facility: [facility] Address: [address] [place] [address] Result Comment: Basilia mated Glomerular Filtration Rate (eGFR) is calculated using the 2020 CKD-EPI creatinine equation. This equation utilizes serum creatinine, sex, and age as parameters. The creatinine assay has traceable calibration to isotope dilution-mass spectrometry. Refer to KDIGO guidelines for clinical interpretation. In patients with unstable renal function, e.g. those with acute kidney injury, the eGFR may not accurately reflect actual GFR. Performed By: #### 2 4323-8 ####[facility] [id number] [place] [address] [place] Glucose [Mass/Vol] 342 mg/dL High 74-99 [facility] Comment on above: Order Comment: Olman reid Type: BLOOD SPECIMENOrdering Facility: [facility] Address: [address] [place] [address] Result Comment: The [place] Diabetes Association (ADA) provides guidance for cutoff values for fasting glucose and random glucose. The ADA defines fasting as no caloric intake for at least 8 hours. Fasting plasma glucose results between 100 to 125 mg/dL indicate increased risk for diabetes (prediabetes). Fasting plasma glucose results greater than or equal to 126 mg/dL meet the criteria for diagnosis of diabetes. In the absence of unequivocal hyperglycemia, results should be confirmed by repeat testing. In a patient with classic symptoms of hyperglycemia or hyperglycemic crisis, random plasma glucose results greater than or equal to 200 mg/dL meet the criteria for diagnosis of diabetes. Reference: Standards of Medical Care in Diabetes 2016, [place] [employer]. Diabetes Care. 2016.39(Suppl 1). Performed By: #### 2 4323-8 ####[facility] [id number] [place] [address] [place] Potassium [Moles/Vol] 4.3 mmol/L Normal 3.7-5.1 [facility] Comment on above: Order Comment: Speci men Type: BLOOD SPECIMENOrdering Facility: [facility] Address: [address] [place] [address] Performed By: #### 2 4323-8 ####[facility] ARSHBARTONNCANDIA [id number] [place] [address] [place] Protein [Mass/Vol] 7.2 g/dL Normal 6.3-8.0 [facility] Comment on above: Order Comment: Speci men Type: BLOOD SPECIMENOrdering Facility: [facility] Address: [address] [place] [address] Performed By: #### 2 4323-8 ####[facility] [id number] [place] [address] [place] Sodium [Moles/Vol] 134 mmol/L Low 136-144 [facility] Comment on above: Order Comment: Speci men Type: BLOOD SPECIMENOrdering Facility: [facility] Address: [address] [place] [address] Performed By: #### 2 4323-8 ####[facility] [id number] [address] [place] Urea nitrogen [Mass/Vol] 19 mg/dL Normal 9-24 [place] Comment on above: Order Comment: Speci men Type: BLOOD SPECIMENOrdering Facility: [facility] Address: [address] [place] [address] Performed By: #### 2 4323-8 ####[facility] [id number] [place] [address] [place] CNOVSPon 06-06-2025 CNOVSP Visit (SP) Office ([facility]) -- LILLIAN BOWDEN ([id number]) 1970 M Date Time Provider Department 06/06/25 3:00 PM CHAPIN DAWN During your visit today, we recorded the following information about you: Temperature Pulse Blood pressure Weight 97.8 degrees 76/minute 118/74 74.6 kg Height 1.803 m Chapin Dawn MD 06/06/2025 4:16 PM Signed HISTORY OF PRESENT ILLNESS: Lillian Bowden is a 54 year old male history of diarrhea, change in stool character, weight loss. Saw his PCP, did stool studies, saw GI colonoscopy done, one benign polyp. Dr Stout got CT scan at [facility]. This noted mass at head of pancreas. Biopsy 05-12-25 showed adenocarcinoma. Imaging shows tumor abuts [facility] CLINICAL IMPRESSION: Pancreatic adenocarcinoma, borderline resectable RECOMMENDATION/PLAN: 1. Neoadjuvant chemotherapy with FolFIrinOx, to start radha Written and verbal health teaching given to patient, patient verbalizes understanding and agrees with treatment plan. PAST MEDICAL HISTORY Diagnosis Date Arthritis Diabetes (HCC) Hypertension Legionnaire's disease (HCC) PAST SURGICAL HISTORY Procedure Laterality Date ERCP 06/02/2025 LAMINECTOMY,LUMBAR PAST SURGICAL HISTORY OF 05/19/2025 EUS PORTOCATH PLACEMENT 05/31/2025 FAMILY HISTORY Problem Relation Age of Onset Breast Cancer Mother Lung Cancer Father Breast Cancer Sister Heart Sister Breast Cancer Maternal Grandmother Heart Paternal Grandmother Social History Tobacco Use Smoking status: Former Types: Cigarettes Smokeless tobacco: Former Types: Chew Quit date: 01/2025 Vaping Use Vaping status: Never Used Substance Use Topics Alcohol use: Not Currently Drug use: Never ALLERGIES: ALLERGIES No Known Allergies CURRENT OUTPATIENT MEDICATIONS: glimepiride (AMARYL) 1 mg tablet Take 1 mg by mouth daily with breakfast. JARDIANCE 25 mg tablet Take 25 mg by mouth daily with breakfast. CREON 36,000-114,000- 180,000 unit delayed release capsule Take 2 capsules by mouth three times a day with meals. 2 capsules with meals 1 capsule with snack metFORMIN (GLUCOPHAGE) 500 mg tablet Take 500 mg by mouth daily with breakfast. REVIEW OF SYSTEMS: GENERAL: No fever, night sweats, weight loss or malaise. All other reviewed and negative other than HPI. PHYSICAL EXAMINATION: VITAL SIGNS: BP 118/74 Pulse 76 Temp (Src) 97.8 (Temporal) Ht 5' 10.965 (1.80m) Wt 164 lb 8 oz (74.6kg) SpO2 97% BMI 22.95 kg/(m2). GENERAL APPEARANCE: Well appearing, in no acute distress, alert and oriented x3, well-hydrated, well nourished. I spent a total of 60 minutes on the date of the service which included preparing to see the patient, [id number] patient care, completing clinical documentation, obtaining and/or reviewing separately obtained history, counseling and educating the patient/family/caregiver, ordering medications, tests, or procedures, communicating with other HCPs (not separately reported), independently interpreting results (not separately reported), communicating results to the patient/family/caregiver, and care coordination (not separately reported). Electronically Signed: Chapin Dawn MD June 06, 2025 3:13 PM Referring Provider: KALIN DUNHAM [[id number]] Allergies As of Date: 06/06/2025 (No Known Allergies) Date Reviewed: 06/06/2025 Reviewed by: Sukhwinder Sam MA - Fully Assessed Reason for Visit: New Patient [172] Visit Diagnosis:Malignant neoplasm of head of pancreas (HCC) [C25.0] Order(s):CONSULT TO HEMATOLOGY/ONCOLOGY [19991117] Order #: [id number]: 1 COMPLETE BLOOD COUNT AND DIFFERENTIAL [SQCBCDIF] Order #: [id number] STANDING COMPREHENSIVE METABOLIC PANEL [SQCMP] Order #: [id number] STANDING ondansetron (ZOFRAN) 8 mg tabletTake 1 tablet by mouth every 8 hours as needed.Disp: 30 tabletRfl: 2 lidocaine-prilocaine (EMLA) 2.5-2.5 % creamApply to affected area as needed.Disp: 30 gRfl: 2 Follow-up and Disposition History for Encounter Date Provider Department Center 06/06/2025 [id number], [facility] Prescriptions as of 06/06/2025 - ondansetron (ZOFRAN) 8 mg tablet Take 1 tablet by mouth every 8 hours as needed. - lidocaine-prilocaine (EMLA) 2.5-2.5 % cream Apply to affected area as needed. - glimepiride (AMARYL) 1 mg tablet Take 1 mg by mouth daily with breakfast. - JARDIANCE 25 mg tablet Take 25 mg by mouth daily with breakfast. - CREON 36,000-114,000- 180,000 unit delayed release capsule Take 2 capsules by mouth three times a day with meals. 2 capsules with meals 1 capsule with snack - metFORMIN (GLUCOPHAGE) 500 mg tablet Take 500 mg by mouth daily with breakfast. Problem List As Of Date 06/06/2025 Noted Resolved Malignant neoplasm of head of pancreas (HCC) [C*05/19/2025 Encounter Status:Closed by CHAPIN DAWN on 06/06/25 [facility] 06-06-2025 CNPN Telephone (VERONICA) -- LILLIAN BOWDEN ([id number]) 1970 M Date Time Provider Department 06/06/25 DIANE DOUGLAS During your visit today, we recorded the following information about you: Diane Douglas RN 06/06/2025 3:46 PM Signed Met with patient and introduced myself. Patient was given a My Journey binder with chemocare information, office contact information, thermometer, and additional chemotherapy resource booklets. Patient aware this nurse will review on scheduled appointment date. Leatha Douglas RN Allergies As of Date: 06/06/2025 (No Known Allergies) Date Reviewed: 06/06/2025 Reviewed by: Sukhwinder Sam MA - Fully Assessed Reason for Visit: Care Coordination [5081] Cmt: Introduction Prescriptions as of 06/06/2025 - ondansetron (ZOFRAN) 8 mg tablet Take 1 tablet by mouth every 8 hours as needed. - glimepiride (AMARYL) 1 mg tablet Take 1 mg by mouth daily with breakfast. - JARDIANCE 25 mg tablet Take 25 mg by mouth daily with breakfast. - CREON 36,000-114,000- 180,000 unit delayed release capsule Take 2 capsules by mouth three times a day with meals. 2 capsules with meals 1 capsule with snack - metFORMIN (GLUCOPHAGE) 500 mg tablet Take 500 mg by mouth daily with breakfast. Problem List As Of Date 06/06/2025 Noted Resolved Malignant neoplasm of head of pancreas (HCC) [C*05/19/2025 Encounter Status:Closed by DIANE DOUGLAS on 06/06/25 [facility] Telephone (VERONICA) -- LILLIAN BOWDEN ([id number]) 1970 M Date Time Provider Department 06/06/25 LOIDA HENLEY During your visit today, we recorded the following information about you: Loida Henley LISW 06/06/2025 3:37 PM Signed PSYCHOSOCIAL SCREENING ASSESSMENT Date of Service: June 06, 2025 Lillian Bowden is a 54 year old male being seen for initial social work assessment. Diagnosis: Malignant neoplasm of head of pancreas New Primary Oncologist: Chapin Dawn MD Radiation Oncologist: GIACOMO Goals of Care: Curative intent Today's visit includes: spouse Family History of Cancer: Mother: Breast, Father: Lung, Maternal Grandmother: Breast, Sister: Breast SUPPORT NETWORK: Social Connections: Not on file Marital status: Parent(s): Mother is and Father is Child/Children: Yes. How many? 1 personal care aide arrangements needed: No Siblings: 2 sisters Grandchild(kamran): none Home Health Provider: No Community Services: No Renate Identified: No Yazidism/Spirituality: Unknown Are these practices or beliefs that may affect or influence treatment? No EMPLOYMENT/FINANCIAL/HEALT H INSURANCE: Insurance: [facility] Prescription coverage: Yes Is the patient appropriate for referral to [facility] COBRA Assistance program? No Financial Distress: No [place]: No FOOD INSECURITY Within the past year, have you worried about how you would buy or obtain food? No LIVING ARRANGEMENTS: Type: House- independent ranch Resides with: , [place] Transportation Needs: Not on file FUNCTIONAL STATUS: Cognitive limitations: none Physical limitations: none Language barrier: No Hearing Impaired: No Speech Impaired: No Visual Impairments: No Special considerations/accommodati ons needed: Na HEALTH LITERACY: Do you have difficulty understanding medical instructions or other written materials you receive from you doctor or pharmacy? No Do have difficulty filling out medical forms by yourself? No The following interventions were put into place: NA MEDICATION ADHERENCE: Within the past 2 weeks, have you had difficulty remembering to take your medicine? No Within the past 2 weeks, did you ever miss taking your medications for reasons other than forgetting? No The following interventions were put into place: NA MENTAL HEALTH HISTORY: No History of combat/trauma: No Intimate Partner Violence: Not At Risk (06/02/2025) Safe at Home? Fear of Current or Ex-Partner: Not on file Emotionally Abused: Not on file Physically Abused: Not on file Sexually Abused: Not on file Safe at Home?: Yes Substance Use and Treatment History: denied History of Abuse: No Issues with: Sleep:No Eating: Diminished appetite Exercising: No Stress Management: No ADVANCE DIRECTIVES/LEGAL DOCUMENTS: Living Will: Not addressed during this encounter Scanned into [employer] Not addressed during this encounter Health Care Durable Power of Instrument Panel Assembler: Not addressed during this encounter Scanned into EPIC: Not addressed during this encounter Guardianship: No Scanned into EPIC:NA Reasons Advanced Directives were not Addressed: Time constraints COPING STATUS: Stress: Not on file Coping Strengths: supportive relationships with immediate family, with friends, and with extended family successful managing past crises hopefulness self advocate strong problem-solving skills ability to plan able to follow direction consistently over time able to communicate effectively future oriented and able to identify goals Current affect/mood: appropriate History of Loss: Yes, parents Adjustment to diagnosis: reflecting understanding, responding appropriately, and accepting help BARRIERS/CARE CHALLENGES: NA Are barriers/care challenges identified likely to have an impact on the patient's quality of life during treatment? No INTERVENTIONS/REFERRALS TO BE PROVIDED: Monitor patient response to treatment Communicate pertinent medical/psychosocial information to Cancer Center team Provide emotional support to patient/family Continue follow up as needed Resources and Referrals: Internal: Financial Navigator External: [facility] and Other [place] CLINICAL IMPRESSION: Dg is a 54 year old male beginning treatment for pancreatic cancer. SW met with pt's spouse this date while pt was receiving treatment. Spouse reports she and pt were shocked by the news of pt's diagnosis however are very glad that it seems to be caught very early and can hopefully be shrunk and surgically removed. She does report that pt has experienced some anger at needing treatment, although did not express specifics about that. Spouse reports they have a 20 year old son who will be returning to school in the fall. She reports her son expresses some hesitancy d/t pt's condition (more content not included)... [facility] [place] ANES POSTPROC EVALon 025 ANES POSTPROC EVAL HNO ID: [id number] Author: JUAN HILL MD Service: ? 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) Scheduled Providers: Pastor Jade MD; Juan Hill MD; Marquse Gomes APRN.ADOBE BALL MIXER Responsible Provider: Juan Hill MD Anesthesia Type: general ASA Status: 3 Anesthesia Type: general Airway Type: anesthesia mask Last Vitals Vitals Value Taken Time BP 142/84 06/02/25 1040 Temp 36 ?C (96.8 ?F) 06/02/25 1013 Pulse 57 06/02/25 1040 Resp 18 06/02/25 1040 SpO2 100 % 06/02/25 1040 CCHS AN POST OP NOTE Anesthesia Observations No Documentation SIGNATURE: Juan Hill MD PATIENT NAME: Lillian Bowden DATE: June 02, 2025 TIME: 2:56 PM CSN: [id number] [facility] [place] ANES PRE-OPon 06-02-2025 ANES PRE-OP HNO ID: [id number] Author: JUAN HILL MD Service: ? Author Type: Anesthesiologist Type: Anesthesia Preprocedure Evaluation Filed: 06/02/2025 08:56 Note Text: ANESTHESIOLOGY DAY OF SURGERY NOTE : 1970 Procedure Information Date/Time: 06/02/25 1000 Scheduled providers: Pastor Jade MD; Juan Hill MD; Mary Verdin APRN.ADOBE BALL MIXER Procedure: ERCP Location: Gastroenterology Estimated body mass index is 22.33 kg/m? as calculated from the following: Height as of 05/19/25: 181.4 cm (5' 11.42). Weight as of this encounter: 73.5 kg (162 lb). Most recent hematocrit and potassium results: Hematocrit 43.9 05/31/2025 Potassium 4.3 05/19/2025 Relevant Problems No relevant active problems I - PHYSICAL EVALUATION AIRWAY Patient intubated: No. Tracheostomy tube not present Mallampati: I. TM distance: >3 FB. Neck ROM: full ROM without neurological symptoms. Mouth opening: adequate. Short neck: no. Thick neck: no Mar present: no Lip Bite Test: I Microretrognathia/Micronag thia/Recessed Chin: No II - ANESTHESIA PLAN ASA Score: 3 Anesthetic Plan: general Airway type: anesthesia mask The patient is not a current smoker. NPO Status: adequate Beta Alan Administration of chronic beta alan medication planned. Monitoring Plan Monitoring plan: standard ASA. Post Procedure Analgesic Plan Postoperative analgesic plan: multimodal analgesia. Informed Consent Anesthetic risks, benefits, alternatives, personnel and consent discussed: yes. Patient / Responsible Republican agrees to proceed: yes Patient / Surrogate agrees to blood products: blood products not planned DNR status not reviewed with patient and/or family prior to surgery. Significant changes in the patient condition since the History and Physical, not otherwise documented in primary service progress note: no. Potential Anesthesia issues that may suggest increased risk of complications or contraindication to planned procedure: none. Vitals Value Taken Time BP 130/81 06/02/25 0848 Pulse 83 06/02/25 0848 Resp Temp 36.2 ?C (97.2 ?F) 06/02/25 0848 SpO2 100 % 06/02/25 0848 Outpatient Medications as of 06/02/2025 Medication Sig - glimepiride (AMARYL) 1 mg tablet Take 1 mg by mouth daily with breakfast. - JARDIANCE 25 mg tablet Take 25 mg by mouth daily with breakfast. - CREON 36,000-114,000- 180,000 unit delayed release capsule Take 2 capsules by mouth three times a day with meals. - metFORMIN (GLUCOPHAGE) 500 mg tablet Take 500 mg by mouth daily with breakfast. Facility-Administered Medications as of 06/02/2025 Medication Dose Route Frequency - lidocaine (PF) 10 mg/mL (1 %) 1-2 mg injection (XYLOCAINE) 0.1-0.2 mL INTRADERMAL PRN - lactated ringers iv infusion 30 mL/hr INTRAVENOUS CONTINUOUS I have interviewed and examined the patient. I have reviewed the medical record and/or the pre-anesthesia evaluation, pertinent labs, and test results. This contains updated information obtained within 48 hours of Surgery/Procedure. SIGNATURE: Juan Hill MD PATIENT NAME: Lillian Bowden DATE: June 02, 2025 TIME: 8:56 AM CSN: [id number] [facility] [place] ERCP Study observation Narra tiveon 06-02-2025 [facility] Radiology Study observation (narrative) [facility] GLUCOSE, BLOOD (POC)on 06-02 Glucose [Mass/Vol] 187 mg/dL Abnormal 74 - 99 mg/dL [facility] Comment on above: Location:[address], [facility] The Accu-Chek Inform II glucose meter has not been approved for testing on patients receiving intensive medical intervention or therapy and results from this point of care glucose test should not be used for patient management decisions in these cases. Inaccurate results may also occur from other interfering factors, such as N-acetylcysteine (blood concentrations of greater than 5mg/dL), galactose, extremes of hematocrit (<10 or >65), or high doses of ascorbic acid (vitamin C) greater than 3mg/dL. Consider alternate testing mechanisms (e.g. core lab, blood gas instrument) in the above situations. Interpretation and review of laboratory results Abnormal [facility] Glucose [Mass/Vol] 176 mg/dL Abnormal 74 - 99 mg/dL [facility] Comment on above: Location:[address], [facility] The Accu-Chek Inform II glucose meter has not been approved for testing on patients receiving intensive medical intervention or therapy and results from this point of care glucose test should not be used for patient management decisions in these cases. Inaccurate results may also occur from other interfering factors, such as N-acetylcysteine (blood concentrations of greater than 5mg/dL), galactose, extremes of hematocrit (<10 or >65), or high doses of ascorbic acid (vitamin C) greater than 3mg/dL. Consider alternate testing mechanisms (e.g. core lab, blood gas instrument) in the above situations. Interpretation and review of laboratory results Abnormal [facility] NURSING PROGon 06-02-2025 NURSING PROG HNO ID: [id number] Author: IRA OWEN RN Service: ? Author Type: Registered Nurse Type: Nursing Progress Note Filed: 06/02/2025 10:28 Note Text: AMBULATORY PATIENT EDUCATION NOTE TOPIC: GI PROCEDURES: Endoscopic Retrograde CholangioPancreatography(E RETAIL ASSISTANT STORE MANAGER) with or without biopsy,stenting,dilation and/or treatment READINESS TO LEARN INSTRUCTION PROVIDED TO: Patient and family member COGNITIVE ABILITY: Alert and oriented PTED MOTIVATION TO LEARN: Interested FAMILY SUPPORT: High - Very involved in pt care IPATIENT LEARNS BEST BY: Individual Instruction Written Instruction - Hand-outs Verbal Instruction FACTORS AFFECTING LEARNING: None PHYSICAL LIMITATIONS AFFECTING LEARNING: None LEARNING RESPONSE METHOD OF INSTRUCTION: Individual instruction PATIENT / FAMILY RESPONSE: Verbalizes understanding of: WORSENING CONDITION-Signs and symptoms of a worsening condition that warrant a call to the physician FOLLOW-UP PLAN: Patient instructed to call with any further issues Recommend - Recommend continued instruction and follow up as directed Contact information given. SUPPLEMENTAL MATERIAL: Procedure Discharge Instructions REFERRAL (RECOMMENDATION): None Electronically Signed By: Ira Owen RN [facility] [place] NURSING PROG HNO ID: [id number] Author: CONY WARREN RN Service: Nursing Author Type: Registered Nurse Type: Nursing Progress Note Filed: 06/02/2025 08:43 Note Text: PRE OP LEARNING ASSESSMENT PROCEDURE/SURGERY: GI PROCEDURES: ERCP READINESS TO LEARN COGNITIVE ABILITY: Alert and oriented MOTIVATION TO LEARN: Interested FAMILY SUPPORT: High - Very involved in pt care PATIENT LEARNS BEST BY: Individual Instruction Verbal Instruction FACTORS AFFECTING LEARNING: None PHYSICAL LIMITATIONS AFFECTING LEARNING: None Electronically Signed By: Cony Warren RN In Department: GASTROENTEROLOGY [facility] [place] CBC panel Auto (Bld)on 05-31 Erythrocyte distribution width (RBC) [Ratio] 13.9 % Normal 11.5-15.0 [facility] Comment on above: Order Comment: Speci men Type: BLOOD SPECIMEN Ordering Facility: [facility] Address: [address] [place] [address] Performed By: #### 5 8410-2 #### [facility] CLIA [id number] [address] OF [facility] Hematocrit (Bld) [Volume fraction] 43.9 % Normal 39.0-51.0 [facility] Comment on above: Order Comment: Speci men Type: BLOOD SPECIMEN Ordering Facility: [facility] Address: [address] [place] [address] Performed By: #### 5 8410-2 #### [facility] CLIA [id number] [address] Hemoglobin (Bld) [Mass/Vol] 14.3 g/dL Normal 13.0-17.0 [facility] Comment on above: Order Comment: Speci men Type: BLOOD SPECIMEN Ordering Facility: [facility] Address: [address] [place] [address] Performed By: #### 5 8410-2 #### [facility] CLIA [id number] [address] STATES OF [facility] MCH (RBC) [Entitic mass] 32.4 pg Normal 26.0-34.0 [facility] Comment on above: Order Comment: Speci men Type: BLOOD SPECIMEN Ordering Facility: [facility] Address: [address] [place] [address] Performed By: #### 5 8410-2 #### [facility] CLIA [id number] [address] [place] MCHC (RBC) [Mass/Vol] 32.6 g/dL Normal 30.5-36.0 [facility] Comment on above: Order Comment: Speci men Type: BLOOD SPECIMEN Ordering Facility: [facility] Address: [address] [place] [address] Performed By: #### 5 8410-2 #### [facility] CLIA [id number] [address] MCV (RBC) [Entitic vol] 99.5 fL Normal 80.0-100.0 [facility] Comment on above: Order Comment: Speci men Type: BLOOD SPECIMEN Ordering Facility: [facility] Address: [address] [place] [address] Performed By: #### 5 8410-2 #### [facility] CLIA [id number] [address] OF [place] Nucleated RBC (Bld) [#/Vol] 10*3/uL Normal <0.01 [facility] Comment on above: Order Comment: Speci men Type: BLOOD SPECIMEN Ordering Facility: [facility] Address: [address] [place] [address] Performed By: #### 5 8410-2 #### [facility] CLIA [id number] [address] Platelet mean volume (Bld) [Entitic vol] 11.9 fL Normal 9.0-12.7 [facility] Comment on above: Order Comment: Speci men Type: BLOOD SPECIMEN Ordering Facility: [facility] Address: [address] [place] [address] Performed By: #### 5 8410-2 #### [facility] CLIA [id number] [address] [place] Platelets (Bld) [#/Vol] 190 10*3/uL Normal 150-400 [facility] Comment on above: Order Comment: Speci men Type: BLOOD SPECIMEN Ordering Facility: [facility] Address: [address] [place] [address] Performed By: #### 5 8410-2 #### [facility] CLIA [id number] [address] OF [place] RBC (Bld) [#/Vol] 4.41 10*6/uL Normal 4.20-6.00 [facility] Comment on above: Order Comment: Speci men Type: BLOOD SPECIMEN Ordering Facility: [facility] Address: [address] [place] [address] Performed By: #### 5 8410-2 #### [facility] CLIA [id number] 1 [place] [id number] [facility] WBC (Bld) [#/Vol] 4.50 10*3/uL Normal 3.70-11.00 [facility] Comment on above: Order Comment: Speci men Type: BLOOD SPECIMEN Ordering Facility: [facility] Address: [address] [place] [address] Performed By: #### 5 8410-2 #### [facility] CLIA [id number] 1 [place] [id number] [facility] OPERATIVE NOon 05-31-2025 OPERATIVE NO HNO ID: [id number] Author: VALERY HARRELL MD Service: Vascular Surgery Author Type: Physician Type: Operative Report Filed: 05/31/2025 12:09 Note Text: OPERATIVE/PROCEDURE REPORT LOG ID: [id number] Surgery/Procedure Date: 05/31/2025 Incision/Procedure Start Time: 11:40 AM Incision Close/Procedure End Time: Surgeon(s)/Proceduralist(s ) and Concrete Truck Driver(s): Surgeons and Role: * Valery Harrell MD - Primary No Additional Staff Procedure(s): US guided right IJ vein access, Central implanted port under fluoroscopic guidance Anesthesia: Local Anesthesia Operative indications: 54 year old male who presents for port placement Procedure details: The procedure was performed by Valery Harrell MD in the radiology suite. The patient was taken to the IR suite where informed consent was obtained. Arm vs chest discussed. The patient was positioned supine on the operating table. The right neck and chest was prepped and draped in the usual sterile fashion. All elements of maximal barrier technique including cap and mask, sterile gown, sterile gloves, a large sterile drape, hand hygiene, and appropriate prep agent for cutaneous antisepsis were utilized and maintained during the procedure. After time-in, the right IJ vein was interrogated with the ultrasound and found to be patent. Utilizing local anesthesia, ultrasound guidance, and micropuncture system, access was obtained in the right IJ vein and the tip of the needle within the vein was documented. Utilizing guidewire exchange and Seldinger technique, a peel-away sheath was placed. An area of the superior anterior chest was anesthetized with Lidocaine and the port catheter was tunneled through the area to the peel-away sheath. The catheter was then introduced into the sheath and guided fluoroscopically with the tip in the superior vena cava right atrial junction. The peel-away sheath was removed, the catheter was cut to the appropriate length and attached to the port septum. Utilizing blunt dissection, a subcutaneous pocket was formed in the upper right chest and the port placed in the pocket. The port was secured with suture material, the incision closed with suture material and bandage. The port was accessed with the appropriate Goldman needle and flushed with appropriate Hep-Lock solution. The port is ready for use. Findings: Technically successful placement of Central implanted port via the right iJ vein approach with the tip of the catheter in the superior vena caval right atrial junction. Pre-Op/Pre-Procedure Diagnosis: cancer, need for chemo Post-Op/Post-Procedure Diagnosis: Same Estimated Blood Loss: 0 ml Specimens: None Implantable Devices: port Complications: None Valery Harrell MD [facility] 05-26-2025 [facility] Telephone ([facility]) -- LILLIAN BOWDEN ([id number]) 1970 M Date Time Provider Department 05/26/25 KALIN DUNHAM During your visit today, we recorded the following information about you: Licha Owusu 05/26/2025 11:51 AM Signed Lillian Bowden is calling Kalin Dunham MD today regarding Echocardiologist - Other (EUS scheduling) Patient called with questions about EUS procedure scheduling. Would like a call back to discuss. Patient has been identified by name and birthdate. Requesting response back: [phone] (home) [phone] (cell) Licha Owusu May 26, 2025 Macarena Samayoa RN 05/26/2025 2:07 PM Signed Confirmed EGD/EUS completed 05/12, plan for ERCP + stent placement. Pt agreeable to any date/ time available. RNCC/ scheduling to call with confirmation of appt. AAMIR Lara, RN Specialty Echocardiologist May 26, 2025 Macarena Samayoa RN 05/27/2025 11:23 AM Signed 06/02/25 9:00 am arrival time, reviewed nothing to eat or drink after midnight. 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 Pt voiced understanding and agreement to this plan. AAMIR Lara, RN Specialty Echocardiologist May 27, 2025 Allergies As of Date: 05/26/2025 (No Known Allergies) Date Reviewed: 05/23/2025 Reviewed by: Monserrat Matthews, RT(R) - Fully Assessed Reason for Visit: Echocardiologist - Other [3602] Cmt: EUS scheduling Prescriptions as of 05/27/2025 - glimepiride (AMARYL) 1 mg tablet Take 1 mg by mouth daily with breakfast. - JARDIANCE 25 mg tablet Take 25 mg by mouth daily with breakfast. - CREON 36,000-114,000- 180,000 unit delayed release capsule Take 2 capsules by mouth three times a day with meals. - metFORMIN (GLUCOPHAGE) 500 mg tablet Take 500 mg by mouth daily with breakfast. Problem List As Of Date 05/26/2025 Noted Resolved Malignant neoplasm of head of pancreas (HCC) [C*05/19/2025 Encounter Status:Closed by MACARENA SAMAYOA on 05/27/25 [facility] 05-25-2025 [facility] Telephone ([facility]) -- LILLIAN BOWDEN ([id number]) 1970 M Date Time Provider Department 05/25/25 KALNI DUNHAM During your visit today, we recorded the following information about you: Kalin Dunham MD 05/25/2025 9:11 AM Signed Dg's case was presented yesterday at our tumor board. His CT pancreas confirms some abutment of his venous structures and therefore neoadjuvant chemotherapy is recommended. We will go ahead and place a stent in light of the obstructive biliary pattern seen on the imaging and blood work. I recommended that we place a Mediport. We will plan to start him on FOLFIRINOX for total of 6 cycles he plans to receive this care closer to home likely in [place] Nelly Hernandez 05/25/2025 10:32 AM Signed [facility] called and asked me to schedule Dg for a consult here with one of our oncologists. Patient is going to get chemo before having surgery to shrink his tumor first. Patient stated he is awaiting a stent placement and mediport placement in IR. For now he has been scheduled for 06/14/25 @ 11:00 am but stated once he knows the dates of the procedures maybe he could be moved up if need be. Nelly Negron [facility] Nelly Hernandez 05/25/2025 10:42 AM Signed [facility] reached out and wanted patient scheduled sooner. I called and spoke to patient and moved him to Friday06/06/25 @ 3:00 pm with , he confirmed this date and time. [facility] is trying to get his EUS and port done prior to that 06/06/25 date. stated that appointment here on 06/06/25 would be fine. Nelly Negron [facility] Allergies As of Date: 05/25/2025 (No Known Allergies) Date Reviewed: 05/23/2025 Reviewed by: Monserrat Matthews, RT(R) - Fully Assessed Prescriptions as of 05/25/2025 - glimepiride (AMARYL) 1 mg tablet Take 1 mg by mouth daily with breakfast. - JARDIANCE 25 mg tablet Take 25 mg by mouth daily with breakfast. - CREON 36,000-114,000- 180,000 unit delayed release capsule Take 2 capsules by mouth three times a day with meals. - metFORMIN (GLUCOPHAGE) 500 mg tablet Take 500 mg by mouth daily with breakfast. Problem List As Of Date 05/25/2025 Noted Resolved Malignant neoplasm of head of pancreas (HCC) [C*05/19/2025 Encounter Status:Closed by KALIN DUNHAM on 05/25/25 [facility] CT CHEST W IVCONon CT CHEST W IVCON * * *Final Report* * * DATE OF EXAM: May 23 2025 8:41AM [facility] 0539 - CT CHEST W IVCON / PROCEDURE REASON: Malignant neoplasm of head of pancreas (HCC) * * * * Physician Interpretation * * * * EXAMINATION: CHEST CT WITH CONTRAST CLINICAL HISTORY: Pancreatic cancer Technique: Spiral CT acquisition of the chest from the thoracic inlet to the upper abdomen following IV contrast. MQ: CTCW_6 Contrast: 125 mL Omnipaque [address] Radiation dose: Integrated Dose-length product (DLP) for this visit = 403.31 mGy*cm CT Dose Reduction Employed: Iterative recon and mAs-kVp adjusted using patient size-age Comparison: None RESULT: Limitations: None. Lines, tubes, and devices: None. Lung parenchyma and airways: Mild emphysema. No consolidation. No suspicious pulmonary nodule. The central airways are patent. Pleural space: No pleural effusion. No pleural thickening. Lower neck, lymph nodes, and mediastinum: The imaged thyroid gland is normal. No lymphadenopathy in the supraclavicular, axillary, mediastinal, or hilar regions. Heart, pericardium, and thoracic vessels: The thoracic aorta and main pulmonary artery are normal in caliber. The cardiac chambers are normal in size. No coronary artery atherosclerotic calcifications are noted, although the study is not optimized for coronary assessment. No pericardial effusion or thickening. Bones and soft tissues: Degenerative changes. No suspicious osseous lesion. Upper abdomen: Please see separately dictated CT abdomen and pelvis Localizer images: No additional findings. IMPRESSION: No metastatic disease in the chest. Algorithm Developer: PSCB Transcribe Date/Time: May 27 2025 10:07A Dictated by : JULIA GUERRA MD This examination was interpreted and the report reviewed and electronically signed by: JULIA GUERRA MD on May 27 2025 10:19AM EST [id number] [facility] CT PANCREAS/PELVIS W IVCONon 05-23-2025 CT PANCREAS/PELVIS W IVCON * * *Final Report* * * DATE OF EXAM: May 23 2025 8:41AM [facility] 0553 - CT PANCREAS/PELVIS W IVCON / PROCEDURE REASON: Malignant neoplasm of head of pancreas (HCC) * * * * Physician Interpretation * * * * EXAM TITLE: CT PANCREAS/PELVIS W IVCON DATE: 05/23/2025 INDICATION: Follow-up mass in the head of the pancreas. COMPARISON: Outside CT scan dated 04/28/2025 Following administration of intravenous contrast, a series of axial images were taken from hemidiaphragms to iliac crests utilizing pancreas protocol with imaging obtained during arterial and venous phase with sagittal coronal reconstructions. Contrast: 125 mL Omnipaque [address] Dose-Length Product: 1028 mGy*cm CT Dose Reduction Employed: Automated exposure control and/or iterative reconstruction was used. RESULT: Primary pancreatic mass: Morphologic evaluation: a.Location: Head of pancreas b. Size: 3.3 x 1.9 x 2.3 cm ( 3:60, 603:41) c.Density:Hypodense d. Pancreatic duct dilated :0.9 cm e. Pancreatic duct upstream dilatation: Yes . f. Biliary tree abrupt cut off:Yes e. Biliary tree upstream dilatation:1.1 cm. Arterial evaluation SMA degree of solid soft tissue contact: Absent degree of increased hazy attenuation/stranding contact: Absent focal vessel narrowing or contour irregularity: Absent extension to first sma branch: Not applicable. Celiac [place] Degree of solid soft tissue contact: Absent Degree of increased hazy attenuation/stranding contact: Absent. Focal vessel narrowing or contour irregularity: Absent FARA Degree of solid soft tissue contact: Absent Degree of increased hazy attenuation/stranding contact: 90 degrees Focal vessel narrowing or contour irregularity: Absent Extension to celiac axis: Absent Extension to bifurcation of right/left hepatic artery: Absent Arterial Variant Anatomy: Variant Anatomy: None. Venous evaluation MPV: Degree of solid soft tissue contact: 90 degree (604:64 and 65) Degree of increased hazy attenuation/stranding contact: As above. Focal vessel narrowing or contour irregularity: None SMV: Degree of solid soft tissue contact: 90 degrees (3:57 and 58) Degree of increased hazy attenuation/stranding contact: As above Focal vessel narrowing or contour irregularity: None Extension to first draining vein: Absent Venous thrombus: None. Venous collaterals: None. Contiguous organ invasion: None. Lymph nodes: 1.4 cm lymph node superior to the portal vein on 3:45. 1.7 cm posterior pancreaticoduodenal lymph node on 3:55. Subcentimeter lymph nodes adjacent to common hepatic artery on 8:43 and 44. 0.8 cm lymph node posterior pancreaticoduodenal groove on 3:59. Other abdomen: Liver: 0.7 cm hypodensity dome of segment 4 on 3:28 and 29. No other focal lesions. Biliary: Trace intrahepatic bile duct dilatation. Gallbladder physiologically distended. Slight wall thickening and slight surrounding edema. Probable sludge and/or stones within the lumen. Spleen: No mass. No splenomegaly. Adrenals:No mass. Kidneys: Unremarkable. GI tract: No dilation or wall thickening. Ligamentous stool in the distal colon and rectum. Moderate amount of stool throughout the remainder the colon. Lymph nodes: No significant additional lymph node enlargement noted above. Mesentery/Peritoneum: No ascites or mass. Retroperitoneum: No mass. Vasculature (other): Abdominal aorta is not aneurysmally dilated. Celiac artery, SMA, renal arteries, and TONYA are patent. Portal vein, hepatic veins, splenic vein, and SMV are patent. Bones/Soft Tissues: Nonspecific sclerotic density left superior iliac crest on 3:106. Stable. Lower thorax: A chest CT performed will be reported separately. Localizer images: No additional findings. IMPRESSION: 1. Mass lesion in the head of the pancreas most consistent with pancreatic adenocarcinoma. 2. Vascular involvement as described in detail above. 3. Enlarged lymph nodes in the peripancreatic region most suspicious for metastatic lymph nodes. 4. Nonspecific hypodensity dome of the liver. Suspect cyst. 5. Nonspecific sclerotic density left iliac bone. Suspect bone island. Metastatic disease less likely.. Algorithm Developer[facility] Transcribe Date/Time: May 27 2025 9:32A Dictated by : CRESENCIO ANTONIO MD This examination was interpreted and the report reviewed and electronically signed by: CRESENCIO ANTONIO MD on May 27 2025 12:40PM EST [id number] Normal [facility] CBC W Auto Differential pane l (Bld)on 05-19-2025 Basophils (Bld) [#/Vol] 0.03 10*3/uL [facility] Basophils/100 WBC (Bld) 0.7 % [facility] Differential cell count method Nom (Bld) Auto [facility] Eosinophils (Bld) [#/Vol] 0.1 10*3/uL [facility] Eosinophils/100 WBC (Bld) 2.4 % [facility] Erythrocyte distribution width (RBC) [Ratio] 14.3 % 11.5 - 15.0 % [facility] Hematocrit (Bld) [Volume fraction] 41.4 % 39.0 - 51.0 % [facility] Hemoglobin (Bld) [Mass/Vol] 14.1 g/dL 13.0 - 17.0 g/dL [facility] Immature granulocytes (Bld) [#/Vol] 0.03 10*3/uL [facility] Immature granulocytes/100 WBC (Bld) 0.7 % [facility] Lymphocytes (Bld) [#/Vol] 1.38 10*3/uL [facility] Lymphocytes/100 WBC (Bld) 33.1 % [facility] MCH (RBC) [Entitic mass] 32.9 pg 26.0 - 34.0 pg [facility] MCHC (RBC) [Mass/Vol] 34.1 g/dL 30.5 - 36.0 g/dL [facility] MCV (RBC) [Entitic vol] 96.5 fL 80.0 - 100.0 fL [facility] Monocytes (Bld) [#/Vol] 0.51 10*3/uL [facility] Monocytes/100 WBC (Bld) 12.2 % [facility] Neutrophils (Bld) [#/Vol] 2.12 10*3/uL [facility] Neutrophils/100 WBC (Bld) 50.9 % [facility] Nucleated RBC (Bld) [#/Vol] [facility] Nucleated RBC/100 WBC (Bld) [Ratio] 0 % /100 WBC [facility] Platelet mean volume (Bld) [Entitic vol] 11.9 fL 9.0 - 12.7 fL [facility] Platelets (Bld) [#/Vol] 185 10*3/uL [facility] RBC (Bld) [#/Vol] 4.29 10*6/uL 4.20 - 6.0 0 m/uL [facility] WBC (Bld) [#/Vol] 4.17 10*3/uL [facility] Basophils (Bld) [#/Vol] 0.03 10*3/uL Normal <0.11 [place] Comment on above: Order Comment: Speci men Type: BLOOD SPECIMENOrdering Facility: [facility] Address: [address] [place] [address] Performed By: #### 5 7021-8 ####[facility] [id number] [place] [address] [place] Basophils/100 WBC (Bld) 0.7 % Normal [place] Comment on above: Order Comment: Speci men Type: BLOOD SPECIMENOrdering Facility: [facility] Address: [address] [place] [address] Performed By: #### 5 7021-8 ####[facility] [id number] [place] [address] [place] Differential cell count method Nom (Bld) Auto Normal [place] Comment on above: Order Comment: Speci men Type: BLOOD SPECIMENOrdering Facility: [facility] Address: [address] [place] [address] Performed By: #### 5 7021-8 ####[facility] [id number] [place] [address] [place] Eosinophils (Bld) [#/Vol] 0.10 10*3/uL Normal <0.46 [place] Comment on above: Order Comment: Speci men Type: BLOOD SPECIMENOrdering Facility: [facility] Address: [address] [place] [address] Performed By: #### 5 7021-8 ####[facility] [id number] [place] [address] [place] Eosinophils/100 WBC (Bld) 2.4 % Normal [place] Comment on above: Order Comment: Speci men Type: BLOOD SPECIMENOrdering Facility: [facility] Address: [address] [place] [address] Performed By: #### 5 7021-8 ####[facility] [id number] [place] [address] [place] Erythrocyte distribution width (RBC) [Ratio] 14.3 % Normal 11.5-15.0 [place] Comment on above: Order Comment: Speci men Type: BLOOD SPECIMENOrdering Facility: [facility] Address: [address] [place] [address] Performed By: #### 5 7021-8 ####[facility] [id number] [place] [address] [place] Hematocrit (Bld) [Volume fraction] 41.4 % Normal 39.0-51.0 [place] Comment on above: Order Comment: Speci men Type: BLOOD SPECIMENOrdering Facility: [facility] Address: [address] [place] [address] Performed By: #### 5 7021-8 ####[facility] [id number] [place] [address] [place] Hemoglobin (Bld) [Mass/Vol] 14.1 g/dL Normal 13.0-17.0 [place] Comment on above: Order Comment: Speci men Type: BLOOD SPECIMENOrdering Facility: [facility] Address: [address] [place] [address] Performed By: #### 5 7021-8 ####[facility] [id number] [place] [address] [place] Immature granulocytes (Bld) [#/Vol] 0.03 10*3/uL Normal <0.10 [place] Comment on above: Order Comment: Speci men Type: BLOOD SPECIMENOrdering Facility: [facility] Address: [address] [place] [address] Performed By: #### 5 7021-8 ####[facility] [id number] [place] [address] [place] Immature granulocytes/100 WBC (Bld) 0.7 % Normal [place] Comment on above: Order Comment: Speci men Type: BLOOD SPECIMENOrdering Facility: [facility] Address: [address] [place] [address] Performed By: #### 5 7021-8 ####[facility] [id number] [place] [address] [place] Lymphocytes (Bld) [#/Vol] 1.38 10*3/uL Normal 1.00-4.00 [place] Comment on above: Order Comment: Speci men Type: BLOOD SPECIMENOrdering Facility: [facility] Address: [address] [place] [address] Performed By: #### 5 7021-8 ####[facility] [id number] [place] [address] [place] Lymphocytes/100 WBC (Bld) 33.1 % Normal [place] Comment on above: Order Comment: Speci men Type: BLOOD SPECIMENOrdering Facility: [facility] Address: [address] [place] [address] Performed By: #### 5 7021-8 ####[facility] [id number] [place] [address] [place] MCH (RBC) [Entitic mass] 32.9 pg Normal 26.0-34.0 [place] Comment on above: Order Comment: Speci men Type: BLOOD SPECIMENOrdering Facility: [facility] Address: [address] [place] [address] Performed By: #### 5 7021-8 ####[facility] [id number] [place] [address] [place] MCHC (RBC) [Mass/Vol] 34.1 g/dL Normal 30.5-36.0 [facility] Comment on above: Order Comment: Speci men Type: BLOOD SPECIMENOrdering Facility: [facility] Address: [address] [place] [address] Performed By: #### 5 7021-8 ####[facility] [id number] [place] [address] [place] MCV (RBC) [Entitic vol] 96.5 fL Normal 80.0-100.0 [place] Comment on above: Order Comment: Speci men Type: BLOOD SPECIMENOrdering Facility: [facility] Address: [address] [place] [address] Performed By: #### 5 7021-8 ####[facility] [id number] [place] [address] [place] Monocytes (Bld) [#/Vol] 0.51 10*3/uL Normal <0.87 [place] Comment on above: Order Comment: Speci men Type: BLOOD SPECIMENOrdering Facility: [facility] Address: [address] [place] [address] Performed By: #### 5 7021-8 ####[facility] [id number] [place] [address] [place] Monocytes/100 WBC (Bld) 12.2 % Normal [place] Comment on above: Order Comment: Speci men Type: BLOOD SPECIMENOrdering Facility: [facility] Address: [address] [place] [address] Performed By: #### 5 7021-8 ####[facility] [id number] [place] [address] [place] Neutrophils (Bld) [#/Vol] 2.12 10*3/uL Normal 1.45-7.50 [place] Comment on above: Order Comment: Speci men Type: BLOOD SPECIMENOrdering Facility: [facility] Address: [address] [place] [address] Performed By: #### 5 7021-8 ####[facility] [id number] [place] [address] [place] Neutrophils/100 WBC (Bld) 50.9 % Normal [place] Comment on above: Order Comment: Speci men Type: BLOOD SPECIMENOrdering Facility: [facility] Address: [address] [place] [address] Performed By: #### 5 7021-8 ####[facility] [id number] [place] [address] [place] Nucleated RBC (Bld) [#/Vol] 10*3/uL Normal <0.01 [place] Comment on above: Order Comment: Speci men Type: BLOOD SPECIMENOrdering Facility: [facility] Address: [address] [place] [address] Performed By: #### 5 7021-8 ####[facility] [id number] [place] [address] [place] Nucleated RBC/100 WBC (Bld) [Ratio] 0.0 /100 WBC Normal [place] Comment on above: Order Comment: Speci men Type: BLOOD SPECIMENOrdering Facility: [facility] Address: [address] [place] [address] Performed By: #### 5 7021-8 ####[facility] [id number] [place] [address] [place] Platelet mean volume (Bld) [Entitic vol] 11.9 fL Normal 9.0-12.7 [place] Comment on above: Order Comment: Speci men Type: BLOOD SPECIMENOrdering Facility: [facility] Address: [address] [place] [address] Performed By: #### 5 7021-8 ####[facility] [id number] [place] [address] [place] Platelets (Bld) [#/Vol] 185 10*3/uL Normal 150-400 [place] Comment on above: Order Comment: Speci men Type: BLOOD SPECIMENOrdering Facility: [facility] Address: [address] [place] [address] Performed By: #### 5 7021-8 ####[facility] [id number] [place] [address] [place] RBC (Bld) [#/Vol] 4.29 10*6/uL Normal 4.20-6.00 [facility] Comment on above: Order Comment: Speci men Type: BLOOD SPECIMENOrdering Facility: [facility] Address: [address] [place] [address] Performed By: #### 5 7021-8 ####[facility] [id number] [place] [address] [place] WBC (Bld) [#/Vol] 4.17 10*3/uL Normal 3.70-11.00 [facility] Comment on above: Order Comment: Speci men Type: BLOOD SPECIMENOrdering Facility: [facility] Address: [address] [place] [address] Performed By: #### 5 7021-8 ####[facility] [id number] [place] [address] [place] CNOVon 05-19-2025 CNOV Office Visit (GISSEL ) -- EZEQUIELLILLIAN ([id number]) 1970 M Date Time Provider Department 05/19/25 1:00 PM JUAN SAGASTUME During your visit today, we recorded the following information about you: Juan Sagastume MD 05/19/2025 2:45 PM Signed INITIAL PANCREATIC CANCER PATIENT NAME: Lillian Bowden DATE of SERVICE: 05/19/2025 TIME of SERVICE: 1:09 PM PCP: Shashank Sheehan MD This consult was requested by Self for evaluation of pancreatic cyst(s) My final recommendations will be communicated to the requesting health care provider by way of the shared medical record or [employer]. HPI: Mr. Bowden is a 54 year old male who presents for PDAC. Incidental- No Diabetes Mellitus-Yes Dg reports that his elevated A1c levels led to an increase in metformin dosage from 500 mg to 1500 mg by his previous PCP. Following this adjustment, he began experiencing diarrhea around [facility], preceded by changes in stool color to bit bender shades, including yellow and medina. His new PCP reduced the metformin dosage back to 500 mg and added glimepiride 1 mg to his morning regimen, which already included Jardiance 25 mg. Despite these changes, Dg continued to experience diarrhea and significant weight loss, approximately 70 lbs, decreasing from 230 lbs to 164 lbs. He was referred to a motors assembler, who diagnosed him with exocrine pancreatic insufficiency and prescribed Creon, which has stabilized his weight between 165-170 lbs and improved his bowel movements. Subsequent CT and ultrasound imaging revealed a nodule in the head of the pancreas. An EUS with biopsies was performed, and Dg was informed that cancerous cells were found. He denies abdominal pain, nausea, emesis, fevers, or jaundice, and reports a good appetite. He has a history of psoriatic arthritis, which has improved since he stopped drinking alcohol in October. He also has a history of back surgery 2 years ago for a ruptured disc. He denies a history of pancreatitis. Dg has a significant family history of cancer, with both parents having from cancer (father from lung cancer and mother from breast cancer). His sister was diagnosed with breast cancer at age 33 and underwent a mastectomy. His other sister has no history of cancer but suffered an aortic dissection last year. He is unaware of any BRCA gene mutations in his family. Dg has a history of smoking, having quit in 2016 after being diagnosed with Legionnaire's disease. He also quit drinking alcohol in October, having previously consumed 6 beers per night. He reports that his blood pressure has improved since he stopped drinking, and he has not taken his antihypertensive medication for about 3 weeks. WORKUP: CT Yes 2024 mass size 21 x 19 mm location head vessel involvement yes Arterial: SMA: No contact Celiac: No contact FARA:No contact Splenic artery: No Contact Venous: MPV: None SMV: Soft Tissue Contact with focal vessel narrowing Splenic Vein: No Contact Venous collaterals present: No Contiguous Organ Involvement: No Lymph node No Liver Lesions: No Location n/a Metastases No ascites No venous thrombosis No Pathology/Cytology: pancreas adenocarcinoma PAST MEDICAL HISTORY PAST MEDICAL HISTORY Diagnosis Date Arthritis Diabetes (HCC) Hypertension Legionnaire's disease (HCC) PAST SURGICAL HISTORY PAST SURGICAL HISTORY Procedure Laterality Date LAMINECTOMY,LUMBAR FAMILY HISTORY FAMILY HISTORY Problem Relation Age of Onset Breast Cancer Mother Lung Cancer Father Breast Cancer Sister Pancreatic Cancer- No Colon Cancer- No Breast Cancer- Yes Pancreatitis- No SOCIAL HISTORY Social History Tobacco Use Smoking status: Former Types: Cigarettes Smokeless tobacco: Former Types: Chew Vaping Use Vaping status: Never Used Substance Use Topics Alcohol use: Not Currently Drug use: Never REVIEW OF SYSTEMS GENERAL: Unintentional weight loss RESPIRATORY: Negative for cough, hemoptysis, wheezing, COPD, dyspnea or shortness of breath CARDIOVASCULAR: Negative for chest pain, leg swelling, hypertension, CHF or palpitations GI: No nausea, vomiting, or diarrhea PHYSICAL EXAM: General Appearance: NAD. Skin: No jaundice. Lungs: Non-labored breathing. Abdomen: S, NT, ND. Neurologic: Answering questions appropriately. LABS No results found for: CEA CA19-9 (U/mL) Date Value 05/06/2025 960.0 No results found for: AMYLASE Lipase (U/L) Date Value 05/06/2025 31 No results found for: PREALB No results found for: CRP No results found for: TRANSF No results found for: BILIT ALT (U/L) Date Value 05/06/2025 508 AST (U/L) Date Value 05/06/2025 279 No components found for: LB Alkaline Phosphatase (U/L) Date Value 05/06/2025 1,463 No result (more content not included)... [facility] [place] CNOVSPon 05-19-2025 CNOVSP Visit (SP) Office ([facility]) -- LILLIAN BOWDEN ([id number]) 1970 M Date Time Provider Department 05/19/25 1:00 PM KALIN DUNHAM [facility] During your visit today, we recorded the following information about you: Temperature Pulse Respiration Blood pressure 97.9 degrees 80/minute 18/minute 120/79 Weight Height 76.8 kg 1.814 m Pamela Merlos LPN 05/19/2025 1:36 PM Signed Additional intake questions: Has the patient had fever, nausea, vomiting, diarrhea, constipation, fatigue for > 1 week? Yes, fatigue and Provider Notified Does the patient have a decreased appetite? No Does patient want to see a Hydraulic Boom Operator? No (yes to any of above refer patient to schedulers for dietitian appointment) ) Does patient have any new or increased numbness or tingling of extremities? No Is patient interested in fertility information? No Does patient need any prescription refills? No Does patient have an advanced directive in place? No, Patient referred to Resource Center Electronically Signed By: DHRUV Mcgovern Joel Nathan, MD 05/19/2025 1:36 PM Signed NEW PATIENT EVALUATION This consult was requested by Shashank Sheehan MD for an opinion regarding pancreatic cancer. My final recommendations will be communicated to the requesting health care provider by way of the shared medical record for internal providers or letter via the [employer] for external providers. HISTORY OF PRESENT ILLNESS: Lillian Bowden presents today for an opinion with regards to his recently discovered pancreatic cancer. He was in his usual state of health until he began to develop weight loss associated with diarrhea in addition he was noted to have progressive hyperglycemia at first that it was attributed to his metformin when his symptoms intensified he underwent a CT scan which revealed a pancreatic mass he denied any pain no fevers or chills he was referred here for an endoscopic ultrasound and biopsy. This was performed on May 12, 2025. Pancreatic head mass was seen there was evidence of dilation of the middle third of the bile duct in the upper third of the main bile duct measuring up to 10 mm of noticed his alkaline phosphatase was markedly elevated bilirubin was normal. His CA 19-9 is markedly elevated he comes today for an opinion with regards to his care He notes no shortness of breath cough his appetites been diminished he denies any chest pain HISTORIES FAMILY HISTORY Problem Relation Age of Onset Breast Cancer Mother Lung Cancer Father Breast Cancer Sister PAST MEDICAL HISTORY Diagnosis Date Arthritis Diabetes (HCC) Hypertension Legionnaire's disease (HCC) PAST SURGICAL HISTORY Procedure Laterality Date LAMINECTOMY,LUMBAR Social History Tobacco Use Smoking status: Former Types: Cigarettes Smokeless tobacco: Former Types: Chew Vaping Use Vaping status: Never Used Substance Use Topics Alcohol use: Not Currently Drug use: Never CURRENT MEDICATIONS Reviewed in EMR REVIEW OF SYSTEMS: Otherwise negative beyond that noted in the history of present illness times 10 systems. PHYSICAL EXAM: BP 120/79 Pulse 80 Temp 36.6 ?C (97.9 ?F) (Temporal) Resp 18 Ht 181.4 cm (5' 11.42) Wt 76.8 kg (169 lb 5 oz) SpO2 100% BMI 23.34 kg/m? ECOG PERFORMANCE STATUS: 0- Fully active, able to carry on all pre-disease performance w/o restriction. GENERAL no acute distress alert and oriented x3 HEENT oral mucous membranes moist no oral lesions or thrush HEART regular rate and rhythm S1-S2 normal LUNGS clear to auscultation bilaterally no rhonchi rales or wheezing ABDOMEN soft nontender nondistended with no palpable hepatosplenomegaly. Bowel sounds within normal limits. EXTREMITIES no clubbing cyanosis or edema MUSCULOSKELETAL exam with no point tenderness in the axial skeleton Cranial nerves intact 2 through 12 grossly 5 over 5 strength x4 extremities gait within normal limits SKIN no rashes or petechiae Imaging CT abdomen pelvis IMPRESSION: 2.1 cm pancreatic head lesion suspicious for adenocarcinoma with abutment of the SMV at the confluence. No other vascular involvement. Subcentimeter hepatic lesion indeterminate but may be characterized by contrast enhanced liver MR. Borderline enlarged peripancreatic lymph node. Mild, associated intra and extrahepatic biliary duct dilation Labs CA 19-9 960 Alkaline phosphatase 1463 AST 279 ALT 508 total protein 7.4 albumin 4.9 IMPRESSION/PLAN: Pancreatic carcinoma he appears to have a T3 lesion he is being seen currently by hepatobiliary surgery who thinks he may be resectable there is question of abutment of the SMV we will get a dedicated CT pancreas to assure that he is resectable upfront if not neoadjuvant FOLFIRINOX would be a reasonable approach he is fit and capable of receiving this I spoke in gr (more content not included)... [facility] [place] CNPNon 05-19-2025 CNPN Telephone ([facility]) -- LILLIAN BOWDEN ([id number]) 1970 M Date Time Provider Department 05/19/25 JUAN SAGASTUME During your visit today, we recorded the following information about you: Angela Castillo 05/19/2025 10:33 AM Signed Pt is calling because they live 1 1/2 hour away and can't make the appt for today that was added on. Can you please call pt to verify this appt date and time. Monserrat Anguiano RN 05/19/2025 10:40 AM Signed Updated patient that the appointment is at 1 pm in [facility] with Allergies As of Date: 05/19/2025 (No Known Allergies) Date Reviewed: 05/12/2025 Reviewed by: Ligia Anderson RN - Fully Assessed Reason for Visit: Appointment [186] Prescriptions as of 05/19/2025 - JARDIANCE 25 mg tablet Take 25 mg by mouth daily with breakfast. - CREON 36,000-114,000- 180,000 unit delayed release capsule Take 2 capsules by mouth three times a day with meals. - metFORMIN (GLUCOPHAGE) 500 mg tablet Take 500 mg by mouth daily with breakfast. Problem List As Of Date: 05/19/2025 (None) Encounter Status:Closed by MONSERRAT ANGUIANO on 05/19/25 [facility] [place] Comprehensive metabolic 2000 panelon 05-19-2025 Albumin [Mass/Vol] 4.5 g/dL 3.9 - 4.9 g/dL [facility] ALP [Catalytic activity/Vol] 1431 U/L High 38 - 113 U/L [facility] ALT [Catalytic activity/Vol] 327 U/L High 10 - 54 U/L [facility] Anion gap [Moles/Vol] 13 mmol/L 8 - 15 mmol/L [facility] AST [Catalytic activity/Vol] 151 U/L High 14 - 40 U/L [facility] Bilirubin [Mass/Vol] 0.7 mg/dL 0.2 - 1 .3 mg/dL [facility] Calcium [Mass/Vol] 10 mg/dL 8.5 - 10. 2 mg/dL [facility] Chloride [Moles/Vol] 100 mmol/L 98 - 10 7 mmol/L [facility] CO2 [Moles/Vol] 23 mmol/L 22 - 30 mmol/L [facility] Creatinine [Mass/Vol] 0.78 mg/dL 0.73 - 1.22 mg/dL [facility] GFR/1.73 sq M.predicted among non-blacks MDRD (S/P/Bld) [Vol rate/Area] 107 mL/min/{1.73_m2} - PINF [facility] Comment on above: Estimated Glomerular Filtration Rate (eGFR) is calculated using the 2020 CKD-EPI creatinine equation. This equation utilizes serum creatinine, sex, and age as parameters. The creatinine assay has traceable calibration to isotope dilution-mass spectrometry. Refer to KDIGO guidelines for clinical interpretation. In patients with unstable renal function, e.g. those with acute kidney injury, the eGFR may not accurately reflect actual GFR. Glucose [Mass/Vol] 328 mg/dL High 74 - 99 mg/dL [facility] Comment on above: The [place] Diab[employer] Association (ADA) provides guidance for cutoff values for fasting glucose and random glucose. The ADA defines fasting as no caloric intake for at least 8 hours. Fasting plasma glucose results between 100 to 125 mg/dL indicate increased risk for diabetes (prediabetes). Fasting plasma glucose results greater than or equal to 126 mg/dL meet the criteria for diagnosis of diabetes. In the absence of unequivocal hyperglycemia, results should be confirmed by repeat testing. In a patient with classic symptoms of hyperglycemia or hyperglycemic crisis, random plasma glucose results greater than or equal to 200 mg/dL meet the criteria for diagnosis of diabetes. Reference: Standards of Medical Care in Diabetes 2016, [place] [employer] Association. Diabetes Care. 2016.39(Suppl 1). Interpretation and review of laboratory results Abnormal [facility] Potassium [Moles/Vol] 4.3 mmol/L 3.7 - 5.1 mmol/L [facility] Protein [Mass/Vol] 7.5 g/dL 6.3 - 8.0 g/dL [facility] Sodium [Moles/Vol] 136 mmol/L 136 - 144 mmol/L [facility] Urea nitrogen [Mass/Vol] 16 mg/dL 9 - 24 mg/dL [facility] Albumin [Mass/Vol] 4.5 g/dL Normal 3.9-4.9 [facility] Comment on above: Order Comment: Speci men Type: BLOOD SPECIMENOrdering Facility: [facility] Address: [address] [place] [address] Performed By: #### 2 4323-8 ####[facility] [id number] [place] [address] [place] ALP [Catalytic activity/Vol] 1431 U/L High 38-113 [place] Comment on above: Order Comment: Speci men Type: BLOOD SPECIMENOrdering Facility: [facility] Address: [address] [place] [address] Performed By: #### 2 4323-8 ####[facility] [id number] [place] [address] [place] ALT [Catalytic activity/Vol] 327 U/L High 10-54 [place] Comment on above: Order Comment: Speci men Type: BLOOD SPECIMENOrdering Facility: [facility] Address: [address] [place] [address] Performed By: #### 2 4323-8 ####[facility] [id number] [place] [address] [place] Anion gap [Moles/Vol] 13 mmol/L Normal 8-15 [facility] Comment on above: Order Comment: Speci men Type: BLOOD SPECIMENOrdering Facility: [facility] Address: [address] [place] [address] Performed By: #### 2 4323-8 ####[facility] [id number] [place] [address] [place] AST [Catalytic activity/Vol] 151 U/L High 14-40 [place] Comment on above: Order Comment: Speci men Type: BLOOD SPECIMENOrdering Facility: [facility] Address: [address] [place] [address] Performed By: #### 2 4323-8 ####[facility] [id number] [place] [address] [place] Bilirubin [Mass/Vol] 0.7 mg/dL Normal 0.2-1.3 [facility] Comment on above: Order Comment: Speci men Type: BLOOD SPECIMENOrdering Facility: [facility] Address: [address] [place] [address] Performed By: #### 2 4323-8 ####[facility] [id number] [place] [address] [place] Calcium [Mass/Vol] 10.0 mg/dL Normal 8.5-10.2 [facility] Comment on above: Order Comment: Speci men Type: BLOOD SPECIMENOrdering Facility: [facility] Address: [address] [place] [address] Performed By: #### 2 4323-8 ####[facility] [id number] [place] [address] [place] Chloride [Moles/Vol] 100 mmol/L Normal 98-107 [facility] Comment on above: Order Comment: Speci men Type: BLOOD SPECIMENOrdering Facility: [facility] Address: [address] [place] [address] Performed By: #### 2 4323-8 ####[facility] [id number] [place] [address] [place] CO2 [Moles/Vol] 23 mmol/L Normal 22-30 [place] Comment on above: Order Comment: Speci men Type: BLOOD SPECIMENOrdering Facility: [facility] Address: [address] [place] [address] Performed By: #### 2 4323-8 ####[facility] [id number] [place] [address] [place] Creatinine [Mass/Vol] 0.78 mg/dL Normal 0.73-1.22 [facility] Comment on above: Order Comment: Speci men Type: BLOOD SPECIMENOrdering Facility: [facility] Address: [address] [place] [address] Performed By: #### 2 4323-8 ####[facility] [id number] [place] [address] [place] Creatinine and Glomerular filtration rate.predicted panel (S/P/Bld) 107 mL/min/1.73m??? Normal >=60 [place] Comment on above: Order Comment: Olman reid Type: BLOOD SPECIMENOrdering Facility: [facility] Address: [address] [place] [address] Result Comment: Basilia mated Glomerular Filtration Rate (eGFR) is calculated using the 2020 CKD-EPI creatinine equation. This equation utilizes serum creatinine, sex, and age as parameters. The creatinine assay has traceable calibration to isotope dilution-mass spectrometry. Refer to KDIGO guidelines for clinical interpretation. In patients with unstable renal function, e.g. those with acute kidney injury, the eGFR may not accurately reflect actual GFR. Performed By: #### 2 4323-8 ####[facility] [id number] [place] [address] [place] Glucose [Mass/Vol] 328 mg/dL High 74-99 [facility] Comment on above: Order Comment: Speci men Type: BLOOD SPECIMENOrdering Facility: [facility] Address: [address] [place] [address] Result Comment: The [place] Diabetes Association (ADA) provides guidance for cutoff values for fasting glucose and random glucose. The ADA defines fasting as no caloric intake for at least 8 hours. Fasting plasma glucose results between 100 to 125 mg/dL indicate increased risk for diabetes (prediabetes). Fasting plasma glucose results greater than or equal to 126 mg/dL meet the criteria for diagnosis of diabetes. In the absence of unequivocal hyperglycemia, results should be confirmed by repeat testing. In a patient with classic symptoms of hyperglycemia or hyperglycemic crisis, random plasma glucose results greater than or equal to 200 mg/dL meet the criteria for diagnosis of diabetes. Reference: Standards of Medical Care in Diabetes 2016, [place] [employer]. Diabetes Care. 2016.39(Suppl 1). Performed By: #### 2 4323-8 ####[facility] [id number] [place] [address] [place] Potassium [Moles/Vol] 4.3 mmol/L Normal 3.7-5.1 [facility] Comment on above: Order Comment: Speci men Type: BLOOD SPECIMENOrdering Facility: [facility] Address: [address] [place] [address] Performed By: #### 2 4323-8 ####[facility] [id number] [place] [address] [place] Protein [Mass/Vol] 7.5 g/dL Normal 6.3-8.0 [facility] Comment on above: Order Comment: Speci men Type: BLOOD SPECIMENOrdering Facility: [facility] Address: [address] [place] [address] Performed By: #### 2 4323-8 ####[facility] [id number] [place] [address] [place] Sodium [Moles/Vol] 136 mmol/L Normal 136-144 [facility] Comment on above: Order Comment: Speci men Type: BLOOD SPECIMENOrdering Facility: [facility] Address: [address] [place] [address] Performed By: #### 2 4323-8 ####[facility] [id number] [place] [address] [place] Urea nitrogen [Mass/Vol] 16 mg/dL Normal 9-24 [place] Comment on above: Order Comment: Speci men Type: BLOOD SPECIMENOrdering Facility: [facility] Address: [address] [place] [address] Performed By: #### 2 4323-8 ####[facility] [id number] [facility] [place] [address] [place] DPYD/UGT1A1 GENOTYPING PANEL on 05-19-2025 DPYD/UGT1A1 GENOTYPING PANEL RESULT [facility] [place] Comment on above: Order Comment: Speci men Type: BLOOD SPECIMENOrdering Facility: [facility] Address: [address] [place] [address] Result Comment: [facility] ZupCat (PGx) DPYD and UGT1A1 Genotyping Laboratory Accession Number: [id number] DPYD Genotype: *1/*1 DPYD Activity Score: 2 DPYD Predicted Phenotype: DPYD Normal Metabolizer UGT1A1 Genotype: *1/*1 UGT1A1 Predicted Phenotype: UGT1A1 Normal Metabolizer Interpretation: Two normal function alleles were observed in the DPYD gene (see variant details below) resulting in an activity score of 2. This activity score is associated with a DPYD normal metabolizer phenotype. DPYD normal metabolizers are not expected to require (based on pharmacogenomic results alone) selective adjustment of the dose of medications metabolized by DPD. Please consult a clinical pharmacist for more information regarding drug therapy. Questions regarding molecular testing details should be directed to . Two normal function UGT1A1 alleles or one normal function allele and one increased function UGT1A1 allele or two increased function UTG1A1 alleles were observed in this sample (see variant details below). This is associated with a UGT1A1 normal metabolizer phenotype. UGT1A1 normal metabolizers are not expected to require (based on pharmacogenomic results alone) selective adjustment of the dose of medications metabolized by UGT. Please consult a clinical pharmacist for more information regarding drug therapy. Questions regarding molecular testing details should be directed to . The DPYD gene encodes dihydropyrimidine dehydrogenase (DPD). This enzyme is involved in the metabolism of fluoropyrimidines. The UGT1A1 gene encodes UDP-glucuronosyltransferase (UGT). UGT is involved in the metabolism of certain medications including ones used in oncology. For clinical correlation, drug-specific guidelines are available to provide phenotype assignment and therapeutic recommendations based on phenotype. Patients who carry genetic variants associated with altered metabolism may be at risk for an adverse or poor response to drugs that are predominantly metabolized by the associated enzyme (DPD or UGT). For patients with altered DPD and/or UGT activity, alternative pharmacological agents or dosing adjustments may be needed for medications metabolized by this enzyme to avoid an unexpected or adverse response. Please note that this DPYD genotyping test includes variants that may not have been assayed in a previous test performed elsewhere. If there is discordance of phenotype results between laboratories, it is likely a function of the different variants assayed in each test. The methodology section of the report (see below) lists the variants interrogated by this test. DPYD Additional Information: In addition to increased risk of 5-fluorouracil toxicity, variants in the DPYD gene may be associated with DPD deficiency, an autosomal recessive inborn error of metabolism (OMIM: 277485). DPD deficiency exhibits a wide range of phenotypic variability, from no symptoms to a very rare severe neurological disorder with onset in infancy or childhood (prevalence unknown). For the vast majority of affected individuals, the first and only symptom is sensitivity to 5-fluorouracil and capecitabine. It is possible that individuals with DPD deficiency may be identified by the presence of two no-function DPYD variants (activity score = 0). However, this test is designed as a pharmacogenomic test and is not intended as a diagnostic or carrier test for DPD deficiency. A formal genetics consultation is recommended for those with concerns regarding DPD deficiency. Limitations: DNA studies do not provide a definitive genetic or pharmacogenomic risk in all individuals. This test is designed to detect a specific set of variants (see list below) in the DPYD gene (OMIM 043223) and UGT1A1 gene (OMIM 050200). This test does not detect all sequence variants in either gene. Uncommon variants or single nucleotide polymorphisms may affect binding of primers and probes and may result in false negative, false positive, or indeterminate results. The absence of abnormal variants as analyzed in this test is interpreted as the presence of *1/*1 (wild type/normal) genotype. The phenotype provided in the interpretation may be impacted by undetected genetic and/or non-genetic factors such as drug-drug interactions. Methodology: Purified genomic DNA was subjected to polymerase chain reaction-based amplification. The DPYD (NM_000110.3) and UGT1A1 (NM_000463.3) genes were interrogated for known, clinically relevant variants. Primer extension products were analyzed using matrix-assisted laser desorption/ionization massspectrometry, and specific genotypes assigned were then translated to the appropriate star (*) allele (DPYD and UGT1A1) and activity score (DPYD), see lists below. The reference genome used is GRCh38/hg38. UGT1A1 star alleles: *1, *6, *27 (more content not included)... Performed By: #### D UP1 ####[facility] [id number] [address] [place] HISTORY PHYSICALon HISTORY PHYSICAL HNO ID: [id number] Author: JUAN SAGASTUME MD Service: ? Author Type: Physician Type: H&P Filed: 05/19/2025 14:45 Note Text: INITIAL PANCREATIC CANCER PATIENT NAME: Lillian Bowden DATE of SERVICE: 05/19/2025 TIME of SERVICE: 1:09 PM PCP: Shashank Sheehan MD This consult was requested by Self for evaluation of pancreatic cyst(s) My final recommendations will be communicated to the requesting health care provider by way of the shared medical record or [place] postal services. HPI: Mr. Bowden is a 54 year old male who presents for PDAC. Incidental- No Diabetes Mellitus-Yes Dg reports that his elevated A1c levels led to an increase in metformin dosage from 500 mg to 1500 mg by his previous PCP. Following this adjustment, he began experiencing diarrhea around [facility], preceded by changes in stool color to bit bender shades, including yellow and [place]ina. His new PCP reduced the metformin dosage back to 500 mg and added glimepiride 1 mg to his morning regimen, which already included Jardiance 25 mg. Despite these changes, Dg continued to experience diarrhea and significant weight loss, approximately 70 lbs, decreasing from 230 lbs to 164 lbs. He was referred to a motors assembler, who diagnosed him with exocrine pancreatic insufficiency and prescribed Creon, which has stabilized his weight between 165-170 lbs and improved his bowel movements. Subsequent CT and ultrasound imaging revealed a nodule in the head of the pancreas. An EUS with biopsies was performed, and Dg was informed that cancerous cells were found. He denies abdominal pain, nausea, emesis, fevers, or jaundice, and reports a good appetite. He has a history of psoriatic arthritis, which has improved since he stopped drinking alcohol in October. He also has a history of back surgery 2 years ago for a ruptured disc. He denies a history of pancreatitis. Dg has a significant family history of cancer, with both parents having from cancer (father from lung cancer and mother from breast cancer). His sister was diagnosed with breast cancer at age 33 and underwent a mastectomy. His other sister has no history of cancer but suffered an aortic dissection last year. He is unaware of any BRCA gene mutations in his family. Dg has a history of smoking, having quit in 2016 after being diagnosed with Legionnaire's disease. He also quit drinking alcohol in October, having previously consumed 6 beers per night. He reports that his blood pressure has improved since he stopped drinking, and he has not taken his antihypertensive medication for about 3 weeks. WORKUP: CT Yes 2024 mass size 21 x 19 mm location head vessel involvement yes Arterial: SMA: No contact Celiac: No contact FARA:No contact Splenic artery: No Contact Venous: MPV: None SMV: Soft Tissue Contact with focal vessel narrowing Splenic Vein: No Contact Venous collaterals present: No Contiguous Organ Involvement: No Lymph node No Liver Lesions: No Location n/a Metastases No ascites No venous thrombosis No Pathology/Cytology: pancreas adenocarcinoma PAST MEDICAL HISTORY PAST MEDICAL HISTORY Diagnosis Date Arthritis Diabetes (HCC) Hypertension Legionnaire's disease (HCC) PAST SURGICAL HISTORY PAST SURGICAL HISTORY Procedure Laterality Date LAMINECTOMY,LUMBAR FAMILY HISTORY FAMILY HISTORY Problem Relation Age of Onset Breast Cancer Mother Lung Cancer Father Breast Cancer Sister Pancreatic Cancer- No Colon Cancer- No Breast Cancer- Yes Pancreatitis- No SOCIAL HISTORY Social History Tobacco Use Smoking status: Former Types: Cigarettes Smokeless tobacco: Former Types: Chew Vaping Use Vaping status: Never Used Substance Use Topics Alcohol use: Not Currently Drug use: Never REVIEW OF SYSTEMS GENERAL: Unintentional weight loss RESPIRATORY: Negative for cough, hemoptysis, wheezing, COPD, dyspnea or shortness of breath CARDIOVASCULAR: Negative for chest pain, leg swelling, hypertension, CHF or palpitations GI: No nausea, vomiting, or diarrhea PHYSICAL EXAM: General Appearance: NAD. Skin: No jaundice. Lungs: Non-labored breathing. Abdomen: S, NT, ND. Neurologic: Answering questions appropriately. LABS No results found for: CEA CA19-9 (U/mL) Date Value 05/06/2025 960.0 No results found for: AMYLASE Lipase (U/L) Date Value 05/06/2025 31 No results found for: PREALB No results found for: CRP No results found for: TRANSF No results found for: BILIT ALT (U/L) Date Value 05/06/2025 508 AST (U/L) Date Value 05/06/2025 279 No components found for: LB Alkaline Phosphatase (U/L) Date Value 05/06/2025 1,463 No results found for: HBA1C PANCREATIC POLYPEPTIDE: Not Done GASTRIN: Not Done IGG4 Not Done Assessment ASSESSMENT: 54 year old male presents with Pancreatic adenocarcinoma . T: 2 N: 0 M: 0 (more content not included)... [facility] [place] CNPNon 05-16-2025 CNPN Telephone (GASTPR) -- LILLIAN BOWDEN ([id number]) 1970 M Date Time Provider Department 05/16/25 PASTOR JADE [facility] During your visit today, we recorded the following information about you: Pastor Jade MD 05/16/2025 6:54 PM Signed Spoke to pt re: FNB results. Will arrange scheduling via cancer answer. Pastor Jade II, MD Allergies As of Date: 05/16/2025 (No Known Allergies) Date Reviewed: 05/12/2025 Reviewed by: Ligia Anderson, MICHEL - Fully Assessed Prescriptions as of 05/16/2025 - JARDIANCE 25 mg tablet Take 25 mg by mouth daily with breakfast. - CREON 36,000-114,000- 180,000 unit delayed release capsule Take 2 capsules by mouth three times a day with meals. - metFORMIN (GLUCOPHAGE) 500 mg tablet Take 500 mg by mouth daily with breakfast. Problem List As Of Date: 05/16/2025 (None) Encounter Status:Closed by PASTOR JADE on 05/16/25 [facility] [place] ANES POSTPROC EVALon 025 ANES POSTPROC EVAL HNO ID: [id number] Author: Luis Manuel ROCK MD Service: ? Author Type: Anesthesiologist Type: Anesthesia Postprocedure Evaluation Filed: 05/12/2025 15:23 Note Text: POST ANESTHESIA EVALUATION NOTE : 1970 Procedure Summary Date: 05/12/25 Room / Location: Gastroenterology Anesthesia Start: 1358 Anesthesia Stop: 1440 Procedure: EGD - THERAPEUTIC, EUS, OR TUBE INTERVENTIONS Diagnosis: Pancreatic lesion (HCC) Weight loss Common bile duct dilation Dilation of pancreatic duct (HCC) (Suspected mass in pancreas on CT scan) Scheduled Providers: Pastor Jade MD; Luis Manuel Rock MD; Stephanie Tang APRN.ADOBE BALL MIXER Responsible Provider: Luis Manuel Rock MD Anesthesia Type: general ASA Status: 3 Anesthesia Type: general Airway Type: anesthesia mask Last Vitals Vitals Value Taken Time BP 107/75 05/12/25 1510 Temp 36 05/12/25 1522 Pulse 81 05/12/25 1513 Resp 18 05/12/25 1522 SpO2 100 % 05/12/25 1515 Vitals shown include unfiled device data. Post Anesthesia Patient Status Patient Evaluation: bedside. Neurological Status: aware and responsive. Pulmonary Status: breathing comfortably on supplemental oxygen Airway Control: returned to baseline unsupported. Cardiovascular Status: stable. Pain Management: clinically adequate Postoperative Hydration: acceptable. Intraoperative Events: no significant anesthesia events Post Operative Nausea/Vomiting Status: no significant post operative nausea or vomiting Recommendation: continue current plan of care. Anesthesia Observations No Documentation SIGNATURE: Luis Manuel Rock MD PATIENT NAME: Lillian Bowden DATE: May 12, 2025 TIME: 3:22 PM CSN: [id number] [facility] [place] ANES PRE-OPon 05-12-2025 ANES PRE-OP HNO ID: [id number] Author: Luis Manuel ROCK MD Service: ? Author Type: Anesthesiologist Type: Anesthesia Preprocedure Evaluation Filed: 05/12/2025 11:17 Note Text: ANESTHESIOLOGY DAY OF SURGERY NOTE : 1970 Procedure Information Date/Time: 05/12/25 1300 Scheduled providers: Pastor Jade MD; Luis Manuel Rock MD; Stephanie Tang APRN.ADOBE BALL MIXER Procedure: EGD - THERAPEUTIC, EUS, OR TUBE INTERVENTIONS Location: Gastroenterology There is no height or weight on file to calculate BMI. Most recent hematocrit and potassium results: No results found for this basename: HCT,HEMATOCRIT,K,POTASSIUM Relevant Problems No relevant active problems I - PHYSICAL EVALUATION AIRWAY Patient intubated: No. Tracheostomy tube not present Mallampati: III. TM distance: >3 FB. Neck ROM: full ROM without neurological symptoms. Mouth opening: adequate. Short neck: no. Thick neck: no II - ANESTHESIA PLAN ASA Score: 3 Anesthetic Plan: general Airway type: anesthesia mask NPO Status: adequate Beta Alan Monitoring Plan Monitoring plan: standard ASA. Post Procedure Analgesic Plan Postoperative analgesic plan: multimodal analgesia. Informed Consent Anesthetic risks, benefits, alternatives, personnel and consent discussed: yes. Patient / Responsible Republican agrees to proceed: yes Patient / Surrogate agrees to blood products: Yes Significant changes in the patient condition since the History and Physical, not otherwise documented in primary service progress note: no. Potential Anesthesia issues that may suggest increased risk of complications or contraindication to planned procedure: none. No vitals data found for the desired time range. Outpatient Medications as of 05/12/2025 Medication Sig JARDIANCE 25 mg tablet Take 25 mg by mouth daily with breakfast. CREON 36,000-114,000- 180,000 unit delayed release capsule Take 2 capsules by mouth three times a day with meals. metFORMIN (GLUCOPHAGE) 500 mg tablet Take 500 mg by mouth daily with breakfast. No current facility-administered medications on file as of 05/12/2025. I have interviewed and examined the patient. I have reviewed the medical record and/or the pre-anesthesia evaluation, pertinent labs, and test results. This contains updated information obtained within 48 hours of Surgery/Procedure. SIGNATURE: Luis Manuel Rock MD PATIENT NAME: Lillian Bowden DATE: May 12, 2025 TIME: 11:17 AM CSN: [id number] [facility] [place] EGD Study observation Narrat iveon 05-12-2025 [facility] Radiology Study observation (narrative) [facility] GLUCOSE, BLOOD (POC)on 05-12 Glucose [Mass/Vol] 125 mg/dL Abnormal 74 - 99 mg/dL [facility] Comment on above: Location:[facility] yosef, [address] [place] [address], [facility] The Accu-Chek Inform II glucose meter has not been approved for testing on patients receiving intensive medical intervention or therapy and results from this point of care glucose test should not be used for patient management decisions in these cases. Inaccurate results may also occur from other interfering factors, such as N-acetylcysteine (blood concentrations of greater than 5mg/dL), galactose, extremes of hematocrit (<10 or >65), or high doses of ascorbic acid (vitamin C) greater than 3mg/dL. Consider alternate testing mechanisms (e.g. core lab, blood gas instrument) in the above situations. Interpretation and review of laboratory results Abnormal [facility] HISTORY PHYSICALon HISTORY PHYSICAL HNO ID: [id number] Author: PASTOR JADE MD Service: Gastroenterology Author Type: Physician Type: H&P Filed: 05/12/2025 11:53 Note Text: HISTORY AND PHYSICAL Lillian Bowden, 54 year old male Current history and physical on file: No Is a new History and Physical required for today's visit? Yes Indication for procedure: Other pancreatic mass PROCEDURE(S) SCHEDULED FOR: EGD (Esophagogastroduodenoscop y) with or without biopsies, removal of polyps or lesions, dilation ( any means), treatment of bleeding ( any means), Barrx treatment of Stanford's Esophagus, image tube placement or cryo therapy treatment based on clinical findings. and EUS/FNA (Endoscopic Ultrasound with or without Fine Needle Aspiration), based on clinical findings. BASELINE BEHAVIOR: Calm BASELINE ORIENTATION: A AND O x3 All medications and allergies reviewed: Yes Skin Assessment: Warm dry mucus membranes pink Airway/Respiratory Assessment: Airway: visualization of the uvula- Yes Mouth: opening greater than 2 fingerbreadths- Yes Neck: full range of motion- Yes Breath sounds clear/equal- Yes Cardiac Assessment: Regular rate and rhythm without murmur Abdominal Assessment: Abdomen soft, non-tender, no masses or organomegaly. Sedation Plan: MAC Additional Comments: None Pastor Jade II, MD [facility] [place] NURSING PROGon 05-12-2025 NURSING PROG HNO ID: [id number] Author: LIGIA ANDERSON RN Service: ? Author Type: Registered Nurse Type: Nursing Progress Note Filed: 05/12/2025 15:24 Note Text: AMBULATORY PATIENT EDUCATION NOTE TOPIC: GI PROCEDURES: Esophagogastroduodenoscopy (EGD) with or without biopies based on clinical findings, removal of polyps or lesions READINESS TO LEARN INSTRUCTION PROVIDED TO: Patient, readness to learn accessed prior to procedure and Patient and family member COGNITIVE ABILITY: Alert and oriented PTED MOTIVATION TO LEARN: Eager Interested FAMILY SUPPORT: High - Very involved in pt care IPATIENT LEARNS BEST BY: Individual Instruction Verbal Instruction FACTORS AFFECTING LEARNING: None PHYSICAL LIMITATIONS AFFECTING LEARNING: None LEARNING RESPONSE METHOD OF INSTRUCTION: Individual instruction PATIENT / FAMILY RESPONSE: Verbalizes understanding of: WORSENING CONDITION-Signs and symptoms of a worsening condition that warrant a call to the physician FOLLOW-UP PLAN: Patient instructed to call with any further issues Recommend - Recommend continued instruction and follow up as directed Contact information given. SUPPLEMENTAL MATERIAL: Procedure Discharge Instructions REFERRAL (RECOMMENDATION): None Electronically Signed By: Ligia Anderson RN [facility] NURSING PROG HNO ID: [id number] Author: MARIA LUZ WILLINGHAM RN Service: ? Author Type: Registered Nurse Type: Nursing Progress Note Filed: 05/12/2025 11:13 Note Text: PRE OP LEARNING ASSESSMENT PROCEDURE/SURGERY: GI PROCEDURES: EGD and ESU READINESS TO LEARN COGNITIVE ABILITY: Alert and oriented MOTIVATION TO LEARN: Eager FAMILY SUPPORT: Moderate - Family present but overwhelmed PATIENT LEARNS BEST BY: Individual Instruction FACTORS AFFECTING LEARNING: None PHYSICAL LIMITATIONS AFFECTING LEARNING: None Electronically Signed By: Maria Luz Tan RN In Department: GASTROENTEROLOGY [facility] [place] Pathology biopsy report Felix (Tiss)on 05-12-2025 ADDENDUM 1: [facility] [place] Comment on above: Order Comment: Speci men Type: TISSUE SPECIMENOrdering Facility: [facility] Address: [address] [place] [address] Result Comment: Slid es from this case were reviewed with my colleague Dr. Scotty Hunter who agrees with the diagnosis. Addendum electronically signed by Chirag Burger MD on 05/31/2025 at 1650 EDT Performed By: #### 6 6121-5 ####[facility] [id number] [place] [address] [place] AP DISCLAIMER [facility] [place] Comment on above: Order Comment: Speci men Type: TISSUE SPECIMENOrdering Facility: [facility] Address: [address] [place] [address] Result Comment: Bobo leigh Developed Test (LDT) Disclaimer: Performance characteristics of immunohistochemical, immunofluorescent, and chromogenic in-situ hybridization tests have been determined by the performing laboratory within [facility]'s [facility] Pathology and Laboratory Medicine Department ([facility], [facility] [place], [facility], [facility], [facility], [facility], or [facility]) in a manner consistent with CLIA requirements. One or more of these tests may not have been cleared or approved by the FDA. [facility] is regulated under CLIA as qualified to perform high-complexity testing. These tests are used for clinical purposes. These should not be regarded as investigational or for research. Positive and negative controls stain appropriately. Performed By: #### 6 6121-5 ####[facility] [id number] [place] [address] [place] CASE REPORT [facility] [place] Comment on above: Order Comment: Speci men Type: TISSUE SPECIMENOrdering Facility: [facility] Address: [address] [place] [address] Result Comment: Surg [facility] Pathology Report Case: [id number] Authorizing Provider: Pastor Jade MD Collected: 05/12/2025 02:34 PM Ordering Location: Gastroenterology Received: 05/12/2025 06:12 PM Pathologist: Chirag Burger MD Specimen: Pancreas, Biopsy, head mass-r/o CA Performed By: #### 6 6121-5 ####[facility] [id number] [address] [address] [place] FINAL DIAGNOSIS [facility] [place] Comment on above: Order Comment: Speci men Type: TISSUE SPECIMENOrdering Facility: [facility] Address: [address] [place] [address] Result Comment: Katelyn randall, head, mass, biopsy: -Adenocarcinoma. at 1026 EDT Performed By: #### 6 6121-5 ####[facility] [id number] [place] [address] [place] FINAL PERFORMING LAB Normal [facility] Comment on above: Order Comment: Speci men Type: TISSUE SPECIMENOrdering Facility: [facility] Address: [address] [place] [address] Result Comment: Diag nostic interpretation performed at: [facility], [address] [place] [address], [facility] [place] [address] CLIA# [id number] Watch Parts Inspector: Bennett Macias MD Performed By: #### 6 6121-5 ####[facility] [id number] [address] [place] GROSS DESCRIPTION Normal [facility] Comment on above: Order Comment: Speci men Type: TISSUE SPECIMENOrdering Facility: [facility] Address: [address] [place] [address] Result Comment: Katelyn randall, Biopsy Received in formalin are multiple segments of cylindrical tissue aggregating to 1.5 x 0.1 x 0.1 cm, portillo-brown and of a soft and friable consistency. Totally submitted in one cassette. DL May 12, 2025 10:21 PM Gross examination performed at [facility], [address] [place] [address] Performed By: #### 6 6121-5 ####[facility] [id number] [place] [address] [place] Microalb:Creat Ratio,Random URon 05-10-2025 MALB:CREAT 35.3 mg/g CRE Normal [facility] Comment on above: Result Comment: AMENDED REPORT 05/10/25 1014 MALB:CREAT previously reported as: 353.1 mg/g CRE Performed By: #### L 500.4100, L500.4050, L502.0250, L501.9985 #### [facility] [address] [place], [address] Cancer Ag19-9 SerPl-aCncon 0 05-06-2025 Cancer Ag 19-9 Qn 960.0 [arb'U]/mL High <36.0 C [facility] Comment on above: Order Comment: Speci men Type: BLOOD SPECIMENOrdering Facility: [facility] Address: [address] [place] [address] Result Comment: [facility] er antigen 19-9 test is used as an aid in monitoring response to treatment or recurrence in patients with established pancreatic, hepatobiliary, or gastrointestinal malignancies. Clinical correlation is required. The CA 19-9 Antigen test was performed using the [employer] Un[employer]el DXI paramagnetic particle chemiluminescent immunoassay method. Results obtained with different assay methods or kits cannot be used interchangeably. Performed By: #### 2 4108-3 ####[facility] [id number] [place] [address] [place] Hepatic function 2000 panelO rdered By: Monserrat Fitzpatrick on 05-06-2025 Albumin [Mass/Vol] 4.9 g/dL 3.9 - 4.9 g/dL [facility] ALP [Catalytic activity/Vol] 1463 U/L High 38 - 113 U/L [facility] ALT [Catalytic activity/Vol] 508 U/L High 10 - 54 U/L [facility] AST [Catalytic activity/Vol] 279 U/L High 14 - 40 U/L [facility] Bilirubin [Mass/Vol] 0.8 mg/dL 0.2 - 1 .3 mg/dL [facility] Bilirubin.conjugated [Mass/Vol] 0.4 mg/dL High NINF - 0.3 mg/dL [facility] Interpretation and review of laboratory results Abnormal [facility] Protein [Mass/Vol] 7.4 g/dL 6.3 - 8.0 g/dL [facility] Hepatic function 2000 panelo n 05-06-2025 Albumin [Mass/Vol] 4.9 g/dL Normal 3.9-4.9 [facility] Comment on above: Order Comment: Speci men Type: BLOOD SPECIMENOrdering Facility: [facility] Address: [address] [place] [address] Performed By: #### 2 4325-3 ####[facility] [id number] [place] [address] [place] ALP [Catalytic activity/Vol] 1463 U/L High 38-113 [place] Comment on above: Order Comment: Speci men Type: BLOOD SPECIMENOrdering Facility: [facility] Address: [address] [place] [address] Performed By: #### 2 4325-3 ####[facility] [id number] [place] [address] [place] ALT [Catalytic activity/Vol] 508 U/L High 10-54 [place] Comment on above: Order Comment: Speci men Type: BLOOD SPECIMENOrdering Facility: [facility] Address: [address] [place] [address] Performed By: #### 2 4325-3 ####[facility] [id number] [place] [address] [place] AST [Catalytic activity/Vol] 279 U/L High 14-40 [place] Comment on above: Order Comment: Speci men Type: BLOOD SPECIMENOrdering Facility: [facility] Address: [address] [place] [address] Performed By: #### 2 4325-3 ####[facility] [id number] [place] [address] [place] Bilirubin [Mass/Vol] 0.8 mg/dL Normal 0.2-1.3 [facility] Comment on above: Order Comment: Speci men Type: BLOOD SPECIMENOrdering Facility: [facility] Address: [address] [place] [address] Performed By: #### 2 4325-3 ####[facility] [id number] [place] [address] [place] Bilirubin.conjugated [Mass/Vol] 0.4 mg/dL High <0.3 [place] Comment on above: Order Comment: Speci men Type: BLOOD SPECIMENOrdering Facility: [facility] Address: [address] [place] [address] Performed By: #### 2 4325-3 ####[facility] [id number] [place] [address] [place] Protein [Mass/Vol] 7.4 g/dL Normal 6.3-8.0 [facility] Comment on above: Order Comment: Speci men Type: BLOOD SPECIMENOrdering Facility: [facility] Address: [address] [place] [address] Performed By: #### 2 4325-3 ####[facility] [id number] [place] [address] [place] Lipase SerPl-cCncon 05-06-20 25 Lipase [Catalytic activity/Vol] 31 U/L Normal 16-61 [place] Comment on above: Order Comment: Speci men Type: BLOOD SPECIMENOrdering Facility: [facility] Address: [address] [place] [address] Performed By: #### 3 040-3 ####[facility] [id number] [place] [address] [place] Gallbladderon 04-29-[address] [facility] Imaging Services [address] [id number] Gallbladder MR#: [id number] Acct: [id number] Name: EZEQUIELLILLIAN Rep #: [id number] : 1970 M 54 From: [place] PCP: Dr. Shashank Sheehan MD Status: REG CLI Study: Gallbladder Date of Exam: 04/29/25 Exam# [id number] Ordering Dr: Shashank Sheehan MD PROCEDURE: GALLBLADDER 04/29/2025 REASON FOR EXAM: ELEVATED LI ENZ COMPARISON: CT examination of 04/28/2025 FINDINGS: Liver: Mildly enlarged at 18.2 cm in length. Diffusely echogenic hepatic parenchyma is noted, without focal abnormality seen. No intrahepatic biliary ductal dilation is seen. Hepatopetal flow of the portal vein is noted. Gallbladder: Distended gallbladder again seen, currently measured at 11.4 cm in length. No gallstones, wall thickening, or pericholecystic fluid collection is noted. Sludge is seen within the gallbladder lumen. No sonographic Portillo's sign was elicited. Common bile duct: Distended, measured at 10 mm in diameter. Pancreas: Mostly obscured by overlying bowel gas. A 4.3 x 2.8 x 2.6 cm hypoechoic area in the anterior head of the pancreas is noted; cannot exclude the presence of a neoplastic process. The pancreatic duct is not as well visualized is as on the CT of 04/28/2025. Other: The right kidney is unremarkable in appearance, measured at 11.9 x 4.8 x 4.7 cm. Cortical thickness is normal at 15 mm. No evidence of hydronephrosis. No calculus is sonographically evident. US/Gallbladder IMPRESSION: 1. Hypoechoic structure in the anterior head of the pancreas is seen, and cannot exclude the presence of a neoplastic process. 2. Dilated common duct again noted. 3. Gallbladder sludge and gallbladder enlargement again noted, but no acute findings are otherwise noted. 4. No free fluid is seen. 5. Diffuse fatty infiltration of the liver again noted. Reading Location: [address] CC: Dr. Shashank Sheehan MD Algorithm Developer: Signed Normal [facility] Abdomen WITH IV Contraston 0 04-28-2025 Abdomen WITH IV Contrast [facility] [address] [place] [id number] Abdomen WITH IV Contrast MR#: [id number] Acct: [id number] Name: LILLIAN BOWDEN Rep #: [id number] : 1970 M 54 From: Tima kapadia MD PCP: Dr. Shashank Sheehan MD Status: REG CLI Study: Abdomen WITH IV Contrast Date of Exam: 5 Exam# [id number] Ordering Dr: Shashank Sheehan MD PROCEDURE: ABDOMEN WITH IV CONTRAST 04/28/2025 REASON FOR EXAM: STAT FOR ELEVATED LIVER ENZYMES TECHNIQUE: Abdomen CT with intravenous contrast. Multiplanar and multisequence images were obtained. One or more dose reduction techniques were used (e.g., Automated exposure control, adjustment of the mA and/or kV according to patient size, use of iterative reconstruction technique. PATIENT PREPARATION: Per protocol ORAL CONTRAST TYPE: None. CONTRAST: Isovue-300 VOLUME: 100 mL RADIATION DOSE SUMMARY: CTDlvol: 14 mGy DLP: 494 mGycm COMPARISON: Prior study dated December 15, 2022. FINDINGS: Lung bases: Lungs are clear. Liver: Diffuse fatty infiltration. Minimal degree of central intrahepatic biliary ductal dilatation. Gallbladder: Mild distention of the gallbladder. The common bile duct measures 9.6 mm. This is dilated. Spleen: Normal size. Pancreas: Dilatation of the pancreatic duct. Questionable 2 cm hypodense nodule in the head of the pancreas. Correlation with MRCP or ERCP recommended. Adrenals: Unremarkable Kidneys: Normal renal sizes. No hydronephrosis. Bowel: Unremarkable Lymph nodes: Unremarkable. Vasculature: Mild atherosclerotic plaque formation of the abdominal aorta. CT/Abdomen WITH IV Contrast IMPRESSION: Fatty infiltration of the liver. Mild dilatation of the intrahepatic biliary ducts as well as the common bile duct. Mild distention of the gallbladder. Dilated pancreatic duct with suggestion of possible 2 cm hypodense nodule in the head of the pancreas. Correlation with the MRCP or conventional ERCP recommended. OVERALL FINAL ASSESSMENT: . LI-RADS is not meant to be used in patients <18 years or patients with cirrhosis due to congenital hepatic fibrosis or due to vascular disorders, because these patients have a lower chance of developing HCC. Reading Location: [facility] CC: Dr. Shashank Sheehan MD Algorithm Developer: Signed Normal [facility] Hepatitis Panel Acuteon - COMMENT Comment Normal . [facility] Comment on above: Result Comment: Not infected with HCV unless early or acute infection is suspected (which may be delayed in an immunocompromised individual), or other evidence exists to indicate HCV infection. Performed at: [facility] [address] [id number] Highballer: Raman Zamora PhD, Phone: [phone] Performed By: #### L 500.4100, L500.4050, L502.0250, L501.9985 #### [facility] [address] [place], [address] HEP B CORE,IgM Negative Normal Negative [facility] Comment on above: Performed By: #### L 500.4100, L500.4050, L502.0250, L501.9985 #### [facility] [address] [place], [address] HEP B SURF AG Negative Normal Negative [facility] Comment on above: Performed By: #### L 500.4100, L500.4050, L502.0250, L501.9985 #### [facility] [address] [place], [address] HEP C VIRUS AB Non-Reactive Normal Non Reactive [facility] Comment on above: Performed By: #### L 500.4100, L500.4050, L502.0250, L501.9985 #### [facility] [address] [place], [address] HEPATITIS A-IgM Negative Normal Negative [facility] Comment on above: Result Comment: A ne gative anti-HAV IgM result suggests no recent or current HAV infection. Performed By: #### L 500.4100, L500.4050, L502.0250, L501.9985 #### [facility] [address] [place], [address] Anion gap in Serum or Plasma Ordered By: Shashank Sheehan on 04-25-2025 Anion gap [Moles/Vol] 15 mmol/L 5-15 [facility] BUN/creatinine ratioOrdered By: Shashank Sheehan on 04-25-2025 Urea nitrogen/Creatinine [Mass ratio] 21.2 mg/mg High 10-20 [facility] Bilirubin, totalOrdered By: Shashank Sheehan on 04-25-2025 Bilirubin [Mass/Vol] 1.27 mg/dL 0.00-1.30 [facility] Calculated very low density lipoprotein (VLDL) cholesterol measurementOrdered By: Shashank Sheehan on 04-25-2025 Calculated very low density lipoprotein (VLDL) cholesterol measurement 30 mg/dL 5-40 [facility] Carbon dioxide, total [Moles /volume] in Central venous bloodOrdered By: Shashank Sheehan on 04-25-2025 CO2 [Moles/Vol] 17.4 mmol/L Low 21.0-32.0 [facility] Chloride assayOrdered By: Damion Sheehan on 04-25-2025 Chloride [Moles/Vol] 104 mmol/L 98-108 [facility] Comprehensive Metabolic Prof ilon 04-25-2025 Albumin [Mass/Vol] 4.7 g/dL Normal 3.5-5.0 [facility] Comment on above: Performed By: #### L 500.4100, L500.4050, L502.0250, L501.9985 #### [facility] [address] [place], [address] Albumin/Globulin [Mass ratio] 1.6 {ratio} Normal 0.9-2.4 [facility] Comment on above: Performed By: #### L 500.4100, L500.4050, L502.0250, L501.9985 #### [facility] [address] [place], [address] ALK PHOS 1759 U/L High 40-129 [facility] Comment on above: Performed By: #### L 500.4100, L500.4050, L502.0250, L501.9985 #### [facility] [address] [place], [address] ALT [Catalytic activity/Vol] 682 U/L High <=46 [facility] Comment on above: Performed By: #### L 500.4100, L500.4050, L502.0250, L501.9985 #### [facility] [address] [place], [address] AST [Catalytic activity/Vol] 761 U/L High <=37 [facility] Comment on above: Performed By: #### L 500.4100, L500.4050, L502.0250, L501.9985 #### [facility] [address] [place], [address] Bilirubin [Mass/Vol] 1.27 mg/dL Normal 0.00-1.30 [facility] Comment on above: Performed By: #### L 500.4100, L500.4050, L502.0250, L501.9985 #### [facility] [address] [place], [address] BUN/CRE 21.2 RATIO High 10-20 [facility] Comment on above: Performed By: #### L 500.4100, L500.4050, L502.0250, L501.9985 #### [facility] [address] [place], [address] Calcium [Mass/Vol] 9.7 mg/dL Normal 7.6-11.0 [facility] Comment on above: Performed By: #### L 500.4100, L500.4050, L502.0250, L501.9985 #### [facility] [address] [place], [address] Chloride [Moles/Vol] 104 mmol/L Normal 98-108 [facility] Comment on above: Performed By: #### L 500.4100, L500.4050, L502.0250, L501.9985 #### [facility] [address] [place], [address] CO2 [Moles/Vol] 17.4 mmol/L Low 21.0-32.0 [facility] Comment on above: Performed By: #### L 500.4100, L500.4050, L502.0250, L501.9985 #### [facility] [address] [place], [address] Creatinine [Mass/Vol] 0.79 mg/dL Normal 0.70-1.20 [facility] Comment on above: Performed By: #### L 500.4100, L500.4050, L502.0250, L501.9985 #### [facility] [address] [place], [address] GAP 15 Normal 5-15 [facility] Comment on above: Performed By: #### L 500.4100, L500.4050, L502.0250, L501.9985 #### [facility] [address] [place], [address] GFR/1.73 sq M.predicted among non-blacks MDRD (S/P/Bld) [Vol rate/Area] 107 mL/min/{1.73_m2} Normal >60 [facility] Comment on above: Result Comment: mL/m in/1.73m2 CKD-EPI Creatinine Equation (2020) Performed By: #### L 500.4100, L500.4050, L502.0250, L501.9985 #### [facility] [address] [place], [address] Globulin (S) [Mass/Vol] 3.0 g/dL Normal 2.2-4.2 [facility] Comment on above: Performed By: #### L 500.4100, L500.4050, L502.0250, L501.9985 #### [facility] [address] [place], [address] Glucose [Mass/Vol] 171 mg/dL High 70-99 [facility] Comment on above: Performed By: #### L 500.4100, L500.4050, L502.0250, L501.9985 #### [facility] [address] [place], [address] Potassium [Moles/Vol] 4.0 mmol/L Normal 3.3-5.1 [facility] Comment on above: Performed By: #### L 500.4100, L500.4050, L502.0250, L501.9985 #### [facility] [address] [place], [address] Sodium [Moles/Vol] 137 mmol/L Normal 133-145 [facility] Comment on above: Performed By: #### L 500.4100, L500.4050, L502.0250, L501.9985 #### [facility] [address] [place], [address] T PROT 7.6 g/dL Normal 5.9-8.4 [facility] Comment on above: Performed By: #### L 500.4100, L500.4050, L502.0250, L501.9985 #### [facility] [address] [place], [address] Urea nitrogen [Mass/Vol] 17 mg/dL Normal 4-19 [facility] Comment on above: Performed By: #### L 500.4100, L500.4050, L502.0250, L501.9985 #### [facility] [address] [place], [address] Glomerular filtration rate ( GFR) estimation/1.73 sq m using serum, plasma, or whole bOrdered By: Shashank Sheehan on 04-25-2025 GFR/1.73 sq M.predicted among non-blacks MDRD (S/P/Bld) [Vol rate/Area] 107 mL/min/{1.73_m2} >60 [facility] Comment on above: mL/min/1.73m2 CKD-EP I Creatinine Equation (2020) Hemoglobin A1con 04-25-2025 HbA1c (Bld) [Mass fraction] 8.6 % High <=5.6 [facility] Comment on above: Result Comment: Norm al < 5.7 % Prediabetic 5.7 - 6.4 % Diabetic >or= 6.5 % Please note range changes. Performed By: #### L 500.4100, L500.4050, L502.0250, L501.9985 #### [facility] [address] [place], [address] Hemoglobin A1c percentageOrd ered By: Shashank Sheehan on 04-25-2025 HbA1c (Bld) [Mass fraction] 8.6 % High <5.7 [facility] Comment on above: Normal < 5.7 % Predi abetic 5.7 - 6.4 % Diabetic >or= 6.5 % Please note range changes. LDL calc ser/plasOrdered By: Shashank Sheehan on 04-25-2025 Cholesterol in LDL [Mass/Vol] 65 mg/dL [facility] Comment on above: Bmvvraslxt=095-293 m g/dL & Higher Vjzg=647 mg/dL or greater Laboratory - Chemistry and C hemistry - challengeOrdered By: Shashank Sheehan on 04-25-2025 AST [Catalytic activity/Vol] 761 U/L High <38 [facility] Lipid Profileon 04-25-2025 CHOL:HDL 2.23 Normal [facility] Comment on above: Performed By: #### L 500.4100, L500.4050, L502.0250, L501.9985 #### [facility] [address] [place], [address] Cholesterol [Mass/Vol] 174 mg/dL Normal <=200 [facility] Comment on above: Result Comment: Chol esterol level, Desirable <200 mg/dL Borderline high cholesterol 200-239 mg/dL High cholesterol >=240 mg/dL Recommendations of the NCEP Adult Treatment Panel for the following risk-cutoff thresholds for the [place] population. Performed By: #### L 500.4100, L500.4050, L502.0250, L501.9985 #### [facility] [address] [place], [address] Cholesterol in HDL [Mass/Vol] 78 mg/dL Normal [facility] Comment on above: Result Comment: Ranjana onal Cholesterol Education Program (NCEP) guidelines: <40 mg/dL: Low HDL-cholesterol (major risk factor for CHD) >= 60 mg/dL: High HDL-cholesterol (negative risk factor for CHD) HDL-cholesterol is affected by a number of factors, e.g. smoking, exercise, hormones, sex and age. Performed By: #### L 500.4100, L500.4050, L502.0250, L501.9985 #### [facility] [address] [place], [address] Cholesterol in LDL [Mass/Vol] 65 mg/dL Normal [facility] Comment on above: Result Comment: Bord qzddjd=317-374 mg/dL Higher Bosd=790 mg/dL or greater Performed By: #### L 500.4100, L500.4050, L502.0250, L501.9985 #### [facility] [address] [place], [address] Cholesterol in VLDL [Mass/Vol] 30 mg/dL Normal 5-40 [facility] Comment on above: Performed By: #### L 500.4100, L500.4050, L502.0250, L501.9985 #### [facility] [address] [place], [address] Triglyceride [Mass/Vol] 152 mg/dL Normal [facility] Comment on above: Result Comment: The drugs N-Acetylcysteine and Metamizole may falsely depress this assay. Normal range: <150 mg/dL Borderline High: 150-199 mg/dL High: 200-499 mg/dL Very High: >500 mg/dL Performed By: #### L 500.4100, L500.4050, L502.0250, L501.9985 #### [facility] [address] [place], [place], [address] No Panel InformationOrdered By: Shashank Sheehan on 04-25-2025 Hepatitis C Antibody Comment Comment . [facility] Comment on above: Not infected with HC V unless early or acute infection issuspected (which may be delayed in an immunocompromisedindividual), or other evidence exists to indicate HCVinfection.Performed at: [facility] [id number] Director: Raman Zamora PhD, Phone: [phone] Potassium measurement (mass/ volume)Ordered By: Shashank Sheehan on 04-25-2025 Potassium (Unsp spec) [Mass/Vol] 4.0 mmol/L 3.3-5.1 [facility] Random urine creatinine edwardo urement (mass/volume)Ordered By: Shashank Sheehan on 04-25-2025 Creatinine Unsp time (U) [Mass/Vol] 87.80 mg/dL 39.00-259.00 [facility] Screening total cholesterol/ high density lipoprotein (HDL) cholesterol ratioOrdered By: Shashank Sheehan on 04-25-2025 Cholesterol.total/Chol esterol in HDL [Mass ratio] 2.23 {ratio} [facility] Serum creatinine measurement (mass/volume)Ordered By: Shashank Sheehan on 04-25-2025 Creatinine [Mass/Vol] 0.79 mg/dL 0.70-1.20 [facility] Serum globulin measurementOr dered By: Shashank Sheehan on 04-25-2025 Globulin (S) [Mass/Vol] 3.0 g/dL 2.2-4.2 [facility] Serum glucose measurement (m ass/volume)Ordered By: Shashank Sheehan on 04-25-2025 Glucose [Mass/Vol] 171 mg/dL High 70-99 [facility] Serum or plasma alanine caba otransferase (ALT) measurementOrdered By: Shashank Sheehan on 04-25-2025 ALT [Catalytic activity/Vol] 682 U/L High <47 [facility] Serum or plasma albumin edwardo urement (mass/volume)Ordered By: Shashank Sheehan on 04-25-2025 Albumin [Mass/Vol] 4.7 g/dL 3.5-5.0 [facility] Serum or plasma albumin/glob ulin mass ratioOrdered By: Shashank Sheehan on 04-25-2025 Albumin/Globulin [Mass ratio] 1.6 {ratio} 0.9-2.4 [facility] Serum or plasma alkaline karen sphatase measurementOrdered By: Shashank Sheehan on 04-25-2025 ALP [Catalytic activity/Vol] 1759 U/L High 40-129 [facility] Serum or plasma calcium edwardo urement (mass/volume)Ordered By: Shashank Sheehan on 04-25-2025 Calcium [Mass/Vol] 9.7 mg/dL 7.6-11.0 [facility] Serum or plasma cholesterol in HDL measurement (mass/volume)Ordered By: Shashank Sheehan on 04-25-2025 Cholesterol in HDL [Mass/Vol] 78 mg/dL >40 [facility] Comment on above: National Cholesterol Education Program (NCEP) guidelines:<40 mg/dL: Low HDL-cholesterol (major risk factor for CHD)>= 60 mg/dL: High HDL-cholesterol (negative risk factor for CHD)HDL-cholesterol is affected by a number of factors, e.g. smoking, exercise, hormones, sex and age. Serum or plasma cholesterol measurement (mass/volume)Ordered By: Shashank Sheehan on 04-25-2025 Cholesterol [Mass/Vol] 174 mg/dL <201 [facility] Comment on above: Cholesterol level, D esirable <200 mg/dLBorderline high cholesterol 200-239 mg/dLHigh cholesterol >=240 mg/dLRecommendations of the NCEP Adult Treatment Panel for the following risk-cutoff thresholds for the [place] population. Serum or plasma hepatitis B virus surface antigen detection by immunoassayOrdered By: Shashank Sheehan on 04-25-2025 HBV surface Ag IA Ql Negative Negative [facility] Serum or plasma urea nitroge n measurement (mass/volume)Ordered By: Shashank Sheehan on 04-25-2025 Urea nitrogen [Mass/Vol] 17 mg/dL 4-19 [facility] Sodium levelOrdered By: Shashank Sheehan on 04-25-2025 Sodium [Moles/Vol] 137 mmol/L 133-145 [facility] Total proteinOrdered By: Kathe Sheehan on 04-25-2025 Protein [Mass/Vol] 7.6 g/dL 5.9-8.4 [facility] Triglycerides measurementOrd ered By: Shashank Sheehan on 04-25-2025 Triglyceride [Mass/Vol] 152 mg/dL <199 [facility] Comment on above: The drugs N-Acetylcy steine and Metamizole may falsely depress this assay. Normal range: <150 mg/dLBorderline High: 150-199 mg/dLHigh: 200-499 mg/dLVery High: >500 mg/dL Urine albumin measurement wi th detection limit of 20 mg/L or less (mass/volume)Ordered By: Shashank Sheehan on 04-25-2025 Albumin DL <= 20 mg/L (U) [Mass/Vol] 31.0 mg/L NO RANGE EST. [facility] Fecal Fat, Qualitativeon FATS, NEUTRAL Normal Normal . [facility] Comment on above: Order Comment: Test( s) 675582-Vgzb, Neutral; 512761-Yvmk, Totalwas developed and its performance characteristicsdetermined by [facility]. It has not been cleared or approvedby the Food and Drug Administration. Result Comment: Norm al (<60 Droplets/HPF) Performed By: #### L 500.4100, L500.4050, L502.0250, L501.9985 #### [facility] [address] [place], [address] FATS, TOTAL Normal Normal . [facility] Comment on above: Order Comment: Test( s) 395905-Vmoz, Neutral; 961303-Lmte, Totalwas developed and its performance characteristicsdetermined by [facility]. It has not been cleared or approvedby the Food and Drug Administration. Result Comment: Norm al (<100 Droplets/HPF) Performed at: [address] [id number] Highballer: Raman Zamora PhD, Phone: [phone] Performed By: #### L 500.4100, L500.4050, L502.0250, L501.9985 #### [facility] [address] [place], [address] L7000.0750on 04-07-2025 P ELASTASE,FECA 4 Low >200 [facility] Comment on above: Result Comment: Resu lt Units: ug Elast./g Severe Pancreatic Insufficiency: <100 Moderate Pancreatic Insufficiency: 100 - 200 Normal: >200 Performed at: [facility] [place] [address] [place], [place] [id number] Highballer: Derek Gunn MD, Phone: [phone] Performed By: #### L 500.4100, L500.4050, L502.0250, L501.9985 #### [facility] [address] [place], [address] Fecal fat detectionOrdered B y: Raman Stout on 04-06-2025 Fat Ql (Stl) Normal . [facility] Comment on above: Normal (<100 Droplet s/HPF)Performed at: - [facility] [id number] Director: Raman Zamora PhD, Phone: [phone] No Panel InformationOrdered By: Raman Stout on 04-06-2025 Stool Neutral Fats Normal . [facility] Comment on above: Normal (<60 Droplets /HPF) Stool pancreatic elastase me asurement (mass/mass)Ordered By: Raman Stout on 04-06-2025 Elastase.pancreatic (Stl) [Mass/Mass] 4 Low >200 [facility] Comment on above: Result Units: ug Jillian st./g Severe Pancreatic Insufficiency: <100 Moderate Pancreatic Insufficiency: 100 - 200 Normal: >200Performed at: [facility] [address] [id number] Director: Derek Gunn MD, Phone: [phone] Ova and Parasites 8623on OP OVA AND PARASITES EX AM, ROUTINE These results were obtained using wet preparation(s) and trichrome stained smear. This test does not include testing for Crytosporidium parvum, Cyclospora, or Microsporidia. One negative specimen does not rule out the possibility of a parasitic infection. TESTING PERFORMED AT [facility]. ORIGINAL REPORT ON FILE IN LAB CONTAINS ADDITIONAL TEST SITE INFORMATION. Ova/Parasite Exam NO OVA, CYSTS, OR PARASITES FOUND. Normal [facility] Comment on above: Performed By: #### L 500.4100, L500.4050, L502.0250, L501.9985 #### [facility] [address] [facility] [place], [place], [address] CDIFF (PCR)on 03-21-2025 CDIFF Pending [phone] [id number] Presumptive Negative *for epidemiolologic???use C. Diff PCR Negative- No toxigenic C. Diff Detected Normal [facility] Comment on above: Performed By: #### L 500.4100, L500.4050, L502.0250, L501.9985 #### [facility] [address] [place], [place], [address] Clostridium difficile detect ion by polymerase chain reactionOrdered By: Shashank Sheehan on 03-21-2025 C. difficile DNA JAZMYN+probe Ql (Unsp spec) [facility] ENTERIC PATHOGEN PANEL STOOL on 03-21-2025 [...] VIBRIO Not Detected Yersinia Not Detected Normal [facility] Comment on above: Performed By: #### L 500.4100, L500.4050, L502.0250, L501.9985 #### [facility] [address] [place], [address] Urgent Care Visit Reporton 1 12-30-2023 Urgent Care Visit Report [facility] [address], [address] [place] [address] OFFICE VISIT Date of Service: 10/29/24 MR#: [id number] Acct: [id number] Name: LILLIAN BOWDEN Rep #: [id number] : 1970 Provider: DAMION Campo Age/Sex: 54/M Location: [facility] Status: Signed Intake Vital Signs 01/13/23 14:24 10/29/24 09:34 Height 6 ft 5 ft 11 in Weight: 220 lb BMI 30.7 BP 152/94 H Blood Pressure Location Lt brachial Position Sitting Respiration 14 Pulse 72 Pulse Source Monitor Temp 98.6 F Temp Source Oral Pulse Oximetry (%) 97 Oxygen Delivery Method room air Intake Visit Reasons: concern for infection 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 Feeder Required: No Accompanied by: Self Is patient [...] (Updated 10/29/24 @ 14:03 by Kofi BRUNO, DAMION) H/O Legionnaire's disease Alcohol use History of [...] Exam Const General: cooperative and healthy appearing [facility] Head: normocephalic and atraumatic Ears: hearing grossly [...] Wang Signature: Date (if applicable) CC: Normal [facility] AST(SGOT)on 10-11-2024 AST [Catalytic activity/Vol] 30 U/L Normal 15-37 [facility] Comment on above: Performed By: #### L 500.2500, L501.4405, L501.4100, L500.4100, L501.9910 #### [facility] [address] [place], [address] Alanine Aminotransferas (SGP T)on 10-11-2024 ALT [Catalytic activity/Vol] 42 U/L Normal 16-61 [facility] Comment on above: Performed By: #### L 500.2500, L501.4405, L501.4100, L500.4100, L501.9910 #### [facility] [address] [place], [address] Basic Metabolic Profile (BMP )on 10-11-2024 BUN/CRE 26.0 RATIO High 10-20 [facility] Comment on above: Performed By: #### L 500.2500, L501.4405, L501.4100, L500.4100, L501.9910 #### [facility] [address] [place], [address] CA,Total 9.2 mg/dL Normal 8.5-10.1 [facility] Comment on above: Performed By: #### L 500.2500, L501.4405, L501.4100, L500.4100, L501.9910 #### [facility] [address] [place], [address] Chloride [Moles/Vol] 107 mmol/L Normal 98-107 [facility] Comment on above: Performed By: #### L 500.2500, L501.4405, L501.4100, L500.4100, L501.9910 #### [facility] [address] [place], [address] CO2 [Moles/Vol] 18.0 mmol/L Low 21.0-32.0 [facility] Comment on above: Performed By: #### L 500.2500, L501.4405, L501.4100, L500.4100, L501.9910 #### [facility] [address] [place], [address] Creatinine [Mass/Vol] 0.96 mg/dL Normal 0.70-1.30 [facility] Comment on above: Result Comment: The validity of the calculated GFR GFRAA in patients over 70 years has not been determined. Clinical correlation is essential. Performed By: #### L 500.2500, L501.4405, L501.4100, L500.4100, L501.9910 #### [facility] [address] [place], [address] EST GFR - AA 106 mL/min Normal >60 [facility] Comment on above: Result Comment: Afri can [place]ar[place] GFR Calc Performed By: #### L 500.2500, L501.4405, L501.4100, L500.4100, L501.9910 #### [facility] [address] [place], [address] GAP 10 Normal 5-15 [facility] Comment on above: Performed By: #### L 500.2500, L501.4405, L501.4100, L500.4100, L501.9910 #### [facility] [address] [place], [address] GFR/1.73 sq M.predicted among non-blacks MDRD (S/P/Bld) [Vol rate/Area] 87 mL/min/{1.73_m2} Normal >60 [facility] Comment on above: Result Comment: Non- GFR Calc Performed By: #### L 500.2500, L501.4405, L501.4100, L500.4100, L501.9910 #### [facility] [address] [place], [address] Glucose [Mass/Vol] 240 mg/dL High 74-106 [facility] Comment on above: Result Comment: Gluc ose result greater than or equal to 200 mg/dL suggests DIABETES MELLITUS per A.D.A. criteria. Performed By: #### L 500.2500, L501.4405, L501.4100, L500.4100, L501.9910 #### [facility] [address] [place], [address] Potassium [Moles/Vol] 4.6 mmol/L Normal 3.5-5.1 [facility] Comment on above: Performed By: #### L 500.2500, L501.4405, L501.4100, L500.4100, L501.9910 #### [facility] [address] [place], [address] Sodium [Moles/Vol] 135 mmol/L Low 136-145 [facility] Comment on above: Performed By: #### L 500.2500, L501.4405, L501.4100, L500.4100, L501.9910 #### [facility] [address] [place], [address] Urea nitrogen [Mass/Vol] 25 mg/dL High 7-18 [facility] Comment on above: Performed By: #### L 500.2500, L501.4405, L501.4100, L500.4100, L501.9910 #### [facility] [address] [place], [address] Lipid Profileon 10-11-2024 Cholesterol [Mass/Vol] 168 mg/dL Normal 200 [facility] Comment on above: Result Comment: <200 mg/dL Desirable 200-240 mg/dL Borderline >240 mg/dL High Risk Performed By: #### L 500.2500, L501.4405, L501.4100, L500.4100, L501.9910 #### [facility] [address] [place], [address] Cholesterol in HDL [Mass/Vol] 47 mg/dL Normal [facility] Comment on above: Result Comment: The drugs N-Acetylcysteine and Metamizole may falsely depress this assay. Reference Range HDL <40 mg/dL Low HDL Cholesterol HDL >or= 60 mg/dL High HDL Cholesterol Performed By: #### L 500.2500, L501.4405, L501.4100, L500.4100, L501.9910 #### [facility] [address] [place], [address] Cholesterol in LDL [Mass/Vol] 71 mg/dL Normal 0-130 [facility] Comment on above: Performed By: #### L 500.2500, L501.4405, L501.4100, L500.4100, L501.9910 #### [facility] [address] [place], [address] Cholesterol in VLDL [Mass/Vol] 50 mg/dL High 5-40 [facility] Comment on above: Performed By: #### L 500.2500, L501.4405, L501.4100, L500.4100, L501.9910 #### [facility] [address] [place], [place], [address] (258) Triglyceride [Mass/Vol] 251 mg/dL High [facility] Comment on above: Result Comment: The drugs N-Acetylcysteine and Metamizole may falsely depress this assay. Serum Triglycerides Reference Interval Normal <150 mg/dL Borderline high 150 - 199 mg/dL High 200 - 499 mg/dL Very High > or = 500 mg/dL Performed By: #### L 500.2500, L501.4405, L501.4100, L500.4100, L501.9910 #### [facility] [address] [place], [place], [id number] (375) PSA,Total - Annual Screenon 10-11-2024 PSA,TOT SCREEN 0.89 ng/mL Normal 0.00-4.00 [facility] Comment on above: Result Comment: This test was performed using the TPSA assay method for the [employer] chemistry system. Values obtained with different assay methods cannot be used interchangably. When changing PSA assays in the course of monitoring a patient, additional sequential testing should be carried out to confirm baseline values. Performed By: #### L 500.2500, L501.4405, L501.4100, L500.4100, L501.9910 #### [facility] [address] [place], [place], [address] Basophil percentageOrdered B y: Nicki Luis on 10-17-2023 Chloride [Moles/Vol] 108 mmol/L 98-107 [facility] Cholesterol [Mass/Vol] 173 mg/dL <200 [facility] Comment on above: <200 mg/dL Desirable 200-240 mg/dL Borderline >240 mg/dL High Risk Glucose [Mass/Vol] 153 mg/dL 74-106 [facility] Comment on above: Fasting Glucose resu lt greater than or equal to 126 mg/dL suggests DIABETES MELLITUS per A.D.A. criteria. Potassium [Moles/Vol] 4.0 mmol/L 3.5-5.1 [facility] Sodium [Moles/Vol] 137 mmol/L 136-145 [facility] Triglyceride [Mass/Vol] 128 mg/dL <199 [facility] Comment on above: The drugs N-Acetylcy steine and Metamizole may falsely depress this assay.Serum Triglycerides Reference Interval Normal <150 mg/dL Borderline high 150 - 199 mg/dL High 200 - 499 mg/dL Very High > or = 500 mg/dL Laboratory - Chemistry and C hemistry - challengeOrdered By: Nicki Luis on 10-17-2023 ALT [Catalytic activity/Vol] 65 U/L 16-61 [facility] CO2 [Moles/Vol] 22.0 mmol/L 21.0-32.0 [facility] Urea nitrogen/Creatinine [Mass ratio] 18.0 mg/mg 10-20 [facility] No Panel InformationOrdered By: Nicki Luis on 10-17-2023 Estimated GFR (MDRD) Amer 135 mL/min >60 [facility] Comment on above: GFR Calc Estimated GFR (MDRD) Non-Af Amer 112 mL/min >60 [facility] Comment on above: Non- GFR Calc Prostate Specific Antigen Screen 0.68 ng/mL 0.00-4.00 [facility] Comment on above: This test was perfor med using the TPSA assay method for the[employer] chemistry system. Values obtained with differentassay methods cannot be used interchangably.When changing PSA assays in the course of monitoring apatient, additional sequential testing should be carriedout to confirm baseline values. Urine Microalbumin/Creatinin e Ratio 42.2 mg/g CRE <30 [facility] Serum or plasma calcium edwardo urement (mass/volume)Ordered By: Nicki Luis on 10-17-2023 Calcium [Mass/Vol] 8.6 mg/dL 8.5-10.1 [facility] Serum or plasma cholesterol in HDL measurement (mass/volume)Ordered By: Nicki Luis on 10-17-2023 Cholesterol in HDL [Mass/Vol] 49 mg/dL >40 [facility] Comment on above: The drugs N-Acetylcy steine and Metamizole may falsely depress this assay. Reference Range HDL <40 mg/dL Low HDL Cholesterol HDL >or= 60 mg/dL High HDL Cholesterol Serum or plasma cholesterol in VLDL measurement (mass/volume)Ordered By: Nicki Luis on 10-17-2023 Cholesterol in VLDL [Mass/Vol] 26 mg/dL 5-40 [facility] Serum or plasma creatinine m easurement (mass/volume)Ordered By: Nicki Luis on 10-17-2023 Creatinine [Mass/Vol] 0.78 mg/dL 0.70-1.30 [facility] Comment on above: The validity of the calculated GFR & GFRAA in patients over 70 years has not been determined. Clinical correlation is essential. Serum or plasma low density lipoprotein (LDL) cholesterol measurement (mass/volume)Ordered By: Nicki Luis on 10-17-2023 Cholesterol in LDL [Mass/Vol] 98 mg/dL 0-130 [facility] Serum or plasma urea nitroge n measurement (mass/volume)Ordered By: Nicki Luis on 10-17-2023 Urea nitrogen [Mass/Vol] 14 mg/dL 7-18 [facility] Thin prep Papanicolaou smear with manual screeningOrdered By: Nicki Luis on 10-17-2023 Thin prep Papanicolaou smear with manual screening 44 U/L 15-37 [facility] Thin prep Papanicolaou smear with manual screening 7 5-15 [facility] Thin prep Papanicolaou smear with manual screening 89.8 mg/L NO RANGE EST. [facility] Urine creatinine measurement (mass/volume)Ordered By: Nicki Luis on 10-17-2023 Creatinine (U) [Mass/Vol] 213.00 mg/dL NO RANGE EST. [facility] Glucose Glucometer (BldC) [M ass/Vol]Ordered By: Dr. Callahan on 01-14-2023 Glucose [Mass/Vol] 113 mg/dL 74-106 [facility] Comment on above: MANAGEMENT OF PATIEN T CARE PER NURSING PROTOCOL Glucose Glucometer (BldC) [M ass/Vol]Ordered By: Dr. Callahan on 01-13-2023 Glucose [Mass/Vol] 153 mg/dL 74-106 [facility] Comment on above: MANAGEMENT OF PATIEN T CARE PER NURSING PROTOCOL No Panel InformationOrdered By: Dr. Callahan on 01-07-2023 Nasal Screen MRSA/MSSA [facility] Basophil percentageOrdered B y: Dr. Renae on 01-06-2023 Bilirubin [Mass/Vol] 0.30 mg/dL 0.20-1.00 [facility] Comment on above: For patients on eltr ombopag therapy, use of Dimension [place] TBIL is not recommended. Protein [Mass/Vol] 7.7 g/dL 6.4-8.2 [facility] Direct bilirubinOrdered By: Dr. Renae on 01-06-2023 Bilirubin.direct [Mass/Vol] 0.07 mg/dL 0.00-0.30 [facility] HIV 1 and HIV-2 antibody ass ay with HIV-1 p24 antigen detectionOrdered By: Dr. Callahan on 01-06-2023 HIV 1+2 Ab+HIV1 p24 Ag IA Ql Non-Reactive Nonreactive [facility] INR in Blood by Coagulation assayOrdered By: Dr. Renae on 01-06-2023 INR Coag (Bld) [Relative time] 1.0 {INR} [facility] Laboratory - Chemistry and C hemistry - challengeOrdered By: Dr. Renae on 01-06-2023 ALP [Catalytic activity/Vol] 63 U/L 45-117 [facility] ALT [Catalytic activity/Vol] 30 U/L 16-61 [facility] Globulin (S) [Mass/Vol] 3.4 g/dL 2.2-4.2 [facility] Magnesium [Mass/Vol] 2.0 mg/dL 1.6-2.6 [facility] Laboratory - CoagulationOrde red By: Dr. Renae on 01-06-2023 aPTT Coag (Bld) [Time] 27.2 s 24.1-36.2 [facility] PT Coag (PPP) [Time] 12.4 s 11.7-14.9 [facility] No Panel InformationOrdered By: Dr. Callahan on 01-06-2023 Hepatitis A Antibody Total Positive Negative [facility] Comment on above: Performed at: [place] [id number] Director: Raman Zamora PhD, Phone: [phone] Hepatitis C Antibody Non-Reactive Nonreactive [facility] Comment on above: Non Reactive: < 0.8 Equivocal: >/= 0.8 to < 1.0 Reactive: >/= 1.0The CDC recommends that a reactive/equivocal HCV antibody result be followed up by the HCV Nucleic Acid Amplificationtest ([id number]) Serum hepatitis B virus surf jorge luis antibody IgG detectionOrdered By: Dr. Callahan on 01-06-2023 HBV surface IgG Ql (S) Non-Reactive [facility] Comment on above: Non Reactive: Incons istent with immunity less than <10 mIU/mL Reactive: Consistent with immunity greater than or equal to 10 mIU/mL Serum or plasma albumin edwardo urement (mass/volume)Ordered By: Dr. Renae on 01-06-2023 Albumin [Mass/Vol] 4.3 g/dL 3.2-5.0 [facility] Thin prep Papanicolaou smear with manual screeningOrdered By: Dr. Renae on 01-06-2023 Thin prep Papanicolaou smear with manual screening 21 U/L 15-37 [facility] Absolute lymphocyte countOrd ered By: Dr. Ko on 12-15-2022 Lymphocytes Auto (Unsp spec) [#/Vol] 1.38 10*3/uL 0.83-4.51 [facility] Basophil percentageOrdered B y: Dr. Ko on 12-15-2022 Basophil percentage 0 SEEN /hpf 0-5 [facility] Basophils/100 WBC (Bld) 0.3 % 0-1 [facility] Chloride [Moles/Vol] 109 mmol/L 98-107 [facility] Eosinophils/100 WBC (Bld) 3.1 % 0-5 [facility] Glucose [Mass/Vol] 132 mg/dL 74-106 [facility] Comment on above: Fasting Glucose resu lt greater than or equal to 126 mg/dL suggests DIABETES MELLITUS per A.D.A. criteria. Neutrophils (Bld) [#/Vol] 5.3 10*3/uL 2.0-7.7 [facility] Neutrophils/100 WBC (Bld) 69.0 % 47-70 [facility] Potassium [Moles/Vol] 3.9 mmol/L 3.5-5.1 [facility] Sodium [Moles/Vol] 142 mmol/L 136-145 [facility] WBC (Bld) [#/Vol] 7.7 10*3/uL 4.4-11.0 [facility] Bilirubin Test strip Ql (U)O rdered By: Dr. Ko on 12-15-2022 Bilirubin Ql (U) Negative Negative [facility] Blood erythrocytes count (nu mber/volume)Ordered By: Dr. Ko on 12-15-2022 RBC (Bld) [#/Vol] 4.70 10*6/uL 4.6-6.2 [facility] Blood hemoglobin measurement (mass/volume)Ordered By: Dr. Ko on 12-15-2022 Hemoglobin (Bld) [Mass/Vol] 15.7 g/dL 13.0-16.5 [facility] Blood lymphocytes/100 leukoc ytesOrdered By: Dr. Ko on 12-15-2022 Lymphocytes/100 WBC (Bld) 17.9 % 19-41 [facility] Blood monocytes/100 leukocyt esOrdered By: Dr. Ko on 12-15-2022 Monocytes/100 WBC (Bld) 9.3 % 0-10 [facility] Blood platelet mean volumeOr dered By: Dr. Ko on 12-15-2022 Platelet mean volume (Bld) [Entitic vol] 10.9 fL 6.2-12.0 [facility] Determination of erythrocyte mean corpuscular volume (MCV)Ordered By: Dr. Ko on 12-15-2022 MCV (RBC) [Entitic vol] 99.6 fL 80-94 [facility] Hematocrit Auto (Bld) [Volum e fraction]Ordered By: Dr. Ko on 12-15-2022 Hematocrit (Bld) [Volume fraction] 46.8 % 40-54 [facility] Ketones Test strip Ql (U)Ord ered By: Dr. Ko on 12-15-2022 Ketones Ql (U) 5 mg/dl Negative [facility] - Chemistry and C hemistry - challengeOrdered By: Dr. Ko on 12-15-2022 CO2 [Moles/Vol] 23.0 mmol/L 21.0-32.0 [facility] Urea nitrogen/Creatinine [Mass ratio] 13.1 mg/mg 10-20 [facility] - Hematology and Cell countsOrdered By: Dr. Ko on 12-15-2022 Erythrocyte distribution width (RBC) [Entitic vol] 45.7 fL 35.1-43.9 [facility] Erythrocyte distribution width (RBC) [Ratio] 12.6 % 11.6-14.6 [facility] Immature granulocytes/100 WBC (Bld) 0.400 % 0.0-0.9 [facility] Comment on above: IG% - Immature Granu locytes (promyelocytes, myelocytes and metamyelocytes) > 1% indicates that a LEFT SHIFT is Present. MCH (RBC) [Entitic mass] 33.4 pg 27.0-32.0 [facility] Nucleated RBC/100 WBC (Bld) [Ratio] 0 % 0-5 [facility] MCHC Auto (RBC) [Mass/Vol]Or dered By: Dr. Ko on 12-15-2022 MCHC (RBC) [Mass/Vol] 33.5 g/dL 32-36 [facility] Mucus LM Ql (Urine sed)Order ed By: Dr. Ko on 12-15-2022 Mucus Ql (Urine sed) 1+ /hpf [facility] Nitrite Test strip Ql (U)Ord ered By: Dr. Ko on 12-15-2022 Nitrite Ql (U) Negative Negative [facility] No Panel InformationOrdered By: Dr. Ko on 12-15-2022 Estimated Creatinine Clearance Calc 106.59 ml/min [facility] Estimated GFR (MDRD) Amer 113 mL/min >60 [facility] Comment on above: GFR Calc Estimated GFR (MDRD) Non-Af Amer 93 mL/min >60 [facility] Comment on above: Non- GFR Calc Platelets bldOrdered By: Dr. Ko on 12-15-2022 Platelets (Bld) [#/Vol] 212 10*3/uL 150-450 [facility] Protein Test strip Ql (U)Ord ered By: Dr. Ko on 12-15-2022 Protein Ql (U) 100 mg/dl Negative [facility] Serum or plasma calcium edwardo urement (mass/volume)Ordered By: Dr. Ko on 12-15-2022 Calcium [Mass/Vol] 9.4 mg/dL 8.5-10.1 [facility] Serum or plasma creatinine m easurement (mass/volume)Ordered By: Dr. Ko on 12-15-2022 Creatinine [Mass/Vol] 0.91 mg/dL 0.70-1.30 [facility] Comment on above: The validity of the calculated GFR & GFRAA in patients over 70 years has not been determined. Clinical correlation is essential. Serum or plasma urea nitroge n measurement (mass/volume)Ordered By: Dr. Ko on 12-15-2022 Urea nitrogen [Mass/Vol] 12 mg/dL 7-18 [facility] Squamous epithelial cells de tection in urine sediment by light microscopyOrdered By: Dr. Ko on 12-15-2022 Epithelial cells.squamous LM Ql (Urine sed) 0 SEEN /hpf 0-5 [facility] Thin prep Papanicolaou smear with manual screeningOrdered By: Dr. Ko on 12-15-2022 Thin prep Papanicolaou smear with manual screening 10 5-15 [facility] Urine blood detectionOrdered By: Dr. Ko on 12-15-2022 RBC Ql (U) Negative Negative [facility] RBC Ql (U) 0 SEEN /hpf 0-5 [facility] Urine clarityOrdered By: Dr. Ko on 12-15-2022 Clarity (U) Clear Clear [facility] Urine color determinationOrd ered By: Dr. Ko on 12-15-2022 Color (U) Yellow Yellow [facility] Urine glucose detectionOrder ed By: Dr. Ko on 12-15-2022 Glucose Ql (U) Normal mg/dl Normal [facility] Urine leukocyte esterase det ection by dipstickOrdered By: Dr. Ko on 12-15-2022 Leukocyte esterase Test strip Ql (U) Negative Negative [facility] Urine pHOrdered By: Dr. Jeffry chadwick on 12-15-2022 pH (U) 6.0 [pH] 5.0 - 8.0 [facility] Urine sediment bacteria coun t by microscopy (number/high power field)Ordered By: Dr. Ko on 12-15-2022 Bacteria LM.HPF (Urine sed) [#/Area] 0 /[HPF] None Seen [facility] Urine specific gravity measu rementOrdered By: Dr. Ko on 12-15-2022 Specific gravity (U) [Rel density] 1.020 1.002-1.030 [facility] Urobilinogen Auto test strip Ql (U)Ordered By: Dr. Ko on 12-15-2022 Urobilinogen Ql (U) Normal mg/dl Normal [facility] Basophil percentageon 2021 Chloride [Moles/Vol] 107 mmol/L 98-107 [facility] Work Phone: Cholesterol [Mass/Vol] 164 mg/dL <200 [facility] Work Phone: Comment on above: <200 mg/dL Desirable 200-240 mg/dL Borderline >240 mg/dL High Risk Glucose [Mass/Vol] 86 mg/dL 74-106 [facility] Work Phone: Potassium [Moles/Vol] 4.6 mmol/L 3.5-5.1 [facility] Work Phone: Sodium [Moles/Vol] 139 mmol/L 136-145 [facility] Work Phone: Triglyceride [Mass/Vol] 181 mg/dL <199 [facility] Work Phone: Comment on above: The drugs N-Acetylcy steine and Metamizole may falsely depress this assay.Serum Triglycerides Reference Interval Normal <150 mg/dL Borderline high 150 - 199 mg/dL High 200 - 499 mg/dL Very High > or = 500 mg/dL Laboratory - Chemistry and C hemistry - challengeon 07-03-2022 CO2 [Moles/Vol] 21.0 mmol/L 21.0-32.0 [facility] Work Phone: Urea nitrogen/Creatinine [Mass ratio] 21.6 mg/mg 10-20 [facility] Work Phone: No Panel Informationon 07-03 Estimated GFR (MDRD) Amer 118 mL/min >60 [facility] Work Phone: Comment on above: GFR Calc Estimated GFR (MDRD) Non-Af Amer 98 mL/min >60 [facility] Work Phone: Comment on above: Non- GFR Calc Prostate Specific Antigen Screen 0.70 ng/mL 0.00-4.00 [facility] Work Phone: Comment on above: This test was perfor med using the TPSA assay method for [employer] chemistry system. Values obtained with differentassay methods cannot be used interchangably.When changing PSA assays in the course of monitoring apatient, additional sequential testing should be carriedout to confirm baseline values. Serum or plasma calcium edwardo urement (mass/volume)on 07-03-2022 Calcium [Mass/Vol] 9.4 mg/dL 8.5-10.1 [facility] Work Phone: Serum or plasma cholesterol in HDL measurement (mass/volume)on 07-03-2022 Cholesterol in HDL [Mass/Vol] 52 mg/dL >40 [facility] Work Phone: Comment on above: The drugs N-Acetylcy steine and Metamizole may falsely depress this assay. Reference Range HDL <40 mg/dL Low HDL Cholesterol HDL >or= 60 mg/dL High HDL Cholesterol Serum or plasma cholesterol in VLDL measurement (mass/volume)on 07-03-2022 Cholesterol in VLDL [Mass/Vol] 36 mg/dL 5-40 [facility] Work Phone: Serum or plasma creatinine m easurement (mass/volume)on 07-03-2022 Creatinine [Mass/Vol] 0.88 mg/dL 0.70-1.30 [facility] Work Phone: Comment on above: The validity of the calculated GFR & GFRAA in patients over 70 years has not been determined. Clinical correlation is essential. Serum or plasma low density lipoprotein (LDL) cholesterol measurement (mass/volume)on 07-03-2022 Cholesterol in LDL [Mass/Vol] 76 mg/dL 0-130 [facility] Work Phone: Serum or plasma urea nitroge n measurement (mass/volume)on 07-03-2022 Urea nitrogen [Mass/Vol] 19 mg/dL 7-18 [facility] Work Phone: Thin prep Papanicolaou smear with manual screeningon 07-03-2022 Thin prep Papanicolaou smear with manual screening 11 5-15 [facility] Work Phone: Office Visit: DAVIS, acute res p failure & legionella pneon 09-24-2017 Documentation of current medications (procedure) Done Invalid Interpretation Code [facility] Work Phone: Tobacco smoking status GAIS Former Invalid Interpretation Code [facility] Work Phone: Tobacco use [facility] Former smoker Invalid Interpretation Code [facility] Work Phone: Office Visit: [facility] & respiratory failure[facility] 08-25-2017 Documentation of current medications (procedure) Done Invalid Interpretation Code [facility] Work Phone: Protein mass conc Done Invalid Interpretation Code [facility] Work Phone: Tobacco smoking status NHIS Former Invalid Interpretation Code [facility] Work Phone: Tobacco smoking status GAIS Former smoker Invalid Interpretation Code [facility] Work Phone: Tobacco use [facility] Former smoker Invalid Interpretation Code [facility] Work Phone: Vital Signs Date Time Vital Sign Value Performing Clinician Facility 07-29-2025 11:39-0400 Body temperature 97.7 [degF] [facility] Work Phone: [facility] 07-29-2025 11:39-0400 Diastolic blood pressure 75 mm[Hg] [facility] Work Phone: [facility] 07-29-2025 11:39-0400 Heart rate 79 /min [facility] Work Phone: [facility] 07-29-2025 11:39-0400 Respiratory rate 16 /min [facility] Work Phone: [facility] 07-29-2025 11:39-0400 SaO2% (BldA) [Mass fraction] 99 % [facility] Work Phone: [facility] 07-29-2025 11:39-0400 Systolic blood pressure 97 mm[Hg] Lab/Port Wstr Work Phone: [facility] 07-27-2025 08:01-0400 Body temperature 97.81 [degF] Treatment Wstr Work Phone: [facility] 07-27-2025 08:01-0400 Diastolic blood pressure 78 mm[Hg] Treatment Wstr Work Phone: [facility] 07-27-2025 08:01-0400 Heart rate 81 /min Treatment Wstr Work Phone: [facility] 07-27-2025 08:01-0400 SaO2% (BldA) [Mass fraction] 100 % Treatment Wstr Work Phone: [facility] 07-27-2025 08:01-0400 Systolic blood pressure 107 mm[Hg] Treatment Wstr Work Phone: [facility] 07-26-2025 08:15-0400 Body mass index (BMI) [Ratio] 22.48 kg/m2 Lab/Port Wstr Work Phone: [facility] 07-26-2025 08:15-0400 Body temperature 97.9 [degF] Chapin Dawn MD Work Phone: [facility] 07-26-2025 08:15-0400 Body weight 73.03 kg Lab/Port Wstr Work Phone: [facility] 07-26-2025 08:15-0400 Diastolic blood pressure 69 mm[Hg] Chapin Dawn MD Work Phone: [facility] 07-26-2025 08:15-0400 Heart rate 94 /min Chapin Dawn MD Work Phone: [facility] 07-26-2025 08:15-0400 SaO2% (BldA) [Mass fraction] 99 % Chapin Dawn MD Work Phone: [facility] 07-26-2025 08:15-0400 Systolic blood pressure 105 mm[Hg] Chapin Dawn MD Work Phone: [facility] 07-15-2025 12:09-0400 Body temperature 98.01 [degF] Lab/Port Wstr Work Phone: [facility] 07-15-2025 12:09-0400 Diastolic blood pressure 63 mm[Hg] Lab/Port Wstr Work Phone: [facility] 07-15-2025 12:09-0400 Heart rate 81 /min Lab/Port Wstr Work Phone: [facility] 07-15-2025 12:09-0400 Respiratory rate 16 /min Lab/Port Wstr Work Phone: [facility] 07-15-2025 12:09-0400 SaO2% (BldA) [Mass fraction] 98 % Lab/Port Wstr Work Phone: [facility] 07-15-2025 12:09-0400 Systolic blood pressure 98 mm[Hg] Lab/Port Wstr Work Phone: [facility] 07-13-2025 13:09-0400 Diastolic blood pressure 60 mm[Hg] Treatment Wstr Work Phone: [facility] 07-13-2025 13:09-0400 Heart rate 78 /min Treatment Wstr Work Phone: [facility] 07-13-2025 13:09-0400 Respiratory rate 16 /min Treatment Wstr Work Phone: [facility] 07-13-2025 13:09-0400 SaO2% (BldA) [Mass fraction] 99 % Treatment Wstr Work Phone: [facility] 07-13-2025 13:09-0400 Systolic blood pressure 98 mm[Hg] Treatment Wstr Work Phone: [facility] 07-13-2025 08:15-0400 Body temperature 97.59 [degF] Treatment Wstr Work Phone: [facility] 07-11-2025 15:19-0400 Body mass index (BMI) [Ratio] 22.55 kg/m2 Chapin Dawn MD Work Phone: [facility] 07-11-2025 15:19-0400 Body temperature 97.81 [degF] Chapin Dawn MD Work Phone: [facility] 07-11-2025 15:19-0400 Body weight 73.26 kg Chapin Dawn MD Work Phone: [facility] 07-11-2025 15:19-0400 Diastolic blood pressure 71 mm[Hg] Chapin Dawn MD Work Phone: [facility] 07-11-2025 15:19-0400 Heart rate 84 /min Chapin Dawn MD Work Phone: [facility] 07-11-2025 15:19-0400 SaO2% (BldA) [Mass fraction] 98 % Chapin Dawn MD Work Phone: [facility] 07-11-2025 15:19-0400 Systolic blood pressure 107 mm[Hg] Chapin Dawn MD Work Phone: [facility] 07-11-2025 15:06-0400 Body mass index (BMI) [Ratio] 22.55 kg/m2 Lab/Port Wstr Work Phone: [facility] 07-11-2025 15:06-0400 Body weight 73.26 kg Lab/Port Wstr Work Phone: [facility] 2025 11:00-0400 Body temperature 97.7 [degF] Lab/Port Wstr Work Phone: [facility] 2025 11:00-0400 Diastolic blood pressure 69 mm[Hg] Lab/Port Wstr Work Phone: [facility] 2025 11:00-0400 Heart rate 100 /min Lab/Port Wstr Work Phone: [facility] 2025 11:00-0400 Systolic blood pressure 103 mm[Hg] Lab/Port Wstr Work Phone: [facility] 06-29-2025 08:00-0400 Diastolic blood pressure 72 mm[Hg] Treatment Wstr Work Phone: [facility] 06-29-2025 08:00-0400 Heart rate 72 /min Treatment Wstr Work Phone: [facility] 06-29-2025 08:00-0400 Respiratory rate 16 /min Treatment Wstr Work Phone: [facility] 06-29-2025 08:00-0400 SaO2% (BldA) [Mass fraction] 99 % Treatment Wstr Work Phone: [facility] 06-29-2025 08:00-0400 Systolic blood pressure 108 mm[Hg] Treatment Wstr Work Phone: [facility] 06-28-2025 11:44-0400 Body mass index (BMI) [Ratio] 22.69 kg/m2 Chapin Dawn MD Work Phone: [facility] 06-28-2025 11:44-0400 Body temperature 97.11 [degF] Chapin Dawn MD Work Phone: [facility] 06-28-2025 11:44-0400 Body weight 73.71 kg Chapin Dawn MD Work Phone: [facility] 06-28-2025 11:44-0400 Diastolic blood pressure 81 mm[Hg] Chapin Dawn MD Work Phone: [facility] 06-28-2025 11:44-0400 Heart rate 84 /min Chapin Dawn MD Work Phone: [facility] 06-28-2025 11:44-0400 SaO2% (BldA) [Mass fraction] 98 % Chapin Dawn MD Work Phone: [facility] 06-28-2025 11:44-0400 Systolic blood pressure 122 mm[Hg] Chapin Dawn MD Work Phone: [facility] 06-17-2025 12:10-0400 Body temperature 97.59 [degF] Lab/Port Wstr Work Phone: [facility] 06-17-2025 12:10-0400 Diastolic blood pressure 68 mm[Hg] Lab/Port Wstr Work Phone: [facility] 06-17-2025 12:10-0400 Heart rate 72 /min Lab/Port Wstr Work Phone: [facility] 06-17-2025 12:10-0400 SaO2% (BldA) [Mass fraction] 98 % Lab/Port Wstr Work Phone: [facility] 06-17-2025 12:10-0400 Systolic blood pressure 113 mm[Hg] Lab/Port Wstr Work Phone: [facility] 06-15-2025 08:15-0400 Body mass index (BMI) [Ratio] 23.24 kg/m2 Treatment Wstr Work Phone: [facility] 06-15-2025 08:15-0400 Body temperature 97.11 [degF] Treatment Wstr Work Phone: [facility] 06-15-2025 08:15-0400 Body weight 75.52 kg Treatment Wstr Work Phone: [facility] 06-15-2025 08:15-0400 Diastolic blood pressure 77 mm[Hg] Treatment Wstr Work Phone: [facility] 06-15-2025 08:15-0400 Heart rate 71 /min Treatment Wstr Work Phone: [facility] 06-15-2025 08:15-0400 SaO2% (BldA) [Mass fraction] 99 % Treatment Wstr Work Phone: [facility] 06-15-2025 08:15-0400 Systolic blood pressure 116 mm[Hg] Treatment Wstr Work Phone: [facility] 06-06-2025 14:49-0400 Body height 180.3 cm Chapin Dawn MD Work Phone: [facility] 06-06-2025 14:49-0400 Body mass index (BMI) [Ratio] 22.97 kg/m2 Chapin Dawn MD Work Phone: [facility] 06-06-2025 14:49-0400 Body temperature 97.81 [degF] Chapin Dawn MD Work Phone: [facility] 06-06-2025 14:49-0400 Body weight 74.62 kg Chapin Dawn MD Work Phone: [facility] 06-06-2025 14:49-0400 Diastolic blood pressure 74 mm[Hg] Chapin Dawn MD Work Phone: [facility] 06-06-2025 14:49-0400 Heart rate 76 /min Chapin Dawn MD Work Phone: [facility] 06-06-2025 14:49-0400 SaO2% (BldA) [Mass fraction] 97 % Chapin Dawn MD Work Phone: [facility] 06-06-2025 14:49-0400 Systolic blood pressure 118 mm[Hg] Chapin Dawn MD Work Phone: [facility] 06-02-2025 10:40-0400 Diastolic blood pressure 84 mm[Hg] Pastor Jade MD Work Phone: [facility] 06-02-2025 10:40-0400 Heart rate 57 /min Pastor Jade MD Work Phone: [facility] 06-02-2025 10:40-0400 Respiratory rate 18 /min Pastor Jade MD Work Phone: [facility] 06-02-2025 10:40-0400 SaO2% (BldA) [Mass fraction] 100 % Pastor Jade MD Work Phone: [facility] 06-02-2025 10:40-0400 Systolic blood pressure 142 mm[Hg] Pastor Jade MD Work Phone: [facility] 06-02-2025 10:13-0400 Body temperature 96.8 [degF] Pastor Jade MD Work Phone: [facility] 06-02-2025 08:48-0400 Body mass index (BMI) [Ratio] 22.33 kg/m2 Pastor Jade MD Work Phone: [facility] 06-02-2025 08:48-0400 Body weight 73.48 kg Pastor Jade MD Work Phone: [facility] 05-19-2025 12:28-0400 Body height 181.4 cm Kalin Dunham MD Work Phone: [facility] 05-19-2025 12:28-0400 Body mass index (BMI) [Ratio] 23.34 kg/m2 Kalin Dunham MD Work Phone: [facility] 05-19-2025 12:28-0400 Body temperature 97.9 [degF] Kalin Dunham MD Work Phone: [facility] 05-19-2025 12:28-0400 Body weight 76.8 kg Kalin Dunham MD Work Phone: [facility] 05-19-2025 12:28-0400 Diastolic blood pressure 79 mm[Hg] Kalin Dunham MD Work Phone: [facility] 05-19-2025 12:28-0400 Heart rate 80 /min Kalin Dunham MD Work Phone: [facility] 05-19-2025 12:28-0400 Respiratory rate 18 /min Kalin Dunham MD Work Phone: [facility] 05-19-2025 12:28-0400 SaO2% (BldA) [Mass fraction] 100 % Kalin Dunham MD Work Phone: [facility] 05-19-2025 12:28-0400 Systolic blood pressure 120 mm[Hg] Kalin Dunham MD Work Phone: [facility] 05-12-2025 15:15-0400 Diastolic blood pressure 75 mm[Hg] Pastor Jade MD Work Phone: [facility] 05-12-2025 15:15-0400 Heart rate 81 /min Pastor Jade MD Work Phone: [facility] 05-12-2025 15:15-0400 SaO2% (BldA) [Mass fraction] 100 % Pastor Jade MD Work Phone: [facility] 05-12-2025 15:15-0400 Systolic blood pressure 107 mm[Hg] Pastor Jade MD Work Phone: [facility] 05-12-2025 11:18-0400 Body height 182.9 cm Pastor Jade MD Work Phone: [facility] 05-12-2025 11:18-0400 Body mass index (BMI) [Ratio] 22.24 kg/m2 Pastor Jade MD Work Phone: [facility] 05-12-2025 11:18-0400 Body temperature 98.1 [degF] Pastor Jade MD Work Phone: [facility] 05-12-2025 11:18-0400 Body weight 74.39 kg Pastor Jade MD Work Phone: [facility] 05-12-2025 11:18-0400 Respiratory rate 16 /min Pastor Jade MD Work Phone: [facility] 01-14-2023 14:17-0500 Body temperature 98.6 [degF] Dr. Nicki Luis Work Phone: [facility] 01-14-2023 14:17-0500 Diastolic blood pressure 67 mm[Hg] Dr. Nicki Luis Work Phone: [facility] 01-14-2023 14:17-0500 Heart rate 94 /min Dr. Nicki Luis Work Phone: [facility] 01-14-2023 14:17-0500 Respiratory rate 18 /min Dr. Nicki Luis Work Phone: [facility] 01-14-2023 14:17-0500 SaO2% (BldA) [Mass fraction] 98 % Dr. Nicki Luis Work Phone: [facility] 01-14-2023 14:17-0500 Systolic blood pressure 114 mm[Hg] Dr. Nicki Luis Work Phone: [facility] 01-13-2023 16:01-0500 Inhaled oxygen flow rate 1 L/min Dr. Nicki Luis Work Phone: [facility] 01-13-2023 14:24-0500 Body height 182.[address] Nicki Luis Work Phone: [facility] 01-13-2023 14:24-0500 Body mass index (BMI) [Ratio] 30 kg/m2 Dr. Nicki Luis Work Phone: 2(407)[phone] [place] [address] 01-13-2023 14:24-0500 Body weight 100.[address] Nicki Luis Work Phone: 4(523)[phone] [place] [address] 01-13-2023 12:00-0500 Diastolic blood pressure 73 mm[Hg] Dr. Nicki Luis Work Phone: [facility] 01-13-2023 12:00-0500 Heart rate 73 /min Dr. Nicki Luis Work Phone: [facility] 01-13-2023 12:00-0500 Inhaled oxygen flow rate 4 L/min Dr. Nicki Luis Work Phone: [facility] 01-13-2023 12:00-0500 Respiratory rate 14 /min Dr. Nicki Luis Work Phone: [facility] 01-13-2023 12:00-0500 SaO2% (BldA) [Mass fraction] 100 % Dr. Nicki Luis Work Phone: [facility] 01-13-2023 12:00-0500 Systolic blood pressure 110 mm[Hg] Dr. Nicki Luis Work Phone: 3(473)[phone] [place] [address] 01-13-2023 10:41-0500 Body temperature 96.8 [degF] Dr. Nicki Luis Work Phone: [facility] 01-13-2023 06:46-0500 Body height 182.[address] Nicki Luis Work Phone: [facility] 01-13-2023 06:46-0500 Body mass index (BMI) [Ratio] 30 kg/m2 Dr. Nicki Luis Work Phone: [facility] 01-13-2023 06:46-0500 Body weight 100.[address] Nicki Luis Work Phone: [facility] 01-08-2023 13:59-0500 Body mass index (BMI) [Ratio] 29.8 kg/m2 Dr. Nicki Luis Work Phone: [facility] 01-08-2023 13:59-0500 Body weight 99.[address] Nicki Luis Work Phone: [facility] 01-08-2023 13:59-0500 Diastolic blood pressure 74 mm[Hg] Dr. Nicki Luis Work Phone: [facility] 01-08-2023 13:59-0500 Heart rate 88 /min Dr. Nicki Luis Work Phone: [facility] 01-08-2023 13:59-0500 Respiratory rate 18 /min Dr. Nicki Luis Work Phone: [facility] 01-08-2023 13:59-0500 Systolic blood pressure 113 mm[Hg] Dr. Nicki Luis Work Phone: [facility] 12-19-2022 08:41-0500 Body height 182.[address] Nicki Luis Work Phone: [facility] 12-19-2022 08:41-0500 Body mass index (BMI) [Ratio] 29.9 kg/m2 Dr. Nicki Luis Work Phone: [facility] 12-19-2022 08:41-0500 Body weight 100.[address] Nicki Luis Work Phone: [facility] 12-15-2022 14:39-0500 Diastolic blood pressure 91 mm[Hg] [facility] 12-15-2022 14:39-0500 Heart rate 71 /min [facility] 12-15-2022 14:39-0500 Respiratory rate 18 /min [facility] 12-15-2022 14:39-0500 SaO2% (BldA) [Mass fraction] 97 % [facility] 12-15-2022 14:39-0500 Systolic blood pressure 137 mm[Hg] [facility] 12-15-2022 11:03-0500 Body height 182.88 cm [facility] 12-15-2022 11:03-0500 Body mass index (BMI) [Ratio] 29 kg/m2 [facility] 12-15-2022 11:03-0500 Body temperature 97 [degF] [facility] 12-15-2022 11:03-0500 Body weight 97.06 kg [facility] 09-24-2017 15:51-0500 BMI (Body Mass Index) 28.21 kg/m2 [facility] [place] Work Phone: 09-24-2017 15:51-0500 Body Temperature 99 [degF] [facility] [place] Work Phone: 09-24-2017 15:51-0500 BP Diastolic 88 mm[Hg] [facility] [place] Work Phone: 09-24-2017 15:51-0500 BP Systolic 172 mm[Hg] [facility] [place] Work Phone: 09-24-2017 15:51-0500 Height 182.88 cm [facility] [place] Work Phone: 09-24-2017 15:51-0500 Pulse (Heart Rate) 90 /min [facility] [employer] Work Phone: 09-24-2017 15:51-0500 Respiratory Rate 18 /min [facility] [employer] Work Phone: 09-24-2017 15:51-0500 Weight 94.35 kg [facility] [place] Work Phone: 08-25-2017 07:08-0400 BMI (Body Mass Index) 28.34 kg/m2 [facility] [employer] Work Phone: 08-25-2017 07:08-0400 Body Temperature 98.5 [degF] [facility] [employer] Work Phone: 08-25-2017 07:08-0400 BP Diastolic 74 mm[Hg] [facility] [employer] Work Phone: 08-25-2017 07:08-0400 BP Systolic 120 mm[Hg] [facility] [employer] Work Phone: 08-25-2017 07:08-0400 Height 182.88 cm [facility] [employer] Work Phone: 08-25-2017 07:08-0400 Pulse (Heart Rate) 80 /min [facility] [employer] Work Phone: 08-25-2017 07:08-0400 Respiratory Rate 18 /min [facility] [employer] Work Phone: 08-25-2017 07:08-0400 Weight 94.8 kg [facility] [employer] Work Phone: Encounters Encounter Date Encounter Type Care Provider Facility Start: 08-03-2025 End: 08-03-2025 ambulatory Lab/Port [facility] Work Phone: Hematology/Oncology Comment on above: Malignant neoplasm o f head of pancreas (HCC) (Primary Dx) Start: 07-29-2025 End: 07-29-2025 ambulatory Lab/Port [facility] Work Phone: Hematology/Oncology Comment on above: Malignant neoplasm o f head of pancreas (HCC) (Primary Dx) Start: 07-27-2025 End: 07-27-2025 ambulatory Treatment Rm 1 [facility] Work Phone: Hematology/Oncology Comment on above: Malignant neoplasm o f head of pancreas (HCC) (Primary Dx) Start: 07-26-2025 End: 07-26-2025 Patient encounter procedure Chapin Dawn MD Work Phone: Hematology/Oncology Start: 07-26-2025 End: 07-26-2025 ambulatory Lab/Port [facility] Work Phone: Hematology/Oncology Comment on above: Malignant neoplasm o f head of pancreas (HCC) Malignant neoplasm o f head of pancreas (HCC) (Primary Dx) Start: 07-22-2025 End: 07-22-2025 Telephone encounter Diane Douglas RN Work Phone: Hematology/Oncology Comment on above: Care Coordination (C onstipation) Start: 07-15-2025 End: 07-15-2025 ambulatory Lab/Port [facility] Work Phone: Hematology/Oncology Comment on above: Malignant neoplasm o f head of pancreas (HCC) (Primary Dx) Start: 07-13-2025 End: 07-13-2025 ambulatory Treatment Rm 3 [facility] Work Phone: Hematology/Oncology Comment on above: Malignant neoplasm o f head of pancreas (HCC) (Primary Dx) Start: 07-11-2025 End: 07-11-2025 Patient encounter procedure Chapin Dawn MD Work Phone: Hematology/Oncology Start: 07-11-2025 End: 07-11-2025 ambulatory Lab/Port [facility] Work Phone: Hematology/Oncology Comment on above: Malignant neoplasm o f head of pancreas (HCC) Malignant neoplasm o f head of pancreas (HCC) (Primary Dx) Start: 07-11-2025 End: 07-19-2025 Telephone encounter Chapin Dawn MD Work Phone: Hematology/Oncology Start: 2025 End: 2025 ambulatory Lab/Port [facility] Work Phone: Hematology/Oncology Comment on above: Malignant neoplasm o f head of pancreas (HCC) (Primary Dx) Start: 06-29-2025 End: 06-29-2025 ambulatory Treatment Rm 11 [facility] Work Phone: Hematology/Oncology Comment on above: Malignant neoplasm o f head of pancreas (HCC) (Primary Dx) Start: 06-28-2025 End: 06-28-2025 Patient encounter procedure Chapin Dawn MD Work Phone: Hematology/Oncology Start: 06-28-2025 End: 06-28-2025 ambulatory Lab/Port [facility] Work Phone: Hematology/Oncology Comment on above: Malignant neoplasm o f head of pancreas (HCC) Malignant neoplasm o f head of pancreas (HCC) (Primary Dx) Start: 06-17-2025 End: 06-17-2025 ambulatory Lab/Port [facility] Work Phone: Hematology/Oncology Comment on above: Malignant neoplasm o f head of pancreas (HCC) (Primary Dx) Start: 06-16-2025 End: 06-16-2025 Telephone encounter Financial Navigator [facility] Work Phone: Hematology/Oncology Comment on above: Benefits Investigati on Care Coordination (C YCLE 1/DAY 1 POST TREATMENT CALL ) Start: 06-15-2025 End: 06-15-2025 Telephone encounter Karina Felix MS Work Phone: [facility] Start: 06-15-2025 End: 06-15-2025 ambulatory Treatment Rm 3 [facility] Work Phone: Hematology/Oncology Comment on above: Malignant neoplasm o f head of pancreas (HCC) (Primary Dx) Start: 06-07-2025 End: 06-07-2025 ambulatory SHASHANK SHEEHAN Facility:[facility] Start: 06-07-2025 End: 06-07-2025 distribution clerk [facility] Work Phone: Hematology/Oncology Comment on above: Encounter for educat ion (Primary Dx); Malignant neoplasm of head of pancreas (HCC) Start: 06-06-2025 End: 06-06-2025 Patient encounter procedure Chapin Dawn MD Work Phone: Hematology/Oncology Start: 06-06-2025 End: 06-06-2025 ambulatory Chapin Dawn MD Work Phone: Hematology/Oncology Comment on above: Malignant neoplasm o f head of pancreas (HCC) Start: 06-06-2025 End: 06-06-2025 Telephone encounter Loida Beverlyjamilah HERNANDEZ Hematology/Oncology Comment on above: Psychosocial Assessm ent Care Coordination (I ntroduction) Start: 06-02-2025 End: 06-02-2025 Orders Only Patrick Mcfarlane MD Work Phone: Gastroenterology Comment on above: Pancreatic adenocarc inoma (HCC) (Primary Dx) Malignant neoplasm o f head of pancreas (HCC) [C25.0] Start: 05-31-2025 End: 05-31-2025 ambulatory SHASHANK SHEEHAN Facility:[facility] Start: 05-26-2025 End: 05-27-2025 Orders Only Kalin Dunham MD Work Phone: Hematology/Oncology Comment on above: Malignant neoplasm o f head of pancreas (HCC) (Primary Dx) Echocardiologist - O ther (EUS scheduling) Start: 05-25-2025 End: 07-25-2025 Follow-up encounter Salas Powers MS Work Phone: [facility] Start: 05-25-2025 End: 05-25-2025 Telephone encounter Kalin Dunham MD Work Phone: Hematology/Oncology Comment on above: Malignant neoplasm o f pancreas, unspecified location of malignancy (HCC) (Primary Dx) Malignant neoplasm o f head of pancreas (HCC) (Primary Dx) Start: 05-23-2025 End: 05-23-2025 ambulatory [facility] Start: 05-23-2025 End: 05-23-2025 Subsequent hospital visit by physician [facility] Work Phone: [facility] Comment on above: Malignant neoplasm o f head of pancreas (HCC) [C25.0] Start: 05-19-2025 End: 05-19-2025 Telephone encounter Juan Sagastume MD Work Phone: General Surgery Comment on above: Appointment Start: 05-19-2025 End: 05-19-2025 Office outpatient new 60 minutes Juan Sagastume MD Work Phone: General Surgery Comment on above: Malignant neoplasm o f head of pancreas (HCC) (Primary Dx) Start: 05-19-2025 End: 05-19-2025 Patient encounter procedure Kalin Dunham MD Work Phone: Hematology/Oncology Start: 05-19-2025 End: 05-19-2025 ambulatory Kalin Dunham MD Work Phone: Hematology/Oncology Comment on above: Malignant neoplasm o f head of pancreas (HCC) (Primary Dx) Start: 05-16-2025 End: 05-16-2025 Telephone encounter Pastor Jade MD Work Phone: Gastroenterology Start: 05-12-2025 ambulatory SHASHANK SHEEHAN Facility :[facility] Start: 05-12-2025 End: 05-12-2025 Subsequent hospital visit by physician Pastor Jade MD Work Phone: Gastroenterology Comment on above: Pancreatic lesion (H CC) [K86.9] Start: 05-06-2025 End: 05-06-2025 Telephone encounter Fausto Arriaga MD Work Phone: Gastroenterology Comment on above: Appointment Start: 05-06-2025 End: 05-06-2025 ambulatory MANPREET ALMEIDA Facility:[facility] Start: 05-06-2025 End: 05-06-2025 Office outpatient new 30 minutes Manpreet Almeida APRN.CNP Work Phone: Gastroenterology Comment on above: Pancreatic lesion (H CC) (Primary Dx); Weight loss; Common bile duct dilation; Dilation of pancreatic duct (HCC); Steatorrhea, pancreatic (HCC) Start: 05-06-2025 End: 05-06-2025 ambulatory SHASHANK SHEEHAN Facility:[facility] Start: 05-05-2025 End: 05-06-2025 Telephone encounter Fausto Arriaga MD Work Phone: Gastroenterology Comment on above: Appointment (Referra l EUS) Start: 04-29-2025 End: 04-29-[address] Shashank Sheehan MD Work Phone: [facility] Work Phone: Start: 04-29-2025 End: 04-29-[address] Shashank Sheehan MD -Ultrasound [facility] Work Phone: Start: 04-28-2025 End: 04-29-[address] Shashank Sheehan MD Work Phone: [facility] Work Phone: Start: 04-28-2025 End: 04-28-[address] Shashank Sheehan MD -Cat Scan [facility] Work Phone: Start: 04-28-2025 End: 04-28-2025 ambulatory [facility] Facility:[facility] Start: 04-25-2025 End: 04-25-[address] Shashank Sheehan MD Work Phone: [facility] Work Phone: Start: 04-25-2025 End: 04-25-[address] Shashank Sheehan MD -Laboratory [place] Work Phone: Start: 04-25-2025 End: 04-25-2025 ambulatory Shashank Sheehan Facility:[facility] Start: 04-06-2025 End: 04-06-[address] Shashank Sheehan MD Work Phone: [facility] Work Phone: Start: 04-06-2025 End: 04-06-[address] Raman Stout MD -Laboratory [place] Work Phone: Start: 04-06-2025 End: 04-06-2025 ambulatory [facility] Facility:[facility] Start: 03-21-2025 End: 03-21-[address] Shashank Sheehan MD Work Phone: [facility] Work Phone: Start: 03-21-2025 End: 03-21-[address] Shashank Sheehan MD -Laboratory, [place] Work Phone: Start: 03-21-2025 End: 03-21-2025 ambulatory Shashank Sheehan Facility:[facility] Start: 10-29-2024 End: 10-29-2024 ambulatory Kofi BRUNO Facility[facility] Start: 10-11-2024 End: 10-11-2024 ambulatory Nicki Luis Facility:[facility] Start: 10-17-2023 End: 10-17-2023 ambulatory [facility] Work Phone: Start: 10-17-2023 End: 10-17-2023 Patient encounter procedure [facility]-Laboratory, [place] Work Phone: Start: 01-14-2023 Non-patient / Non-visit Dr. iLborio Luis Work Phone: [facility] Start: 01-14-2023 Non-patient / Non-visit Dr. Liborio Luis Work Phone: [facility] Start: 01-13-2023 Non-patient / Non-visit Dr. Liborio Luis Work Phone: [facility] Start: 01-13-2023 Non-patient / Non-visit Dr. Liborio Luis Work Phone: [facility] Start: 01-13-2023 End: 01-14-2023 Evaluation and management of inpatient Dr. Nicki Luis Work Phone: [facility]-Medical Surgical 3 Start: 01-13-2023 End: 01-14-[address] Nicki Luis Work Phone: [facility] Work Phone: Start: 01-10-2023 Non-patient / Non-visit Dr. Liborio Luis Work Phone: [facility] Start: 01-09-2023 Non-patient / Non-visit Dr. Liborio Luis Work Phone: [facility] Start: 01-09-2023 End: 01-09-[address] Nicki Luis Work Phone: [facility] Work Phone: Start: 01-09-2023 End: 01-09-[address] Nicki Luis Work Phone: [facility]-Cardiovascular Services Start: 01-08-[address] Nicki Luis Work Phone: [facility] Start: 01-08-2023 End: 01-08-2023 Admission to same day surgery center Dr. Nicki Luis Work Phone: [facility] Start: 01-08-2023 End: 01-08-[address] Nicki Luis Work Phone: [facility] Start: 01-06-2023 End: 01-06-2023 Non-patient / Non-visit Dr. Nicki Luis Work Phone: [facility] Start: 01-06-2023 End: 01-06-[address] Nicki Luis Work Phone: [facility] Start: 12-20-2022 End: 12-20-[address] Nicki Luis Work Phone: [facility] Start: 12-19-2022 End: 12-19-[address] iNcki Luis Work Phone: [facility] Work Phone: Start: 12-19-2022 End: 12-19-[address] Nicki Luis Work Phone: [facility] Start: 12-19-2022 End: 12-19-[address] Nicki Luis Work Phone: [facility] Start: 12-15-2022 End: 12-15-2022 Emergency department patient visit [facility]-Emergency Department Start: 07-03-2022 End: 07-03-2022 ambulatory [facility] Work Phone: Start: 07-03-2022 End: 07-03-2022 Patient encounter procedure [facility]-Laboratory, [facility] Procedures Date Procedure Procedure Detail Performing Clinician Start: 07-26-2025 CBC + DIFF Chapin glez MD Work Phone: Start: 07-26-2025 Comprehensive metabo lic panel Chapin Dawn MD Work Phone: Start: 07-11-2025 CBC + DIFF Chapin glez MD Work Phone: Start: 07-11-2025 Comprehensive metabo lic panel Chapin Dawn MD Work Phone: Start: 06-28-2025 Blood count complete auto&auto difrntl wbc Chapin Dawn MD Work Phone: Start: 06-15-2025 Blood count complete auto&auto difrntl wbc Chapin Dawn MD Work Phone: Start: 06-02-2025 Gluc bld gluc mntr d ev cleared fda spec home use Mary Velvet COLOR DIPPER.ADOBE BALL MIXER Work Phone: Start: 06-02-2025 Ercp dx collection s pecimen brushing/washing Kalin Dunham MD Work Phone: Start: 06-02-2025 Gluc bld gluc mntr d ev cleared fda spec home use Mary Velvet COLOR DIPPER.ADOBE BALL MIXER Work Phone: Start: 06-26-2025 Esophagoscp rig turner soral hypopharynx crv esoph Manpreet Almeida COLOR DIPPER.IT NETWORK ENGINEER Work Phone: Start: 05-12-2025 Gluc bld gluc mntr d ev cleared fda spec home use Stephanie Tang COLOR DIPPER.ADOBE BALL MIXER Start: 04-29-2025 US scan of gallbladder Dr. Shashank Sheehan MD Work Phone: Start: 04-28-2025 CT of abdomen with contrast Dr. Shashank Sheehan MD Work Phone: Start: 04-25-2025 Hepatitis A virus an tibody, IgM type Dr. Shashank Sheehan MD Work Phone: Comment on above: A negative anti-HAV IgM result suggests no recent orcurrent HAV infection. Start: 04-25-2025 Hepatitis B core ant ibody measurement, IgM type Dr. Shashank Sheehan MD Work Phone: Start: 04-25-2025 Hepatitis C antibody measurement Dr. Shashank Sheehan MD Work Phone: Start: 04-25-2025 Urine microalbumin/creatinine ratio measurement Dr. Shashank Sheehan MD Work Phone: Start: 03-21-2025 Iadna-dna/rna gi pth gn multiplex [...] Start: 08-25-2017 End: 08-29-2017 BWA Clotilde Hutton HAND BINDER CUTTER Work Phone: Start: 08-25-2017 End: 08-29-2017 Follow Up Appt 1 month Clotilde perea IT NETWORK ENGINEER Work Phone: Start: 08-25-2017 End: 08-29-2017 Pulmonary Function Test - complete Clotilde Mullins IT NETWORK ENGINEER Work Phone: Start: 08-25-2017 End: 08-29-2017 Pulmonary stress test/simple Clotilde Mullins IT NETWORK ENGINEER Work Phone: Nasal Screen MRSA/MSSA Dr. Nayan Luis Work Phone: Plan of Treatment Date Care Activity Detail Author Start: 07-26-2028 Diabetes Screening Diabetes Screening [facility] Start: 07-11-2028 Diabetes Screening Diabetes Screening [facility] Start: 06-28-2028 Diabetes Screening Diabetes Screening [facility] Start: 06-15-2028 Diabetes Screening Diabetes Screening [facility] Start: 05-19-2028 Diabetes Screening Diabetes Screening [facility] Start: 06-04-2026 Urine microalbumin profile DTaP,Tdap,Td Vaccine (2 - Td or Tdap) [facility] Start: 10-07-2025 End: 10-07-2025 ambulatory 10/07/2025 4:00 PM [facility] Hematology/Oncology [address] [place] [id number] Wstr, Lab/Port [place] [address] [place] [address] DC/CADD Hematology/Oncology Comment on above: DC/CADD Start: 10-05-2025 End: 10-05-2025 ambulatory 10/05/2025 10:00 AM EST Infusion Center Hematology/Oncology [address] [place] [address] Q2WK FOLFIRINOX(PORT)LAB&OV 10/03* Hematology/Oncology Comment on above: Q2WK FOLFIRINOX(PORT)LAB&OV 10/03* Start: 10-03-2025 End: 10-03-2025 ambulatory Hematology/Oncology Comment on above: (SO)CBC/CMP(S)(PORT)OV TODAY* OV/EARLY LABS/CHEMO 10/05* SHAUNAMDICK Start: 09-23-2025 End: 09-23-2025 ambulatory 09/23/2025 4:00 PM EST Infusion Center Hematology/Oncology [address] [place] [address] Wstr, Lab/Port [place] [address] [place] [address] DC/CADD Hematology/Oncology Comment on above: DC/CADD Start: 09-21-2025 End: 09-21-2025 ambulatory 09/21/2025 8:00 AM EST Infusion Center Hematology/Oncology [address] [place] [address] Q2WK FOLFIRINOX(PORT)LAB&OV 09/20* Hematology/Oncology Comment on above: Q2WK FOLFIRINOX(PORT)LAB&OV 09/20* Start: 09-20-2025 End: 09-20-2025 ambulatory Hematology/Oncology Comment on above: (SO)CBC/CMP(S)(PORT)OV TODAY* OV/EARLY LABS/CHEMO 09/21* SHAUNAMDICK Start: 09-09-2025 End: 09-09-2025 ambulatory 09/09/2025 4:00 PM EDT Infusion Center Hematology/Oncology [address] [place] [address] Wstr, Lab/Port [facility] [address] [place] [address] DC/CADD Hematology/Oncology Comment on above: DC/CADD Start: 09-08-2025 End: 09-08-2025 Patient encounter procedure Gastroenterology Comment on above: Pancreatic adenocarcinoma (HCC) [C25.9] Start: 09-07-2025 End: 09-07-2025 ambulatory 09/07/2025 8:00 AM EDT Infusion Center Hematology/Oncology [address] [place] [address] Q2WK FOLFIRINOX(PORT)LAB&OV 09/05* Hematology/Oncology Comment on above: Q2WK FOLFIRINOX(PORT)LAB&OV 09/05* Start: 09-05-2025 End: 09-05-2025 ambulatory Hematology/Oncology Comment on above: (SO)CBC/CMP(S)(PORT)OV TODAY* OV/EARLY LABS/CHEMO 09/07* LÓPEZ Start: 09-02-2025 End: 06-02-2026 ERCP ERCP Endoscopy Routine Pancreatic adenocarcinoma (HCC) Expected: 09/02/2025, Expires: 06/02/2026 [facility] Work Phone: Comment on above: Expected: 09/02/2025, Expires: Start: 08-25-2025 End: 08-25-2025 ambulatory 08/25/2025 4:00 PM EDT Infusion Center Hematology/Oncology [address] [place] [address] Wstr, Lab/Port [place] [address] [place] [address] DC/CADD Hematology/Oncology Comment on above: DC/CADD Start: 08-23-2025 End: 08-23-2025 ambulatory 08/23/2025 8:00 AM EDT Infusion Center Hematology/Oncology [address] [place] [address] Q2WK FOLFIRINOX(PORT)LAB&OV 08/22* Hematology/Oncology Comment on above: Q2WK FOLFIRINOX(PORT)LAB&OV 08/22* Start: 08-22-2025 End: 08-22-2025 ambulatory Hematology/Oncology Comment on above: (SO)CBC/CMP(S)(PORT)OV TODAY* OV/EARLY LABS/CHEMO 08/23* LÓPEZ Start: 08-12-2025 End: 08-12-2025 ambulatory 08/12/2025 4:00 PM EDT Infusion Center Hematology/Oncology [address] [place] [address] Wstr, Lab/Port [place] [address] [place] [address] DC/CADD Hematology/Oncology Comment on above: DC/CADD Start: 08-10-2025 End: 08-10-2025 ambulatory 08/10/2025 9:00 AM EDT Infusion Center Hematology/Oncology [address] [place] [address] Q2WK FOLFIRINOX(PORT)LAB&OV 08/09* Hematology/Oncology Comment on above: Q2WK FOLFIRINOX(PORT)LAB&OV 08/09* Start: 08-09-2025 End: 08-09-2025 ambulatory Hematology/Oncology Comment on above: PT TO ARRIVE AT 12:45 OV/EARLY LABS/CHEMO 08/10* LÓPEZ Start: 08-03-2025 End: 08-03-2025 Patient encounter procedure 08/03/2025 9:00 AM EDT Appointment Cat Scan [address] [place] [address] Dx: Malignant neoplasm of head of pancreas (HCC) [C25.0] Cat Scan Comment on above: Dx: Malignant neoplasm of head of pancre as (HCC) [C25.0] Start: 07-29-2025 End: 07-29-2025 ambulatory 07/29/2025 4:00 PM EDT Infusion Center Hematology/Oncology [address] [place] [address] Wstr, Lab/Port [place] [address] [place] [address] DC/CADD Hematology/Oncology Comment on above: DC/CADD Start: 07-27-2025 End: 07-27-2025 ambulatory 07/27/2025 8:00 AM EDT Infusion Center Hematology/Oncology [address] [place] [address] Q2WK FOLFIRINOX(PORT)LAB&OV 07/26* Hematology/Oncology Comment on above: Q2WK FOLFIRINOX(PORT)LAB&OV 07/26* Start: 07-26-2025 End: 07-26-2025 ambulatory Hematology/Oncology Comment on above: (SO)CBC/CMP(S)(PORT)* OV/EARLY LABS/CHEMO 07/27* Start: 07-18-2025 Influenza vaccination [facility] Start: 07-15-2025 End: 07-15-2025 ambulatory 07/15/2025 4:00 PM EDT Infusion Center Hematology/Oncology [address] [place] [address] Wstr, Lab/Port [place] [address] [place] [address] DC/CADD Hematology/Oncology Comment on above: DC/CADD Start: 07-14-2025 End: 07-14-2025 ambulatory 07/14/2025 4:00 PM EDT Infusion Center Hematology/Oncology [address] [place] [address] Wstr, Lab/Port [place] [address] [place] [address] DC/CADD Hematology/Oncology Comment on above: DC/CADD Start: 07-13-2025 End: 07-13-2025 ambulatory 07/13/2025 8:30 AM EDT Infusion Center Hematology/Oncology [address] [place] [address] Q2WK FOLFIRINOX(PORT)LAB&OV 07/11* Hematology/Oncology Comment on above: Q2WK FOLFIRINOX(PORT)LAB&OV 07/11* Start: 07-12-2025 End: 10-10-2025 Cancer Ag 19-9 [Units/volume] in Serum or Plasma CA 19-9 Lab Routine Malignant neoplasm of head of pancreas (HCC) Expected: 07/12/2025, Expires: 10/10/2025 [facility] Work Phone: Comment on above: Expected: 07/12/2025, Expires: Start: 07-12-2025 End: 07-12-2025 ambulatory 07/12/2025 8:30 AM EDT [facility] Hematology/Oncology [address] [place] [address] Q2WK FOLFIRINOX(PORT)LAB&OV 07/11* Hematology/Oncology Comment on above: Q2WK FOLFIRINOX(PORT)LAB&OV 07/11* Start: 07-11-2025 End: 07-11-2025 ambulatory Hematology/Oncology Comment on above: (SO)CBC/CMP(S)(PORT)* OV/EARLY LABS/CHEMO 07/12* (SO)CBC/CMP(S)CA 19- 9(PORT)* Start: 2025 End: 2025 ambulatory Hematology/Oncology Comment on above: DC/CADD DC/CADD Neulasta Start: 06-29-2025 End: 06-29-2025 ambulatory Hematology/Oncology Comment on above: Q2WK D1-C2 FOLFIRINOX(PORT)* Q2WK FOLFIRINOX(PORT )LAB&OV 06/28* Start: 06-28-2025 End: 06-28-2025 ambulatory Hematology/Oncology Comment on above: CBC/CMP(PORT)* OV/EARLY LABS/CHEMO 06/30* (SO)CBC/CMP(S)(PORT) * OV/EARLY LABS/CHEMO 06/29* Start: 06-28-2025 End: 06-28-2025 Patient encounter procedure Gastroenterology Comment on above: BILE DUCT BLOCKAGE/EUS FOR PANCREATIC CA NCER Malignant neoplasm o f head of pancreas (HCC) [C25.0] Start: 06-21-2025 End: 06-21-2025 Patient encounter procedure 06/21/2025 10:30 AM EDT [facility] [address] [place] [address] Karina Felix, MS [facility] [address] [place], [place] [id number] CONSULT TO [facility] Comment on above: CONSULT TO [facility] Start: 06-17-2025 End: 06-17-2025 ambulatory 06/17/2025 4:00 PM EDT Infusion Center Hematology/Oncology [address] [place] [address] Wstr, Lab/Port [facility] [address] [place] [address] DC/CADD Hematology/Oncology Comment on above: DC/CADD Start: 06-17-2025 End: 06-17-2025 Patient encounter procedure 06/17/2025 3:30 PM EDT Office Visit General Surgery [address] [place] [address] Juan Sagastume MD [address] [place] [address] follow up per wq General Surgery Comment on above: follow up per wq Start: 06-15-2025 End: 06-15-2025 ambulatory 06/15/2025 8:30 AM EDT Infusion Center Hematology/Oncology [address] [place] [address] START CMP/CBC(PORT) Q2WK D1-C1 FOLFIRINOX* Hematology/Oncology Comment on above: START CMP/CBC(PORT) Q2WK D1-C1 FOLFIRINO X* Start: 06-07-2025 End: 06-07-2025 ambulatory 06/07/2025 10:30 AM EDT Infusion Center Hematology/Oncology [address] [place] [address] Wstr, Echocardiologist [facility] [address] [place] [address] CHEMO ED FOLFIRINOX* Hematology/Oncology Comment on above: CHEMO ED FOLFIRINOX* Start: 06-06-2025 End: 06-06-2025 ambulatory 06/06/2025 3:00 PM EDT Visit (SP) Office Hematology/Oncology [address] [place] [address] Chapin Dawn MD [address] [place] [address] Transfer from main CC-Kalin Juarez-Malignant neoplasm of head of pancreas (HCC) [C25.0] Hematology/Oncology Comment on above: Transfer from main CC-Kalin Juarez -Malignant neoplasm of head of pancreas (HCC) [C25.0] Start: 06-02-2025 End: 05-26-2026 ERCP ERCP Endoscopy Routine Malignant neoplasm of head of pancreas (HCC) Expected: 06/02/2025 (Approximate), Expires: 05/26/2026 [facility] Work Phone: Comment on above: Expected: 06/02/2025 (Approximate), Expi res: 05/26/2026 Start: 06-02-2025 End: 06-02-2025 Patient encounter procedure 06/02/2025 10:00 AM EDT Appointment Gastroenterology [address] [address] Pastor Jade MD [address] [place] [address] Malignant neoplasm of head of pancreas (HCC) [C25.0] Gastroenterology Comment on above: Malignant neoplasm of head of pancreas ( HCC) [C25.0] Start: 06-01-2025 End: 06-01-2025 Patient encounter procedure 06/01/2025 10:00 AM EDT Appointment Gastroenterology [address] [address] Marco A Justin MD [address] [place] [address] Malignant neoplasm of head of pancreas (HCC) [C25.0] Gastroenterology Comment on above: Malignant neoplasm of head of pancreas ( HCC) [C25.0] Start: 05-31-2025 End: 05-31-2025 Admission to same day surgery center 05/31/2025 11:00 AM EDT - 05/31/2025 12:[address] [facility] INTERVENT[facility] RAD[facility] [address] [facility] [place] [address] Valery Harrell [facility] [address] [facility] [address] [place] [address] PORT PLACEMENT [facility] INTERVENTIONAL RADIOLOGY Comment on above: PORT PLACEMENT Start: 05-31-2025 End: 05-31-2025 Insj prph ctr vad w/subq port age 7 yr/> PERIPHERAL INSERTION CV CATHETER WITH PORT, OVER 4 YRS Malignant neoplasm of pancreas, unspecified location of malignancy (HCC) 05/31/2025 11:00 AM EDT [facility] Start: 05-31-2025 Subsequent hospital visit by physician 05/31/2025 11:00 AM EDT Hospital Encounter [facility] [address] [place] [address] Valery Harrell MD [address] [facility] [address] [place] [address] Malignant neoplasm of pancreas, unspecified location of malignancy (HCC) [C25.9] [facility] Comment on above: Malignant neoplasm of pancreas, unspecif ied location of malignancy (HCC) [C25.9] Start: 05-26-2025 End: 05-25-2026 EGD - THERAPEUTIC, EUS, OR TUBE INTERVENTIONS EGD - THERAPEUTIC, EUS, OR TUBE INTERVENTIONS Endoscopy Routine Malignant neoplasm of head of pancreas (HCC) Expected: 05/26/2025 (Approximate), Expires: 05/25/2026 [facility] Work Phone: Comment on above: Expected: 05/26/2025 (Approximate), Expi res: 05/25/2026 Start: 05-23-2025 End: 05-23-2025 Patient encounter procedure 05/23/2025 8:00 AM EDT Appointment RADIO [facility] [address] [address] [address] CH + PANCREAS/PELVIS W IVCON [facility] Comment on above: CT CH + PANCREAS/PELVIS W IVCON Start: 05-19-2025 End: 08-18-2025 [id number] GENOTYPING PANEL [facility] Comment on above: Expected: 05/19/2025, Expires: Start: 05-19-2025 End: 08-18-2025 ASHLEIGH MELÉNDEZ HEREDITARY DIAGNOSTIC CANCER PANEL [facility] Work Phone: Comment on above: Expected: 05/19/2025, Expires: Start: 05-12-2025 End: 05-12-2025 Patient encounter procedure 05/12/2025 1:00 PM EDT Appointment Gastroenterology [address] [place] [id number] Pastor Jade MD [address] [address] pancreatic mass Gastroenterology Comment on above: pancreatic mass Start: 05-06-2025 End: 08-05-2025 Cancer Ag 19-9 [Units/volume] in Serum or Plasma [facility] Comment on above: Expected: 05/06/2025, Expires: Start: 05-06-2025 End: 08-05-2025 Lipase [Enzymatic activity/volume] in Serum or Plasma [facility] Comment on above: Expected: 05/06/2025, Expires: Start: 03-21-2025 Ova and Parasites Ova and Parasites [facility] Start: 07-18-2024 Covid-19 Vaccine ( season) Covid-19 Vaccine ( season) [facility] Start: 01-14-2023 Patient discharge [facility] Start: 01-13-2023 Removal of urinary catheter [facility] Start: 01-13-2023 Care regimes management [facility] Start: 01-13-2023 Notification of physician [facility] Start: 01-13-2023 [facility] Start: 01-13-2023 Following clinical pathway protocol [facility] Start: 01-13-2023 Application of intermittent pneumatic compression device [facility] Start: 01-13-2023 Catheterization of vein [facility] Start: 01-13-2023 Consultation [facility] Start: 01-13-2023 Following clinical pathway protocol [facility] Start: 01-13-2023 Incentive spirometry [facility] Start: 01-13-2023 Measuring intake and output [facility] Start: 01-13-2023 Neurovascular assessment [facility] Start: 01-13-2023 Oxygen therapy [facility] Start: 01-13-2023 Patient education [facility] Start: 01-13-2023 Procedure discontinued [facility] Start: 01-13-2023 Provision of activity privileges [facility] Start: 01-13-2023 Recommendation to continue with treatment [facility] Start: 01-13-2023 Referral to service [facility] Start: 01-13-2023 Taking patient vital signs [facility] Start: 01-13-2023 [facility] Start: 01-13-2023 Admission procedure [facility] Start: 2022 Pneumococcal Vaccine: 50+ (1 of 1 - PCV) Pneumococcal Vaccine: 50+ (1 of 1 - PCV) [facility] Start: 2022 Shingrix Vaccine (1 of 2) Shingrix Vaccine (1 of 2) [facility] Start: 09-24-2017 End: 09-24-2017 Appointment Appointment [facility] Work Phone: Start: 08-25-2017 End: 08-29-2017 BWNayan MIRELES [facility] Phone: Start: 08-25-2017 End: 08-29-2017 Follow Up Appt 1 month Follow Up Appt 1 month [facility] Phone: Start: 08-25-2017 End: 08-29-2017 Pulmonary Function Test - complete Pulmonary Function Test - complete [facility] Phone: Start: 08-25-2017 End: 08-29-2017 Pulmonary stress test/simple Pulmonary stress testing; simple (eg, 6-minute walk) [facility] Phone: Start: 08-25-2017 End: 08-25-2017 Appointment Appointment [facility] Phone: Start: 2017 Diabetes Screening Diabetes Screening [facility] Start: 2017 Screening for malignant neoplasm of colon [facility] Start: 2007 Lipid panel Lipid Screening [facility] Start: 1991 Hepatitis B Vaccine (1 of 3 - 19+ 3-dose series) Hepatitis B Vaccine (1 of 3 - 19+ 3-dose series) [facility] Start: 1991 Pneumococcal Vaccine: 50+ (1 of 2 - PCV) Pneumococcal Vaccine: 50+ (1 of 2 - PCV) [facility] Start: 1991 Shingrix Vaccine (1 of 2) Shingrix Vaccine (1 of 2) [facility] Start: 1990 Anxiety Screening Anxiety Screening [facility] Start: 1990 Depression Screening Depression Screening [facility] Start: 1990 Hepatitis C screening Hepatitis C Screening [facility] Start: 1990 HIV screening HIV Screening [facility] Cancer Ag 19-9 [Units/volume] in Serum or Plasma CA 19-9 Lab Routine Malignant neoplasm of head of pancreas (HCC) 07/11/2025 3:04 PM EDT [facility] End: 06-06-2026 CBC W Auto Differential panel - Blood COMPLETE BLOOD COUNT AND DIFFERENTIAL Lab STAT Malignant neoplasm of head of pancreas (HCC) Every other week for 14 Occurrences starting 06/06/2025 until 06/06/2026 [facility] Work Phone: Comment on above: Every other week for 14 Occurrences star ting 06/06/2025 until 06/06/2026 CBC W Auto Different ial panel - Blood COMPLETE BLOOD COUNT AND DIFFERENTIAL Lab STAT Malignant neoplasm of head of pancreas (HCC) 07/11/2025 3:04 PM EDT [facility] Work Phone: CBC W Auto Different ial panel - Blood COMPLETE BLOOD COUNT AND DIFFERENTIAL Lab STAT Malignant neoplasm of head of pancreas (HCC) 07/26/2025 8:13 AM T [facility] Work Phone: End: 06-06-2026 Comprehensive metabolic 2000 panel - Serum or Plasma COMPREHENSIVE METABOLIC PANEL Lab STAT Malignant neoplasm of head of pancreas (HCC) Every other week for 14 Occurrences starting 06/06/2025 until 06/06/2026 [facility] Comment on above: Every other week for 14 Occurrences star ting 06/06/2025 until 06/06/2026 End: 06-18-2026 CT Abdomen and Pelvis W contrast IV CT PANCREAS/PELVIS W IVCON Radiology Routine Malignant neoplasm of head of pancreas (HCC) 1 Occurrences starting 05/19/2025 until 06/18/2026 [facility] Comment on above: 1 Occurrences starting 05/19/2025 until 06/18/2026 CT Abdomen and Pelvi s W contrast IV CT PANCREAS/PELVIS W IVCON Radiology Routine Malignant neoplasm of head of pancreas (HCC) 05/23/2025 8:41 AM EDT [facility] End: 06-18-2026 CT Chest W contrast IV CT CHEST W IVCON Radiology Routine Malignant neoplasm of head of pancreas (HCC) 1 Occurrences starting 05/19/2025 until 06/18/2026 [facility] Comment on above: 1 Occurrences starting 05/19/2025 until 06/18/2026 CT Chest W contrast IV CT CHEST W IVCON Radiology Routine Malignant neoplasm of head of pancreas (HCC) 05/23/2025 8:41 AM EDT [facility] Work Phone: End: 07-28-2026 CT Pancreas W contrast IV CT PANCREAS W IVCON Radiology Routine Malignant neoplasm of head of pancreas (HCC) 1 Occurrences starting 06/28/2025 until 07/28/2026 [facility] Comment on above: 1 Occurrences starting 06/28/2025 until 07/28/2026 End: 05-06-2026 EGD - THERAPEUTIC, EUS, OR TUBE INTERVENTIONS EGD - THERAPEUTIC, EUS, OR TUBE INTERVENTIONS Endoscopy Routine Pancreatic lesion (HCC) Weight loss Common bile duct dilation Dilation of pancreatic duct (HCC) 1 Occurrences starting 05/06/2025 until 05/06/2026 [facility] Work Phone: Comment on above: 1 Occurrences starting 05/06/2025 until 05/06/2026 Ova OR parasites identification [facility] Patient Education [facility] Work Phone: Patient referral [facility] Work Phone: Stroke after atrial fibrillation 5 year risk [#] Haley 2002 IR PORTOCATH PLACEMENT Radiology Routine Malignant neoplasm of pancreas, unspecified location of malignancy (HCC) Ordered: 05/25/2025 [facility] Work Phone: Comment on above: Ordered: 05/25/2025 Tissue Pathology bio psy report [facility] Work Phone: Comment on above: Release Upon Ordering for 1 Occurrences starting 05/12/2025, 1 completed Payers Date Payer Category Payer Private Health Insurance [id number] 2024 Private Health Insurance [id number] 2024 Self-pay [id number] 2012 Unknown [id number] Private Health Insurance [id number] Private Health Insurance FOR[facility]LY [facility] COMP [id number] Unknown ANTHEM [id number] Unknown [id number] Unknown [id number] 62 Unknown [id number] 62 Unknown [id number] 62 Unknown [id number] 62 Unknown [id number] 62 Unknown [id number] Social History Date Type Detail Facility Start: 12-09-2021 End: 02-26-2023 Tobacco smoking status NHIS Unknown if ever smoked [facility] Start: 08-03-2017 Occasional [facility] Start: 08-03-2017 None [facility] Start: 08-03-2017 Spouse/ Signif icant Other [facility] Start: 08-03-2017 Cigarettes [facility] Start: 1970 Sex Assigned At Male [facility] Start: 10-29-2024 End: 06-06-2025 Tobacco smoking status NHIS Ex-smoker (finding) [facility] Start: 05-06-2025 Gender identity Identifies as male gender (finding) [facility] Start: 05-06-2025 Sexual orientation Heterosexual (fin fabio) [facility] History of tobacco use Current smoker [facility] History of tobacco use Cigarette Smoker [facility] Start: 05-12-2025 End: 06-06-2025 Tobacco use and exposure Former smokeless tobacco user [facility] End: 01-15-2025 History of tobacco use Chews Tobacco [facility] Start: 05-12-2025 End: 07-26-2025 Alcoholic beverage intake Ex-drinker (finding) [facility] Start: 05-12-2025 End: 05-19-2025 History of Social function [facility] Start: 05-12-2025 End: 05-19-2025 Tobacco use panel [facility] Start: 10-18-2012 National Score (1-10 0), lower number is lower risk 54 [facility] How often to you hav e a drink containing alcohol? Never [facility] Medical Equipment Procedure Code Equipment Code Equipment Origin al Text Equipment Identifier Dates PATCH,AMNION 2X3CM FDA Start: 01-13-2023 PATCH,AMNION 2X3CM FDA Start: 01-13-2023 PATCH,AMNION 2X3CM FDA Start: 01-13-2023 PATCH,AMNION 2X3CM FDA Start: 01-13-2023 PATCH,AMNION 2X3CM FDA Start: 01-13-2023 PATCH,AMNION 2X3CM FDA Start: 01-13-2023 PATCH,AMNION 2X3CM FDA Start: 01-13-2023 Port Chronoflex Powerport Isp Mri 8fr Titanium Implantable Infusion - [id number] Start: 05-31-2025 Stent 10fr Duode nal Bend Plastic 7cm Biliary Temporary Rapid Exchange - [id number] Start: 06-02-2025 Goals Date Patient Goal Desired Activity /State Functional Status Date Assessment Result Facility 07-26-2025 Total score [AUDIT-C] 0 07/26/20 8:15 AM EDT Bharti Ohara MA [facility] 01-14-2023 Functional status Patient Activity Bedres t [facility] Work Phone: 01-14-2023 Functional status Independent [facility] Work Phone: [facility] Mental Status Date Assessment Result Facility 01-14-2023 Cognitive function Level Of Cons ciousness Awake;Alert;Appropriate;Follow s Commands [facility] Work Phone: 01-13-2023 Cognitive function Touch/Shaking [facility] Work Phone: Clinical Notes 01-10-2023 to 07-26-2025 Chapin Dawn MD - 07/26/2025 8:26 AM EDTTelephone Encounter - Diane Douglas RN - 07/22/2025 11:43 AM EDTTelephone Encounter - Diane Douglas RN - 07/22/2025 11:43 AM EDT Note Date & Type Note Facility 07-26-2025 Note HNO ID: [id number] Author: CHAPIN DAWN MD Service: ? Author Type: Physician Type: Progress Notes Filed: 07/26/2025 11:10 Note Text: (Elements copied from my note dated July 11, 2025, have been reviewed and updated where appropriate, and all reflect current assessment and medical decision making from today's encounter, July 26, 2025) HISTORY OF PRESENT ILLNESS: Lillian Bowden is a 55 year old male history of diarrhea, change in stool character, weight loss. Saw his PCP, did stool studies, saw GI colonoscopy done, one benign polyp. Dr Stout got CT scan at [facility]. This noted mass at head of pancreas. Biopsy 05-12-25 showed adenocarcinoma. Imaging shows tumor abuts SMV. Had bout of constipation, took a bottle of mag citrate Hyperglycemia, BS better at home. CLINICAL IMPRESSION: Pancreatic adenocarcinoma, borderline resectable RECOMMENDATION/PLAN: 1. Neoadjuvant chemotherapy with FolFIrinOx cycle 4 2. Imaging after cycle 4, we will follow up after that Written and verbal health teaching given to patient, patient verbalizes understanding and agrees with treatment plan. PAST MEDICAL HISTORY Diagnosis Date Arthritis Diabetes (HCC) Hypertension Legionnaire's disease (HCC) PAST SURGICAL HISTORY Procedure Laterality Date ERCP 06/02/2025 LAMINECTOMY,LUMBAR PAST SURGICAL HISTORY OF 05/19/2025 EUS PORTOCATH PLACEMENT 05/31/2025 FAMILY HISTORY Problem Relation Age of Onset Breast Cancer Mother Lung Cancer Father Breast Cancer Sister Heart Sister Breast Cancer Maternal Grandmother Heart Paternal Grandmother Social History Tobacco Use Smoking status: Former Types: Cigarettes Smokeless tobacco: Former Types: Chew Quit date: 01/2025 Vaping Use Vaping status: Never Used Substance Use Topics Alcohol use: Not Currently Drug use: Never ALLERGIES: ALLERGIES No Known Allergies CURRENT OUTPATIENT MEDICATIONS: docusate sodium (COLACE PO) Take 1-2 tablets by mouth as needed. ondansetron (ZOFRAN) 8 mg tablet Take 1 tablet by mouth every 8 hours as needed. lidocaine-prilocaine (EMLA) 2.5-2.5 % cream Apply to affected area as needed. glimepiride (AMARYL) 1 mg tablet Take 1 mg by mouth daily with breakfast. JARDIANCE 25 mg tablet Take 25 mg by mouth daily with breakfast. CREON 36,000-114,000- 180,000 unit delayed release capsule Take 2 capsules by mouth three times a day with meals. 2 capsules with meals 1 capsule with snack metFORMIN (GLUCOPHAGE) 500 mg tablet Take 500 mg by mouth daily with breakfast. REVIEW OF SYSTEMS: GENERAL: No fever, night sweats, weight loss or malaise. All other reviewed and negative other than HPI. PHYSICAL EXAMINATION: VITAL SIGNS: BP 105/69 Pulse 94 Temp (Src) 97.9 (Temporal) Wt 161 lb (73.0kg) SpO2 99% GENERAL APPEARANCE: Well appearing, in no acute distress, alert and oriented x3, well-hydrated, well nourished. I spent a total of 30 minutes on the date of the service which included preparing to see the patient, [id number] patient care, completing clinical documentation, obtaining and/or reviewing separately obtained history, counseling and educating the patient/family/caregiver, ordering medications, tests, or procedures, communicating with other HCPs (not separately reported), independently interpreting results (not separately reported), communicating results to the patient/family/caregiver, and care coordination (not separately reported). Electronically Signed: Chapin Dawn MD July 26, 2025 [place] 07-26-2025 History of Present illness Narrative (Elements copied from my note dated July 11, 2025, have been reviewed and updated where appropriate, and all reflect current assessment and medical decision making from today's encounter, July 26, 2025) HISTORY OF PRESENT ILLNESS: Lillian Bowden is a 55 year old male history of diarrhea, change in stool character, weight loss. Saw his PCP, did stool studies, saw GI colonoscopy done, one benign polyp.\ Dr Stout got CT scan at [facility]. This noted mass at head of pancreas. Biopsy 05-12-25 showed adenocarcinoma. Imaging shows tumor abuts SMV. Had bout of constipation, took a bottle of mag citrate Hyperglycemia, BS better at home. CLINICAL IMPRESSION: Pancreatic adenocarcinoma, borderline resectable RECOMMENDATION/PLAN: 1. Neoadjuvant chemotherapy with FolFIrinOx cycle 4 2. Imaging after cycle 4, we will follow up after that Written and verbal health teaching given to patient, patient verbalizes understanding and agrees with treatment plan. PAST MEDICAL HISTORY Diagnosis Date Arthritis Diabetes (HCC) Hypertension Legionnaire's disease (HCC) PAST SURGICAL HISTORY Procedure Laterality Date ERCP 06/02/2025 LAMINECTOMY,LUMBAR PAST SURGICAL HISTORY OF 05/19/2025 EUS PORTOCATH PLACEMENT 05/31/2025 FAMILY HISTORY Problem Relation Age of Onset Breast Cancer Mother Lung Cancer Father Breast Cancer Sister Heart Sister Breast Cancer Maternal Grandmother Heart Paternal Grandmother Social History Tobacco Use Smoking status: Former Types: Cigarettes Smokeless tobacco: Former Types: Chew Quit date: 01/2025 Vaping Use Vaping status: Never Used Substance Use Topics Alcohol use: Not Currently Drug use: Never ALLERGIES: ALLERGIES No Known Allergies CURRENT OUTPATIENT MEDICATIONS: docusate sodium (COLACE PO) Take 1-2 tablets by mouth as needed. ondansetron (ZOFRAN) 8 mg tablet Take 1 tablet by mouth every 8 hours as needed. lidocaine-prilocaine (EMLA) 2.5-2.5 % cream Apply to affected area as needed. glimepiride (AMARYL) 1 mg tablet Take 1 mg by mouth daily with breakfast. JARDIANCE 25 mg tablet Take 25 mg by mouth daily with breakfast. CREON 36,000-114,000- 180,000 unit delayed release capsule Take 2 capsules by mouth three times a day with meals. 2 capsules with meals 1 capsule with snack metFORMIN (GLUCOPHAGE) 500 mg tablet Take 500 mg by mouth daily with breakfast. REVIEW OF SYSTEMS: GENERAL: No fever, night sweats, weight loss or malaise. All other reviewed and negative other than HPI. PHYSICAL EXAMINATION: VITAL SIGNS: BP 105/69 Pulse 94 Temp (Src) 97.9 (Temporal) Wt 161 lb (73.0kg) SpO2 99% GENERAL APPEARANCE: Well appearing, in no acute distress, alert and oriented x3, well-hydrated, well nourished. I spent a total of 30 minutes on the date of the service which included preparing to see the patient, [id number] patient care, completing clinical documentation, obtaining and/or reviewing separately obtained history, counseling and educating the patient/family/caregiver, ordering medications, tests, or procedures, communicating with other HCPs (not separately reported), independently interpreting results (not separately reported), communicating results to the patient/family/caregiver, and care coordination (not separately reported). Electronically Signed: Chapin Dawn MD July 26, 2025 documented in this encounter [facility] 07-22-[address] Dawn recommends MOM daily. Leatha Douglas RN Call to patient, aware of above. Discussed MOM bottle recommendations with patient. Patient also asking about MagCitrate. Reviewed dosing for that and aware MagCitrate not something to use daily. Questions answered. Advised to continue with stool softener daily also. Advised for him to back off any of these if he starts with loose stool/diarrhea. Patient states understanding and will call back in if any further issues/concerns. Leatha Douglas RN [facility] Work Phone: 07-22-[address] Dawn recommends MOM daily. Leatha Douglas RN Call to patient, aware of above. Discussed MOM bottle recommendations with patient. Patient also asking about MagCitrate. Reviewed dosing for that and aware MagCitrate not something to use daily. Questions answered. Advised to continue with stool softener daily also. Advised for him to back off any of these if he starts with loose stool/diarrhea. Patient states understanding and will call back in if any further issues/concerns. Leatha Douglas RN Care Coordination Triage Note Cancer Quinter Situation: Patient reports Bowel symptoms Background: Pancreatic, C3 07/13/25 Assessment: Constipation Symptoms: When was your last bowel movement? this am, small and hard Patient states he had his CADD pump removed last Friday, has been experiencing constipation issues for the past 5 days. Last normal BM 5 days ago. Has had small hard stool daily, used suppository yesterday and this am with some results but still very hard and small amount. What is your normal frequency of bowel movements (every day, every 2 days...) every day but having issues with constipation since cycle 2 of treatment Any blood in the stool or on the toilet tissue? yes If yes, when did you first notice that? yesterday, has internal and external hemorrhoids. He feels like blood from internal hemorrhoid, use a prep H suppository and no blood this am. Are you eating and drinking normally? yes, eating extra fruit and extra fluids, only 1 caffeine drink daily. If no, what have you eaten and how much have you had to drink in the last 24 hours? na Are you taking any new medications or supplements? no If yes, what? na Are you passing any gas? yes Any fever, nausea or vomiting? no What have you taken to try to alleviate your constipation symptoms? Colace 3 tabs daily the past few days, Miralax, 1 dose daily for the past few day. Suppository last pm and again this am. Does your stomach look swollen, feel hard to touch, or do you have pain in your stomach? Cramping in lower right abdomin last pm. Cramping after suppository. Recommendations: Per RNCC, patient directed to: Manage at home. Instructions provided. Will update Dr. Dawn and call back with further instructions. Diane Douglas RN July 22, 2025 10:59 AM documented in this encounter [facility] 07-22-2025 Telephone encounter Note Care Coordination Triage Note Cancer Quinter Situation: Patient reports Bowel symptoms Background: Pancreatic, C3 07/13/25 Assessment: Constipation Symptoms: When was your last bowel movement? this am, small and hard Patient states he had his CADD pump removed last Friday, has been experiencing constipation issues for the past 5 days. Last normal BM 5 days ago. Has had small hard stool daily, used suppository yesterday and this am with some results but still very hard and small amount. What is your normal frequency of bowel movements (every day, every 2 days...) every day but having issues with constipation since cycle 2 of treatment Any blood in the stool or on the toilet tissue? yes If yes, when did you first notice that? yesterday, has internal and external hemorrhoids. He feels like blood from internal hemorrhoid, use a prep H suppository and no blood this am. Are you eating and drinking normally? yes, eating extra fruit and extra fluids, only 1 caffeine drink daily. If no, what have you eaten and how much have you had to drink in the last 24 hours? na Are you taking any new medications or supplements? no If yes, what? na Are you passing any gas? yes Any fever, nausea or vomiting? no What have you taken to try to alleviate your constipation symptoms? Colace 3 tabs daily the past few days, Miralax, 1 dose daily for the past few day. Suppository last pm and again this am. Does your stomach look swollen, feel hard to touch, or do you have pain in your stomach? Cramping in lower right abdomin last pm. Cramping after suppository. Recommendations: Per RNCC, patient directed to: Manage at home. Instructions provided. Will update Dr. Dawn and call back with further instructions. Diane Douglas RN July 22, 2025 10:59 AM [facility] 07-12-2025 Telephone encounter Note Keep schedule as it is. Leatha Douglas RN [facility] Work Phone: 07-12-2025 Miscellaneous Notes Keep schedule as it is. Leatha Douglas RN Patient is to be scheduled with Dr. Dawn for Cycle 5 on 08/10 Patient has ov scheduled already for 07/[address] López Govea isn't here) and with Xuan on 08/09 (Dr. Dawn is on vacation) Please advise Rosa Perez AVS 07/11 CT pancreas week of Aug 03.-SCHEDULED See me with cycle 5. documented in this encounter [facility] 07-11-2025 Telephone encounter Note Patient is to be scheduled with Dr. Dawn for Cycle 5 on 08/10 Patient has ov scheduled already for 07/[address] López Govea isn't here) and with Xuan on 08/09 (Dr. Dawn is on vacation) Please advise Rosa Perez [facility] 07-11-2025 Telephone encounter Note AVS 07/11 CT pancreas week of Aug 03.-SCHEDULED See me with cycle 5. [facility] 07-11-2025 Note HNO ID: [id number] Author: CHAPIN DAWN MD Service: ? Author Type: Physician Type: Progress Notes Filed: 07/11/2025 15:54 Note Text: (Elements copied from my note dated June 28, 2025, have been reviewed and updated where appropriate, and all reflect current assessment and medical decision making from today's encounter, July 11, 2025) HISTORY OF PRESENT ILLNESS: Lillian Bowden is a 55 year old male history of diarrhea, change in stool character, weight loss. Saw his PCP, did stool studies, saw GI colonoscopy done, one benign polyp. Dr Stout got CT scan at [facility]. This noted mass at head of pancreas. Biopsy 05-12-25 showed adenocarcinoma. Imaging shows tumor abuts SMV. CLINICAL IMPRESSION: Pancreatic adenocarcinoma, borderline resectable RECOMMENDATION/PLAN: 1. Neoadjuvant chemotherapy with FolFIrinOx 2. Imaging after cycle 4 Written and verbal health teaching given to patient, patient verbalizes understanding and agrees with treatment plan. PAST MEDICAL HISTORY Diagnosis Date Arthritis Diabetes (HCC) Hypertension Legionnaire's disease (HCC) PAST SURGICAL HISTORY Procedure Laterality Date ERCP 06/02/2025 LAMINECTOMY,LUMBAR PAST SURGICAL HISTORY OF 05/19/2025 EUS PORTOCATH PLACEMENT 05/31/2025 FAMILY HISTORY Problem Relation Age of Onset Breast Cancer Mother Lung Cancer Father Breast Cancer Sister Heart Sister Breast Cancer Maternal Grandmother Heart Paternal Grandmother Social History Tobacco Use Smoking status: Former Types: Cigarettes Smokeless tobacco: Former Types: Chew Quit date: 01/2025 Vaping Use Vaping status: Never Used Substance Use Topics Alcohol use: Not Currently Drug use: Never ALLERGIES: ALLERGIES No Known Allergies CURRENT OUTPATIENT MEDICATIONS: docusate sodium (COLACE PO) Take 1-2 tablets by mouth as needed. ondansetron (ZOFRAN) 8 mg tablet Take 1 tablet by mouth every 8 hours as needed. lidocaine-prilocaine (EMLA) 2.5-2.5 % cream Apply to affected area as needed. glimepiride (AMARYL) 1 mg tablet Take 1 mg by mouth daily with breakfast. (Patient taking differently: Take 2 mg by mouth daily with breakfast.) JARDIANCE 25 mg tablet Take 25 mg by mouth daily with breakfast. CREON 36,000-114,000- 180,000 unit delayed release capsule Take 2 capsules by mouth three times a day with meals. 2 capsules with meals 1 capsule with snack metFORMIN (GLUCOPHAGE) 500 mg tablet Take 500 mg by mouth daily with breakfast. (Patient taking differently: Take 1,000 mg by mouth daily with breakfast.) REVIEW OF SYSTEMS: GENERAL: No fever, night sweats, weight loss or malaise. All other reviewed and negative other than HPI. PHYSICAL EXAMINATION: VITAL SIGNS: BP 107/71 Pulse 84 Temp (Src) 97.8 (Temporal) Wt 161 lb 8 oz (73.3kg) SpO2 98% GENERAL APPEARANCE: Well appearing, in no acute distress, alert and oriented x3, well-hydrated, well nourished. I spent a total of 30 minutes on the date of the service which included preparing to see the patient, [id number] patient care, completing clinical documentation, obtaining and/or reviewing separately obtained history, counseling and educating the patient/family/caregiver, ordering medications, tests, or procedures, communicating with other HCPs (not separately reported), independently interpreting results (not separately reported), communicating results to the patient/family/caregiver, and care coordination (not separately reported). Electronically Signed: Chapin Dawn MD July 11, 2025 [place] 07-11-2025 History of Present illness Narrative (Elements copied from my note dated June 28, 2025, have been reviewed and updated where appropriate, and all reflect current assessment and medical decision making from today's encounter, July 11, 2025) HISTORY OF PRESENT ILLNESS: Lillian Bowden is a 55 year old male history of diarrhea, change in stool character, weight loss. Saw his PCP, did stool studies, saw GI colonoscopy done, one benign polyp.\ Dr Stout got CT scan at [facility]. This noted mass at head of pancreas. Biopsy 05-12-25 showed adenocarcinoma. Imaging shows tumor abuts SMV. CLINICAL IMPRESSION: Pancreatic adenocarcinoma, borderline resectable RECOMMENDATION/PLAN: 1. Neoadjuvant chemotherapy with FolFIrinOx 2. Imaging after cycle 4 Written and verbal health teaching given to patient, patient verbalizes understanding and agrees with treatment plan. PAST MEDICAL HISTORY Diagnosis Date Arthritis Diabetes (HCC) Hypertension Legionnaire's disease (HCC) PAST SURGICAL HISTORY Procedure Laterality Date ERCP 06/02/2025 LAMINECTOMY,LUMBAR PAST SURGICAL HISTORY OF 05/19/2025 EUS PORTOCATH PLACEMENT 05/31/2025 FAMILY HISTORY Problem Relation Age of Onset Breast Cancer Mother Lung Cancer Father Breast Cancer Sister Heart Sister Breast Cancer Maternal Grandmother Heart Paternal Grandmother Social History Tobacco Use Smoking status: Former Types: Cigarettes Smokeless tobacco: Former Types: Chew Quit date: 01/2025 Vaping Use Vaping status: Never Used Substance Use Topics Alcohol use: Not Currently Drug use: Never ALLERGIES: ALLERGIES No Known Allergies CURRENT OUTPATIENT MEDICATIONS: docusate sodium (COLACE PO) Take 1-2 tablets by mouth as needed. ondansetron (ZOFRAN) 8 mg tablet Take 1 tablet by mouth every 8 hours as needed. lidocaine-prilocaine (EMLA) 2.5-2.5 % cream Apply to affected area as needed. glimepiride (AMARYL) 1 mg tablet Take 1 mg by mouth daily with breakfast. (Patient taking differently: Take 2 mg by mouth daily with breakfast.) JARDIANCE 25 mg tablet Take 25 mg by mouth daily with breakfast. CREON 36,000-114,000- 180,000 unit delayed release capsule Take 2 capsules by mouth three times a day with meals. 2 capsules with meals 1 capsule with snack metFORMIN (GLUCOPHAGE) 500 mg tablet Take 500 mg by mouth daily with breakfast. (Patient taking differently: Take 1,000 mg by mouth daily with breakfast.) REVIEW OF SYSTEMS: GENERAL: No fever, night sweats, weight loss or malaise. All other reviewed and negative other than HPI. PHYSICAL EXAMINATION: VITAL SIGNS: BP 107/71 Pulse 84 Temp (Src) 97.8 (Temporal) Wt 161 lb 8 oz (73.3kg) SpO2 98% GENERAL APPEARANCE: Well appearing, in no acute distress, alert and oriented x3, well-hydrated, well nourished. I spent a total of 30 minutes on the date of the service which included preparing to see the patient, [id number] patient care, completing clinical documentation, obtaining and/or reviewing separately obtained history, counseling and educating the patient/family/caregiver, ordering medications, tests, or procedures, communicating with other HCPs (not separately reported), independently interpreting results (not separately reported), communicating results to the patient/family/caregiver, and care coordination (not separately reported). Electronically Signed: Chapin Dawn MD July 11, 2025 documented in this encounter [facility] 06-28-2025 Note HNO ID: [id number] Author: CHAPIN DAWN MD Service: ? Author Type: Physician Type: Progress Notes Filed: 06/28/2025 13:15 Note Text: (Elements copied from my note dated June 06 2025, have been reviewed and updated where appropriate, and all reflect current assessment and medical decision making from today's encounter, June 28, 2025) HISTORY OF PRESENT ILLNESS: Lillian Bowden is a 54 year old male history of diarrhea, change in stool character, weight loss. Saw his PCP, did stool studies, saw GI colonoscopy done, one benign polyp. Dr Stout got CT scan at [facility]. This noted mass at head of pancreas. Biopsy 05-12-25 showed adenocarcinoma. Imaging shows tumor abuts [facility] CLINICAL IMPRESSION: Pancreatic adenocarcinoma, borderline resectable RECOMMENDATION/PLAN: 1. Neoadjuvant chemotherapy with FolFIrinOx 2. Imaging after cycle 4 Written and verbal health teaching given to patient, patient verbalizes understanding and agrees with treatment plan. PAST MEDICAL HISTORY Diagnosis Date Arthritis Diabetes (HCC) Hypertension Legionnaire's disease (HCC) PAST SURGICAL HISTORY Procedure Laterality Date ERCP 06/02/2025 LAMINECTOMY,LUMBAR PAST SURGICAL HISTORY OF 05/19/2025 EUS PORTOCATH PLACEMENT 05/31/2025 FAMILY HISTORY Problem Relation Age of Onset Breast Cancer Mother Lung Cancer Father Breast Cancer Sister Heart Sister Breast Cancer Maternal Grandmother Heart Paternal Grandmother Social History Tobacco Use Smoking status: Former Types: Cigarettes Smokeless tobacco: Former Types: Chew Quit date: 01/2025 Vaping Use Vaping status: Never Used Substance Use Topics Alcohol use: Not Currently Drug use: Never ALLERGIES: ALLERGIES No Known Allergies CURRENT OUTPATIENT MEDICATIONS: ondansetron (ZOFRAN) 8 mg tablet Take 1 tablet by mouth every 8 hours as needed. lidocaine-prilocaine (EMLA) 2.5-2.5 % cream Apply to affected area as needed. glimepiride (AMARYL) 1 mg tablet Take 1 mg by mouth daily with breakfast. (Patient taking differently: Take 2 mg by mouth once daily.) JARDIANCE 25 mg tablet Take 25 mg by mouth daily with breakfast. CREON 36,000-114,000- 180,000 unit delayed release capsule Take 2 capsules by mouth three times a day with meals. 2 capsules with meals 1 capsule with snack metFORMIN (GLUCOPHAGE) 500 mg tablet Take 500 mg by mouth daily with breakfast. (Patient taking differently: Take 1,000 mg by mouth daily with breakfast.) REVIEW OF SYSTEMS: GENERAL: No fever, night sweats, weight loss or malaise. All other reviewed and negative other than HPI. PHYSICAL EXAMINATION: VITAL SIGNS: BP 122/81 Pulse 84 Temp (Src) 97.1 (Temporal) Wt 162 lb 8 oz (73.7kg) SpO2 98% GENERAL APPEARANCE: Well appearing, in no acute distress, alert and oriented x3, well-hydrated, well nourished. I spent a total of 30 minutes on the date of the service which included preparing to see the patient, [id number] patient care, completing clinical documentation, obtaining and/or reviewing separately obtained history, counseling and educating the patient/family/caregiver, ordering medications, tests, or procedures, communicating with other HCPs (not separately reported), independently interpreting results (not separately reported), communicating results to the patient/family/caregiver, and care coordination (not separately reported). Electronically Signed: Chapin Dawn MD June 28, 2025 [place] 06-28-2025 History of Present illness Narrative (Elements copied from my note dated June 06 2025, have been reviewed and updated where appropriate, and all reflect current assessment and medical decision making from today's encounter, June 28, 2025) HISTORY OF PRESENT ILLNESS: Lillian Bowden is a 54 year old male history of diarrhea, change in stool character, weight loss. Saw his PCP, did stool studies, saw GI colonoscopy done, one benign polyp.\ Dr Stout got CT scan at [facility]. This noted mass at head of pancreas. Biopsy 05-12-25 showed adenocarcinoma. Imaging shows tumor abuts [facility] CLINICAL IMPRESSION: Pancreatic adenocarcinoma, borderline resectable RECOMMENDATION/PLAN: 1. Neoadjuvant chemotherapy with FolFIrinOx 2. Imaging after cycle 4 Written and verbal health teaching given to patient, patient verbalizes understanding and agrees with treatment plan. PAST MEDICAL HISTORY Diagnosis Date Arthritis Diabetes (HCC) Hypertension Legionnaire's disease (HCC) PAST SURGICAL HISTORY Procedure Laterality Date ERCP 06/02/2025 LAMINECTOMY,LUMBAR PAST SURGICAL HISTORY OF 05/19/2025 EUS PORTOCATH PLACEMENT 05/31/2025 FAMILY HISTORY Problem Relation Age of Onset Breast Cancer Mother Lung Cancer Father Breast Cancer Sister Heart Sister Breast Cancer Maternal Grandmother Heart Paternal Grandmother Social History Tobacco Use Smoking status: Former Types: Cigarettes Smokeless tobacco: Former Types: Chew Quit date: 01/2025 Vaping Use Vaping status: Never Used Substance Use Topics Alcohol use: Not Currently Drug use: Never ALLERGIES: ALLERGIES No Known Allergies CURRENT OUTPATIENT MEDICATIONS: ondansetron (ZOFRAN) 8 mg tablet Take 1 tablet by mouth every 8 hours as needed. lidocaine-prilocaine (EMLA) 2.5-2.5 % cream Apply to affected area as needed. glimepiride (AMARYL) 1 mg tablet Take 1 mg by mouth daily with breakfast. (Patient taking differently: Take 2 mg by mouth once daily.) JARDIANCE 25 mg tablet Take 25 mg by mouth daily with breakfast. CREON 36,000-114,000- 180,000 unit delayed release capsule Take 2 capsules by mouth three times a day with meals. 2 capsules with meals 1 capsule with snack metFORMIN (GLUCOPHAGE) 500 mg tablet Take 500 mg by mouth daily with breakfast. (Patient taking differently: Take 1,000 mg by mouth daily with breakfast.) REVIEW OF SYSTEMS: GENERAL: No fever, night sweats, weight loss or malaise. All other reviewed and negative other than HPI. PHYSICAL EXAMINATION: VITAL SIGNS: BP 122/81 Pulse 84 Temp (Src) 97.1 (Temporal) Wt 162 lb 8 oz (73.7kg) SpO2 98% GENERAL APPEARANCE: Well appearing, in no acute distress, alert and oriented x3, well-hydrated, well nourished. I spent a total of 30 minutes on the date of the service which included preparing to see the patient, [id number] patient care, completing clinical documentation, obtaining and/or reviewing separately obtained history, counseling and educating the patient/family/caregiver, ordering medications, tests, or procedures, communicating with other HCPs (not separately reported), independently interpreting results (not separately reported), communicating results to the patient/family/caregiver, and care coordination (not separately reported). Electronically Signed: Chapin Dawn MD June 28, 2025 documented in this encounter [facility] 06-17-2025 Note HNO ID: [id number] Author: BHARTI GARZA RN Service: ? Author Type: Registered Nurse Type: Progress Notes Filed: 06/17/2025 12:36 Note Text: Patient has no symptoms but fatigue [place] 06-17-2025 History of Present illness Narrative Patient has no symptoms but fatigue documented in this encounter [facility] 06-16-2025 Telephone encounter Note CYCLE 1/DAY 1 POST TREATMENT CALL Patient returned call and states he didn't answer the phone b/c he was still sleeping and he slept really well last night. He states he is experiencing some cold sensitivity but manageable. SYMPTOM ASSESSMENT Neuro: None CV/Resp: None GI/: None Integument: None Activity: Activity Level (0-100%): decreased Pain: No=0 (pain 0 on a scale of 0-10). Fever: No Chills: No Any new referrals needed? No Reinforced CURRENT treatment education based on current and anticipated symptoms. Discussed port/line care and patient verbalizes understanding: Yes Patient instructed to contact office or after hours Hematology/Oncology fellow for: temperature >= 100.4; questions or concerns. Patient verbalized understanding of when to seek medical attention and after hours number protocol. Diane Douglas RN [facility] Work Phone: 06-16-2025 Miscellaneous Notes CYCLE 1/DAY 1 POST TREATMENT CALL Patient returned call and states he didn't answer the phone b/c he was still sleeping and he slept really well last night. He states he is experiencing some cold sensitivity but manageable. SYMPTOM ASSESSMENT Neuro: None CV/Resp: None GI/: None Integument: None Activity: Activity Level (0-100%): decreased Pain: No=0 (pain 0 on a scale of 0-10). Fever: No Chills: No Any new referrals needed? No Reinforced CURRENT treatment education based on current and anticipated symptoms. Discussed port/line care and patient verbalizes understanding: Yes Patient instructed to contact office or after hours Hematology/Oncology fellow for: temperature >= 100.4; questions or concerns. Patient verbalized understanding of when to seek medical attention and after hours number protocol. Diane Douglas RN CYCLE 1/DAY 1 POST TREATMENT CALL Today's date: June 16, 2025 Treatment Regimen: Folfirinox C1D1 Date: 06/15/25 Call to patient, message left to call me back and phone/contact number provided. Diane Douglas RN documented in this encounter [facility] 06-16-2025 Telephone encounter Note Patient is active with [employer]. $0 deductible has $0 remaining, and $8600 OOP has $0 remaining. Ran estimate and patient owes $0 for treatments the rest of 2024. Spoke to patient over the phone and discussed navigator services. Patient expressed no financial burdens at the moment. Patient was out and about so I sent my contact info and Cost Facit Questionnaire sent via [employer]. Estimate ID #: [id number] [facility] 06-16-2025 Miscellaneous Notes Patient is active with [facility] [employer]. $0 deductible has $0 remaining, and $8600 OOP has $0 remaining. Ran estimate and patient owes $0 for treatments the rest of 2024. Spoke to patient over the phone and discussed navigator services. Patient expressed no financial burdens at the moment. Patient was out and about so I sent my contact info and Cost Facit Questionnaire sent via [employer]. Estimate ID #: [id number] documented in this encounter [facility] 06-16-2025 Telephone encounter Note CYCLE 1/DAY 1 POST TREATMENT CALL Today's date: June 16, 2025 Treatment Regimen: Folfirinox C1D1 Date: 06/15/25 Call to patient, message left to call me back and phone/contact number provided. Diane Douglas RN [facility] 06-15-2025 Telephone encounter Note Reached out to patient regarding appointment with genetics on 06/21/2025. Explained to patient that I was calling in reference to his genetics appointment. Patient explained that he was currently at his first chemo treatment. Informed patient that I could give him a call back later today, but patient was unsure of when he would be free. Informed patient that I would send him a MCM with information, and that he could reach out to me if he had any questions. Patient expressed understanding. Stephanie Henao Genetic Counselor [employer] [facility] 06-15-2025 Miscellaneous Notes Reached out to patient regarding appointment with genetics on 06/21/2025. Explained to patient that I was calling in reference to his genetics appointment. Patient explained that he was currently at his first chemo treatment. Informed patient that I could give him a call back later today, but patient was unsure of when he would be free. Informed patient that I would send him a MCM with information, and that he could reach out to me if he had any questions. Patient expressed understanding. 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 Author Type: Registered Nurse Type: Progress Notes Filed: 06/07/2025 16:22 Note Text: Patient teaching was completed over the phone. Diane Douglas RN Echocardiologist Pre Chemo Patient identified by name and date of . YES Confirmed date and time for chemotherapy ? YES Other appointments (labs, imaging) discussed? 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 NO Described the infusion room and what to expect. (What to wear, what to bring [iPad, books] amount of time treatment can take, meals and CC options for food) YES Note: na Discussed whether the patient can eat prior to labs and treatment. YES Who is driving you to and from treatment? Spouse Discussed why it is important to bring someone with you. Yes, first treatment Resources discussed (music therapy, Art therapy, pet therapy, etc.) YES Education on chemotherapy (drug, side effects) discussed and that the patient will be receiving a C1D1 call within 7 days of treatment. YES Other topics discussed, interventions needed: giacomo Douglas RN ONCOLOGY PATIENT EDUCATION NOTE TOPIC: Chemotherapy, Medications: Folfirinox patient and spouse here today for education for treatment of Pancreatic Adenocarcinoma Anticipated/Scheduled start date: 06/15/25 READINESS TO LEARN: COGNITIVE ABILITY: Alert and oriented MOTIVATION TO LEARN: Interested FAMILY SUPPORT: High - Very involved in pt care INSTRUCTION PROVIDED TO: Patient and Spouse INSTRUCTION PROVIDED BY: Nurse Coordinator PATIENT LEARNS BEST BY: Multiple Methods FACTORS AFFECTING LEARNING: None PHYSICAL LIMITATIONS AFFECTING LEARNING: None LEARNING RESPONSE METHOD OF INSTRUCTION: Individual instruction Written instruction/Handouts Verbal instruction PATIENT/FAMILY RESPONSE: Verbalizes understanding of: CHEMOTHERAPY-Regimen, toxicity and side effects FOLLOW UP PLAN: Recommend - Recommend continued instruction and follow up as directed Contact information given. SUPPLEMENTAL MATERIAL: Written material was provided at this visit with the following information: - Chemotherapy education was provided by a pharmacist NO - Side effect management information was provided/discussed including but not limited to: abdominal discomfort, anemia, bowel habit changes, cold sensitivity, fatigue, hair loss, hand-foot syndrome, infection, mouth hygiene, mucositis, nausea/vomitting, neutropenia, peripheral neuropathy, rash, skin changes, taste changes, thrombocytopenia YES - Provided important phone numbers and contacts during and after hours. YES - Provided information on symptoms that require immediate assistance. YES - Provided Chemotherapy when to call handouts YES - Preventing infection. YES - Treatment schedule and confirmation of appointment times. YES - Available support groups. YES - The importance of contraception during the course of chemotherapy yes - Neutropenic fever protocol discussed with patient, which included the importance of reporting any fever of 100.4F (38.0C) or greater to the healthcare team as noted on the provided wallet card and/or magnet. YES Time Spent: 60 minutes REFERRAL (RECOMMENDATION): Social Work, to reach out to patient at a later time. Diane Douglas RN [place] 06-07-2025 History of Present illness Narrative Patient teaching was completed over the phone. Diane Douglas RN Echocardiologist Pre Chemo Patient identified by name and date of . YES Confirmed date and time for chemotherapy ? YES Other appointments (labs, imaging) discussed? 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 NO Described the infusion room and what to expect. (What to wear, what to bring [iPad, books] amount of time treatment can take, meals and CC options for food) YES Note: na Discussed whether the patient can eat prior to labs and treatment. YES Who is driving you to and from treatment? Spouse Discussed why it is important to bring someone with you. Yes, first treatment Resources discussed (music therapy, Art therapy, pet therapy, etc.) YES Education on chemotherapy (drug, side effects) discussed and that the patient will be receiving a C1D1 call within 7 days of treatment. YES Other topics discussed, interventions needed: giacomo Douglas RN ONCOLOGY PATIENT EDUCATION NOTE TOPIC: Chemotherapy, Medications: Folfirinox patient and spouse here today for education for treatment of Pancreatic Adenocarcinoma Anticipated/Scheduled start date: 06/15/25 READINESS TO LEARN: COGNITIVE ABILITY: Alert and oriented MOTIVATION TO LEARN: Interested FAMILY SUPPORT: High - Very involved in pt care INSTRUCTION PROVIDED TO: Patient and Spouse INSTRUCTION PROVIDED BY: Nurse Coordinator PATIENT LEARNS BEST BY: Multiple Methods FACTORS AFFECTING LEARNING: None PHYSICAL LIMITATIONS AFFECTING LEARNING: None LEARNING RESPONSE METHOD OF INSTRUCTION: Individual instruction Written instruction/Handouts Verbal instruction PATIENT/FAMILY RESPONSE: Verbalizes understanding of: CHEMOTHERAPY-Regimen, toxicity and side effects FOLLOW UP PLAN: Recommend - Recommend continued instruction and follow up as directed Contact information given. SUPPLEMENTAL MATERIAL: Written material was provided at this visit with the following information: - Chemotherapy education was provided by a pharmacist NO - Side effect management information was provided/discussed including but not limited to: abdominal discomfort, anemia, bowel habit changes, cold sensitivity, fatigue, hair loss, hand-foot syndrome, infection, mouth hygiene, mucositis, nausea/vomitting, neutropenia, peripheral neuropathy, rash, skin changes, taste changes, thrombocytopenia YES - Provided important phone numbers and contacts during and after hours. YES - Provided information on symptoms that require immediate assistance. YES - Provided Chemotherapy when to call handouts YES - Preventing infection. YES - Treatment schedule and confirmation of appointment times. YES - Available support groups. YES - The importance of contraception during the course of chemotherapy yes - Neutropenic fever protocol discussed with patient, which included the importance of reporting any fever of 100.4F (38.0C) or greater to the healthcare team as noted on the provided wallet card and/or magnet. YES Time Spent: 60 minutes REFERRAL (RECOMMENDATION): Social Work, to reach out to patient at a later time. Diane Douglas RN documented in this encounter [facility] 06-06-2025 Telephone encounter Note Met with patient and introduced myself. Patient was given a My Journey binder with chemocare information, office contact information, thermometer, and additional chemotherapy resource booklets. Patient aware this nurse will review on scheduled appointment date. Leatha Douglas RN [facility] Work Phone: 06-06-2025 Miscellaneous Notes Met with patient and introduced myself. Patient was given a My Journey binder with chemocare information, office contact information, thermometer, and additional chemotherapy resource booklets. Patient aware this nurse will review on scheduled appointment date. Leatha Douglas RN documented in this encounter [facility] 06-06-2025 Telephone encounter Note PSYCHOSOCIAL SCREENING ASSESSMENT Date of Service: June 06, 2025 Lillian Bowden is a 54 year old male being seen for initial social work assessment. Diagnosis: Malignant neoplasm of head of pancreas New Primary Oncologist: Chapin Dawn MD Radiation Oncologist: GIACOMO Goals of Care: Curative intent Today's visit includes: spouse Family History of Cancer: Mother: Breast, Father: Lung, Maternal Grandmother: Breast, Sister: Breast SUPPORT NETWORK: Social Connections: Not on file Marital status: Parent(s): Mother is and Father is Child/Children: Yes. How many? 1 personal care aide arrangements needed: No Siblings: 2 sisters Grandchild(kamran): none Home Health Provider: No Community Services: No Renate Identified: No Yazidism/Spirituality: Unknown Are these practices or beliefs that may affect or influence treatment? No EMPLOYMENT/FINANCIAL/HEALTH INSURANCE: Insurance: [facility] [place] Prescription coverage: Yes Is the patient appropriate for referral to [facility] COBRA Assistance program? No Financial Distress: No : No FOOD INSECURITY Within the past year, have you worried about how you would buy or obtain food? No LIVING ARRANGEMENTS: Type: House- independent ranch Resides with: Rizwan Transportation Needs: Not on file FUNCTIONAL STATUS: Cognitive limitations: none Physical limitations: none Language barrier: No Hearing Impaired: No Speech Impaired: No Visual Impairments: No Special considerations/accommodations needed: Na HEALTH LITERACY: Do you have difficulty understanding medical instructions or other written materials you receive from you doctor or pharmacy? No Do have difficulty filling out medical forms by yourself? No The following interventions were put into place: NA MEDICATION ADHERENCE: Within the past 2 weeks, have you had difficulty remembering to take your medicine? No Within the past 2 weeks, did you ever miss taking your medications for reasons other than forgetting? No The following interventions were put into place: NA MENTAL HEALTH HISTORY: No History of combat/trauma: No Intimate Partner Violence: Not At Risk (06/02/2025) Safe at Home? Fear of Current or Ex-Partner: Not on file Emotionally Abused: Not on file Physically Abused: Not on file Sexually Abused: Not on file Safe at Home?: Yes Substance Use and Treatment History: denied History of Abuse: No Issues with: Sleep:No Eating: Diminished appetite Exercising: No Stress Management: No ADVANCE DIRECTIVES/LEGAL DOCUMENTS: Living Will: Not addressed during this encounter Scanned into EPIC: Not addressed during this encounter Health Care Durable Power of Instrument Panel Assembler: Not addressed during this encounter Scanned into EPIC: Not addressed during this encounter Guardianship: No Scanned into EPIC:NA Reasons Advanced Directives were not Addressed: Time constraints COPING STATUS: Stress: Not on file Coping Strengths: supportive relationships with immediate family, with friends, and with extended family successful managing past crises hopefulness self advocate strong problem-solving skills ability to plan able to follow direction consistently over time able to communicate effectively future oriented and able to identify goals Current affect/mood: appropriate History of Loss: Yes, parents Adjustment to diagnosis: reflecting understanding, responding appropriately, and accepting help BARRIERS/CARE CHALLENGES: NA Are barriers/care challenges identified likely to have an impact on the patient's quality of life during treatment? No INTERVENTIONS/REFERRALS TO BE PROVIDED: Monitor patient response to treatment Communicate pertinent medical/psychosocial information to Cancer Center team Provide emotional support to patient/family Continue follow up as needed Resources and Referrals: Internal: Financial Navigator External: [facility] and Other [place] CLINICAL IMPRESSION: Dg is a 54 year old male beginning treatment for pancreatic cancer. SW met with pt's spouse this date while pt was receiving treatment. Spouse reports she and pt were shocked by the news of pt's diagnosis however are very glad that it seems to be caught very early and can hopefully be shrunk and surgically removed. She does report that pt has experienced some anger at needing treatment, although did not express specifics about that. Spouse reports they have a 20 year old son who will be returning to school in the fall. She reports her son expresses some hesitancy d/t pt's condition however they are encouraging him to continue with his year as planned. Pt's spouse also discussed her FMLA forms with SW this date. Forms discussed and gathered clarity on the type of leave spouse is wanting. SW to complete forms and review with physician. Spouse declined needing a copy back, reporting faxing and sending to internal scanning is sufficient. SW oriented pt to SW role and explained all available resources/referrals. Pt declined any further needs at this time and agreed to reach out to SW if needs arise. SW to address Advanced Directives with pt and spouse another date when pt is able to be present. Psychosocial Risk Criteria If positive for one or more of the following risk criteria, follow up every 30 days Age: NA Mental Health: NA Practical Needs: N/A PLAN: SW to follow pt at upcoming appointments and remain in contact with pt throughout treatment to address any psychosocial concerns if needed. Follow up appointment with SW in: PRN Assigned SW listed in Care Team tab: Yes DAVID De Leon-Ashley [facility] 06-06-2025 Miscellaneous Notes PSYCHOSOCIAL SCREENING ASSESSMENT Date of Service: June 06, 2025 Lillian Bowden is a 54 year old male being seen for initial social work assessment. Diagnosis: Malignant neoplasm of head of pancreas New Primary Oncologist: Chapin Dawn MD Radiation Oncologist: GIACOMO Goals of Care: Curative intent Today's visit includes: spouse Family History of Cancer: Mother: Breast, Father: Lung, Maternal Grandmother: Breast, Sister: Breast SUPPORT NETWORK: Social Connections: Not on file Marital status: Parent(s): Mother is and Father is Child/Children: Yes. How many? 1 personal care aide arrangements needed: No Siblings: 2 sisters Grandchild(kamran): none Home Health Provider: No Community Services: No Renate Identified: No Yazidism/Spirituality: Unknown Are these practices or beliefs that may affect or influence treatment? No EMPLOYMENT/FINANCIAL/HEALTH INSURANCE: Insurance: [facility] [place] Prescription coverage: Yes Is the patient appropriate for referral to [facility] COBRA Assistance program? No Financial Distress: No [place]: No FOOD INSECURITY Within the past year, have you worried about how you would buy or obtain food? No LIVING ARRANGEMENTS: Type: House- independent ranch Resides with: Rizwan Transportation Needs: Not on file FUNCTIONAL STATUS: Cognitive limitations: none Physical limitations: none Language barrier: No Hearing Impaired: No Speech Impaired: No Visual Impairments: No Special considerations/accommodations needed: Na HEALTH LITERACY: Do you have difficulty understanding medical instructions or other written materials you receive from you doctor or pharmacy? No Do have difficulty filling out medical forms by yourself? No The following interventions were put into place: NA MEDICATION ADHERENCE: Within the past 2 weeks, have you had difficulty remembering to take your medicine? No Within the past 2 weeks, did you ever miss taking your medications for reasons other than forgetting? No The following interventions were put into place: NA MENTAL HEALTH HISTORY: No History of combat/trauma: No Intimate Partner Violence: Not At Risk (06/02/2025) Safe at Home? Fear of Current or Ex-Partner: Not on file Emotionally Abused: Not on file Physically Abused: Not on file Sexually Abused: Not on file Safe at Home?: Yes Substance Use and Treatment History: denied History of Abuse: No Issues with: Sleep:No Eating: Diminished appetite Exercising: No Stress Management: No ADVANCE DIRECTIVES/LEGAL DOCUMENTS: Living Will: Not addressed during this encounter Scanned into EPIC: Not addressed during this encounter Health Care Durable Power of Instrument Panel Assembler: Not addressed during this encounter Scanned into EPIC: Not addressed during this encounter Guardianship: No Scanned into EPIC:NA Reasons Advanced Directives were not Addressed: Time constraints COPING STATUS: Stress: Not on file Coping Strengths: supportive relationships with immediate family, with friends, and with extended family successful managing past crises hopefulness self advocate strong problem-solving skills ability to plan able to follow direction consistently over time able to communicate effectively future oriented and able to identify goals Current affect/mood: appropriate History of Loss: Yes, parents Adjustment to diagnosis: reflecting understanding, responding appropriately, and accepting help BARRIERS/CARE CHALLENGES: NA Are barriers/care challenges identified likely to have an impact on the patient's quality of life during treatment? No INTERVENTIONS/REFERRALS TO BE PROVIDED: Monitor patient response to treatment Communicate pertinent medical/psychosocial information to Cancer Center team Provide emotional support to patient/family Continue follow up as needed Resources and Referrals: Internal: Financial Navigator External: [facility] and Other [place] CLINICAL IMPRESSION: Dg is a 54 year old male beginning treatment for pancreatic cancer. SW met with pt's spouse this date while pt was receiving treatment. Spouse reports she and pt were shocked by the news of pt's diagnosis however are very glad that it seems to be caught very early and can hopefully be shrunk and surgically removed. She does report that pt has experienced some anger at needing treatment, although did not express specifics about that. Spouse reports they have a 20 year old son who will be returning to school in the fall. She reports her son expresses some hesitancy d/t pt's condition however they are encouraging him to continue with his year as planned. Pt's spouse also discussed her FMLA forms with SW this date. Forms discussed and gathered clarity on the type of leave spouse is wanting. SW to complete forms and review with physician. Spouse declined needing a copy back, reporting faxing and sending to internal scanning is sufficient. SW oriented pt to SW role and explained all available resources/referrals. Pt declined any further needs at this time and agreed to reach out to SW if needs arise. SW to address Advanced Directives with pt and spouse another date when pt is able to be present. Psychosocial Risk Criteria If positive for one or more of the following risk criteria, follow up every 30 days Age: NA Mental Health: NA Practical Needs: N/A PLAN: SW to follow pt at upcoming appointments and remain in contact with pt throughout treatment to address any psychosocial concerns if needed. Follow up appointment with SW in: PRN Assigned SW listed in Care Team tab: Yes DAVID De Leon-Ashley documented in this encounter [facility] 06-06-2025 Note HNO ID: [id number] Author: CHAPIN DAWN MD Service: ? Author Type: Physician Type: Progress Notes Filed: 06/06/2025 16:16 Note Text: HISTORY OF PRESENT ILLNESS: Lillian Bowden is a 54 year old male history of diarrhea, change in stool character, weight loss. Saw his PCP, did stool studies, saw GI colonoscopy done, one benign polyp. Dr Stout got CT scan at [facility]. This noted mass at head of pancreas. Biopsy 05-12-25 showed adenocarcinoma. Imaging shows tumor abuts [facility] CLINICAL IMPRESSION: Pancreatic adenocarcinoma, borderline resectable RECOMMENDATION/PLAN: 1. Neoadjuvant chemotherapy with FolFIrinOx, to start radha Written and verbal health teaching given to patient, patient verbalizes understanding and agrees with treatment plan. PAST MEDICAL HISTORY Diagnosis Date Arthritis Diabetes (HCC) Hypertension Legionnaire's disease (HCC) PAST SURGICAL HISTORY Procedure Laterality Date ERCP 06/02/2025 LAMINECTOMY,LUMBAR PAST SURGICAL HISTORY OF 05/19/2025 EUS PORTOCATH PLACEMENT 05/31/2025 FAMILY HISTORY Problem Relation Age of Onset Breast Cancer Mother Lung Cancer Father Breast Cancer Sister Heart Sister Breast Cancer Maternal Grandmother Heart Paternal Grandmother Social History Tobacco Use Smoking status: Former Types: Cigarettes Smokeless tobacco: Former Types: Chew Quit date: 01/2025 Vaping Use Vaping status: Never Used Substance Use Topics Alcohol use: Not Currently Drug use: Never ALLERGIES: ALLERGIES No Known Allergies CURRENT OUTPATIENT MEDICATIONS: glimepiride (AMARYL) 1 mg tablet Take 1 mg by mouth daily with breakfast. JARDIANCE 25 mg tablet Take 25 mg by mouth daily with breakfast. CREON 36,000-114,000- 180,000 unit delayed release capsule Take 2 capsules by mouth three times a day with meals. 2 capsules with meals 1 capsule with snack metFORMIN (GLUCOPHAGE) 500 mg tablet Take 500 mg by mouth daily with breakfast. REVIEW OF SYSTEMS: GENERAL: No fever, night sweats, weight loss or malaise. All other reviewed and negative other than HPI. PHYSICAL EXAMINATION: VITAL SIGNS: BP 118/74 Pulse 76 Temp (Src) 97.8 (Temporal) Ht 5' 10.965 (1.80m) Wt 164 lb 8 oz (74.6kg) SpO2 97% BMI 22.95 kg/(m2). GENERAL APPEARANCE: Well appearing, in no acute distress, alert and oriented x3, well-hydrated, well nourished. I spent a total of 60 minutes on the date of the service which included preparing to see the patient, [id number] patient care, completing clinical documentation, obtaining and/or reviewing separately obtained history, counseling and educating the patient/family/caregiver, ordering medications, tests, or procedures, communicating with other HCPs (not separately reported), independently interpreting results (not separately reported), communicating results to the patient/family/caregiver, and care coordination (not separately reported). Electronically Signed: Chapin Dawn MD June 06, 2025 3:13 PM [place] 06-06-2025 History of Present illness Narrative HISTORY OF PRESENT ILLNESS: Lillian Bowden is a 54 year old male history of diarrhea, change in stool character, weight loss. Saw his PCP, did stool studies, saw GI colonoscopy done, one benign polyp.\ Dr Jabour got CT scan at [facility]. This noted mass at head of pancreas. Biopsy 05-12-25 showed adenocarcinoma. Imaging shows tumor abuts [facility] CLINICAL IMPRESSION: Pancreatic adenocarcinoma, borderline resectable RECOMMENDATION/PLAN: 1. Neoadjuvant chemotherapy with FolFIrinOx, to start radha Written and verbal health teaching given to patient, patient verbalizes understanding and agrees with treatment plan. PAST MEDICAL HISTORY Diagnosis Date Arthritis Diabetes (HCC) Hypertension Legionnaire's disease (HCC) PAST SURGICAL HISTORY Procedure Laterality Date ERCP 06/02/2025 LAMINECTOMY,LUMBAR PAST SURGICAL HISTORY OF 05/19/2025 EUS PORTOCATH PLACEMENT 05/31/2025 FAMILY HISTORY Problem Relation Age of Onset Breast Cancer Mother Lung Cancer Father Breast Cancer Sister Heart Sister Breast Cancer Maternal Grandmother Heart Paternal Grandmother Social History Tobacco Use Smoking status: Former Types: Cigarettes Smokeless tobacco: Former Types: Chew Quit date: 01/2025 Vaping Use Vaping status: Never Used Substance Use Topics Alcohol use: Not Currently Drug use: Never ALLERGIES: ALLERGIES No Known Allergies CURRENT OUTPATIENT MEDICATIONS: glimepiride (AMARYL) 1 mg tablet Take 1 mg by mouth daily with breakfast. JARDIANCE 25 mg tablet Take 25 mg by mouth daily with breakfast. CREON 36,000-114,000- 180,000 unit delayed release capsule Take 2 capsules by mouth three times a day with meals. 2 capsules with meals 1 capsule with snack metFORMIN (GLUCOPHAGE) 500 mg tablet Take 500 mg by mouth daily with breakfast. REVIEW OF SYSTEMS: GENERAL: No fever, night sweats, weight loss or malaise. All other reviewed and negative other than HPI. PHYSICAL EXAMINATION: VITAL SIGNS: BP 118/74 Pulse 76 Temp (Src) 97.8 (Temporal) Ht 5' 10.965 (1.80m) Wt 164 lb 8 oz (74.6kg) SpO2 97% BMI 22.95 kg/(m^2). GENERAL APPEARANCE: Well appearing, in no acute distress, alert and oriented x3, well-hydrated, well nourished. I spent a total of 60 minutes on the date of the service which included preparing to see the patient, [id number] patient care, completing clinical documentation, obtaining and/or reviewing separately obtained history, counseling and educating the patient/family/caregiver, ordering medications, tests, or procedures, communicating with other HCPs (not separately reported), independently interpreting results (not separately reported), communicating results to the patient/family/caregiver, and care coordination (not separately reported). Electronically Signed: Chapin Dawn MD June 06, 2025 3:13 PM documented in this encounter [facility] 06-02-2025 Nurse Note AMBULATORY PATIENT EDUCATION NOTE TOPIC: GI PROCEDURES: Endoscopic Retrograde CholangioPancreatography(ERCP) with or without biopsy,stenting,dilation and/or treatment READINESS TO LEARN INSTRUCTION PROVIDED TO: Patient and family member COGNITIVE ABILITY: Alert and oriented PTED MOTIVATION TO LEARN: Interested FAMILY SUPPORT: High - Very involved in pt care IPATIENT LEARNS BEST BY: Individual Instruction Written Instruction - Hand-outs Verbal Instruction FACTORS AFFECTING LEARNING: None PHYSICAL LIMITATIONS AFFECTING LEARNING: None LEARNING RESPONSE METHOD OF INSTRUCTION: Individual instruction PATIENT / FAMILY RESPONSE: Verbalizes understanding of: WORSENING CONDITION-Signs and symptoms of a worsening condition that warrant a call to the physician FOLLOW-UP PLAN: Patient instructed to call with any further issues Recommend - Recommend continued instruction and follow up as directed Contact information given. SUPPLEMENTAL MATERIAL: Procedure Discharge Instructions REFERRAL (RECOMMENDATION): None [facility] 06-02-2025 Nurse Note AMBULATORY PATIENT EDUCATION NOTE TOPIC: GI PROCEDURES: Endoscopic Retrograde CholangioPancreatography(ERCP) with or without biopsy,stenting,dilation and/or treatment READINESS TO LEARN INSTRUCTION PROVIDED TO: Patient and family member COGNITIVE ABILITY: Alert and oriented PTED MOTIVATION TO LEARN: Interested FAMILY SUPPORT: High - Very involved in pt care IPATIENT LEARNS BEST BY: Individual Instruction Written Instruction - Hand-outs Verbal Instruction FACTORS AFFECTING LEARNING: None PHYSICAL LIMITATIONS AFFECTING LEARNING: None LEARNING RESPONSE METHOD OF INSTRUCTION: Individual instruction PATIENT / FAMILY RESPONSE: Verbalizes understanding of: WORSENING CONDITION-Signs and symptoms of a worsening condition that warrant a call to the physician FOLLOW-UP PLAN: Patient instructed to call with any further issues Recommend - Recommend continued instruction and follow up as directed Contact information given. SUPPLEMENTAL MATERIAL: Procedure Discharge Instructions REFERRAL (RECOMMENDATION): None PRE OP LEARNING ASSESSMENT PROCEDURE/SURGERY: GI PROCEDURES: ERCP READINESS TO LEARN COGNITIVE ABILITY: Alert and oriented MOTIVATION TO LEARN: Interested FAMILY SUPPORT: High - Very involved in pt care PATIENT LEARNS BEST BY: Individual Instruction Verbal Instruction FACTORS AFFECTING LEARNING: None PHYSICAL LIMITATIONS AFFECTING LEARNING: None Electronically Signed By: Cony Warren RN In Department: GASTROENTEROLOGY documented in this encounter [facility] 06-02-2025 Note Q3 Patient Name: Lillian Bowden Procedure Date: 06/02/2025 8:58 AM Date of : 1970 Admit Type: Outpatient Age: 54 Gender: Male Note Status: Finalized Attending MD: Pastor Jade MD, [id number] Procedure: ERCP Indications: Malignant stricture of the common bile duct, Jaundice, Malignant tumor of the head of pancreas Providers: Psator Jade MD, Patrick Mcfarlane MD (Fellow) Patient Profile: This is a 54 year old male. Refer to note in patient chart for documentation of history and physical. Referring Physician: Kalin Dunham MD (Referring MD) Medicines: Monitored Anesthesia Care, Indomethacin 100 mg VA Complications: No immediate complications. Requesting Provider: Procedure: Pre-Anesthesia Assessment: - Prior to the procedure, a History and Physical was performed, and patient medications and allergies were reviewed. The patient's tolerance of previous anesthesia was also reviewed. The risks and benefits of the procedure and the sedation options and risks were discussed with the patient. All questions were answered, and informed consent was obtained. Prior Anticoagulants: The patient has taken no anticoagulant or antiplatelet agents. ASA Grade Assessment: III - A patient with severe systemic disease. After reviewing the risks and benefits, the patient was deemed in satisfactory condition to undergo the procedure. After obtaining informed consent, the scope was passed under direct vision. Throughout the procedure, the patient's blood pressure, pulse, and oxygen saturations were monitored continuously. The Duodenoscope was introduced through the mouth, and advanced to the duodenum and used to inject contrast into the bile duct. The patient tolerated the procedure well. The ERCP was technically difficult and complex due to difficulty passing guidewires through biliary ductal stenosis. Moderate Sedation: MAC anesthesia was administered by the anesthesia team. Findings: The clinical immunologist film was normal. The major papilla was normal. The ventral pancreatic duct was inadvertently cannulated with the short-nosed traction sphincterotome and guidewire. No contrast was injected into the pancreatic duct. A pre-cut sphincterotomy was perfomed of the bile duct using a needle knife. The bile duct was deeply cannulated with the sphincterotome and guidewire. Contrast was injected. I personally interpreted the bile duct images. There was brisk flow of contrast through the ducts. Image quality was excellent. Contrast extended to the entire biliary tree. The lower third of the main bile duct contained a single severe stenosis 4 mm in length. Dilation of the common bile duct with a 4 mm x 4 cm CRE Hurricane biliary balloon dilator was successful, resulting in good flow of bile. One 10 Fr by 7 cm plastic stent with a single external flap and a single internal flap was placed 6 cm into the common bile duct. Bile flowed through the stent. The stent was in good position. Impression: - The major papilla appeared normal. - Pre-cut sphincterotomy performed. - A single severe biliary stricture was found in the lower third of the main bile duct due to known pancreatic head adenocarcinoma. - Common bile duct was successfully dilated. - One plastic stent was placed into the common bile duct. Estimated Blood Loss: Estimated blood loss: none. Recommendation: - Return patient to [facility] for ongoing care. - Resume previous diet. - Repeat ERCP in 3 months to exchange stent. Procedure Code(s): --- Professional --- 12277 [id number] Diagnosis Code(s): --- Professional --- K83.1 R17 C25.0 CPT copyright 2020 [employer]. All rights reserved. Attending Participation: I was present and participated during the entire procedure, including non-farrar portions. Scope In: 9:18:42 AM Scope Out: 10:02:[address] Moon (more content not included)... 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 Refer to note in patient chart for documentation of history and physical. Referring Physician: Kalin Dunham MD (Referring MD) Medicines: Monitored Anesthesia Care, Indomethacin 100 mg VA Complications: No immediate complications. Requesting Provider: Procedure: Pre-Anesthesia Assessment: - Prior to the procedure, a History and Physical was performed, and patient medications and allergies were reviewed. The patient's tolerance of previous anesthesia was also reviewed. The risks and benefits of the procedure and the sedation options and risks were discussed with the patient. All questions were answered, and informed consent was obtained. Prior Anticoagulants: The patient has taken no anticoagulant or antiplatelet agents. ASA Grade Assessment: III - A patient with severe systemic disease. After reviewing the risks and benefits, the patient was deemed in satisfactory condition to undergo the procedure. After obtaining informed consent, the scope was passed under direct vision. Throughout the procedure, the patient's blood pressure, pulse, and oxygen saturations were monitored continuously. The Duodenoscope was introduced through the mouth, and advanced to the duodenum and used to inject contrast into the bile duct. The patient tolerated the procedure well. The ERCP was technically difficult and complex due to difficulty passing guidewires through biliary ductal stenosis. Moderate Sedation: MAC anesthesia was administered by the anesthesia team. Findings: The clinical immunologist film was normal. The major papilla was normal. The ventral pancreatic duct was inadvertently cannulated with the short-nosed traction sphincterotome and guidewire. No contrast was injected into the pancreatic duct. A pre-cut sphincterotomy was perfomed of the bile duct using a needle knife. The bile duct was deeply cannulated with the sphincterotome and guidewire. Contrast was injected. I personally interpreted the bile duct images. There was brisk flow of contrast through the ducts. Image quality was excellent. Contrast extended to the entire biliary tree. The lower third of the main bile duct contained a single severe stenosis 4 mm in length. Dilation of the common bile duct with a 4 mm x 4 cm CRE Hurricane biliary balloon dilator was successful, resulting in good flow of bile. One 10 Fr by 7 cm plastic stent with a single external flap and a single internal flap was placed 6 cm into the common bile duct. Bile flowed through the stent. The stent was in good position. Impression: - The major papilla appeared normal. - Pre-cut sphincterotomy performed. - A single severe biliary stricture was found in the lower third of the main bile duct due to known pancreatic head adenocarcinoma. - Common bile duct was successfully dilated. - One plastic stent was placed into the common bile duct. Estimated Blood Loss: Estimated blood loss: none. Recommendation: - Return patient to [facility] for ongoing care. - Resume previous diet. - Repeat ERCP in 3 months to exchange stent. Procedure Code(s): --- Professional --- 15016 [id number] Diagnosis Code(s): --- Professional --- K83.1 R17 C25.0 CPT copyright 2020 [employer]. All rights reserved. Attending Participation: I was present and participated during the entire procedure, including non-farrar portions. Scope In: 9:18:42 AM Scope Out: 10:02:[address] Pastor Jade MD, MPH Pastor Jade MD 06/02/2025 10:18:48 AM This report has been signed electronically by Pastor Jade MD Number of Addenda: 0 Note Initiated On: 06/02/2025 8:58 AM [place] 06-02-2025 Nurse Note PRE OP LEARNING ASSESSMENT PROCEDURE/SURGERY: GI PROCEDURES: ERCP READINESS TO LEARN COGNITIVE ABILITY: Alert and oriented MOTIVATION TO LEARN: Interested FAMILY SUPPORT: High - Very involved in pt care PATIENT LEARNS BEST BY: Individual Instruction Verbal Instruction FACTORS AFFECTING LEARNING: None PHYSICAL LIMITATIONS AFFECTING LEARNING: None Electronically Signed By: Cony Warren RN In Department: GASTROENTEROLOGY [facility] 05-27-2025 Telephone encounter Note 06/02/25 9:00 am arrival time, reviewed nothing to eat or drink after midnight. 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 Pt voiced understanding and agreement to this plan. AAMIR Lara, RN Specialty Echocardiologist May 27, 2025 [facility] 05-27-2025 Miscellaneous Notes 06/02/25 9:00 am arrival time, reviewed nothing to eat or drink after midnight. 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 Pt voiced understanding and agreement to this plan. AAMIR Lara, RN Specialty Echocardiologist May 27, 2025 Confirmed EGD/EUS completed 05/12, plan for ERCP + stent placement. Pt agreeable to any date/ time available. RNCC/ scheduling to call with confirmation of appt. AAMIR Lara, RN Specialty Echocardiologist May 26, 2025 Lillian Bowden is calling Kalin Dunham MD today regarding Echocardiologist - Other (EUS scheduling) Patient called with questions about EUS procedure scheduling. Would like a call back to discuss. Patient has been identified by name and birthdate. Requesting response back: [phone] (home) [phone] (cell) Licha Owusu May 26, 2025 documented in this encounter [facility] 05-26-2025 Telephone encounter Note Confirmed EGD/EUS completed 05/12, plan for ERCP + stent placement. Pt agreeable to any date/ time available. RNCC/ scheduling to call with confirmation of appt. AAMIR Lara, RN Specialty Echocardiologist May 26, 2025 [facility] 05-26-2025 Telephone encounter Note Lillian Bowden is calling Kalin Dunham MD today regarding Echocardiologist - Other (EUS scheduling) Patient called with questions about EUS procedure scheduling. Would like a call back to discuss. Patient has been identified by name and birthdate. Requesting response back: [phone] (home) [phone] (cell) Licha Owusu May 26, 2025 [facility] 05-25-2025 Telephone encounter Note Main oncology reached out and wanted patient scheduled sooner. I called and spoke to patient and moved him to Friday06/06/25 @ 3:00 pm with , he confirmed this date and time. [facility] is trying to get his EUS and port done prior to that 06/06/25 date. stated that appointment here on 06/06/25 would be fine. Nelly Sheffield [facility] 05-25-2025 Miscellaneous Notes Main oncology reached out and wanted patient scheduled sooner. I called and spoke to patient and moved him to Friday06/06/25 @ 3:00 pm with , he confirmed this date and time. [facility] is trying to get his EUS and port done prior to that 06/06/25 date. stated that appointment here on 06/06/25 would be fine. Nelly Sheffield [facility] called and asked me to schedule Dg for a consult here with one of our oncologists. Patient is going to get chemo before having surgery to shrink his tumor first. Patient stated he is awaiting a stent placement and mediport placement in IR. For now he has been scheduled for 06/14/25 @ 11:00 am but stated once he knows the dates of the procedures maybe he could be moved up if need be. Nelly Sheffield Dg's case was presented yesterday at our tumor board. His CT pancreas confirms some abutment of his venous structures and therefore neoadjuvant chemotherapy is recommended. We will go ahead and place a stent in light of the obstructive biliary pattern seen on the imaging and blood work. I recommended that we place a Mediport. We will plan to start him on FOLFIRINOX for total of 6 cycles he plans to receive this care closer to home likely in [place] documented in this encounter [facility] 05-25-2025 Telephone encounter Note [facility] called and asked me to schedule Dg for a consult here with one of our oncologists. Patient is going to get chemo before having surgery to shrink his tumor first. Patient stated he is awaiting a stent placement and mediport placement in IR. For now he has been scheduled for 06/14/25 @ 11:00 am but stated once he knows the dates of the procedures maybe he could be moved up if need be. Nelly Sheffield [facility] 05-25-2025 Telephone encounter Note Dg's case was presented yesterday at our tumor board. His CT pancreas confirms some abutment of his venous structures and therefore neoadjuvant chemotherapy is recommended. We will go ahead and place a stent in light of the obstructive biliary pattern seen on the imaging and blood work. I recommended that we place a Mediport. We will plan to start him on FOLFIRINOX for total of 6 cycles he plans to receive this care closer to home likely in [place] [facility] 05-24-2025 Note HNO ID: [id number] Author: JACQIUE ELKINS MD Service: ? Author Type: Physician Type: Progress Notes Filed: 05/24/2025 16:33 Note Text: Upper GI Tumor Board Date: May 24, 2025 Time: 4-5 P.M. Patient: Lillian Bowden Treating Physicians of Record: Surgery: Juan Sagastume MD,Oncology: Kalin Dunham MD, Radiation Oncology: None, GI: None. Consensus Decision Makin54 year old male being presented for pancreas adenocarcinoma. 54 yoM quit smoking in 2016 and drinking in October 2024. Has type 2 diabetes and noticed his blood sugars got more difficult to control so got worked up and ultimately found to have a pancreatic mass, biopsy proven adenocarcinoma. T.bili is normal, but alk phos is 1600 and ALT and AST are elevated. On Creon. CA 19-9 is 986. Questionable focal vessel narrowing of the SMV on CT. Clinical questions: Neoadjuvant chemo v. Up front resection . Review of Images: Pancreas specific: Location: Head 3.3 cm Celiac [place]: No Interface SMA: No Interface Common Hepatic Artery: No Interface Portal Vein: No Interface SMV: < or equal 180 interface with narrowing/distortion Lymph Nodes: Regional Distant Mets: None Other Findings: mildly dialted CBD Review of Pathology: Not Indicated Board Recommendation is for: Borderline operable. Neoadjuvant chemotherapy. consider prophylactic stenting of CBD Attendees: Representatives were present from Medical Oncology, [facility] Surgery, Radiation Oncology Radiology, and Pathology. This is the summary of the general discussion provided at tumor board conference. The final recommendations will be made by the primary health care team and the patient after discussing the benefits, risks and alternatives to the various treatment options. [place] 05-23-2025 History of Present illness Narrative Radiology Service Progress Note DATE OF SERVICE: May 23, 2025 TIME: 8:42 AM PATIENT IDENTITY VERIFICATION COMPLETED USING TWO (2) STANDARD IDENTIFIERS: Name and Date of confirmed by patient verbally. FALL SCREENING: Has the patient had 2 falls in the last year or 1 fall with injury or currently using an Ambulatory Assistive Device (Walker, Cane, Wheelchair, Crutches, etc.)? No PATIENT GENDER DATA: Assigned male at PATIENT RELEVANT IMPLANT DATA REVIEWED: Yes PATIENT PRESENTS WITH AN IMPLANTABLE OR ATTACHED BUSINESS CONSULTANT: No ALLERGIES: Reviewed and unchanged CONTRAST ALLERGY: NO. EXAM: CT -CONTRAST INDUCED NEPHROPATHY RISK FACTORS: Not applicable CREATININE: Creatinine Date Value Ref Range Status 05/19/2025 0.78 0.73 - 1.22 mg/dL Final Estimated Glomerular Filtration Rate Date Value Ref Range Status 05/19/2025 107 >=60 mL/min/1.73m Final Comment: Estimated Glomerular Filtration Rate (eGFR) is calculated using the 2020 CKD-EPI creatinine equation. This equation utilizes serum creatinine, sex, and age as parameters. The creatinine assay has traceable calibration to isotope dilution-mass spectrometry. Refer to KDIGO guidelines for clinical interpretation. In patients with unstable renal function, e.g. those with acute kidney injury, the eGFR may not accurately reflect actual GFR. P.O.C.T. RESULTS: POC done: Yes, See Lab Tab May 23, 2025 TREATMENT: N/A PERIPHERAL IV DATA: Ambulatory: A peripheral IV was started in the Left antecubital site with a Angio cath: 20 gauge. RADIOLOGY DEPARTMENT: CT; Exam(s) Completed: Chest, Pancreas , and Pelvis SIGNATURE: NADIR Alcaraz) PATIENT NAME: Lillian Bowden DATE: May 23, 2025 TIME: 8:42 AM documented in this encounter [facility] 05-23-2025 Note HNO ID: [id number] Author: MONSERRAT MATTHEWS RT (R) Service: Radiology Author Type: Rad Technologist Type: Progress Notes Filed: 05/23/2025 08:42 Note Text: Radiology Service Progress Note DATE OF SERVICE: May 23, 2025 TIME: 8:42 AM PATIENT IDENTITY VERIFICATION COMPLETED USING TWO (2) STANDARD IDENTIFIERS: Name and Date of confirmed by patient verbally. FALL SCREENING: Has the patient had 2 falls in the last year or 1 fall with injury or currently using an Ambulatory Assistive Device (Walker, Cane, Wheelchair, Crutches, etc.)? No PATIENT GENDER DATA: Assigned male at PATIENT RELEVANT IMPLANT DATA REVIEWED: Yes PATIENT PRESENTS WITH AN IMPLANTABLE OR ATTACHED BUSINESS CONSULTANT: No ALLERGIES: Reviewed and unchanged CONTRAST ALLERGY: NO. EXAM: CT -CONTRAST INDUCED NEPHROPATHY RISK FACTORS: Not applicable CREATININE: Creatinine Date Value Ref Range Status 05/19/2025 0.78 0.73 - 1.22 mg/dL Final Estimated Glomerular Filtration Rate Date Value Ref Range Status 05/19/2025 107 >=60 mL/min/1.73m? Final Comment: Estimated Glomerular Filtration Rate (eGFR) is calculated using the 2020 CKD-EPI creatinine equation. This equation utilizes serum creatinine, sex, and age as parameters. The creatinine assay has traceable calibration to isotope dilution-mass spectrometry. Refer to KDIGO guidelines for clinical interpretation. In patients with unstable renal function, e.g. those with acute kidney injury, the eGFR may not accurately reflect actual GFR. P.O.C.T. RESULTS: POC done: Yes, See Lab Tab May 23, 2025 TREATMENT: N/A PERIPHERAL IV DATA: Ambulatory: A peripheral IV was started in the Left antecubital site with a Angio cath: 20 gauge. RADIOLOGY DEPARTMENT: CT; Exam(s) Completed: Chest, Pancreas , and Pelvis SIGNATURE: RT iKeran(R) PATIENT NAME: Lillian Bowden DATE: May 23, 2025 TIME: 8:42 AM [facility] 05-19-2025 History and physical note INITIAL PANCREATIC CANCER PATIENT NAME: Lillian Bowden DATE of SERVICE: 05/19/2025 TIME of SERVICE: 1:09 PM PCP: Shashank Sheehan MD This consult was requested by Self for evaluation of pancreatic cyst(s) My final recommendations will be communicated to the requesting health care provider by way of the shared medical record or [employer]. HPI: Mr. Bowden is a 54 year old male who presents for PDAC. Incidental- No Diabetes Mellitus-Yes Dg reports that his elevated A1c levels led to an increase in metformin dosage from 500 mg to 1500 mg by his previous PCP. Following this adjustment, he began experiencing diarrhea around [facility], preceded by changes in stool color to bit bender shades, including yellow and medina. His new PCP reduced the metformin dosage back to 500 mg and added glimepiride 1 mg to his morning regimen, which already included Jardiance 25 mg. Despite these changes, Dg continued to experience diarrhea and significant weight loss, approximately 70 lbs, decreasing from 230 lbs to 164 lbs. He was referred to a motors assembler, who diagnosed him with exocrine pancreatic insufficiency and prescribed Creon, which has stabilized his weight between 165-170 lbs and improved his bowel movements. Subsequent CT and ultrasound imaging revealed a nodule in the head of the pancreas. An EUS with biopsies was performed, and Dg was informed that cancerous cells were found. He denies abdominal pain, nausea, emesis, fevers, or jaundice, and reports a good appetite. He has a history of psoriatic arthritis, which has improved since he stopped drinking alcohol in October. He also has a history of back surgery 2 years ago for a ruptured disc. He denies a history of pancreatitis. Dg has a significant family history of cancer, with both parents having from cancer (father from lung cancer and mother from breast cancer). His sister was diagnosed with breast cancer at age 33 and underwent a mastectomy. His other sister has no history of cancer but suffered an aortic dissection last year. He is unaware of any BRCA gene mutations in his family. Dg has a history of smoking, having quit in 2016 after being diagnosed with Legionnaire's disease. He also quit drinking alcohol in October, having previously consumed 6 beers per night. He reports that his blood pressure has improved since he stopped drinking, and he has not taken his antihypertensive medication for about 3 weeks. WORKUP: CT Yes 2024 mass size 21 x 19 mm location head vessel involvement yes Arterial: SMA: No contact Celiac: No contact FARA:No contact Splenic artery: No Contact Venous: MPV: None SMV: Soft Tissue Contact with focal vessel narrowing Splenic Vein: No Contact Venous collaterals present: No Contiguous Organ Involvement: No Lymph node No Liver Lesions: No Location n/a Metastases No ascites No venous thrombosis No Pathology/Cytology: pancreas adenocarcinoma PAST MEDICAL HISTORY PAST MEDICAL HISTORY Diagnosis Date Arthritis Diabetes (HCC) Hypertension Legionnaire's disease (HCC) PAST SURGICAL HISTORY PAST SURGICAL HISTORY Procedure Laterality Date LAMINECTOMY,LUMBAR FAMILY HISTORY FAMILY HISTORY Problem Relation Age of Onset Breast Cancer Mother Lung Cancer Father Breast Cancer Sister Pancreatic Cancer- No Colon Cancer- No Breast Cancer- Yes Pancreatitis- No SOCIAL HISTORY Social History Tobacco Use Smoking status: Former Types: Cigarettes Smokeless tobacco: Former Types: Chew Vaping Use Vaping status: Never Used Substance Use Topics Alcohol use: Not Currently Drug use: Never REVIEW OF SYSTEMS GENERAL: Unintentional weight loss RESPIRATORY: Negative for cough, hemoptysis, wheezing, COPD, dyspnea or shortness of breath CARDIOVASCULAR: Negative for chest pain, leg swelling, hypertension, CHF or palpitations GI: No nausea, vomiting, or diarrhea PHYSICAL EXAM: General Appearance: NAD. Skin: No jaundice. Lungs: Non-labored breathing. Abdomen: S, NT, ND. Neurologic: Answering questions appropriately. LABS No results found for: CEA CA19-9 (U/mL) Date Value 05/06/2025 960.0 No results found for: AMYLASE Lipase (U/L) Date Value 05/06/2025 31 No results found for: PREALB No results found for: CRP No results found for: TRANSF No results found for: BILIT ALT (U/L) Date Value 05/06/2025 508 AST (U/L) Date Value 05/06/2025 279 No components found for: LB Alkaline Phosphatase (U/L) Date Value 05/06/2025 1,463 No results found for: HBA1C PANCREATIC POLYPEPTIDE: Not Done GASTRIN: Not Done IGG4 Not Done Assessment ASSESSMENT: 54 year old male presents with Pancreatic adenocarcinoma . T: 2 N: 0 M: 0 Resectability: Borderline resectable PLAN: - Discussed CT imaging findings showing a mass in the head of the pancreas with no apparent metastasis. - Explained the need for further imaging: ordered CT chest and a dedicated CT pancreas protocol to determine resectability. Will follow up afterwards to discuss up front resection v. Neoadjuvant chemotherapy. If we determine neoadjuvant chemotherapy is the best next step, then will schedule patient for ERCP and stent placement. If up front resection is deemed the best first move, then will hold off on biliary decompression. - Discussed surgical options, including the Whipple procedure, in detail using diagrams and his current cross sectional imaging. - Educated patient on the impact of surgery on diabetes management, including potential worsening of glycemic control and possible need for insulin therapy; will coordinate with endocrinology for postoperative management. - Continue Creon therapy; dosage may be adjusted postoperatively based on pancreatic function. - Ordered genetic testing - Patient understands and agrees with the treatment plan. SIGNATURE: Juan Sagastume MD [facility] 05-19-2025 History and physical note INITIAL PANCREATIC CANCER PATIENT NAME: Lillian Bowden DATE of SERVICE: 05/19/2025 TIME of SERVICE: 1:09 PM PCP: Shashank Sheehan MD This consult was requested by Self for evaluation of pancreatic cyst(s) My final recommendations will be communicated to the requesting health care provider by way of the shared medical record or [employer]. HPI: Mr. Bowden is a 54 year old male who presents for PDAC. Incidental- No Diabetes Mellitus-Yes Dg reports that his elevated A1c levels led to an increase in metformin dosage from 500 mg to 1500 mg by his previous PCP. Following this adjustment, he began experiencing diarrhea around Easter, preceded by changes in stool color to bit bender shades, including yellow and medina. His new PCP reduced the metformin dosage back to 500 mg and added glimepiride 1 mg to his morning regimen, which already included Jardiance 25 mg. Despite these changes, Dg continued to experience diarrhea and significant weight loss, approximately 70 lbs, decreasing from 230 lbs to 164 lbs. He was referred to a motors assembler, who diagnosed him with exocrine pancreatic insufficiency and prescribed Creon, which has stabilized his weight between 165-170 lbs and improved his bowel movements. Subsequent CT and ultrasound imaging revealed a nodule in the head of the pancreas. An EUS with biopsies was performed, and Dg was informed that cancerous cells were found. He denies abdominal pain, nausea, emesis, fevers, or jaundice, and reports a good appetite. He has a history of psoriatic arthritis, which has improved since he stopped drinking alcohol in October. He also has a history of back surgery 2 years ago for a ruptured disc. He denies a history of pancreatitis. Dg has a significant family history of cancer, with both parents having from cancer (father from lung cancer and mother from breast cancer). His sister was diagnosed with breast cancer at age 33 and underwent a mastectomy. His other sister has no history of cancer but suffered an aortic dissection last year. He is unaware of any BRCA gene mutations in his family. Dg has a history of smoking, having quit in 2016 after being diagnosed with Legionnaire's disease. He also quit drinking alcohol in October, having previously consumed 6 beers per night. He reports that his blood pressure has improved since he stopped drinking, and he has not taken his antihypertensive medication for about 3 weeks. WORKUP: CT Yes 2024 mass size 21 x 19 mm location head vessel involvement yes Arterial: SMA: No contact Celiac: No contact FARA:No contact Splenic artery: No Contact Venous: MPV: None SMV: Soft Tissue Contact with focal vessel narrowing Splenic Vein: No Contact Venous collaterals present: No Contiguous Organ Involvement: No Lymph node No Liver Lesions: No Location n/a Metastases No ascites No venous thrombosis No Pathology/Cytology: pancreas adenocarcinoma PAST MEDICAL HISTORY PAST MEDICAL HISTORY Diagnosis Date Arthritis Diabetes (HCC) Hypertension Legionnaire's disease (HCC) PAST SURGICAL HISTORY PAST SURGICAL HISTORY Procedure Laterality Date LAMINECTOMY,LUMBAR FAMILY HISTORY FAMILY HISTORY Problem Relation Age of Onset Breast Cancer Mother Lung Cancer Father Breast Cancer Sister Pancreatic Cancer- No Colon Cancer- No Breast Cancer- Yes Pancreatitis- No SOCIAL HISTORY Social History Tobacco Use Smoking status: Former Types: Cigarettes Smokeless tobacco: Former Types: Chew Vaping Use Vaping status: Never Used Substance Use Topics Alcohol use: Not Currently Drug use: Never REVIEW OF SYSTEMS GENERAL: Unintentional weight loss RESPIRATORY: Negative for cough, hemoptysis, wheezing, COPD, dyspnea or shortness of breath CARDIOVASCULAR: Negative for chest pain, leg swelling, hypertension, CHF or palpitations GI: No nausea, vomiting, or diarrhea PHYSICAL EXAM: General Appearance: NAD. Skin: No jaundice. Lungs: Non-labored breathing. Abdomen: S, NT, ND. Neurologic: Answering questions appropriately. LABS No results found for: CEA CA19-9 (U/mL) Date Value 05/06/2025 960.0 No results found for: AMYLASE Lipase (U/L) Date Value 05/06/2025 31 No results found for: PREALB No results found for: CRP No results found for: TRANSF No results found for: BILIT ALT (U/L) Date Value 05/06/2025 508 AST (U/L) Date Value 05/06/2025 279 No components found for: LB Alkaline Phosphatase (U/L) Date Value 05/06/2025 1,463 No results found for: HBA1C PANCREATIC POLYPEPTIDE: Not Done GASTRIN: Not Done IGG4 Not Done Assessment ASSESSMENT: 54 year old male presents with Pancreatic adenocarcinoma . T: 2 N: 0 M: 0 Resectability: Borderline resectable PLAN: - Discussed CT imaging findings showing a mass in the head of the pancreas with no apparent metastasis. - Explained the need for further imaging: ordered CT chest and a dedicated CT pancreas protocol to determine resectability. Will follow up afterwards to discuss up front resection v. Neoadjuvant chemotherapy. If we determine neoadjuvant chemotherapy is the best next step, then will schedule patient for ERCP and stent placement. If up front resection is deemed the best first move, then will hold off on biliary decompression. - Discussed surgical options, including the Whipple procedure, in detail using diagrams and his current cross sectional imaging. - Educated patient on the impact of surgery on diabetes management, including potential worsening of glycemic control and possible need for insulin therapy; will coordinate with endocrinology for postoperative management. - Continue Creon therapy; dosage may be adjusted postoperatively based on pancreatic function. - Ordered genetic testing - Patient understands and agrees with the treatment plan. SIGNATURE: Juan Sagastume MD documented in this encounter [facility] 05-19-2025 Note HNO ID: [id number] Author: KALIN DUNHAM MD Service: ? Author Type: Physician Type: Progress Notes Filed: 05/19/2025 13:36 Note Text: NEW PATIENT EVALUATION This consult was requested by Shashank Sheehan MD for an opinion regarding pancreatic cancer. My final recommendations will be communicated to the requesting health care provider by way of the shared medical record for internal providers or letter via the [employer] for external providers. HISTORY OF PRESENT ILLNESS: Lillian Bowden presents today for an opinion with regards to his recently discovered pancreatic cancer. He was in his usual state of health until he began to develop weight loss associated with diarrhea in addition he was noted to have progressive hyperglycemia at first that it was attributed to his metformin when his symptoms intensified he underwent a CT scan which revealed a pancreatic mass he denied any pain no fevers or chills he was referred here for an endoscopic ultrasound and biopsy. This was performed on May 12, 2025. Pancreatic head mass was seen there was evidence of dilation of the middle third of the bile duct in the upper third of the main bile duct measuring up to 10 mm of noticed his alkaline phosphatase was markedly elevated bilirubin was normal. His CA 19-9 is markedly elevated he comes today for an opinion with regards to his care He notes no shortness of breath cough his appetites been diminished he denies any chest pain HISTORIES FAMILY HISTORY Problem Relation Age of Onset Breast Cancer Mother Lung Cancer Father Breast Cancer Sister PAST MEDICAL HISTORY Diagnosis Date Arthritis Diabetes (HCC) Hypertension Legionnaire's disease (HCC) PAST SURGICAL HISTORY Procedure Laterality Date LAMINECTOMY,LUMBAR Social History Tobacco Use Smoking status: Former Types: Cigarettes Smokeless tobacco: Former Types: Chew Vaping Use Vaping status: Never Used Substance Use Topics Alcohol use: Not Currently Drug use: Never CURRENT MEDICATIONS Reviewed in EMR REVIEW OF SYSTEMS: Otherwise negative beyond that noted in the history of present illness times 10 systems. PHYSICAL EXAM: BP 120/79 Pulse 80 Temp 36.6 ?C (97.9 ?F) (Temporal) Resp 18 Ht 181.4 cm (5' 11.42) Wt 76.8 kg (169 lb 5 oz) SpO2 100% BMI 23.34 kg/m? ECOG PERFORMANCE STATUS: 0- Fully active, able to carry on all pre-disease performance w/o restriction. GENERAL no acute distress alert and oriented x3 HEENT oral mucous membranes moist no oral lesions or thrush HEART regular rate and rhythm S1-S2 normal LUNGS clear to auscultation bilaterally no rhonchi rales or wheezing ABDOMEN soft nontender nondistended with no palpable hepatosplenomegaly. Bowel sounds within normal limits. EXTREMITIES no clubbing cyanosis or edema MUSCULOSKELETAL exam with no point tenderness in the axial skeleton Cranial nerves intact 2 through 12 grossly 5 over 5 strength x4 extremities gait within normal limits SKIN no rashes or petechiae Imaging CT abdomen pelvis IMPRESSION: 2.1 cm pancreatic head lesion suspicious for adenocarcinoma with abutment of the SMV at the confluence. No other vascular involvement. Subcentimeter hepatic lesion indeterminate but may be characterized by contrast enhanced liver MR. Borderline enlarged peripancreatic lymph node. Mild, associated intra and extrahepatic biliary duct dilation Labs CA 19-9 960 Alkaline phosphatase 1463 AST 279 ALT 508 total protein 7.4 albumin 4.9 IMPRESSION/PLAN: Pancreatic carcinoma he appears to have a T3 lesion he is being seen currently by hepatobiliary surgery who thinks he may be resectable there is question of abutment of the SMV we will get a dedicated CT pancreas to assure that he is resectable upfront if not neoadjuvant FOLFIRINOX would be a reasonable approach he is fit and capable of receiving this I spoke in great detail. With regards to the side effects and how this is delivered with a continuous infusion 5-FU pump expressed interest in having this treatment closer to home if indicated. I recommended DP YD and UGT A1A evaluations. In addition I recommended germline genetic testing. He is agreeable to [facility] testing, We will complete his staging workup with a CT of the chest to assure he does not develop distant disease. I spent a total of 69 minutes on the date of the service managing this encounter Kalin Dunham MD The patient viewed a genetic testing educational video which describes rationale for germline genetic testing, potential results, and possible personal and familial implications. The patient chose to pursue and provided informed consent for germline testing. Test results will be disclosed by a genetic counselor. [place] 05-19-2025 History of Present illness Narrative NEW PATIENT EVALUATION This consult was requested by Shashank Sheehan MD for an opinion regarding pancreatic cancer. My final recommendations will be communicated to the requesting health care provider by way of the shared medical record for internal providers or letter via the [employer] for external providers. HISTORY OF PRESENT ILLNESS: Lillian Bowden presents today for an opinion with regards to his recently discovered pancreatic cancer. He was in his usual state of health until he began to develop weight loss associated with diarrhea in addition he was noted to have progressive hyperglycemia at first that it was attributed to his metformin when his symptoms intensified he underwent a CT scan which revealed a pancreatic mass he denied any pain no fevers or chills he was referred here for an endoscopic ultrasound and biopsy. This was performed on May 12, 2025. Pancreatic head mass was seen there was evidence of dilation of the middle third of the bile duct in the upper third of the main bile duct measuring up to 10 mm of noticed his alkaline phosphatase was markedly elevated bilirubin was normal. His CA 19-9 is markedly elevated he comes today for an opinion with regards to his care He notes no shortness of breath cough his appetites been diminished he denies any chest pain HISTORIES FAMILY HISTORY Problem Relation Age of Onset Breast Cancer Mother Lung Cancer Father Breast Cancer Sister PAST MEDICAL HISTORY Diagnosis Date Arthritis Diabetes (HCC) Hypertension Legionnaire's disease (HCC) PAST SURGICAL HISTORY Procedure Laterality Date LAMINECTOMY,LUMBAR Social History Tobacco Use Smoking status: Former Types: Cigarettes Smokeless tobacco: Former Types: Chew Vaping Use Vaping status: Never Used Substance Use Topics Alcohol use: Not Currently Drug use: Never CURRENT MEDICATIONS Reviewed in EMR REVIEW OF SYSTEMS: Otherwise negative beyond that noted in the history of present illness times 10 systems. PHYSICAL EXAM: BP 120/79 Pulse 80 Temp 36.6 C (97.9 F) (Temporal) Resp 18 Ht 181.4 cm (5' 11.42) Wt 76.8 kg (169 lb 5 oz) SpO2 100% BMI 23.34 kg/m ECOG PERFORMANCE STATUS: 0- Fully active, able to carry on all pre-disease performance w/o restriction. GENERAL no acute distress alert and oriented x3 HEENT oral mucous membranes moist no oral lesions or thrush HEART regular rate and rhythm S1-S2 normal LUNGS clear to auscultation bilaterally no rhonchi rales or wheezing ABDOMEN soft nontender nondistended with no palpable hepatosplenomegaly. Bowel sounds within normal limits. EXTREMITIES no clubbing cyanosis or edema MUSCULOSKELETAL exam with no point tenderness in the axial skeleton Cranial nerves intact 2 through 12 grossly 5 over 5 strength x4 extremities gait within normal limits SKIN no rashes or petechiae Imaging CT abdomen pelvis IMPRESSION: 2.1 cm pancreatic head lesion suspicious for adenocarcinoma with abutment of the SMV at the confluence. No other vascular involvement. Subcentimeter hepatic lesion indeterminate but may be characterized by contrast enhanced liver MR. Borderline enlarged peripancreatic lymph node. Mild, associated intra and extrahepatic biliary duct dilation Labs CA 19-9 960 Alkaline phosphatase 1463 AST 279 ALT 508 total protein 7.4 albumin 4.9 IMPRESSION/PLAN: Pancreatic carcinoma he appears to have a T3 lesion he is being seen currently by hepatobiliary surgery who thinks he may be resectable there is question of abutment of the SMV we will get a dedicated CT pancreas to assure that he is resectable upfront if not neoadjuvant FOLFIRINOX would be a reasonable approach he is fit and capable of receiving this I spoke in great detail. With regards to the side effects and how this is delivered with a continuous infusion 5-FU pump expressed interest in having this treatment closer to home if indicated. I recommended DP YD and UGT A1A evaluations. In addition I recommended germline genetic testing. He is agreeable to [facility] testing, We will complete his staging workup with a CT of the chest to assure he does not develop distant disease. I spent a total of 69 minutes on the date of the service managing this encounter Kalin Dunham MD The patient viewed a genetic testing educational video which describes rationale for germline genetic testing, potential results, and possible personal and familial implications. The patient chose to pursue and provided informed consent for germline testing. Test results will be disclosed by a genetic counselor. Additional intake questions: Has the patient had fever, nausea, vomiting, diarrhea, constipation, fatigue for > 1 week? Yes, fatigue and Provider Notified Does the patient have a decreased appetite? No Does patient want to see a Hydraulic Boom Operator? No (yes to any of above refer patient to schedulers for dietitian appointment) ) Does patient have any new or increased numbness or tingling of extremities? No Is patient interested in fertility information? No Does patient need any prescription refills? No Does patient have an advanced directive in place? No, Patient referred to [facility] documented in this encounter [facility] 05-19-2025 Note HNO ID: [id number] Author: PAMELA MERLOS LPN Service: ? Author Type: LICENSED NURSE Type: Progress Notes Filed: 05/19/2025 13:36 Note Text: Additional intake questions: Has the patient had fever, nausea, vomiting, diarrhea, constipation, fatigue for > 1 week? Yes, fatigue and Provider Notified Does the patient have a decreased appetite? No Does patient want to see a Hydraulic Boom Operator? No (yes to any of above refer patient to schedulers for dietitian appointment) ) Does patient have any new or increased numbness or tingling of extremities? No Is patient interested in fertility information? No Does patient need any prescription refills? No Does patient have an advanced directive in place? No, Patient referred to [facility] Electronically Signed By: Pamela Merlos LPN [place] 05-19-2025 Telephone encounter Note Updated patient that the appointment is at 1 pm in [facility] with [facility] Work Phone: 05-19-2025 Miscellaneous Notes Updated patient that the appointment is at 1 pm in [place] with Pt is calling because they live 1 1/2 hour away and can't make the appt for today that was added on. Can you please call pt to verify this appt date and time. documented in this encounter [facility] 05-19-2025 Telephone encounter Note Pt is calling because they live 1 1/2 hour away and can't make the appt for today that was added on. Can you please call pt to verify this appt date and time. [facility] 05-16-2025 Miscellaneous Notes Spoke to pt re: FNB results. Will arrange scheduling via cancer answer. Pastor Jade II, MD documented in this encounter [facility] 05-16-2025 Telephone encounter Note Spoke to pt re: FNB results. Will arrange scheduling via cancer answer. Pastor Jade II, MD [facility] Work Phone: 05-12-2025 Nurse Note AMBULATORY PATIENT EDUCATION NOTE TOPIC: GI PROCEDURES: Esophagogastroduodenoscopy(EGD) with or without biopies based on clinical findings, removal of polyps or lesions READINESS TO LEARN INSTRUCTION PROVIDED TO: Patient, readness to learn accessed prior to procedure and Patient and family member COGNITIVE ABILITY: Alert and oriented PTED MOTIVATION TO LEARN: Eager Interested FAMILY SUPPORT: High - Very involved in pt care IPATIENT LEARNS BEST BY: Individual Instruction Verbal Instruction FACTORS AFFECTING LEARNING: None PHYSICAL LIMITATIONS AFFECTING LEARNING: None LEARNING RESPONSE METHOD OF INSTRUCTION: Individual instruction PATIENT / FAMILY RESPONSE: Verbalizes understanding of: WORSENING CONDITION-Signs and symptoms of a worsening condition that warrant a call to the physician FOLLOW-UP PLAN: Patient instructed to call with any further issues Recommend - Recommend continued instruction and follow up as directed Contact information given. SUPPLEMENTAL MATERIAL: Procedure Discharge Instructions REFERRAL (RECOMMENDATION): None [facility] 05-12-2025 Nurse Note AMBULATORY PATIENT EDUCATION NOTE TOPIC: GI PROCEDURES: Esophagogastroduodenoscopy(EGD) with or without biopies based on clinical findings, removal of polyps or lesions READINESS TO LEARN INSTRUCTION PROVIDED TO: Patient, readness to learn accessed prior to procedure and Patient and family member COGNITIVE ABILITY: Alert and oriented PTED MOTIVATION TO LEARN: Eager Interested FAMILY SUPPORT: High - Very involved in pt care IPATIENT LEARNS BEST BY: Individual Instruction Verbal Instruction FACTORS AFFECTING LEARNING: None PHYSICAL LIMITATIONS AFFECTING LEARNING: None LEARNING RESPONSE METHOD OF INSTRUCTION: Individual instruction PATIENT / FAMILY RESPONSE: Verbalizes understanding of: WORSENING CONDITION-Signs and symptoms of a worsening condition that warrant a call to the physician FOLLOW-UP PLAN: Patient instructed to call with any further issues Recommend - Recommend continued instruction and follow up as directed Contact information given. SUPPLEMENTAL MATERIAL: Procedure Discharge Instructions REFERRAL (RECOMMENDATION): None PRE OP LEARNING ASSESSMENT PROCEDURE/SURGERY: GI PROCEDURES: EGD and ESU READINESS TO LEARN COGNITIVE ABILITY: Alert and oriented MOTIVATION TO LEARN: Eager FAMILY SUPPORT: Moderate - Family present but overwhelmed PATIENT LEARNS BEST BY: Individual Instruction FACTORS AFFECTING LEARNING: None PHYSICAL LIMITATIONS AFFECTING LEARNING: None Electronically Signed By: Maria Luz Tan RN In Department: GASTROENTEROLOGY documented in this encounter [facility] 05-12-2025 Note Q3 Patient Name: Lillian Bowden Procedure Date: 05/12/2025 1:49 PM Date of : 1970 Admit Type: Outpatient Age: 54 Gender: Male Note Status: Finalized Attending MD: Pastor Jade MD, [id number] Procedure: Upper EUS Indications: Suspected mass in pancreas on CT scan Providers: Pastor Jade MD Referring Physician: Manpreet Almeida (Referring MD) Medicines: Monitored Anesthesia Care Complications: No immediate complications. Requesting Provider: Procedure: Pre-Anesthesia Assessment: - Prior to the procedure, a History and Physical was performed, and patient medications and allergies were reviewed. The patient's tolerance of previous anesthesia was also reviewed. The risks and benefits of the procedure and the sedation options and risks were discussed with the patient. All questions were answered, and informed consent was obtained. Prior Anticoagulants: The patient has taken no anticoagulant or antiplatelet agents. ASA Grade Assessment: III - A patient with severe systemic disease. After reviewing the risks and benefits, the patient was deemed in satisfactory condition to undergo the procedure. After obtaining informed consent, the endoscope was passed under direct vision. Throughout the procedure, the patient's blood pressure, pulse, and oxygen saturations were monitored continuously. The Endoscope was introduced through the mouth, and advanced to the second part of duodenum. The Endoscope was introduced through the and advanced to the. The upper EUS was accomplished with ease. The patient tolerated the procedure well. Moderate Sedation: MAC anesthesia was administered by the anesthesia team. Findings: ENDOSCOPIC FINDING: : The examined esophagus was normal. The entire examined stomach was normal. The ampulla, first portion of the duodenum and second portion of the duodenum were normal. ENDOSONOGRAPHIC FINDING: : An irregular mass was identified in the pancreatic head. The mass was hypoechoic. The mass measured 19 mm by 20 mm in maximal cross-sectional diameter. The outer margins were irregular. The remainder of the pancreas was examined. The endosonographic appearance of parenchyma and the upstream pancreatic duct indicated duct dilation. Fine needle biopsy was performed. Color Doppler imaging was utilized prior to needle puncture to confirm a lack of significant vascular structures within the needle path. Three passes were made with the 22 gauge ImmunomeCore biopsy needle using a transduodenal approach. A visible core of tissue was obtained. Final cytology results are pending. There was dilation in the middle third of the main bile duct and in the upper third of the main bile duct which measured up to 10 mm. No hyperechoic material consistent with sludge was visualized endosonographically in the gallbladder. Impression: - Normal esophagus. - Normal stomach. - Normal ampulla, first portion of the duodenum and second portion of the duodenum. - A mass was identified in the pancreatic head. Fine needle biopsy performed. - There was dilation in the middle third of the main bile duct and in the upper third of the main bile duct which measured up to 10 mm. - Hyperechoic material consistent with sludge was visualized endosonographically in the gallbladder. Estimated Blood Loss: Estimated blood loss: none. Recommendation: - Discharge patient to home (ambulatory). - Resume previous diet PRN. - Await path results. Procedure Code(s): --- Professional --- 43751 CPT copyright 2020 [employer]. All rights reserved. Attending Participation: I personally performed the entire procedure. Scope In: 2:05:37 PM Scope Out: 2:29:[address] Pastor Jade MD, MPH Pastor Jade MD 05/12/2025 2:38:02 PM This report has been signed electronically by Pastor Jade MD Number of Addenda: 0 Note Initiated On: 05/12/2025 1:49 PM [facility] 05-12-2025 Note Q3 Patient Name: Lillian Bowden Procedure Date: 05/12/2025 1:49 PM Date of : 1970 Admit Type: Outpatient Age: 54 Gender: Male Note Status: Finalized Attending MD: Pastor Jade MD, [id number] Procedure: Upper EUS Indications: Suspected mass in pancreas on CT scan Providers: Pastor Jade MD Referring Physician: Manpreet Almeida (Referring MD) Medicines: Monitored Anesthesia Care Complications: No immediate complications. Requesting Provider: Procedure: Pre-Anesthesia Assessment: - Prior to the procedure, a History and Physical was performed, and patient medications and allergies were reviewed. The patient's tolerance of previous anesthesia was also reviewed. The risks and benefits of the procedure and the sedation options and risks were discussed with the patient. All questions were answered, and informed consent was obtained. Prior Anticoagulants: The patient has taken no anticoagulant or antiplatelet agents. ASA Grade Assessment: III - A patient with severe systemic disease. After reviewing the risks and benefits, the patient was deemed in satisfactory condition to undergo the procedure. After obtaining informed consent, the endoscope was passed under direct vision. Throughout the procedure, the patient's blood pressure, pulse, and oxygen saturations were monitored continuously. The Endoscope was introduced through the mouth, and advanced to the second part of duodenum. The Endoscope was introduced through the and advanced to the. The upper EUS was accomplished with ease. The patient tolerated the procedure well. Moderate Sedation: MAC anesthesia was administered by the anesthesia team. Findings: ENDOSCOPIC FINDING: : The examined esophagus was normal. The entire examined stomach was normal. The ampulla, first portion of the duodenum and second portion of the duodenum were normal. ENDOSONOGRAPHIC FINDING: : An irregular mass was identified in the pancreatic head. The mass was hypoechoic. The mass measured 19 mm by 20 mm in maximal cross-sectional diameter. The outer margins were irregular. The remainder of the pancreas was examined. The endosonographic appearance of parenchyma and the upstream pancreatic duct indicated duct dilation. Fine needle biopsy was performed. Color Doppler imaging was utilized prior to needle puncture to confirm a lack of significant vascular structures within the needle path. Three passes were made with the 22 gauge PulmOne biopsy needle using a transduodenal approach. A visible core of tissue was obtained. Final cytology results are pending. There was dilation in the middle third of the main bile duct and in the upper third of the main bile duct which measured up to 10 mm. No hyperechoic material consistent with sludge was visualized endosonographically in the gallbladder. Impression: - Normal esophagus. - Normal stomach. - Normal ampulla, first portion of the duodenum and second portion of the duodenum. - A mass was identified in the pancreatic head. Fine needle biopsy performed. - There was dilation in the middle third of the main bile duct and in the upper third of the main bile duct which measured up to 10 mm. - Hyperechoic material consistent with sludge was visualized endosonographically in the gallbladder. Estimated Blood Loss: Estimated blood loss: none. Recommendation: - Discharge patient to home (ambulatory). - Resume previous diet PRN. - Await path results. Procedure Code(s): --- Professional --- 02056 CPT copyright 2020 [employer]. All rights reserved. Attending Participation: I personally performed the entire procedure. Scope In: 2:05:37 PM Scope Out: 2:29:[address] Pastor Jade MD, MPH Pastor Jade MD 05/12/2025 2:38:02 PM This report has been signed electronically by Pastor Jade MD Number of Addenda: 0 Note Initiated On: 05/12/2025 1:49 PM [place] 05-12-2025 History and physical note HISTORY AND PHYSICAL Lillian Bowden, 54 year old male Current history and physical on file: No Is a new History and Physical required for today's visit? Yes Indication for procedure: Other pancreatic mass PROCEDURE(S) SCHEDULED FOR: EGD (Esophagogastroduodenoscopy) with or without biopsies, removal of polyps or lesions, dilation ( any means), treatment of bleeding ( any means), Barrx treatment of Stanford's Esophagus, image tube placement or cryo therapy treatment based on clinical findings. and EUS/FNA (Endoscopic Ultrasound with or without Fine Needle Aspiration), based on clinical findings. BASELINE BEHAVIOR: Calm BASELINE ORIENTATION: A & O x3 All medications and allergies reviewed: Yes Skin Assessment: Warm dry mucus membranes pink Airway/Respiratory Assessment: Airway: visualization of the uvula- Yes Mouth: opening greater than 2 fingerbreadths- Yes Neck: full range of motion- Yes Breath sounds clear/equal- Yes Cardiac Assessment: Regular rate and rhythm without murmur Abdominal Assessment: Abdomen soft, non-tender, no masses or organomegaly. Sedation Plan: [facility] Additional Comments: None Pastor Jade II, MD [facility] Work Phone: 05-12-2025 History and physical note HISTORY AND PHYSICAL Lillian Bowden, 54 year old male Current history and physical on file: No Is a new History and Physical required for today's visit? Yes Indication for procedure: Other pancreatic mass PROCEDURE(S) SCHEDULED FOR: EGD (Esophagogastroduodenoscopy) with or without biopsies, removal of polyps or lesions, dilation ( any means), treatment of bleeding ( any means), Barrx treatment of Stanford's Esophagus, image tube placement or cryo therapy treatment based on clinical findings. and EUS/FNA (Endoscopic Ultrasound with or without Fine Needle Aspiration), based on clinical findings. BASELINE BEHAVIOR: Calm BASELINE ORIENTATION: A & O x3 All medications and allergies reviewed: Yes Skin Assessment: Warm dry mucus membranes pink Airway/Respiratory Assessment: Airway: visualization of the uvula- Yes Mouth: opening greater than 2 fingerbreadths- Yes Neck: full range of motion- Yes Breath sounds clear/equal- Yes Cardiac Assessment: Regular rate and rhythm without murmur Abdominal Assessment: Abdomen soft, non-tender, no masses or organomegaly. Sedation Plan: MAC Additional Comments: None Pastor Jade II, MD documented in this encounter [facility] 05-12-2025 Nurse Note PRE OP LEARNING ASSESSMENT PROCEDURE/SURGERY: GI PROCEDURES: EGD and ESU READINESS TO LEARN COGNITIVE ABILITY: Alert and oriented MOTIVATION TO LEARN: Eager FAMILY SUPPORT: Moderate - Family present but overwhelmed PATIENT LEARNS BEST BY: Individual Instruction FACTORS AFFECTING LEARNING: None PHYSICAL LIMITATIONS AFFECTING LEARNING: None Electronically Signed By: Maria Luz Tan RN In Department: GASTROENTEROLOGY [facility] 05-06-2025 Instructions Manpreet Almeida APRN.IT NETWORK ENGINEER - 05/06/2025 1:08 PM EDT We discussed your pancreatic concerns: - You have been referred for an endoscopic ultrasound (EUS) to evaluate the lesion on your pancreas and obtain a biopsy. This procedure will help determine if the lesion is cancerous, a cyst, or another type of mass. - The EUS will involve general anesthesia, and you will need a local owner operator truck driver for the procedure. You should not eat or drink after midnight the night before the procedure. The procedure itself will take approximately 20-30 minutes, and biopsy results may take up to a week to return. - Our team will work to schedule this procedure as soon as possible. You may be seen at [facility] or [facility], depending on availability. We will contact you with the details. We discussed your lab work: - I have ordered additional blood tests, including lipase (to assess pancreatic inflammation) and CA-19-9 (a tumor marker that may provide more information about the lesion). These tests are not diagnostic of cancer but will help guide further evaluation. - You can complete these labs at any [facility]-affiliated lab. Fasting is not required. We discussed your current symptoms and medications: - Continue taking Creon (36,000 units) as prescribed: 2 capsules with meals and 1 capsule with snacks. This has been helping with your digestion and bowel movements. - Continue all other medications as prescribed, including Jardiance, metformin (500 mg), and glimepiride (1 mg). - Maintain your current hydration efforts by drinking plenty of water. We discussed your recent weight loss: - Your significant weight loss (approximately 75 pounds over two months) is concerning and will be further evaluated with the EUS and lab work. Continue monitoring your weight and let us know if you notice any further significant changes. Next steps: - Complete the blood work at your earliest convenience. - Await a call from our team to schedule your EUS procedure. If you have any questions or concerns in the meantime, you can reach out via [employer] or contact Saira directly. - Continue avoiding alcohol and maintain your current diet and hydration efforts. We will review your imaging results with our radiology team for further insights. You will be contacted with updates as soon as they are available. documented in this encounter [facility] 05-06-2025 Telephone encounter Note RN companion caregiver spoke with patient offering him a procedure appointment for EUS on 05/12/2025 at [address] Jade. Patient agreed and confirmed. Patient provided instructions regarding NPO after midnight, medications (diabetes medications patient to discuss with PCP), no blood thinners, location, and advised he will need someone to bring and take him home. Patient was very appreciative of the help. rFederick Lawrence Is Dr. Jade's nurse and could contact her or me for any additional questions. AAMIR Cosby, RN Specialty Nurse Echocardiologist Digestive Disease [facility] 05-06-2025 Miscellaneous Notes RN companion caregiver spoke with patient offering him a procedure appointment for EUS on 05/12/2025 at [address] Jade. Patient agreed and confirmed. Patient provided instructions regarding NPO after midnight, medications (diabetes medications patient to discuss with PCP), no blood thinners, location, and advised he will need someone to bring and take him home. Patient was very appreciative of the help. Frederick Tavarez RichardEbenezer Is Dr. Jade's nurse and could contact her or me for any additional questions. AAMIR Cosby, RN Specialty Nurse Echocardiologist Digestive Disease documented in this encounter [facility] 05-06-2025 History of Present illness Narrative NEW VIRTUAL VISIT I have communicated my name and active licensure. The patient's identity and physical location were verified at the time of this visit. Either the patient or their legal appliance service representative has been informed of the risks and benefits of -- and alternatives to -- treatment through a remote evaluation and consents to proceed with the evaluation remotely. I had a virtual visit with Mr. Bowden today. His local doctors have given his a diagnosis of pancreatic lesion. HISTORY: The patient is a 54-year-old male with type 2 diabetes mellitus, presenting for evaluation of significant unintentional weight loss and chronic diarrhea, following recent identification of a pancreatic lesion and bile duct obstruction on imaging. He reports that several months ago, his primary care physician increased his metformin dose from 500 mg to 1,500 mg daily due to a spike in his glucose and A1c levels, and added Jardiance. Shortly thereafter, he began experiencing frequent diarrhea, describing his stools as yellowish, fluffy, floating, sometimes pale or grayish, and not solid. He felt that nearly everything he ate would go through him, and his bowel movements did not appear normal. Despite a subsequent medication adjustment--reducing metformin back to 500 mg, continuing Jardiance 25 mg, and adding glimepiride 1 mg--his diarrhea persisted. Over this period, he experienced rapid weight loss, losing approximately 75 pounds in two months (from 225-230 lbs to 166 lbs as of this morning; height 6 feet). He notes that his weight has recently stabilized, fluctuating between 165 and 170 lbs over the past week, which he attributes in part to starting Creon (pancreatic enzyme supplement, 36,000 units: 2 capsules with meals, 1 with snacks) three weeks ago. He reports that Creon has significantly improved his bowel movements, though they are not yet completely normal. He denies abdominal pain, fever, or nausea. He occasionally experiences a sensation of pressure behind his sternum, similar to gas pain, after large meals, but no other abdominal symptoms. He maintains a strong appetite, stating he is hungry all the time and can eat large meals without pain or other symptoms, though he continues to lose weight. He reports drinking large amounts of water and has not consumed alcohol for the past three months, though he previously drank beer regularly, especially during periods of high work-related stress. Recent laboratory results, as viewed by the patient, showed a markedly elevated alkaline phosphatase of 1,597 U/L and a hemoglobin A1c of 8.6. He is unsure of his most recent lipase or CA 19-9 levels. He has not been diagnosed with pancreatitis. He underwent colonoscopy last week and has had a CT scan and ultrasound, which revealed a bile duct obstruction at the pancreas. He is currently awaiting endoscopic ultrasound with possible biopsy. Family history is notable for a mother with diabetes and breast cancer ( at age 64), a father with lung cancer (heavy smoker), and a sister diagnosed with breast cancer at age 33 (currently a survivor). There is no known family history of pancreatic cancer or pancreatitis. PERTINENT WORK UP TO DATE CT Abdomen W contrast 04/28/2025- 2 cm hypodense nodule in head of pancreas with pancreatic duct dilation, mild distension of gallbladder with dilation of CBD measuring 9.6 mm Colonoscopy 04/25/2025- unremarkable findings GASTROINTESTINAL REVIEW OF SYSTEMS Difficulty swallowing / foods sticking in throat: No Heartburn: No Chest Pain: No Filling up quickly at meals: No Loss of appetite: No Nausea: No Vomiting: No Abdominal pain: No Bloody or black, bowel movements: No Constipation: No Diarrhea: Yes Vomiting blood: No Recent change in weight: Yes ~75 pounds in 2 months Has been on Metformin for ~1.5 years, prescribed by PCP for elevated A1c Glucose levels seemed to have spiked a few months ago to which Metformin dose was increased and Jaurdiance added Complaints of increased diarrhea and overactive digestion Alk phos 1597 A1c 8.6 Lipase unsure No Ca 19-9 level to date Started Creon about 3 weeks ago, has helped significantly with bowel movements and digestion 36,000 unit 2 capsules with meals, 1 capsule with snacks Able to eat with no issues, denies decreased appetite Has never been diagnosed with pancreatitis, no family history of pancreatitis or pancreatic cancer Mother had diabetes from breast cancer, father from lung cancer PHYSICAL FINDINGS OF NOTE: Patient reported height 6' and weight 166 lbs General - Normal, healthy, cooperative, in no acute distress Able to interact verbally by video conference Psych - ORIENTATION: normal to time place, person and situation Mood/Affect: AFFECT AND MOOD: Normal Head/Neuro - Normal size and shape Facial appearance normal Pulmonary - respiratory effort normal Cardiovascular - patient describes extremities normal, warm, no cyanosis,no clubbing, and no edema Abdominal - Not performed Skin - abnormal lesions not visualized Motor - patient seen sitting with Normal appearing strength and coordination IMPRESSION AND PLAN 1. Pancreatic lesion (HCC) (K86.9) Common bile duct dilation (K83.8) Dilation of pancreatic duct (HCC) (K86.89) CT scan revealed a pancreatic lesion with associated common bile duct and pancreatic duct dilation. Differential diagnoses include malignancy, pancreatic cyst, or tissue mass. No history of pancreatitis. No family history of pancreatic cancer or pancreatitis. - Ordered endoscopic ultrasound with biopsy to further evaluate the pancreatic lesion. Procedure will be performed under general anesthesia. - Ordered CA-19-9 level to assess for potential malignancy. - Arranged for overread of CT images by our radiology department. - Patient to continue current medications, including Creon. - Patient advised to maintain hydration and nutritional intake. - Will coordinate scheduling of the endoscopic ultrasound at [facility] or [facility]. 2. Weight loss (R63.4) Significant weight loss of approximately 75 lbs over 2 months, currently stabilized with Creon therapy. Height: 6 feet. Recent weight: 166-170 lbs. Appetite remains intact. - Continue Creon 36,000 units, 2 capsules with meals and 1 capsule with snacks. - Monitor weight and nutritional intake. 3. Steatorrhea, pancreatic (HCC) (K90.3) Steatorrhea with stools described as yellow, fluffy, and floating. Symptoms improved with Creon therapy. - Continue Creon 36,000 units, 2 capsules with meals and 1 capsule with snacks. - Ordered lipase level to assess pancreatic function. I HAVE offered the patient an outpatient appointment for further care at [facility]. I spent more than 30 minutes [id number] with the patient and over half the time was devoted to counseling and/or coordination of care. Recording using [employer] software for draft documentation of the visit was discussed with the patient/authorized appliance service representative; all questions welcomed and answered. Patient/authorized appliance service representative agreed to proceed Manpreet Almeida APRN.CNP documented in this encounter [facility] 05-06-2025 Note HNO ID: [id number] Author: MANPREET ALMEIDA APRN.CNP Service: ? Author Type: Nurse Practitioner Type: Progress Notes Filed: 05/06/2025 13:08 Note Text: NEW VIRTUAL VISIT I have communicated my name and active licensure. The patient's identity and physical location were verified at the time of this visit. Either the patient or their legal appliance service representative has been informed of the risks and benefits of -- and alternatives to -- treatment through a remote evaluation and consents to proceed with the evaluation remotely. I had a virtual visit with Mr. Bowden today. His local doctors have given his a diagnosis of pancreatic lesion. HISTORY: The patient is a 54-year-old male with type 2 diabetes mellitus, presenting for evaluation of significant unintentional weight loss and chronic diarrhea, following recent identification of a pancreatic lesion and bile duct obstruction on imaging. He reports that several months ago, his primary care physician increased his metformin dose from 500 mg to 1,500 mg daily due to a spike in his glucose and A1c levels, and added Jardiance. Shortly thereafter, he began experiencing frequent diarrhea, describing his stools as yellowish, fluffy, floating, sometimes pale or grayish, and not solid. He felt that nearly everything he ate would go through him, and his bowel movements did not appear normal. Despite a subsequent medication adjustment--reducing metformin back to 500 mg, continuing Jardiance 25 mg, and adding glimepiride 1 mg--his diarrhea persisted. Over this period, he experienced rapid weight loss, losing approximately 75 pounds in two months (from 225-230 lbs to 166 lbs as of this morning; height 6 feet). He notes that his weight has recently stabilized, fluctuating between 165 and 170 lbs over the past week, which he attributes in part to starting Creon (pancreatic enzyme supplement, 36,000 units: 2 capsules with meals, 1 with snacks) three weeks ago. He reports that Creon has significantly improved his bowel movements, though they are not yet completely normal. He denies abdominal pain, fever, or nausea. He occasionally experiences a sensation of pressure behind his sternum, similar to gas pain, after large meals, but no other abdominal symptoms. He maintains a strong appetite, stating he is hungry all the time and can eat large meals without pain or other symptoms, though he continues to lose weight. He reports drinking large amounts of water and has not consumed alcohol for the past three months, though he previously drank beer regularly, especially during periods of high work-related stress. Recent laboratory results, as viewed by the patient, showed a markedly elevated alkaline phosphatase of 1,597 U/L and a hemoglobin A1c of 8.6. He is unsure of his most recent lipase or CA 19-9 levels. He has not been diagnosed with pancreatitis. He underwent colonoscopy last week and has had a CT scan and ultrasound, which revealed a bile duct obstruction at the pancreas. He is currently awaiting endoscopic ultrasound with possible biopsy. Family history is notable for a mother with diabetes and breast cancer ( at age 64), a father with lung cancer (heavy smoker), and a sister diagnosed with breast cancer at age 33 (currently a survivor). There is no known family history of pancreatic cancer or pancreatitis. PERTINENT WORK UP TO DATE CT Abdomen W contrast 04/28/2025- 2 cm hypodense nodule in head of pancreas with pancreatic duct dilation, mild distension of gallbladder with dilation of CBD measuring 9.6 mm Colonoscopy 04/25/2025- unremarkable findings GASTROINTESTINAL REVIEW OF SYSTEMS Difficulty swallowing / foods sticking in throat: No Heartburn: No Chest Pain: No Filling up quickly at meals: No Loss of appetite: No Nausea: No Vomiting: No Abdominal pain: No Bloody or black, bowel movements: No Constipation: No Diarrhea: Yes Vomiting blood: No Recent change in weight: Yes ~75 pounds in 2 months Has been on Metformin for ~1.5 years, prescribed by PCP for elevated A1c Glucose levels seemed to have spiked a few months ago to which Metformin dose was increased and Jaurdiance added Complaints of increased diarrhea and overactive digestion Alk phos 1597 A1c 8.6 Lipase unsure No Ca 19-9 level to date Started Creon about 3 weeks ago, has helped significantly with bowel movements and digestion 36,000 unit 2 capsules with meals, 1 capsule with snacks Able to eat with no issues, denies decreased appetite Has never been diagnosed with pancreatitis, no family history of pancreatitis or pancreatic cancer Mother had diabetes from breast cancer, father from lung cancer PHYSICAL FINDINGS OF NOTE: Patient reported height 6' and weight 166 lbs General - Normal, healthy, cooperative, in no acute distress Able to interact verbally by video conference Psych - ORIENTATION: normal to time (more content not included)... [place] 05-06-2025 Telephone encounter Note Received incoming call from patient. Patient has been identified by full name and date of . Patient was referred to Dr. Arriaga for further follow up from Dr. Stout office. . Patient expressed his frustration and concern regarding his testing and symptoms. Companion Caregiver offered supportive listening and obtained information. Companion Caregiver explained to patient obtained some information from Dr. Stout office but limited. Patient stated has lost around 75 pounds in the last 2 months. Patient stated was 230 lbs and now weighs 167 pounds. Patient explained seen PCP who referred to Dr. Stout. Patient is a type 2 diabetic and medication changes have bee made and initially thought the diarrhea was related to medications. Patient had testing which included ultrasound, CT scan and recent colonoscopy. Patient was also placed on Creon for pancreatic insufficiency. Referred to [facility] because of concerns related CT scan results noting nodule and dilated duct. Companion Caregiver explained Dr. Arriaga would be out of the office the next two weeks but will make arrangements for him to see another provider. Patient agreed discussed with HAND B[employer]ER CUTTER and an appointment to be scheduled today with Elle Tavarez APRN, CNP. Will place follow up call with patient this morning to schedule. [facility] Call placed to Dr. Stout office along with PCP (Dr. Hanley) office to obtain additional records. Spoke to staff members in both offices requesting any additional information to be faxed. has limited information as just recently established. No EGD, but recent colonoscopy with pathology report . Return call placed to patient. Spoke with spouse. Confirmed [facility] set up. Patient to call [facility] to have any images along with reports sent. Provided [facility] information. Confirmed appointment date/time fro today with Elle Tavarez APRN, CNP.. Confirmed had office number for any additional questions. Patient/spouse appreciative of the assistance, no questions and call was ended. AAMIR Cosby, RN Specialty Nurse Echocardiologist Digestive Disease [facility] 05-06-2025 Miscellaneous Notes Received incoming call from patient. Patient has been identified by full name and date of . Patient was referred to Dr. Arriaga for further follow up from Dr. Stout office. . Patient expressed his frustration and concern regarding his testing and symptoms. Companion Caregiver offered supportive listening and obtained information. Companion Caregiver explained to patient obtained some information from Dr. Stout office but limited. Patient stated has lost around 75 pounds in the last 2 months. Patient stated was 230 lbs and now weighs 167 pounds. Patient explained seen PCP who referred to Dr. Stout. Patient is a type 2 diabetic and medication changes have bee made and initially thought the diarrhea was related to medications. Patient had testing which included ultrasound, CT scan and recent colonoscopy. Patient was also placed on Creon for pancreatic insufficiency. Referred to [facility] because of concerns related CT scan results noting nodule and dilated duct. Companion Caregiver explained Dr. Arriaga would be out of the office the next two weeks but will make arrangements for him to see another provider. Patient agreed discussed with HAND B[employer]ER CUTTER and an appointment to be scheduled today with Elle Tavarez APRN, CNP. Will place follow up call with patient this morning to schedule. [facility]. Call placed to Dr. Stout office along with PCP (Dr. Hanley) office to obtain additional records. Spoke to staff members in both offices requesting any additional information to be faxed. has limited information as just recently established. No EGD, but recent colonoscopy with pathology report . Return call placed to patient. Spoke with spouse. Confirmed [facility] set up. Patient to call [facility] to have any images along with reports sent. Provided [facility] information. Confirmed appointment date/time fro today with Elle Tavarez APRN, CNP.. Confirmed had office number for any additional questions. Patient/spouse appreciative of the assistance, no questions and call was ended. AAMIR Cosby, RN Specialty Nurse Echocardiologist Digestive Disease RN companion caregiver attempted to contact patient. No answer at time of call and message left with office number requesting a return call. Saira Winn RN Images from the original note were not included. Lillian calling #[phone] He been having a hard time getting through with physician to physician referral, central scheduling, everyone he has spoken with today has stated there was no records faxed. I did not see any records as well. He was scheduled for an appointment in June for 06/28/2025 but he states that he needs a sooner appointment per his local GI provider. He's lost 75lbs in the last two months. Are we able to get this patient in sooner by chance? I was able to locate patient records that were faxed so hopefully this helps. I was not able to pull from care everywhere though Thank you Kandy Perea documented in this encounter [facility] 05-05-2025 Telephone encounter Note RN companion caregiver attempted to contact patient. No answer at time of call and message left with office number requesting a return call. Saira Winn RN [facility] 05-05-2025 Telephone encounter Note Images from the original note were not included. Lillian calling #[phone] He been having a hard time getting through with physician to physician referral, central scheduling, everyone he has spoken with today has stated there was no records faxed. I did not see any records as well. He was scheduled for an appointment in June for 06/28/2025 but he states that he needs a sooner appointment per his local GI provider. He's lost 75lbs in the last two months. Are we able to get this patient in sooner by chance? I was able to locate patient records that were faxed so hopefully this helps. I was not able to pull from care everywhere though Thank you Kandy Perea [facility] 04-29-2025 Radiology Diagnostic study note [facility] [address] [place] [address] Gallbladder MR#: [id number] Acct: [id number] Name: LILLIAN BOWDEN Rep #: [id number] : 1970 M 54 From: Armando Christian MD PCP: Dr. Shashank Sheehan MD Status: REG C LI Study:Gallbladder Date of Exam: 04/29/25 Exam# [id number] Ordering Dr: Shashank Sheehan MD PROCEDURE: GALLBLADDER 04/29/2025 REASON FOR EXAM: ELEVATED LI ENZ COMPARISON: CT examination of 04/28/2025 FINDINGS: Liver: Mildly enlarged at 18.2 cm in length. Diffusely echogenic hepatic parenchyma is noted, without focal abnormality seen. No intrahepatic biliary ductal dilation is seen. Hepatopetal flow of the portal vein is noted. Gallbladder: Distended gallbladder again seen, currently measured at 11.4 cm in length. No gallstones, wall thickening, or pericholecystic fluid collection is noted. Sludge is seen within the gallbladder lumen. No sonographic Portillo's sign was elicited. Common bile duct: Distended, measured at 10 mm in diameter. Pancreas: Mostly obscured by overlying bowel gas. A 4.3 x 2.8 x 2.6 cm hypoechoic area in the anterior head of the pancreas is noted; cannot exclude the presence of a neoplastic process. The pancreatic duct is not as well visualized is as on the CT of 04/28/2025. Other: The right kidney is unremarkable in appearance, measured at 11.9 x 4.8 x 4.7 cm. Cortical thickness is normal at 15 mm. No evidence of hydronephrosis. No calculus is sonographically evident. US/Gallbladder IMPRESSION: 1. Hypoechoic structure in the anterior head of the pancreas is seen, and cannotexclude the presence of a neoplastic process. 2. Dilated common duct again noted. 3. Gallbladder sludge and gallbladder enlargement again noted, but no acute findings are otherwise noted. 4. No free fluid is seen. 5. Diffuse fatty infiltration of the liver again noted. Reading Location: [address] CC: Dr. Shashank Sheehan MD ~ Algorithm Developer: Signed [facility] 04-28-2025 Radiology Diagnostic study note [facility] [address] [place] [address] Abdomen WITH IV Contrast MR#: [id number] Acct: [id number] Name: LILLIAN BOWDEN Rep #: [id number] : 1970 M 54 From: Ricardo Jessica MD PCP: Dr. Shashank Sheehan MD Status: REG C Study:Abdomen WITH IV Contrast Date of Exam: 04/28/25 Exam# [id number] Ordering Dr: Shashank Sheehan MD PROCEDURE: ABDOMEN WITH IV CONTRAST 04/28/2025 REASON FOR EXAM: STAT FOR ELEVATED LIVER ENZYMES TECHNIQUE: Abdomen CT with intravenous contrast. Multiplanar and multisequence images were obtained. One or more dose reduction techniques were used (e.g., Automated exposure control, adjustment of the mA and/or kV according to patient size, use of iterative reconstruction technique. PATIENT PREPARATION: Per protocol ORAL CONTRAST TYPE: None. CONTRAST: Isovue-300 VOLUME: 100 mL RADIATION DOSE SUMMARY: CTDlvol: 14 mGy DLP: 494 mGycm COMPARISON: Prior study dated December 15, 2022. FINDINGS: Lung bases: Lungs are clear. Liver: Diffuse fatty infiltration. Minimal degree of central intrahepatic biliary ductal dilatation. Gallbladder: Mild distention of the gallbladder. The common bile duct measures 9.6 mm. This is dilated. Spleen: Normal size. Pancreas: Dilatation of the pancreatic duct. Questionable 2 cm hypodense nodulein the head of the pancreas. Correlation with MRCP or ERCP recommended. Adrenals: Unremarkable Kidneys: Normal renal sizes. No hydronephrosis. Bowel: Unremarkable Lymph nodes: Unremarkable. Vasculature: Mild atherosclerotic plaque formation of the abdominal aorta. CT/Abdomen WITH IV Contrast IMPRESSION: Fatty infiltration of the liver. Mild dilatation of the intrahepatic biliary ducts as well as the common bile duct. Mild distention of the gallbladder. Dilated pancreatic duct with suggestion of possible 2 cm hypodense nodule in thehead of the pancreas. Correlation with the MRCP or conventional ERCP recommended. OVERALL FINAL ASSESSMENT: . LI-RADS is not meant to be used in patients <18 years or patients with cirrhosisdue to congenital hepatic fibrosis or due to vascular disorders, because these patients have a lower chance of developing HCC. Reading Location: [facility] CC: Dr. Shashank Sheehan MD ~ Algorithm Developer: Signed [facility] 01-14-2023 Discharge summary Note Date/Time January 14, 2023 2:48pm [facility] Medical Records Department [address] [facility] [place] [address] Discharge Summary 01/14/23 1444 MR#: [id number] Acct: [id number] Name: LILLIAN BOWDEN Rep #:[id number] : 1970 52 From: Alvaro Romero PCP: Dr. Nicki Luis MD Status:ADM MASSIMO Location: [facility] BR843-1 Providers Date of Admission: 01/13/23 Primary Care Physician: Dr. Nicki Luis MD Attending Physician: This is discharge summary on Lillian Bowden. This patient was admitted yesterday 13 January. He underwent lumbar [facility] Today he reports that his thigh [...] Final D/C Instructions Return to work on: 04/17/23March shower in (days): 5 May resume sexual [...] Luis MD; Dr. Alvaro Callahan DO~ Signed [facility] Work Phone: 1(905) 447-506602-28-[address] Garrido [facility] January 14, 2023 5:24pm Note Date/Time January 14, 2023 12:28pm [facility] Medical Records Department [address] [place] [address] Progress Note - Hospitalist 01/14/23 1228 MR#: [id number] Acct: [id number] Name: LILLIAN BOWDEN Rep #:[id number] : 1970 52 From: Cristel Garrido MD PCP: Dr. Nicki Luis MD Status:ADM MASSIMO Location: [address] Reason for Visit Reason for Visit: Diagnoses [...] Intake and Output for Last 24 Hours 02/26/23 02/27/23 02/28/23 23:59 23:59 23:59 Intake Total 1738.67 / [...] primary service Charges/Coding Visit Charges Inpatient E&M: 06014 Subs Hosp L1 01/14/23 1724 <Electronically signed by Cristel Garrido MD> Cosigner Signature (if applicable): CC: ~ Signed [facility] Work Phone: 1(360) 331-661102-27-[address] Dodd [facility] January 13, 2023 4:03pm Note Date/Time January 13, 2023 4:03pm [facility] Medical Records Department [address] [place] [address] [place] [address] Progress Note - Hospitalist 01/13/23 1559 MR#: [id number] Acct: [id number] Name: LILLIAN BOWDEN Rep #:[id number] : 1970 52 From: Ollie Dodd DO PCP: Dr. Nicki Luis MD Status:ADM MASSIMO Location: [place] [id number] Reason for Visit Reason for Visit: Diagnoses [...] Charges/Coding Visit Charges Office Visits / Consults: 08365 OP Consult L3 01/13/23 1603 <Electronically signed by Ollie Dodd DO> Cosigner Signature (if applicable): CC: ~ Signed [facility] Work Phone: 1(770) 734-667102-27-2023 Procedure [facility] 01-10-2023 History and physical note Author Dr. Callahan [facility] January 10, 2023 11:57am Note Date/Time January 10, 2023 11:57am [facility] Medical Records Department [address] [place] [address] History & Physical Exam 01/10/23 1156 MR#: [id number] Acct: [id number] Name: LILLIAN BOWDEN Rep #:[id number] : 1970 52 From: Alvaro Romero PCP: Dr. Nicki Luis MD Status:PRE SD Location: SDC History and Physical Addendum [facility] [address] [place] [address] [place] [address] OFFICE VISIT Date of Service:? 12/19/22 MR#: [id number] Acct: [id number] Name:LILLIAN GARCIA Rep #: [id number] : 1970 ? ? Provider: Dr. Alvaro Callahan, DO Age/Sex:? 52/M ? ? [facility]: [facility] [place] Status: Signed Intake Vital Signs ? 12/15/2310:03 [...] by me, Dr. Alvaro Callahan, DO 12/19/22 1764. LILLIAN BWODEN is a 52 year old M here today for? low back pain that he has been having since 12/10/22. Denies any injury. 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 01/10/23 1157 <Electronically signed by Alvaro Callahan DO> Cosigner Signature (if applicable): CC: Dr. Nicki Luis MD; Dr. Alvaro Callahan DO~ Signed [facility] Work Phone: Evaluation noteNo assessment information available [facility] Work Phone: Evaluation note* Diagnosis Onset Date Resolution Status Spinal stenosis of lumbar region with radiculopathy acute HNP (herniated nucleus pulposus), lumbar acute [facility] Work Phone: Evaluation note* Diagnosis Onset Date Resolution Status Spinal stenosis of lumbar region with radiculopathy acute Pre-operative cardiovascular examination acute Abnormal electrocardiogram c hronic Hyperlipidemia chronic Hypertension chronic Psoriasis chronic [facility] Work Phone: Evaluation note* Diagnosis Onset Date Resolution Status Spinal stenosis of lumbar region with radiculopathy acute Pre-operative cardiovascular examination acute Abnormal electrocardiogram c hronic Hyperlipidemia chronic Hypertension chronic Psoriasis chronic Diabetes acute Abnormal electrocardiogram c hronic [facility] Work Phone: Evaluation note* Diagnosis Pancreatic lesion (HCC)- Primary Unspecified disease of pancreas Weight loss Loss of weight Common bile duct dilation Other specified disorders of biliary tract Dilation of pancreatic duct (HCC) Other specified disease of pancreas Steatorrhea, pancreatic (HCC) Pancreatic steatorrhea [facility] Diagnosis Mass of head of pancreas (HCC)- Primary Pancreatic lesion (HCC) Unspecified disease of pancreas Weight loss Loss of weight Common bile duct dilation Other specified disorders of biliary tract Dilation of pancreatic duct (HCC) Other specified disease of pancreas Mass of pancreas (HCC) Unspecified disease of pancreas documented in this encounter [facility] Diagnosis Malignant neoplasm of head of pancreas (HCC)- Primary Malignant neoplasm of head of pancreas [facility] Malignant neoplasm of head of pancreas (HCC)- Primary Malignant neoplasm of head of pancreas [facility] Diagnosis Malignant neoplasm of head of pancreas (HCC) Malignant neoplasm of head of pancreas [facility] Diagnosis Malignant neoplasm of pancreas, unspecified location of malignancy (HCC)- Primary Malignant neoplasm of pancreas, unspecified location of malignancy (HCC) [facility] Diagnosis Malignant neoplasm of head of pancreas (HCC)- Primary Malignant neoplasm of head of pancreas Malignant neoplasm of pancreas, unspecified location of malignancy (HCC) [facility] Diagnosis Malignant neoplasm of head of pancreas (HCC)- Primary Malignant neoplasm of head of pancreas Malignant neoplasm of pancreas, unspecified location of malignancy (HCC) [facility] Diagnosis Pancreatic adenocarcinoma (HCC)- Primary Malignant neoplasm of pancreas, part unspecified [facility] Diagnosis Malignant neoplasm of head of pancreas (HCC)- Primary Malignant neoplasm of head of pancreas [facility] Diagnosis Malignant neoplasm of head of pancreas (HCC) Malignant neoplasm of head of pancreas [facility] Diagnosis Encounter for education- Primary Counseling NOS Malignant neoplasm of head of pancreas (HCC) Malignant neoplasm of head of pancreas [facility] Diagnosis Malignant neoplasm of head of pancreas (HCC)- Primary Malignant neoplasm of head of pancreas [facility] Diagnosis Malignant neoplasm of head of pancreas (HCC)- Primary Malignant neoplasm of head of pancreas [facility] Diagnosis Malignant neoplasm of head of pancreas (HCC) Malignant neoplasm of head of pancreas [facility] Diagnosis Malignant neoplasm of head of pancreas (HCC)- Primary Malignant neoplasm of head of pancreas [facility] Diagnosis Malignant neoplasm of head of pancreas (HCC)- Primary Malignant neoplasm of head of pancreas [facility] Diagnosis Malignant neoplasm of head of pancreas (HCC)- Primary Malignant neoplasm of head of pancreas [facility] Diagnosis Malignant neoplasm of head of pancreas (HCC) Malignant neoplasm of head of pancreas [facility] Diagnosis Malignant neoplasm of head of pancreas (HCC)- Primary Malignant neoplasm of head of pancreas documented in this encounter [facility] Diagnosis Malignant neoplasm of head of pancreas (HCC) Malignant neoplasm of head of pancreas documented in this encounter [facility] Diagnosis Malignant neoplasm of head of pancreas (HCC)- Primary Malignant neoplasm of head of pancreas documented in this encounter [facility] Diagnosis Malignant neoplasm of head of pancreas (HCC)- Primary Malignant neoplasm of head of pancreas Malignant neoplasm of head of pancreas (HCC)- Primary Malignant neoplasm of head of pancreas documented in this encounter [facility])No reason for referral information availableWPomerene Hospital Work Phone: [facility] Narrative* Outpatient Procedure (Routine) - Closed Specialty Diagnoses / Procedures Referred By Alo durham Referred To Contact [facility] Diagnoses Pancreatic lesion (HCC) Weight loss Common bile duct dilation Dilation of pancreatic duct (HCC) Procedures EGD - THERAPEUTIC, EUS, OR TUBE INTERVENTIONS EGD INTRMURAL US NEEDLE ASPIRATE/BIOPSY ESOPHAGS Manpreet Almeida, COLOR DIPPER.IT NETWORK ENGINEER [address] [place] [address] Phone: tel: fax: [facility] [address] [place] [id number] Referral ID Status Reason Start Date Expiration Date V isits Requested Visits Authorized [id number] Closed Auto-Generate d Referral 05/06/2025 11/16/2025 1 1 [facility] for visit Narrative* MRI/CT (Routine) - Closed Specialty Diagnoses / Procedures Referred By Contcoy t Referred To Contact [facility] Diagnoses Malignant neoplasm of head of pancreas (HCC) Procedures CT PANCREAS/PELVIS W IVCON CT ABD & PELVIS W/CONTRAST Kalin Dunham MD [address] [place] [address] Phone: tel: fax: [facility]95 Referral ID Status Reason Start Date Expiration Date V isits Requested Visits Authorized [id number] Closed Auto-Generate d Referral 05/19/2025 06/18/2026 1 1 [facility] for visit Narrative* Outpatient Procedure (Routine) - Closed Specialty Diagnoses / Procedures Referred By Contcoy t Referred To Contact [facility] Diagnoses Malignant neoplasm of head of pancreas (HCC) Procedures ERCP ERCP BILIARY/PANC DUCT STENT EXCHANGE W/DIL&WIRE Kalin Dunham MD [address] [place] [address] Phone: tel: fax: [facility] [address] [place] [address] Referral ID Status Reason Start Date Expiration Date V isits Requested Visits Authorized [id number] Closed Auto-Generate d Referral 05/27/2025 11/16/2025 1 1 [facility] Family History No Family History Records Found [...] Will No December 10 1:07am Power of Instrument Panel Assembler No December 10, 2021 1:07am Advance Directive Response Recorded Date/ Time Living Will No December 15 12:01pm Power of Instrument Panel Assembler No December 15, 2022 12:01pm Advance Directive Response Recorded Date/ Time Living Will Yes December 31 023 9:17am Power of Instrument Panel Assembler Yes December 31, 2022 9:17am Advance Directive Response Recorded Date/ Time Name of Medical Power of Instrument Panel Assembler December 31, 2022 9:17am Living Will Yes December 31 023 9:17am Power of Instrument Panel Assembler Yes December 31, 2022 9:17am Advance Directive Response Recorded Date/ Time Name of Medical Power of Instrument Panel Assembler . January 13, 2023 2:24pm Living Will Yes January 13 023 2:24pm Power of Instrument Panel Assembler Yes January 13, 2023 2:24pm Advance Directive Response Recorded Date/ Time Living Will Yes January 13 023 2:24pm Power of Instrument Panel Assembler Yes January 13, 2023 2:24pm Chief Complaint [...] SEE ORDER April 06, 2025 7:23a m Chief Complaint Admit Date SEE ORDER April 06, 2025 7:23a m FASTING April 25, 2025 7:05a m PANCREATIC INSUFFICIENCY, WITH ORAL & IV CONTRAST April 28, 2025 12:38pm ELEVATED LIVER ENZYMES April 29, 2025 7 :02am Summary Purpose Additional Source Comments Goals (unrecognized [...] April 06, 2025 End: April 06, 2025 Team Status: Inactive Member Role Status Dates Dr. Shashank Sheehan MD Primary Care Provider Active Start: April 25, 2025 End: April 25, 2025 Dr. Shashank Sheehan MD Attending Provider Active Start: April 25, 2025 End: April 25, 2025 Dr. Shashank Sheehan MD Referring Provider Active Start: April 25, 2025 End: April 25, 2025 Team Status: Active Member Role Status Dates Dr. Shashank Sheehan MD Primary Care Provider Active Start: April 28, 2025 Dr. Shashank Sheehan MD Attending Provider Active Start: April 28, 2025 Dr. Shashank Sheehan MD Referring Provider Active Start: April 28, 2025 Dr. Raman Stout MD Other Provider Active St art: April 28, 2025 Team Status: Active Member Role Status Dates Dr. Shashank Sheehan MD Primary Care Provider Active Start: April 29, 2025 Dr. Shashank Sheehan MD Attending Provider Active Start: April 29, 2025 Dr. Shashank Sheehan MD Referring Provider Active Start: April 29, 2025 Team Status: Inactive Member Role Status Dates Dr. Shashank Sheehan MD Primary Care Provider Active Start: April 28, 2025 End: April 28, 2025 Dr. Shashank Sheehan MD Attending Provider Active Start: April 28, 2025 End: April 28, 2025 Dr. Shashank Sheehan MD Referring Provider Active Start: April 28, 2025 End: April 28, 2025 Dr. Raman Stout MD Other Provider Active St art: April 28, 2025 End: April 28, 2025 Team Status: Inactive Member Role Status Dates Dr. Shashank Sheehan MD Primary Care Provider Active Start: April 29, 2025 End: April 29, 2025 Dr. Shashank Sheehan MD Attending Provider Active Start: April 29, 2025 End: April 29, 2025 Dr. Shashank Sheehan MD Referring Provider Active Start: April 29, 2025 End: April 29, 2025 Special Tax Auditor Relationship Specialty Start Date End Date Shashank Sheehan MD [address] [facility] [address] [place] [address] PCP - General Family Medicine 05/06/25 Raman Stout MD [address] [place] [address] Gastroenterology 05/05/25 Special Tax Auditor Relationship Specialty Start Date End Date Shashank Sheehan MD [address] [facility] [address] [place] [address] PCP - General Family Medicine 05/06/25 aRman Stout MD [address] [place] [address] Gastroenterology 05/05/25 Special Tax Auditor Relationship Specialty Start Date End Date Shashank Sheehan MD [address] [facility] [address] [place], [place] [address] PCP - General Family Medicine 05/06/25 Raman Stout MD [address] [place] [address] Gastroenterology 05/05/25 Special Tax Auditor Relationship Specialty Start Date End Date Shashank Sheehan MD [address] [facility] [address] [place], [place] [address] PCP - General Family Medicine 05/06/25 Raman Stout MD [address] [place] [address] Gastroenterology 05/05/25 Special Tax Auditor Relationship Specialty Start Date End Date Shashank Sheehan MD [address] [facility] [address] [place] [address] PCP - General Family Medicine 05/06/25 Raman Stout MD [address] [place] [address] Gastroenterology 05/05/25 [place] [address] [place] [address] Physician Hematology/Oncology 05/19/25 Macarena Samayoa, MICHEL Specialty Echocardiologist Oncology 05/19/25 Special Tax Auditor Relationship Specialty Start Date End Date Shashank Sheehan MD [address] [facility] [address] [place], [place] [id number] PCP - General Family Medicine 05/06/25 Raman Stout MD [address] [place] [address] Gastroenterology 05/05/25 [place] [address] [place] [address] Physician Hematology/Oncology 05/19/25 Macarena Samayoa, RN Specialty Echocardiologist Oncology 05/19/25 Special Tax Auditor Relationship Specialty Start Date End Date Shashank Sheehan MD [address] [place] [address] PCP - General Family Medicine 05/06/25 Raman Stout MD [address] [place] [address] Gastroenterology 05/05/25 [place] [address] [place] [address] Physician Hematology/Oncology 05/19/25 Macarena Samayoa RN Specialty Echocardiologist Oncology 05/19/25 Special Tax Auditor Relationship Specialty Start Date End Date Shashank Sheehan MD [address] [place] [address] PCP - General Family Medicine 05/06/25 Raman Stout MD [address] [place] [address] Gastroenterology 05/05/25 [place] [address] [place] [address] Physician Hematology/Oncology 05/19/25 Macarena Samayoa, RN Specialty Echocardiologist Oncology 05/19/25 Special Tax Auditor Relationship Specialty Start Date End Date Shashank Sheehan MD [address] [place] [address] PCP - General Family Medicine 05/06/25 Raman Stout MD [address] [facility] [address] [place] [address] Gastroenterology 05/05/25 Special Tax Auditor Relationship Specialty Start Date End Date Shashank Sheehan MD [address] [facility] [address] [place] [address] PCP - General Family Medicine 05/06/25 Raman Stout MD [address] [facility] [address] [place] [address] Gastroenterology 05/05/25 Special Tax Auditor Relationship Specialty Start Date End Date Shashank Sheehan MD [address] [facility] [address] [place] [address] PCP - General Family Medicine 05/06/25 Raman Stout MD [address] [facility] [address] [place] [address] Gastroenterology 05/05/25 Special Tax Auditor Relationship Specialty Start Date End Date Shashank Sheehan MD [address] [facility] [address] [place] [address] PCP - General Family Medicine 05/06/25 Raman Stout MD [address] [facility] [address] [place] [address] Gastroenterology 05/05/25 Special Tax Auditor Relationship Specialty Start Date End Date Shashank Sheehan MD [address] [place] [address] PCP - General Family Medicine 05/06/25 Raman Stout MD [address] [place] [address] Gastroenterology 05/05/25 Special Tax Auditor Relationship Specialty Start Date End Date Shashank Sheehan MD [address] [facility] [address] [place] [address] PCP - General Family Medicine 05/06/25 Raman Stout MD [address] [place] [address] Gastroenterology 05/05/25 Special Tax Auditor Relationship Specialty Start Date End Date Shashank Sheehan MD [address] [facility] [address] [place] [address] PCP - General Family Medicine 05/06/25 Raman Stout MD [address] [place] [address] Gastroenterology 05/05/25 Special Tax Auditor Relationship Specialty Start Date End Date Shashank Sheehan MD [address] [facility] [address] [place] [address] PCP - General Family Medicine 05/06/25 Raman Stout MD [address] [place] [address] Gastroenterology 05/05/25 Kalin Dunham MD [address] [place] [address] Hematology/Oncology 06/06/25 Juan Sagastume MD [address] [place] [address] General Surgery 06/06/25 Loida Henley LISW [address] [facility] [place] [address] Aerospace Engineer Officer Armament Hematology/Oncology 06/06/25 Special Tax Auditor Relationship Specialty Start Date End Date Shashank Sheehan MD [address] [facility] [address] [place] [address] PCP - General Family Medicine 05/06/25 Raman Stout MD [address] [facility] [address] [place] [address] Gastroenterology 05/05/25 Kalin Dunham MD [address] [place] [address] Hematology/Oncology 06/06/25 Juan Sagastume MD [address] [place], [place] [phone] General Surgery 06/06/25 Loida Henley LISW [address] [place] [address] Aerospace Engineer Officer Armament Hematology/Oncology 06/06/25 Special Tax Auditor Relationship Specialty Start Date End Date Shashank Sheehan MD [address] [facility] [address] [place] [address] PCP - General Family Medicine 05/06/25 Raman Stout MD [address] [place] [address] Gastroenterology 05/05/25 Kalin Dunham MD [address] [place], [place] [address] Hematology/Oncology 06/06/25 Juan Sagastume MD [address] [place], [place] [id number] General Surgery 06/06/25 Loida Henley LISW [address] [facility] [place] [address] Aerospace Engineer Officer Armament Hematology/Oncology 06/06/25 Chapin Dawn MD [address] [facility] [place] [address] Hematology/Oncology 06/08/25 Diane Douglas RN [address] [facility] [place] [address] Specialty Echocardiologist Hematology/Oncology 06/08/25 Special Tax Auditor Relationship Specialty Start Date End Date Shashank Sheehan MD [address] [facility] [address] [place] [address] PCP - General Family Medicine 05/06/25 Raman Stout MD [address] [place] [address] Gastroenterology 05/05/25 Kalin Dunham MD [address] [place], [place] [address] Hematology/Oncology 06/06/25 Juan Sagastume MD [address] [place], [place] [id number] General Surgery 06/06/25 Loida Henley LISW [address] [place] [address] Aerospace Engineer Officer Armament Hematology/Oncology 06/06/25 Chapin Dawn MD [address] [place] [address] Hematology/Oncology 06/08/25 Diane Douglas RN [address] [place] [address] Specialty Echocardiologist Hematology/Oncology 06/08/25 Special Tax Auditor Relationship Specialty Start Date End Date Shashank Sheehan MD [address] [place] [address] PCP - General Family Medicine 05/06/25 Raman Stout MD [address] [place] [address] Gastroenterology 05/05/25 Kalin Dunham MD [address] [place] [address] Hematology/Oncology 06/06/25 Juan Sagastume MD [address] [place] [address] General Surgery 06/06/25 Loida Henley LISW [address] [place] [address] Aerospace Engineer Officer Armament Hematology/Oncology 06/06/25 Chapin Dawn MD [address] [place] [address] Hematology/Oncology 06/08/25 Diane Douglas RN [address] [place] [address] Specialty Echocardiologist Hematology/Oncology 06/08/25 Special Tax Auditor Relationship Specialty Start Date End Date Shashank Sheehan MD [address] [facility] [address] [place] [address] PCP - General Family Medicine 05/06/25 Raman Stout MD [address] [facility] [address] [place] [address] Gastroenterology 05/05/25 Kalin Dunham MD [address] [place], [place] [address] Hematology/Oncology 06/06/25 Juan Sagastume MD [address] [place] [address] General Surgery 06/06/25 Loida Henley LISW [address] [place] [address] Aerospace Engineer Officer Armament Hematology/Oncology 06/06/25 Chapin Dawn MD [address] [place] [address] Hematology/Oncology 06/08/25 Diane Douglas, MICHEL [address] [place] [address] Specialty Echocardiologist Hematology/Oncology 06/08/25 Special Tax Auditor Relationship Specialty Start Date End Date Shashank Sheehan MD [address] [facility] [address] [place] [address] PCP - General Family Medicine 05/06/25 Raman Stout MD [address] [facility] [address] [place] [address] Gastroenterology 05/05/25 Kalin Dunham MD [address] [place], [place] [id number] Hematology/Oncology 06/06/25 Juan Sagastume MD [address] [place], [place] [id number] General Surgery 06/06/25 Loida Henley LISW [address] [place] [address] Aerospace Engineer Officer Armament Hematology/Oncology 06/06/25 Chapin Dawn MD [address] [place] [address] Hematology/Oncology 06/08/25 Diane Douglas, MICHEL [address] [place] [facility] [place] [address] Specialty Echocardiologist Hematology/Oncology 06/08/25 Special Tax Auditor Relationship Specialty Start Date End Date Shashank Sheehan MD [address] [facility] [address] [place] [address] PCP - General Family Medicine 05/06/25 Raman Stout MD [address] [facility] [address] [place] [address] Gastroenterology 05/05/25 Kalin Dunham MD [address] [place], [place] [id number] Hematology/Oncology 06/06/25 Juan Sagastume MD [address] [place] [address] General Surgery 06/06/25 Loida Henley LISW [address] [place] [address] Aerospace Engineer Officer Armament Hematology/Oncology 06/06/25 Chapin Dawn MD [address] [place] [address] Hematology/Oncology 06/08/25 Diane Douglas, MICHEL [address] [place] [address] Specialty Echocardiologist Hematology/Oncology 06/08/25 Special Tax Auditor Relationship Specialty Start Date End Date Shashank Sheehan MD [address] [place] [address] [place] [address] PCP - General Family Medicine 05/06/25 Raman Stout MD [address] [place] [address] [place] [address] Gastroenterology 05/05/25 Kalin Dunham MD [address] [place], [place] [id number] Hematology/Oncology 06/06/25 Juan Sagastume MD [address] [place] [address] General Surgery 06/06/25 Loida Henley LISW [address] [place] [address] Aerospace Engineer Officer Armament Hematology/Oncology 06/06/25 Chapin Dawn MD [address] [place] [address] Hematology/Oncology 06/08/25 Diane Douglas RN [address] [place] [facility] [place] [address] Specialty Echocardiologist Hematology/Oncology 06/08/25 Special Tax Auditor Relationship Specialty Start Date End Date Shashank Sheehan MD [address] [facility] [address] [place] [address] PCP - General Family Medicine 05/06/25 Raman Stout MD [address] [facility] [address] [place] [address] Gastroenterology 05/05/25 Kalin Dunham MD [address] [place], [place] [id number] Hematology/Oncology 06/06/25 Juan Sagastume MD [address] [place] [address] General Surgery 06/06/25 Loida Henley LISW [address] [facility] [place] [address] Aerospace Engineer Officer Armament Hematology/Oncology 06/06/25 Chapin Dawn MD [address] [place] [facility] [place] [address] Hematology/Oncology 06/08/25 Diane Douglas, MICHEL [address] [place] [facility] [place] [address] Specialty Echocardiologist Hematology/Oncology 06/08/25 Special Tax Auditor Relationship Specialty Start Date End Date Shashank Sheehan MD [address] [facility] [address] [place] [address] PCP - General Family Medicine 05/06/25 Raman Stout MD [address] [place] [address] Gastroenterology 05/05/25 Kalin Dunham MD [address] [place] [address] Hematology/Oncology 06/06/25 Juan Sagastume MD [address] [place], [place] [id number] General Surgery 06/06/25 Loida Henley LISW [address] [facility] [place] [address] Aerospace Engineer Officer Armament Hematology/Oncology 06/06/25 Chapin Dawn MD [address] [facility] [place] [address] Hematology/Oncology 06/08/25 Diane Douglas, RN [address] [place] [facility] [place] [address] Specialty Echocardiologist Hematology/Oncology 06/08/25 Special Tax Auditor Relationship Specialty Start Date End Date Shashank Sheehan MD [address] [facility] [address] [place] [address] PCP - General Family Medicine 05/06/25 Raman Stout MD [address] [place] [address] Gastroenterology 05/05/25 Kalin Dunham MD [address] [place] [address] Hematology/Oncology 06/06/25 Juan Sagastume MD [address] [place] [address] General Surgery 06/06/25 Loida Henley LISW [address] [place] [address] Aerospace Engineer Officer Armament Hematology/Oncology 06/06/25 Chapin Dawn MD [address] [place] [address] Hematology/Oncology 06/08/25 Diane Douglas, RN [address] [address] Specialty Echocardiologist Hematology/Oncology 06/08/25 Special Tax Auditor Relationship Specialty Start Date End Date Shashank Sheehan MD [address] [facility] [address] [place] [address] PCP - General Family Medicine 05/06/25 Raman Stout MD [address] [place] [address] Gastroenterology 05/05/25 Kalin Dunham MD [address] [place], [place] [phone] Hematology/Oncology 06/06/25 Juan Sagastume MD [address] [place] [address] General Surgery 06/06/25 Loida Henley LISW [address] [place] [address] Aerospace Engineer Officer Armament Hematology/Oncology 06/06/25 Chapin Dawn MD [address] [place] [address] Hematology/Oncology 06/08/25 Diane Douglas, RN [address] [facility] [place] [address] Specialty Echocardiologist Hematology/Oncology 06/08/25 Special Tax Auditor Relationship Specialty Start Date End Date Shashank Sheehan MD [address] [facility] [address] [place] [address] PCP - General Family Medicine 05/06/25 Raman Stout MD [address] [facility] [address] [place] [address] Gastroenterology 05/05/25 Kalin Dunham MD [address] [place], [place] [address]996[address] Hematology/Oncology 06/06/25 Juan Sagastume MD [address] [place], [place] [address] General Surgery 06/06/25 Loida Henley LISW [address] [facility] [place] [address] Aerospace Engineer Officer Armament Hematology/Oncology 06/06/25 Chapin Dawn MD [address] [place] [facility] [place] [address] Hematology/Oncology 06/08/25 Diane Douglas, RN [address] [place] [facility] [place] [address] Specialty Echocardiologist Hematology/Oncology 06/08/25 Special Tax Auditor Relationship Specialty Start Date End Date Shashank Sheehan MD [address] [facility] [address] [place] [address] PCP - General Family Medicine 05/06/25 Raman Stout MD [address] [place] [address] Gastroenterology 05/05/25 Kalin Dunham MD [address] [place], [place] [id number] Hematology/Oncology 06/06/25 Juan Sagastume MD [address] [place], [place] [id number] General Surgery 06/06/25 Loida Henley LISW [address] [place] [address] Aerospace Engineer Officer Armament Hematology/Oncology 06/06/25 Chapin Dawn MD [address] [place] [address] Hematology/Oncology 06/08/25 Diane Douglas, MICHEL [address] [facility] [place], [place] [address] Specialty Echocardiologist Hematology/Oncology 06/08/25 Source Comments (unrecognize d section and content) In the event this informatio n is protected by the Federal Confidentiality of Alcohol and Drug Abuse Patient Records regulations: The Federal rules restrict any use of the information to criminally investigate or prosecute any alcohol or drug abuse patient.[facility] CenterIn the event this information is protected by the Federal Confidentiality of Alcohol and Drug Abuse Patient Records regulations: The Federal rules restrict any use of the information to criminally investigate or prosecute any alcohol or drug abuse patient.[facility] CenterIn the event this information is protected by the Federal Confidentiality of Alcohol and Drug Abuse Patient Records regulations: The Federal rules restrict any use of the information to criminally investigate or prosecute any alcohol or drug abuse patient.[facility] CenterIn the event this information is protected by the Federal Confidentiality of Alcohol and Drug Abuse Patient Records regulations: The Federal rules restrict any use of the information to criminally investigate or prosecute any alcohol or drug abuse patient.[facility] CenterIn the event this information is protected by the Federal Confidentiality of Alcohol and Drug Abuse Patient Records regulations: The Federal rules restrict any use of the information to criminally investigate or prosecute any alcohol or drug abuse patient.[facility] CenterIn the event this information is protected by the Federal Confidentiality of Alcohol and Drug Abuse Patient Records regulations: The Federal rules restrict any use of the information to criminally investigate or prosecute any alcohol or drug abuse patient.[facility] CenterIn the event this information is protected by the Federal Confidentiality of Alcohol and Drug Abuse Patient Records regulations: The Federal rules restrict any use of the information to criminally investigate or prosecute any alcohol or drug abuse patient.[facility] CenterIn the event this information is protected by the Federal Confidentiality of Alcohol and Drug Abuse Patient Records regulations: The Federal rules restrict any use of the information to criminally investigate or prosecute any alcohol or drug abuse patient.[facility] CenterIn the event this information is protected by the Federal Confidentiality of Alcohol and Drug Abuse Patient Records regulations: The Federal rules restrict any use of the information to criminally investigate or prosecute any alcohol or drug abuse patient.[facility] CenterIn the event this information is protected by the Federal Confidentiality of Alcohol and Drug Abuse Patient Records regulations: The Federal rules restrict any use of the information to criminally investigate or prosecute any alcohol or drug abuse patient.[facility] CenterIn the event this information is protected by the Federal Confidentiality of Alcohol and Drug Abuse Patient Records regulations: The Federal rules restrict any use of the information to criminally investigate or prosecute any alcohol or drug abuse patient.[facility] CenterIn the event this information is protected by the Federal Confidentiality of Alcohol and Drug Abuse Patient Records regulations: The Federal rules restrict any use of the information to criminally investigate or prosecute any alcohol or drug abuse patient.[facility] CenterIn the event this information is protected by the Federal Confidentiality of Alcohol and Drug Abuse Patient Records regulations: The Federal rules restrict any use of the information to criminally investigate or prosecute any alcohol or drug abuse patient.[facility] CenterIn the event this information is protected by the Federal Confidentiality of Alcohol and Drug Abuse Patient Records regulations: The Federal rules restrict any use of the information to criminally investigate or prosecute any alcohol or drug abuse patient.[facility] CenterIn the event this information is protected by the Federal Confidentiality of Alcohol and Drug Abuse Patient Records regulations: The Federal rules restrict any use of the information to criminally investigate or prosecute any alcohol or drug abuse patient.[facility] CenterIn the event this information is protected by the Federal Confidentiality of Alcohol and Drug Abuse Patient Records regulations: The Federal rules restrict any use of the information to criminally investigate or prosecute any alcohol or drug abuse patient.[facility] CenterIn the event this information is protected by the Federal Confidentiality of Alcohol and Drug Abuse Patient Records regulations: The Federal rules restrict any use of the information to criminally investigate or prosecute any alcohol or drug abuse patient.[facility] CenterIn the event this information is protected by the Federal Confidentiality of Alcohol and Drug Abuse Patient Records regulations: The Federal rules restrict any use of the information to criminally investigate or prosecute any alcohol or drug abuse patient.[facility] CenterIn the event this information is protected by the Federal Confidentiality of Alcohol and Drug Abuse Patient Records regulations: The Federal rules restrict any use of the information to criminally investigate or prosecute any alcohol or drug abuse patient.[facility] CenterIn the event this information is protected by the Federal Confidentiality of Alcohol and Drug Abuse Patient Records regulations: The Federal rules restrict any use of the information to criminally investigate or prosecute any alcohol or drug abuse patient.[facility] CenterIn the event this information is protected by the Federal Confidentiality of Alcohol and Drug Abuse Patient Records regulations: The Federal rules restrict any use of the information to criminally investigate or prosecute any alcohol or drug abuse patient.[facility] CenterIn the event this information is protected by the Federal Confidentiality of Alcohol and Drug Abuse Patient Records regulations: The Federal rules restrict any use of the information to criminally investigate or prosecute any alcohol or drug abuse patient.[facility] CenterIn the event this information is protected by the Federal Confidentiality of Alcohol and Drug Abuse Patient Records regulations: The Federal rules restrict any use of the information to criminally investigate or prosecute any alcohol or drug abuse patient.[facility] CenterIn the event this information is protected by the Federal Confidentiality of Alcohol and Drug Abuse Patient Records regulations: The Federal rules restrict any use of the information to criminally investigate or prosecute any alcohol or drug abuse patient.[facility] CenterIn the event this information is protected by the Federal Confidentiality of Alcohol and Drug Abuse Patient Records regulations: The Federal rules restrict any use of the information to criminally investigate or prosecute any alcohol or drug abuse patient.[facility] CenterIn the event this information is protected by the Federal Confidentiality of Alcohol and Drug Abuse Patient Records regulations: The Federal rules restrict any use of the information to criminally investigate or prosecute any alcohol or drug abuse patient.[facility] CenterIn the event this information is protected by the Federal Confidentiality of Alcohol and Drug Abuse Patient Records regulations: The Federal rules restrict any use of the information to criminally investigate or prosecute any alcohol or drug abuse patient.[facility] CenterIn the event this information is protected by the Federal Confidentiality of Alcohol and Drug Abuse Patient Records regulations: The Federal rules restrict any use of the information to criminally investigate or prosecute any alcohol or drug abuse patient.[facility] CenterIn the event this information is protected by the Federal Confidentiality of Alcohol and Drug Abuse Patient Records regulations: The Federal rules restrict any use of the information to criminally investigate or prosecute any alcohol or drug abuse patient.[facility] CenterIn the event this information is protected by the Federal Confidentiality of Alcohol and Drug Abuse Patient Records regulations: The Federal rules restrict any use of the information to criminally investigate or prosecute any alcohol or drug abuse patient.[facility] CenterIn the event this information is protected by the Federal Confidentiality of Alcohol and Drug Abuse Patient Records regulations: The Federal rules restrict any use of the information to criminally investigate or prosecute any alcohol or drug abuse patient.[facility] CenterIn the event this information is protected by the Federal Confidentiality of Alcohol and Drug Abuse Patient Records regulations: The Federal rules restrict any use of the information to criminally investigate or prosecute any alcohol or drug abuse patient.[facility] CenterIn the event this information is protected by the Federal Confidentiality of Alcohol and Drug Abuse Patient Records regulations: The Federal rules restrict any use of the information to criminally investigate or prosecute any alcohol or drug abuse patient.[facility] CenterIn the event this information is protected by the Federal Confidentiality of Alcohol and Drug Abuse Patient Records regulations: The Federal rules restrict any use of the information to criminally investigate or prosecute any alcohol or drug abuse patient.[facility] CenterIn the event this information is protected by the Federal Confidentiality of Alcohol and Drug Abuse Patient Records regulations: The Federal rules restrict any use of the information to criminally investigate or prosecute any alcohol or drug abuse patient.[facility] CenterIn the event this information is protected by the Federal Confidentiality of Alcohol and Drug Abuse Patient Records regulations: The Federal rules restrict any use of the information to criminally investigate or prosecute any alcohol or drug abuse patient.[facility] CenterIn the event this information is protected by the Federal Confidentiality of Alcohol and Drug Abuse Patient Records regulations: The Federal rules restrict any use of the information to criminally investigate or prosecute any alcohol or drug abuse patient.[facility] CenterIn the event this information is protected by the Federal Confidentiality of Alcohol and Drug Abuse Patient Records regulations: The Federal rules restrict any use of the information to criminally investigate or prosecute any alcohol or drug abuse patient.[facility] CenterIn the event this information is protected by the Federal Confidentiality of Alcohol and Drug Abuse Patient Records regulations: The Federal rules restrict any use of the information to criminally investigate or prosecute any alcohol or drug abuse patient.[facility] CenterIn the event this information is protected by the Federal Confidentiality of Alcohol and Drug Abuse Patient Records regulations: The Federal rules restrict any use of the information to criminally investigate or prosecute any alcohol or drug abuse patient.[facility] CenterIn the event this information is protected by the Federal Confidentiality of Alcohol and Drug Abuse Patient Records regulations: The Federal rules restrict any use of the information to criminally investigate or prosecute any alcohol or drug abuse patient.[facility] CenterIn the event this information is protected by the Federal Confidentiality of Alcohol and Drug Abuse Patient Records regulations: The Federal rules restrict any use of the information to criminally investigate or prosecute any alcohol or drug abuse patient.[facility] Reason for Visit (unrecogniz ed section and content) Reason Comments CADD Pump D/C Specialty Diagnoses / Procedures Referred By Contac t Referred To Contact Diagnoses Malignant neoplasm of head of pancreas (HCC) Chapin Dawn MD [address] [place] [address] Phone: tel: Hematology/Oncology [address] [place] [address] Phone: tel: fax: Referral ID Status Reason Start Date Expiration Date V isits Requested Visits Authorized [id number] Authorized 06/13/2025 09/11/2025 1 103 Reason Comments Chemotherapy Treatment Referral ID Status Reason Start Date Expiration Date V isits Requested Visits Authorized [id number] Authorized 06/13/2025 09/11/2025 1 102 Referral ID Status Reason Start Date Expiration Date V isits Requested Visits Authorized [id number] Authorized 06/13/2025 09/11/2025 1 101 Referral ID Status Reason Start Date Expiration Date V isits Requested Visits Authorized [id number] Authorized 06/13/2025 09/11/2025 1 100 Reason Comments Appointment Referral EUS Reason Comments Appointment Reason Comments Pancreatic Mass Reason Comments Consult Reason Comments Consult Reason Comments Echocardiologist - Other [facility] scheduling Reason Comments Reason Comments Care Coordination Introduction Reason Comments New Patient Specialty Diagnoses / Procedures Referred By Contac t Referred To Contact Diagnoses Malignant neoplasm of head of pancreas (HCC) Procedures CONSULT TO HEMATOLOGY/ONCOLOGY OFFICE/OUTPATIENT NEW HIGH MDM 60 MINUTES Kalin Dunham MD [address] [place] [address] Phone: tel: fax: Referral ID Status Reason Start Date Expiration Date V isits Requested Visits Authorized [id number] Closed PCP Requested Referral 05/26/2025 05/25/2026 1 1 Referral ID Status Reason Start Date Expiration Date V isits Requested Visits Authorized [id number] Authorized 06/13/2025 09/11/2025 1 99 Reason Comments Benefits Investigation Reason Comments Care Coordination CYCLE 1/DAY 1 POST T REATMENT CALL Reason Comments Blood Draw (CVAD) Reason Comments Established Patient Specialty Diagnoses / Procedures Referred By Contac t Referred To Contact Hematology/Oncology / HEMATOLOGY/ONCOLOGY Diagnoses Malignant neoplasm of head of pancreas (HCC) OV/EARLY LABS/CHEMO 06/30* Procedures OFFICE/OUTPATIENT ESTABLISHED SF MDM 10 MIN OFFICE/OUTPATIENT ESTABLISHED LOW MDM 20 MIN OFFICE/OUTPATIENT ESTABLISHED MOD MDM 30 MIN OFFICE/OUTPATIENT ESTABLISHED HIGH MDM 40 MIN EST PATIENT W/CHEMO [place] [facility] [address] [place] [address] Phone: tel: Chapin Dawn MD [address] [place] [address] Phone: tel: Referral ID Status Reason Start Date Expiration Date V isits Requested Visits Authorized [id number] Authorized 06/28/2025 11/16/2025 99 99 Reason Comments Established Patient Specialty Diagnoses / Procedures Referred By Contac t Referred To Contact Hematology/Oncology / HEMATOLOGY/ONCOLOGY Diagnoses Malignant neoplasm of head of pancreas (HCC) OV/EARLY LABS/CHEMO 06/30* Procedures OFFICE/OUTPATIENT ESTABLISHED SF MDM 10 MIN OFFICE/OUTPATIENT ESTABLISHED LOW MDM 20 MIN OFFICE/OUTPATIENT ESTABLISHED MOD MDM 30 MIN OFFICE/OUTPATIENT ESTABLISHED HIGH MDM 40 MIN EST PATIENT W/CHEMO [place] [facility] [place] [place] [address] Phone: tel: Chapin Dawn MD [address] [place] [address] Phone: tel: Reason Comments Care Coordination Constipation Reason Comments [place] (unrecognized sect ion and content) No Status Records FoundNo Status Records FoundNo Status Records FoundNo Status Records Found INFORMATION SOURCE (unrecogn ized section and content) DATE CREATED AUTHOR 05/11/2025 [facility] DATE CREATED AUTHOR AUTHOR'S ORGANIZ ATION 05/29/2025 [facility] DATE CREATED AUTHOR AUTHOR'S ORGANIZ ATION 06/10/2025 [facility] DATE CREATED AUTHOR AUTHOR'S ORGANIZ ATION 08/04/2025 [place] FOR RECORDS PERTAINING TO PATIENTS WHO ARE [...] BE BASED ON THE PRIMARY CLINICAL RECORDS. [facility] [employer] [facility]. provides no warranty or guarantee of the accuracy or completeness of information in this document.
--- NOTE | 2025-08-06 17:28 | ED.VIS.GI ---
HPI HPI - GI History of Present Illness Chief Complaint: Constipation Informant: patient Narrative Narrative: Patient is a 55-year-old male with history of stage II pancreatic cancer currently undergoing chemotherapy (no history of any abdominal surgery) presenting for constipation. He states that he gets constipation when he is in the this cycle of his chemotherapy. He states he is only passing very small hard balls of stool for the past few days. He has rectal pressure and urgency that he feels that he needs to go. Denies any associated nausea or vomiting. Does get intermittent cramping abdominal pain. States he has tried magnesium citrate (which did work last time does not work at this time), prune juice with no relief. Denies any associated fever. No other complaints or concerns reported at this time. Denies any rectal bleeding but notes he does have a history of hemorrhoids. 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 Alcohol use History of steroid therapy Diabetes Psoriasis Psoriatic arthritis High cholesterol Back pain Chewing tobacco nicotine dependence Former smoker Leg cramps History of pain when walking Hypertension HNP (herniated nucleus pulposus), lumbar Spinal stenosis of lumbar region with radiculopathy Abnormal electrocardiogram Legionella pneumonia Acute respiratory failure with hypoxia Hyperglycemia Hyperlipidemia Hypertension Abnormal LFTs Severe sepsis Dehydration Hypokalemia Tobacco dependence Hypoxemia Elevated serum creatinine Psoriasis Community acquired pneumonia Home Medications ?Medication ?Instructions ?Recorded ?Last Taken ?Type acetaminophen 650 mg 650 mg PO Q8H PRN pain 01/08/23 Unknown History tablet,extended release (Tylenol 8 Hour) metformin 500 mg tablet,extended 500 mg PO QDAY 10/29/24 Unknown History release 24 hr empagliflozin 25 mg tablet 25 mg PO 08/06/25 Unknown History (Jardiance) glimepiride 1 mg tablet 1 mg PO BID 08/06/25 Unknown History [id number] cap PO 08/06/25 Unknown History 36,000-114,000-180,000 unit capsule,delay rel (Creon) ondansetron HCl 8 mg tablet 8 mg PO Q8H PRN PRN nausea 08/06/25 Unknown History Allergy/AdvReac Type Severity Reaction Status Date / Time No Known Allergies Allergy Verified 08/06/25 16:07 Surgical History History of back surgery Hx of LASIK Hx of tonsillectomy Hx of wisdom tooth extraction Social History Smoking Status: Former smoker Smokeless tobacco user: snuff how long ago did patient quit smokin alcohol intake: current alcohol intake frequency: a few times a week substance use type: does not use caffeine: Yes (coffee 2/wk) Type: carbonated beverages Number of servings: 1 ROS ROS ED Constitutional Constitutional ED: Denies chills or fever(s) Respiratory/Chest Respiratory/Chest: Denies cough Gastrointestinal Gastrointestinal: Reports abdominal pain and constipation; Denies melena, nausea or vomiting Genitourinary Genitourinary ED: Denies dysuria or urinary frequency Musculoskeletal Musculoskeletal: Denies arthralgias or myalgias Integumentary Denies rash Neurologic Neurologic: Denies weakness Hematologic/Lymphatic Hematologic/Lymphatic: Denies easy bleeding or easy bruising EXAM Physical Exam Const Vital Signs: 08/06/25 16:05 Temperature 98.3 F Temperature Source Oral Pulse Rate 99 Respiratory Rate 16 Blood Pressure 134/105 H Blood Pressure Mean 114 Pulse Ox 100 Oxygen Delivery Method Room Air Positive well nourished and well developed General Appearance ED: well developed and NAD; Negative for pallor HEENT Reports moist mucous membranes Eyes PERRL Neck supple Resp normal respiratory effort and clear to auscultation bilaterally Cardio regular rate and regular rhythm GI no masses GI Narrative: Chaperoned rectal exam performed. Patient has 1 nonthrombosed nonbleeding external hemorrhoid present. On digital rectal exam he has more proximal ball of stool that is still soft. Attempted to disimpact which he did not tolerate well and we got a small amount of nat colored stool out. No bleeding present. Inspection: abdominal distention Auscultation: normoactive bowel sounds Palpation: soft and tender RLQ and suprapubic; Negative for guarding or rigid Back/Spine no CVA tenderness Extremity full ROM Neuro moves all extremities Sensorium / Orientation: alert, oriented to person, oriented to place and oriented to time Motor Exam: Negative for general weakness Psych mental status grossly normal and thought process normal Skin no wounds General Skin Exam: Negative for jaundice or pallor MDM MDM MDM Narrative Medical decision making narrative: Patient evaluated constipation. He is passing small amounts of hard stool. Has a crampy abdominal pain associated for the need to have a bowel movement. No suspicion for obstruction is not have any associate nausea or vomiting. Abdomen overall is soft and nonperitoneal. Low suspicion for any internal rupture, volvulus or more severe pathology. Differential also includes fecal impaction. Rectal exam performed and there is stool in the rectal vault but is relatively soft. He does not tolerate attempts at further disimpaction. Soapsuds enema obtained and patient has a very large bowel movement. After this he is feeling much better. Abdomen is soft. He is asymptomatic now. We discharged him to follow-up with oncology. Given return precautions. Will continue his home bowel regiment. Imaging considered however I suspect this is more functional constipation/medication associated. Lower suspicion for obstruction. Discharge Plan Triage Chief Complaint: Constipation ED Provider: Anna Barnes Dx/Rx/DC Orders Clinical Impression: Constipation, Personal history of pancreatic cancer Instructions: ED Constipation (Adult) Prescriptions: No Action acetaminophen [Tylenol 8 Hour] 650 mg tablet extended release 650 mg PO Q8H PRN (Reason: pain) metformin 500 mg tablet extended release 24 hr 500 mg PO QDAY ondansetron HCl 8 mg tablet 8 mg PO Q8H PRN PRN (Reason: nausea) glimepiride 1 mg tablet 1 mg PO BID Creon 36,000-114,000- 180,000 unit capsule,delayed release(DR/EC) PO Jardiance 25 mg tablet 25 mg PO Primary Care Provider: Shashank Sheehan Referrals: Shashank Sheehan MD [Primary Care Provider, Family Practice] Print Language: Maltese Disposition Disposition: Home, Self Care
[2025-08-06 18:35] VITALS: BP 134/71; PULSE 67; RESP 18; TEMP 36.6; O2SAT 100
== END 2025-08-06 18:35 | disposition home or self-care (01) ==
PROVIDERS: Emergency Provider Emergency Medicine; PCP Family Medicine; Visit Provider Emergency Medicine
DX: K59.00 Constipation, unspecified (principal); E11.9 Type 2 diabetes mellitus without complications; I10 Essential (primary) hypertension; Z87.891 Personal history of nicotine dependence; Z92.21 Personal history of antineoplastic chemotherapy; Z85.07 Personal history of malignant neoplasm of pancreas; E78.00 Pure hypercholesterolemia, unspecified; Z79.84 Long term (current) use of oral hypoglycemic drugs
CPT/HCPCS: 99284